=== PATIENT | male | born 1965 | race African-American/Black ===

== ENCOUNTER 2017-12-11 20:42 | Emergency (ER) | payer SELFPAY ==
--- NOTE | 2017-12-11 21:29 | ER ---
Nurse's Notes [facility] Name: Nadir Johns Age: 52 yrs Sex: Male : 1965 Arrival Date: 12/11/2017 Time: 20:43 Bed 23 Private MD: Diagnosis: Tinea pedis Presentation: 12/11 20:48 Presenting complaint: Patient states: Wound to inner left 5 th digit for 1 yr, recently aj became more painful. Transition of care: patient was not received from another setting of care. Onset of symptoms was 2016. Risk Assessment: Do you want to hurt yourself or someone else? Patient reports no desire to harm self or others. Initial Sepsis Screen: Does the patient meet any 2 criteria? No. Patient's initial sepsis screen is negative. Does the patient have a suspected source of infection? No. Patient's initial sepsis screen is negative. Care prior to arrival: None. 20:48 Method Of Arrival: Ambulatory aj 20:48 Acuity: JARON 3 aj Triage Assessment: 20:50 General: Appears in no apparent distress. comfortable, Behavior is calm, cooperative, aj appropriate for age. Pain: Complains of pain in plantar aspect of left fourth toe and plantar aspect of left fifth toe. Neuro: Level of Consciousness is awake, alert, obeys commands, Oriented to person, place, time, situation, Appropriate for age. Respiratory: Airway is patent Respiratory effort is even, unlabored, Respiratory pattern is regular, symmetrical. Derm: Skin is intact, is healthy with good turgor, Skin is pink, warm \T\ dry. normal, Wound noted plantar aspect of left fourth toe and plantar aspect of left fifth toe Wound is white leathery appearance in between left 4 th and 5 th toes. Historical: - Allergies: 20:50 No Known Allergies; aj - PMHx: 20:50 sciatica; Hypertension; aj - PSHx: 20:50 Hernia repair; aj - Immunization history:: Last tetanus immunization: Last tetanus immunization: unknown. - Social history:: Social history: Smoking status: Patient uses tobacco products, smokes one-half pack cigarettes per day. - Ebola Screening: : Patient negative for fever greater than or equal to 101.5 degrees Fahrenheit, and additional compatible Ebola Virus Disease symptoms Patient denies exposure to infectious person Patient denies travel to an Ebola-affected area in the 21 days before illness onset No symptoms or risks identified at this time. Screenin:03 Abuse screen: Denies threats or abuse. Denies injuries from another. Nutritional rv screening: No deficits noted. Tuberculosis screening: No symptoms or risk factors identified. Fall Risk None identified. Assessment: 21:02 General: Appears in no apparent distress. uncomfortable, Behavior is calm, cooperative. rv Pain: Complains of pain in plantar aspect of left fifth toe. Neuro: Level of Consciousness is awake, alert, obeys commands, Oriented to person, place, time, situation. Cardiovascular: Capillary refill < 3 seconds. Respiratory: Airway is patent. GI: No signs and/or symptoms were reported involving the gastrointestinal system. : No signs and/or symptoms were reported regarding the genitourinary system. EENT: No signs and/or symptoms were reported regarding the EENT system. Derm: Skin is intact. Vital Signs: 20:50 BP 171 / 87; Pulse 103; Resp 19; Temp 97.8; Pulse Ox 97% on R/A; Weight 97.52 kg; aj Height 5 ft. 10 in. (177.80 cm); 20:50 Body Mass Index 30.85 (97.52 kg, 177.80 cm) aj ED Course: 20:43 Patient arrived in ED. ds1 20:49 Triage completed. aj 20:50 Arm band placed on left wrist. Patient placed in an exam room. aj 21:03 Patient has correct armband on for positive identification. Placed in gown. Bed in low rv position. Call light in reach. Side rails up X 1. Pulse ox on. NIBP on. 21:10 Al[facility] Hilliard [facility]C [facility]. snw 21:10 Dragan Zheng MD is Attending Physician. snw 21:38 No provider procedures requiring assistance completed. Patient did not have IV access rv during this emergency room visit. Administered Medications: 21:38 Drug: DiFLUcan 150 mg Route: PO; rv 21:38 Follow up: Response: No adverse reaction rv 21:38 Drug: Tylenol #3 (300 mg-30 mg) 1 tablet Route: PO; rv 21:38 Follow up: Response: No adverse reaction rv Outcome: 21:28 Discharge ordered by . snw 21:38 Discharged to home ambulatory. rv 21:38 Condition: good 21:38 Discharge instructions given to patient, Instructed on discharge instructions, follow up and referral plans. medication usage, Demonstrated understanding of instructions, follow-up care, medications, Prescriptions given X 1. 21:39 Patient left the ED. rv Signatures: Wilma eTlles, RN RN Alix Coronado, SPOUTER-C SPOUTER-Csnw Tata Fine ds1 Jose Soriano RN RN rv
--- NOTE | 2017-12-11 21:29 | EDPHYS ---
Physician Documentation [facility] Name: Nadir Johns Age: 52 yrs Sex: Male : 1965 Arrival Date: 12/11/2017 Time: 20:43 Bed 23 Private MD: ED Physician Dragan Zheng HPI: 12/11 21:53 This 52 yrs old Black Male presents to ER via Ambulatory with complaints of Toe Pain. snw 21:53 Onset: The symptoms/episode began/occurred gradually, 1 year(s) ago, and became worse 3 snw day(s) ago. Associated signs and symptoms: The patient has no apparent associated signs or symptoms. Modifying factors: The patient symptoms are alleviated by nothing. It is unknown whether or not the patient has had similar symptoms in the past. It is unknown whether or not the patient has recently seen a physician. Historical: - Allergies: 20:50 No Known Allergies; aj - PMHx: 20:50 sciatica; Hypertension; aj - PSHx: 20:50 Hernia repair; aj - Immunization history:: Last tetanus immunization: Last tetanus immunization: unknown. - Social history:: Social history: Smoking status: Patient uses tobacco products, smokes one-half pack cigarettes per day. - Ebola Screening: : Patient negative for fever greater than or equal to 101.5 degrees Fahrenheit, and additional compatible Ebola Virus Disease symptoms Patient denies exposure to infectious person Patient denies travel to an Ebola-affected area in the 21 days before illness onset No symptoms or risks identified at this time. ROS: 21:52 Constitutional: Negative for fever, chills, and weight loss, Eyes: Negative for injury, snw pain, redness, and discharge, ENT: Negative for injury, pain, and discharge, Neck: Negative for injury, pain, and swelling, Cardiovascular: Negative for chest pain, palpitations, and edema, Respiratory: Negative for shortness of breath, cough, wheezing, and pleuritic chest pain, Abdomen/GI: Negative for abdominal pain, nausea, vomiting, diarrhea, and constipation, Back: Negative for injury and pain, : Negative for injury, bleeding, discharge, and swelling, Skin: Negative for injury, rash, and discoloration, Neuro: Negative for headache, weakness, numbness, tingling, and seizure. 21:52 MS/extremity: Positive for pain, swelling, of the left fifth toe. Exam: 21:50 Constitutional: This is a well developed, well nourished patient who is awake, alert, snw and in no acute distress. Head/Face: Normocephalic, atraumatic. Eyes: Pupils equal round and reactive to light, extra-ocular motions intact. Lids and lashes normal. Conjunctiva and sclera are non-icteric and not injected. Cornea within normal limits. Periorbital areas with no swelling, redness, or edema. ENT: Nares patent. No nasal discharge, no septal abnormalities noted. Tympanic membranes are normal and external auditory canals are clear. Oropharynx with no redness, swelling, or masses, exudates, or evidence of obstruction, uvula midline. Mucous membranes moist. Neck: Trachea midline, no thyromegaly or masses palpated, and no cervical lymphadenopathy. Supple, full range of motion without nuchal rigidity, or vertebral point tenderness. No Meningismus. Chest/axilla: Normal chest wall appearance and motion. Nontender with no deformity. No lesions are appreciated. Cardiovascular: Regular rate and rhythm with a normal S1 and S2. No gallops, murmurs, or rubs. Normal PMI, no JVD. No pulse deficits. Respiratory: Lungs have equal breath sounds bilaterally, clear to auscultation and percussion. No rales, rhonchi or wheezes noted. No increased work of breathing, no retractions or nasal flaring. Abdomen/GI: Soft, non-tender, with normal bowel sounds. No distension or tympany. No guarding or rebound. No evidence of tenderness throughout. Back: No spinal tenderness. No costovertebral tenderness. Full range of motion. MS/ Extremity: Pulses equal, no cyanosis. Neurovascular intact. Full, normal range of motion. Neuro: Awake and alert, GCS 15, oriented to person, place, time, and situation. Cranial nerves II-XII grossly intact. Motor strength 5/5 in all extremities. Sensory grossly intact. Cerebellar exam normal. Normal gait. Psych: Awake, alert, with orientation to person, place and time. Behavior, mood, and affect are within normal limits. 21:50 Skin: Appearance: normal except for affected area, left 4th-5th intertriginous area with separation of long duration with white thick scaly skin. Vital Signs: 20:50 BP 171 / 87; Pulse 103; Resp 19; Temp 97.8; Pulse Ox 97% on R/A; Weight 97.52 kg; aj Height 5 ft. 10 in. (177.80 cm); 20:50 Body Mass Index 30.85 (97.52 kg, 177.80 cm) aj MDM: 21:28 Patient medically screened. snw 21:52 Data reviewed: vital signs, nurses notes. Data interpreted: Pulse oximetry: on room air snw is 97 %. Interpretation: normal. Counseling: I had a detailed discussion with the patient and/or guardian regarding: the historical points, exam findings, and any diagnostic results supporting the discharge/admit diagnosis, the need for outpatient follow up, to return to the emergency department if symptoms worsen or persist or if there are any questions or concerns that arise at home. Special discussion: Based on the history and exam findings, there is no indication for further emergent testing or inpatient evaluation. I discussed with the patient/guardian the need to see the plant electrician for further evaluation of the symptoms. I discussed with the patient/guardian the need to see the infectious disease specialist for further evaluation of the symptoms. I discussed with the patient/guardian the need to see the primary care provider for further evaluation of the symptoms. (HIV +). Administered Medications: 21:38 Drug: DiFLUcan 150 mg Route: PO; rv 21:38 Follow up: Response: No adverse reaction rv 21:38 Drug: Tylenol #3 (300 mg-30 mg) 1 tablet Route: PO; rv 21:38 Follow up: Response: No adverse reaction rv Disposition: 12/12 03:13 Co-signature as Attending Physician, Dragan Zheng MD available for consultation at ps1 all times. . Disposition: 12/11/17 21:28 Discharged to Home. Impression: Tinea pedis. - Condition is Stable. - Discharge Instructions: Athlete's Foot. - Prescriptions for Fluconazole 150 mg Oral Tablet - take 1 tablet by ORAL route once daily Take in one week (12/18/17); 30 tablet. - Medication Reconciliation Form, Thank You Letter, Antibiotic Education, Prescription Opioid Use form. - Follow up: Private Physician; When: 2 - 3 days; Reason: Recheck today's complaints, Continuance of care, Re-evaluation by your physician. Follow up: Emergency Department; When: As needed; Reason: Worsening of condition. Signatures: Wilma Telles, RN RN Alix Coronado, STEWARD/STEWARDESS BATH-C STEWARD/STEWARDESS BATH-Csnw Dragan Zheng MD MD ps1 Jose Soriano, RN RN rv Corrections: (The following items were deleted from the chart) 12/11 21:39 21:28 12/11/2017 21:28 Discharged to Home. Impression: Tinea pedis. Condition is rv Stable. Forms are Medication Reconciliation Form, Thank You Letter, Antibiotic Education, Prescription Opioid Use. Follow up: Private Physician; When: 2 - 3 days; Reason: Recheck today's complaints, Continuance of care, Re-evaluation by your physician. Follow up: Emergency Department; When: As needed; Reason: Worsening of condition. [facility] 21:39 21:39 12/11/2017 21:28 Discharged to Home. Impression: Tinea pedis. Condition is rv Stable. Discharge Instructions: Athlete's Foot. Prescriptions for Fluconazole 150 mg Oral Tablet - take 1 tablet by ORAL route once daily Take in one week (12/18/17); 30 tablet. and Forms are Medication Reconciliation Form, Thank You Letter, Antibiotic Education, Prescription Opioid Use. Follow up: Private Physician; When: 2 - 3 days; Reason: Recheck today's complaints, Continuance of care, Re-evaluation by your physician. Follow up: Emergency Department; When: As needed; Reason: Worsening of condition. rv
[2017-12-11] MEDS ORDERED: CODEINE 30MG/APAP 300MG TAB ONE (21:43)
[2017-12-11] MEDS ORDERED: FLUCONAZOLE 100 MG TAB ONE (21:43)
== END 2017-12-11 21:39 | disposition home or self-care (01) ==
LOC: ER 20:42
DX: B35.3 Tinea pedis (principal); I10 Essential (primary) hypertension; Z72.0 Tobacco use
CPT/HCPCS: 99283

== ENCOUNTER 2019-09-05 05:49 | Emergency (ER) | payer SELFPAY ==
--- OUTSIDE RECORDS SUMMARY | 2019-09-05 05:51 | XMS REPORT | Continuity of Care Document ---
:1965 Author Organization [facility] t Address [address] [place] [address] Care Team Providers Name Role Phone Shad BEARD Attending Clinician Andrew RN, L Attending Clinician Unavailable Colt HERNANDEZ L Attending Clinician Unavailable Amisha SHIPMAN, L Attending Clinician Unavailable Ady RN, M Attending Clinician Unavailable Problems This patient has no known problems. Allergies, Adverse Reactions, Alerts This patient has no known allergies or adverse reactions. Medications This patient has no known medications. Procedures This patient has no known procedures. Encounters Start End Encounter Admission Attending Care Care Encounter Source Date/Time Date/Time Type Type Clinicians Facility Department ID 2019-08-17 2019-08-[address]2.840.114 [id number] 07:23:13 07:53:13 ne Visit [facility] [id number] [facility] [id number] 2019-08-17 2019-08-[address]840.114 [id number] 00:00:00 00:00:00 [facility] [id number] [facility] [id number] [id number] 2019-08-17 2019-08-[address]840.114 [id number] 00:00:00 00:00:00 [facility] [id number] [facility] [id number] [id number] 2019-08-16 2019-08-16 BRITTANI Elizalde [id number] 00:00:00 00:00:00 [facility] [id number] [facility] [id number] [id number] 2019-08-16 2019-08-16 Marco Antonio Gregory [facility] [id number] 00:00:00 00:00:00 [facility] [id number] [facility] [id number] [id number] 2019-08-16 2019-08-16 Marco Antonio Gregory [facility] [id number] 00:00:00 00:00:00 Management [facility] [id number] [facility] [id number] [id number] 2019-08-13 2019-08-13 BRITTANI Elizalde [id number] 00:00:00 00:00:00 Management [facility] [id number] [facility] [id number] [id number] 2019-08-12 2019-08-12 BRITTANI Elizalde [id number] 00:00:00 00:00:00 Management [facility] [id number] [facility] 4.2.7.2.686 [id number] 2019-08-04 2019-08-04 BRITTANI Elizalde [id number] 00:00:00 00:00:00 Management [facility] [id number] [facility] 4.2.7.2.686 [id number] 082019-07-27 2019-07-27 BRITTANI Elizalde [id number] 00:00:00 00:00:00 Management [facility] [id number] [facility] 4.2.7.2.686 [id number] 082019-07-26 2019-07-26 BRITTANI Elizalde [id number] 00:00:00 00:00:00 Management Nano Blakely [facility] [id number] [facility] 4.2.7.2.686 [id number] 2019-03-18 2019-03-[address].840.114 [id number] 00:00:00 00:00:00 Oral L [facility] [id number] [facility] 4.2.7.2.686 [id number] 2019-03-15 2019-03-15 Marco Antonio [address].840.114 [id number] 00:00:00 00:00:00 Management Zahira Lepe [facility] [id number] [facility] [id number] [id number] 2018-10-22 2018-10-22 [address].840.114 [id number] 00:00:00 00:00:00 [facility] [id number] [facility] [id number] [id number] 2018-10-13 2018-10-[address]114 [id number] 00:00:00 00:00:00 [facility] [id number] [facility] 4.2.7.2.686 [id number] Results This patient has no known results.
--- OUTSIDE RECORDS SUMMARY | 2019-09-05 05:52 | XMS REPORT | Summary of Care ---
:1965 Author Organization [address] [address] Care Team Providers Name Role Phone Unit, 2 Primary Care Provider Reason for Visit Reason Comments Case Management attempted to contact for re-enrollment; unable to reach Encounter Details Date Type Department Care Team Description 07/27/2019 Case Management [facility] Nano Gregory MA Case Management [address] (attempted to Diseases- [facility] contact for RW [facility] [place] [address] re-enrollment; [address] unable to re ach) [address] [place] [address] Allergies No Known Allergiesdocumented as of this encounter (statuses as of 07/28/2019) Medications Medication Sig Dispensed Refills Start Date End Date Status hydroCHLOROthiazide 25 mg Take 1 tablet 30 tablet 11 10/15/2017 Active tablet by mouth daily. sulfamethoxazole-trimetho Take 1 tablet 100 tablet 1 8 Active prim (BACTRIM DS) 800-160 by mouth mg per tablet daily. sofosbuvir-velpatasvir Take 1 tablet 28 tablet 2 10/15/2017 Active (EPCLUSA) 400-100 mg by mouth daily. ([place] ADAP approval pending) SULFAMETHOXAZOLE-TRIMETHO TAKE 1 TABLET 30 tablet 5 04/24/2018 Active PRIM 800-160 mg per BY MOUTH tablet DAILY. AMLODIPINE 10 mg tablet TAKE ONE 30 tablet 0 09/14/2018 Active TABLET BY MOUTH DAILY. dolutegravir 50 mg tablet Take 1 tablet 30 tablet 3 12/24/2018 Active by mouth daily. emtricitabine-tenofovir Take 1 tablet 30 tablet 3 12/24/2018 Active alafen tablet by mouth daily. documented as of this encounter (statuses as of 07/28/2019) Active Problems Problem Noted Date AIDS 01/20/2017 HTN (hypertension) 01/20/2017 documented as of this encounter (statuses as of 07/28/2019) Immunizations Name Administration Dates Next Due Influenza Virus Vaccine Quad IM 3+ YRS 01/20/2017 Pneumococcal 13 Conjugate, PCV13 (Prevnar 13) 06/20/2017 Pneumococcal Polysaccharide, PPSV23 (PNEUMOVAX) 01/19/2018 TDAP (ADACEL) VACCINE 06/20/2017 documented as of this encounter Social History Tobacco Use Types Packs/Day Years Used Date Current Every Day Smoker Cigarettes 0.2 5 Basim t: 06/12/2009 Smokeless Tobacco: Never Used Comments: 1 pack per week Alcohol Use Drinks/Week oz/Week Comments Yes Occasionally, on ce a month Sex Assigned at Date Recorded Not on file Job Start Date Occupation Industry Not on file Not on file Not on file Travel History Travel Start Travel End No recent travel history available. documented as of this encounter Last Filed Vital Signs Not on filedocumented in this encounter Progress Notes Nano Gregory MA - 07/27/2019 11:59 PM CDTPatient called returned my call to complete re-enrollment in the [employer] program, however he called my clinic office, instead of my cell number as I had requested yesterday. Called patient again and left a detailed message explaining that I will not be in my clinic office until . Once again asked patient to call my cell number to complete re-enrollment in program. A total of 15 minutes was taken to complete this encounter for a non-[employer] program patient. documented in this encounter Plan of Treatment Health Maintenance Due Date Last Done Comments COLONOSCOPY 2013 Zoster Recombinant Vaccine (SHINGRIX) (1 2013 of 2) LUNG CANCER SCREEN: Recommended for age 1202/05/2018 55-80 with 30 + pack year history Depression Screening 10/06/2019 10/05/2018 INFLUENZA VACCINE (Season Ended) 2019 01/20/2017 PNEUMOCOCCAL 0-64 YEARS COMBINED SERIES (3 01/19/202301/19, 06/20/2017 of 3 - PPSV23) DTaP,Tdap,and Td Vaccines (2 - Td) 06/21/2027 06/20/2017 HEPATITIS C (HCV) SCREEN Completed 06/20/2017 documented as of this encounter Results Not on filedocumented in this encounter Insurance Payer Benefit Plan / Subscriber ID Effective Dates Phone Addre ss Type Group [facility] Effective for all [place] dates documented as of this encounter
--- OUTSIDE RECORDS SUMMARY | 2019-09-05 05:52 | XMS REPORT | Summary of Care ---
:1965 Author Organization [address] [address] Care Team Providers Name Role Phone Unit, 2 Primary Care Provider Reason for Visit Reason Comments Case Management Completed re-enrollment in R [facility]erson program & med adherence Encounter Details Date Type Department Care Team Description 08/13/2019 Case Management [facility] Nano Gregory MA Case Management [address] (Completed Diseases- [facility] [place] [address] [facility] program & [address], [address] [place] [phone] Allergies No Known Allergiesdocumented as of this encounter (statuses as of 08/16/2019) Medications Medication Sig Dispensed Refills Start Date End Date Status hydroCHLOROthiazide 25 mg Take 1 tablet 30 tablet 11 10/15/2017 Active tablet by mouth daily. sulfamethoxazole-trimetho Take 1 tablet 100 tablet 1 8 Active prim (BACTRIM DS) 800-160 by mouth mg per tablet daily. sofosbuvir-velpatasvir Take 1 tablet 28 tablet 2 10/15/2017 Active (EPCLUSA) 400-100 mg by mouth daily. ([place] ADAP approval pending) SULFAMETHOXAZOLE-TRIMETHO TAKE 1 TABLET [...] as of this encounter (statuses as of 08/16/2019) Active Problems Problem Noted Date AIDS 01/20/2017 HTN (hypertension) 01/20/2017 documented as of this encounter (statuses as of 08/16/2019) Immunizations Name Administration Dates Next Due Influenza [...] encounter Progress Notes Nano Gregory MA - 08/13/2019 11:59 PM CDTReturned client's call to complete re-enrollment in the Ruben White program. Most recent message client left on my office phone contained a call back number that was different than the one shown in [employer]. Client finally answered, verified that this is now his correct phone number. Changed primary contact number in PowerDMS to [phone]. Discussed supporting documentation needed to complete standard re-enrollment in the Ruben White program, and the fact that program staff are working offsite due to the current national health crisis. Client has no way to provide documents remotely, offered emergency re-enrollment as an alternative, no documentation required. Client provided updated demographic & income information, as well as marital status & household size. Discussed information contained in Ruben White program consents &acknowledgement forms, client is aware that his signature may be required once [id number] clinic visits resume. Completed emergency enrollment form based on information provided by phone. Client hasno medical case management needs at this time, updated acuity = 9, primarily due to falling out of care frequently & taking extended drug holidays. Client has been non-compliant with case management attempts previously, only needs occasional assistance with transportation and other community resources. Client will be re-enrolled as "open" case management status. Reminded client that he will need to complete annual re-enrollment in the Ruben White program in January 2020, he will received a reminder call, as well as a letter at least 30 day prior to the due date. Discussed medication adherence, client states he has been off medication for several months due to not completing required THMP/ADAP updates. He is now ready to begin treatment again. Advised that I would contact his clinic provider to verify medication regimen, then new THMP/ADAP application will besubmitted. Client is aware of THMP's current 3 week processing time, discussed temporary assistancethrough pharmaceutical manufacturers, or ACCT for immediate access to medication. Client's preferred pharmacy is [facility]. Also advised client that he missed his previously scheduled clinic appointment, a follow-up will be requested, although it is undetermined if this will be a telemedicine visit or [id number]. Informedclient I would contact him when further information is obtained from clinic provider. A total of 75minutes was taken to complete this encounter. documented in this encounter Plan of Treatment Health Maintenance Due Date Last Done Comments COLONOSCOPY 2013 Zoster Recombinant Vaccine (SHINGRIX) (1 2013 of 2) LUNG CANCER SCREEN: Recommended for age 1202/05/2018 55-80 with 30 + pack year history Depression Screening 10/06/2019 10/05/2018 INFLUENZA VACCINE (#1) 2019 01/20/2017 PNEUMOCOCCAL 0-64 YEARS COMBINED SERIES (3 01/19/202301/19, 06/20/2017 of 3 - PPSV23) DTaP,Tdap,and Td Vaccines (2 - Td) 06/21/2027 06/20/2017 HEPATITIS C (HCV) SCREEN Completed 06/20/2017 documented as of this encounter Results Not on filedocumented in this encounter Insurance Payer Benefit Plan / Subscriber ID Effective Dates Phone Addre ss Type Group [facility] PA[place]OR [facility] Effective for all [place], [place] dates documented as of this encounter
--- OUTSIDE RECORDS SUMMARY | 2019-09-05 05:52 | XMS REPORT | Summary of Care ---
:1965 Author Organization [facility] - [address] [address] Care Team Providers Name Role Phone Unit, 2 Primary Care Provider Reason for Visit Reason Comments Case Management attempted to return client's call; unable to reach Encounter Details Date Type Department Care Team Description 08/12/2019 Case Management [facility] Nano Gregory MA Case Management [address] (attempted to return [facility] [address] client's call; [place] [address] unable to reach) [address] [facility], 6th [place] [phone] Allergies No Known Allergiesdocumented as of this encounter (statuses as of 08/13/2019) Medications Medication Sig Dispensed Refills Start Date End Date Status hydroCHLOROthiazide 25 mg Take 1 tablet 30 tablet 11 10/15/2017 Active tablet by mouth daily. sulfamethoxazole-trimetho Take 1 tablet 100 tablet 1 8 Active prim (BACTRIM DS) 800-160 by mouth mg per tablet daily. sofosbuvir-velpatasvir Take 1 tablet 28 tablet 2 10/15/2017 Active (EPCLUSA) 400-100 mg by mouth daily. ([place] ADAP approval pending) SULFAMETHOXAZOLE-TRIMETHO TAKE 1 TABLET [...] as of this encounter (statuses as of 08/13/2019) Active Problems Problem Noted Date AIDS 01/20/2017 HTN (hypertension) 01/20/2017 documented as of this encounter (statuses as of 08/13/2019) Immunizations Name Administration Dates Next Due Influenza [...] encounter Progress Notes Nano Gregory MA - 08/12/2019 11:59 PM CDTClient has left multiple voice messages on my office phone the past 2 days, however he does not leave a good call-back number for me to return his call. Attempted to call the number in [facility], this number now belongs to someone else. Reviewed [facility] for possible alternate phone numbers on eligibility documents, however these all show the same phone number as the one in [facility]. Sent message to other Ruben White program staff to please obtain a good phone number for this client if he happens to contact anyto them. Client is now out of compliance with requirements of the Ruben White program since 02/10/2019 due to not completing annual re-certification by the 02/10/2020 deadline. A total of 15 minutes was taken to complete this encounter. documented [...] Effective Dates Phone Addre ss Type Group [facility] PA[facility]OR [facility] PLAN Effective for all [place], [place] dates documented as of this encounter
--- OUTSIDE RECORDS SUMMARY | 2019-09-05 05:52 | XMS REPORT | Summary of Care ---
:1965 Author Organization [address] [address] Care Team Providers Name Role Phone Unit, 2 Primary Care Provider Reason for Visit Reason Comments Case Management attempted to contact for re-enrollment; unable to reach Encounter Details Date Type Department Care Team Description 08/04/2019 Case Management [facility] Nano Gregory MA Case Management [address] (attempted to Diseases- [facility] contact for [facility] [place] [address] re-enrollment; [address] unable to re ach) [address], [address]th [place] [address] Allergies No Known Allergiesdocumented as of this encounter (statuses as of 08/04/2019) Medications Medication Sig Dispensed Refills Start Date End Date Status hydroCHLOROthiazide 25 mg Take 1 tablet 30 tablet 11 10/15/2017 Active tablet by mouth daily. sulfamethoxazole-trimetho Take 1 tablet 100 tablet 1 8 Active prim (BACTRIM DS) 800-160 by mouth mg per tablet daily. sofosbuvir-velpatasvir Take 1 tablet 28 tablet 2 10/15/2017 Active (EPCLUSA) 400-100 mg by mouth daily. ([place] ADAP approval pending) SULFAMETHOXAZOLE-TRIMETHO TAKE 1 TABLET [...] as of this encounter (statuses as of 08/04/2019) Active Problems Problem Noted Date AIDS 01/20/2017 HTN (hypertension) 01/20/2017 documented as of this encounter (statuses as of 08/04/2019) Immunizations Name Administration Dates Next Due Influenza [...] encounter Progress Notes Nano Gregory MA - 08/04/2019 1:05 PM CDTAttempted to contact client for re- enrollment in the Ruben White program. Called the number on file,a child answered & told me that this is a wrong number. No additional numbers on file, final attempt to contact patient. A total of 15 minutes was taken [...] Effective Dates Phone Addre ss Type Group [facility] PAYOR [facility] PLAN Effective for all [place], [place] dates documented as of this encounter
--- OUTSIDE RECORDS SUMMARY | 2019-09-05 05:52 | XMS REPORT | Summary of Care ---
:1965 Author Organization [address] [address] Care Team Providers Name Role Phone Unit, 2 Primary Care Provider Reason for Visit Reason Comments Case Management attempted to return patient' s phone call; unable to reach Encounter Details Date Type Department Care Team Description 07/26/2019 Case Management [facility] Nano Gregory MA Case Management [address] (attempted to return [facility] [place] [address] call; unable to [address], [address] [place] [address] Allergies No Known Allergiesdocumented as of this encounter (statuses as of 07/26/2019) Medications Medication Sig Dispensed Refills Start Date End Date Status hydroCHLOROthiazide 25 mg Take 1 tablet 30 tablet 11 10/15/2017 Active tablet by mouth daily. sulfamethoxazole-trimetho Take 1 tablet 100 tablet 1 8 Active prim (BACTRIM DS) 800-160 by mouth mg per tablet daily. sofosbuvir-velpatasvir Take 1 tablet 28 tablet 2 10/15/2017 Active (EPCLUSA) 400-100 mg by mouth daily. ([place] ADAP approval pending) SULFAMETHOXAZOLE-TRIMETHO TAKE 1 TABLET [...] as of this encounter (statuses as of 07/26/2019) Active Problems Problem Noted Date AIDS 01/20/2017 HTN (hypertension) 01/20/2017 documented as of this encounter (statuses as of 07/26/2019) Immunizations Name Administration Dates Next Due Influenza [...] filedocumented in this encounter Progress Notes Nano rGegory MA - 07/26/2019 3:49 PM CDTPatient left a message on my office phone that he is out of medicine and would like to re-enroll in the Ruben White program. He has been out of compliance with requirements of the program since 02/10/2019, due to not completing annual re-enrollment by 02/09/2019. His Ruben White program case file was referred to machinist supervisor for account closure after he missed a clinic appointment in March 2019. Patient will now require complete re-enrollment in Ruben White program if he needs funding for clinic healthcare services. Called the phone number that patient provided in his message, no answer, left message with my contact information for a return call. A total of 15 minutes was taken [...] Effective Dates Phone Addre ss Type Group [facility] [place] [facility] [place] Effective for all [place], [place] dates documented as of this encounter
--- OUTSIDE RECORDS SUMMARY | 2019-09-05 05:53 | XMS REPORT | Summary of Care ---
:1965 Author Organization [address] [address] Care Team Providers Name Role Phone Unit, 2 Primary Care Provider Reason for Visit Reason Comments Rx Concern/Question New THMP/ADAP application up loaded into [employer] for processing Encounter Details Date Type Department Care Team Description 08/16/2019 Case Management [facility] Nano Gregory MA Rx Concern/Question Infectious [address] [place] [address] (New THMP/ADA P Diseases- [address] [place] [address] into Specpage for [address]) [address], [address] [place] [address] Allergies No Known Allergiesdocumented as [...] Active (EPCLUSA) 400-100 mg by mouth daily. ([place] ADAP approval pending) SULFAMETHOXAZOLE-TRIMETHO TAKE 1 TABLET [...] encounter Progress Notes Nano Gregory MA - 08/16/2019 11:47 AM CDTSpoke with clinic provider regarding medication regimen upon client's return to care. Provider advised that regimen will continue as Tiivicay & Descovy at this time. Prepared, scanned & uploaded THMP/ADAP emergency application into [employer] for processing. Updated spreadsheet & notified [facility] of upload. A copy of the upload notice has been filed in client's [facility]na case management chart. A total of 60 minutes was taken to complete this encounter. [...] Effective Dates Phone Addre ss Type Group [facility] PAYOR [facility] PLAN Effective for all [place], [place] dates documented as of this encounter
--- OUTSIDE RECORDS SUMMARY | 2019-09-05 05:53 | XMS REPORT | Summary of Care ---
:1965 Author Organization [facility] Address [address] [place] [address] Care Team Providers Name Role Phone Unit, 2 Primary Care Provider Reason for Visit Reason Comments Case Management requested clinic appointment Encounter Details Date Type Department Care Team Description 08/16/2019 Case Management [facility] Nano Gregory MA Case Management [address] (requested cl inic Diseases- [facility] appointment) [place] [address] [place] [address], 6th [place] [phone] Allergies No Known Allergiesdocumented as of this [...] Active (EPCLUSA) 400-100 mg by mouth daily. ([place] ADAP approval pending) SULFAMETHOXAZOLE-TRIMETHO TAKE 1 TABLET [...] Progress Notes Nano Gregory MA - 08/16/2019 3:27 PM CDTSpoke with clinic provider regarding client's return to care & asked if client needs to be seen f renay-to-face. Provider informed me that client is appropriate for telemedicine visit at this time, future labs may be ordered. Sent request to infectious disease scheduling department for next available telemedicine visit. Called client and advised that he may receive a call from the scheduling department as well to make arrangements for his visit. Provided my contact information should he need further assistance. A total of 30 minutes was taken to complete this encounter. [...] Effective Dates Phone Addre ss Type Group [facility] PA[place]OR [facility] [place] [place] Effective for all [place], [place] dates documented as of this encounter
--- OUTSIDE RECORDS SUMMARY | 2019-09-05 05:53 | XMS REPORT | Summary of Care ---
:1965 Author Organization [address] [address] Care Team Providers Name Role Phone Unit, 2 Primary Care Provider Reason for Visit Reason Comments Rx Concern/Question Obtained temporary [place] [employer] assistance for Descovy & Tivicay Encounter Details Date Type Department Care Team Description 08/16/2019 Case Management [facility] Nano Gregory MA Rx Concern/Question Infectious [address] [place] [address] (Obtained tem porary DiseasesFormerly [facility] [place] [address] assistance for [address], [address] [place] [address] Allergies No Known Allergiesdocumented as [...] Active (EPCLUSA) 400-100 mg by mouth daily. ([place] ADAP approval pending) SULFAMETHOXAZOLE-TRIMETHO TAKE 1 TABLET [...] filedocumented in this encounter Progress Notes Nano Gregory, DAVID - 08/16/2019 3:10 PM CDTSpoke with client regarding emergency temporary funding for Descovy & Tivicay. New THMP/ADAP application is in process, however client has been without medication for several months. Advised that I would attempt to obtain immediate for a 30-day supply of each medication through [place] (Descovy) and [employer] (Tivicay) patient assistance programs. Called [facility], spoke with Hailey, provided current demographic & income information, as well asprovider information. Patient was approved for immediate access to a 30-day supply of Descovy from 08/16/2019 through 09/15/2019. Should patient need assistance beyond 30 days, he will need to submit a complete application, along with all supporting documentation. Hailey provided the following billing information for emergency patient assistance: ID#[id number], BIN#[id number], PCN#[id number], GRP#[id number]. Called [employer], spoke with Chioma, provided current demographic & income information, as well as provider information. Patient was approved for immediate access to a 30-day supply of Tivicay from 08/16/2019 through 09/15/2019. Should patient need assistance beyond 30 days, he will need to submit a complete application, along with all supporting documentation. Chioma provided the following billing information for emergency patient assistance: ID#[id number], BIN#[id number],PCN#[id number], GRP#[id number]. Called [facility], spoke with Riddhi, verified that pharmacy has current refills of Descovy & Tivicay on file. Provided all pertinent billing information for both [place] & [employer] patient assistance programs. Riddhi processed both refills while I was on the phone and confirmedthat client may receive both medications at no cost. Riddhi will contact the client to arrange for delivery. Called client, advised of approvals for temporary medication assistance, provided contact information for both the pharmacy, and myself, should he need further assistance. A total of 120 minutes was taken to complete this encounter. [...] Effective Dates Phone Addre ss Type Group [facility] PAYOR [facility] PLAN Effective for all [place], [place] dates documented as of this encounter
--- OUTSIDE RECORDS SUMMARY | 2019-09-05 05:54 | XMS REPORT | Summary of Care ---
:1965 Author Organization [facility] Address [address] [place] [address] Care Team Providers Name Role Phone Unit, 2 Primary Care Provider Reason for Visit Reason Comments REFERRAL Encounter Details Date Type Department Care Team Description 08/17/2019 Telephone [facility] Infectious Rosa Morales RN REFERRAL Diseases- [address], [address] Floor [place] [phone] Allergies No Known Allergiesdocumented as of this encounter (statuses as of 08/18/2019) Medications Medication Sig Dispensed Refills Start Date End Date Status emtricitabine-tenofovir Take 1 tablet 30 tablet 5 08/17/2019 Active alafen tabletIndications: by mouth Symptomatic HIV infection daily. dolutegravir 50 mg Take 1 tablet 30 tablet 5 08/17/2019 Active tabletIndications: by mouth Symptomatic HIV infection daily. hydroCHLOROthiazide 25 mg Take 1 tablet 30 tablet 11 08/17/2019 Active tabletIndications: by mouth Essential hypertension daily. amLODIPine 10 mg Take 1 tablet 30 tablet 11 08/17/2019 Active tabletIndications: by mouth Essential hypertension daily. documented as of this encounter (statuses as of 08/18/2019) Active Problems Problem Noted Date AIDS 01/20/2017 HTN (hypertension) 01/20/2017 documented as of this encounter (statuses as of 08/18/2019) Immunizations Name Administration Dates Next Due Influenza [...] Signs Not on filedocumented in this encounter Plan of Treatment Date Type Specialty Care Team Description 09/29/2019 Office Visit [facility] [address] [place], [place] [address] Health Maintenance Due Date Last Done Comments [...] Effective Dates Phone Addre ss Type Group [facility] [place] [place] PLAN Effective for all [place], [place] dates documented as of this encounter
--- OUTSIDE RECORDS SUMMARY | 2019-09-05 05:54 | XMS REPORT | Summary of Care ---
:1965 Author Organization [facility] - [facility] Address [address] [place] [id number] Care Team Providers Name Role Phone Unit, 2 Primary Care Provider Reason for Visit Reason Comments HIV Encounter Details Date Type Department Care Team Description 08/17/2019 Telemedicine Visit [facility], Ruben Osborn Infectious Diseases- [place] hypertension (Primary [address] Dx) [facility]UST [id number] [address] [place] [address], [address] [address] [place], [place] [phone] Allergies No Known Allergiesdocumented as of this encounter (statuses as of 08/17/2019) Medications Medication Sig Dispensed Refills Start End Status Date Date hydroCHLOROthiazide 25 Take 1 30 tablet Active mg tabletIndications: tablet by 0 Essential hypertension mouth daily. amLODIPine 10 mg Take 1 30 tablet 11 Act janice tabletIndications: tablet by 0 Essential hypertension mouth daily. hydroCHLOROthiazide 25 Take 1 30 tablet 11 Discontinued mg tablet tablet by 8 020 (Reorder) mouth daily. sulfamethoxazole-trimet Take 1 100 tablet 1 08/16 Discontinued hoprim (BACTRIM DS) tablet by 8 020 800-160 mg per tablet mouth daily. sofosbuvir-velpatasvir Take 1 28 tablet 2 Discontinued (EPCLUSA) 400-100 mg tablet by 8 020 mouth daily. ([place] ADAP approval pending) SULFAMETHOXAZOLE-TRIMET TAKE 1 30 tablet 5 Discontinued HOPRIM 800-160 mg per TABLET BY 9 020 tablet MOUTH DAILY. AMLODIPINE 10 mg tablet TAKE ONE 30 tablet 0 Discontinued TABLET BY 9 020 (Reorder) MOUTH DAILY. documented as of this encounter (statuses as of 08/17/2019) Active Problems Problem Noted Date AIDS 01/20/2017 HTN (hypertension) 01/20/2017 documented as of this encounter (statuses as of 08/17/2019) Immunizations Name Administration Dates Next Due Influenza [...] on filedocumented in this encounter Progress Notes Anurag Kulkarni PA - 08/17/2019 10:00 AM CDT TELEHEALTH NOTE Verbal consent obtained from Patient: Nadir Johns due to the COVID-19 pandemic for telehealthservices provided below. Communication with patient was conducted via Telephone due to patient unable to obtain video call option. Location of Patient: Home Location of Provider: Office Date of Service: 08/17/2019 Chief Complaint: HIV scheduled visit HPI: Nadir Johns is a 54 year old AAM who presents to clinic today for a HIV telehealth visit. .TDC is listed his coverage section in EPIC but the patient states has not been reincarcerated since his last visit in 09/28. He is still on the RW program Overall, he states that he feels well although is his sure is BP is high because he has had a left intermittent frontal ESCALANTE. Ran out of meds over 2 weeks ago. Denies having dizziness, vision changes, CP, edema, excessive fatigue. He has not been hospitalized or had to go to a local ER since he was last seen He went to a local clinic for COVID-19 testing (they did no oral pharyngeal swab) - waiting for the results. He and his family members went to get tested. No suspicious sx currently He ran out of ART 2 weeks ago. He reports that he has been taking them regularly until. Nano Gregory, library services coordinator, go rapid approval for his meds recently and I e-scribed them in yesterday He was approved for HCV tx but it was never delivered to him per patient He denies drinking ETOH, rarely smoked marijuana, no other recreational drugs, Still smoking cigarettes and is interested in quitting His official address is in [place] but he is living in [facility] because his parents are cancer survivors and does not want put them risk for COVID-19 Past Medical History: Diagnosis Date AIDS HIV dxd 2013. Took descovy + tivicay x 1 m in 2016. No other ARVs. No OIs. Chronic hepatitis C Hypertension Dxd in 2009. No end organ complications Microcytosis without anemia MEDICATIONS: Off ALL meds x 2 weeks ROS Denies having fevers, chills, NS, weight loss, + ESCALANTE, without cough, + SILVA, without CP, PND, orthopnea, dysphagia, oral lesions, abd pain, N/V/D No longer has nocturia, denies having urinary frequency or hesitancy Denies having rash, paresthesias, weakness, or sig joint pain TELEHEALTH EXAM Gen: very pleasant, alert, nl speech Laboratory 10/05/18 HIV-1 RT PCR = not detected CD4 = 323 (19%) Ref. Range 10/05/2018 15:45 WBC x10^3 Latest Ref Range: 4.20 - 10.70 10*3/L 7.51 RBC x10^6 Latest Ref Range: 4.26 - 5.52 10*6/L 5.92 (H) HGB Latest Ref Range: 12.2 - 16.4 g/dL 12.9 HCT Latest Ref Range: 38.4 - 49.3 % 37.6 (L) MCV Latest Ref Range: 81.7 - 95.6 fL 63.5 (L) MCH Latest Ref Range: 26.1 - 32.7 pg 21.8 (L) MCHC Latest Ref Range: 31.2 - 35.0 g/dL 34.3 RDW-SD Latest Ref Range: 38.5 - 51.6 fL 37.5 (L) RDW-CV Latest Ref Range: 12.1 - 15.4 % 18.2 (H) PLT x10^3 Latest Ref Range: 150 - 328 10*3/L 266 Ref. Range 10/05/2018 15:45 HGB A Latest Ref Range: 95.0 - 97.9 % 22.8 (L) HGB A2 Latest Ref Range: 2.0 - 3.5 % 6.0 (H) HGB F Latest Ref Range: 0.0 - 2.1 % 5.2 (H) HGB C Latest Ref Range: 0.0 % >43.0 HGB OTHER Latest Units: % 0.5 HGB EVAL HPLC Unknown Y Hgb interpretation -Hemoglobinopathy evaluation by Capillary Electrophoresis and High Performance Liquid Chromatography shows Hg A (22%), increased Hg A26%, increased Hg F 5.2% and a variant hemoglobin> 43%%. The variant hemoglobin has a migration pattern and retention consistent with Hg C.Bloodsmear show microcytosis, erythrocytosis and target cells. 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 Ref. Range 10/15/2017 11:54 10/05/2018 15:45 PSA Latest Ref Range: <=4.00 ng/mL 6.91 (H) 7.32 (H) Ref. Range 10/05/2018 15:45 NA Latest Ref Range: 135 - 145 mmol/L 139 K Latest Ref Range: 3.5 - 5.0 mmol/L 4.1 CL Latest Ref Range: 98 - 108 mmol/L 101 CO2 TOTAL Latest Ref Range: 23 - 31 mmol/L 30 AGAP Latest Ref Range: 2 - 16 8 BUN Latest Ref Range: 7 - 23 mg/dL 16 GLUCOSE Latest Ref Range: 70 - 110 mg/dL 87 CREATININE Latest Ref Range: 0.60 - 1.25 mg/dL 1.09 eGFR CALCULATION (non ) Latest Units: mL/min/1.73m2 70.2 eGFR CALCULATION () Latest Units: mL/min/1.73m2 85.1 TOTAL BILI Latest Ref Range: 0.1 - 1.1 mg/dL 0.8 BILI UNCON Latest Ref Range: 0.1 - 1.1 mg/dL 0.4 BILI CONJ Latest Ref Range: 0.0 - 0.3 mg/dL 0.0 CHOL Latest Ref Range: 120 - 200 mg/dL 155 TRIG Latest Ref Range: 30 - 170 mg/dL 101 HDL CHOL Latest Ref Range: >40 mg/dL 74 HDLC RATIO Latest Ref Range: <=5.0 2.1 LDL CHOL Latest Ref Range: <=160 mg/dL 61 VLDL Latest Ref Range: 5 - 60 mg/dL 20 CALCIUM Latest Ref Range: 8.6 - 10.6 mg/dL 9.9 T PROTEIN Latest Ref Range: 6.3 - 8.2 g/dL 7.8 ALBUMIN Latest Ref Range: 3.5 - 5.0 g/dL 4.7 ALK PHOS Latest Ref Range: 34 - 122 U/L 72 ALT(SGPT) Latest Ref Range: 9 - 51 U/L 53 (H) AST(SGOT) Latest Ref Range: 13 - 40 U/L 38 ASSESSMENT/ PLAN Nadir Johns is a 54 year old male with PMH as above presenting with: 1. HIV+/ AIDS - previously well controlled with a CD4 > 200 x 2 with an undetectable - off ART x 2 weeks unfortunately - restart Descovy + Tivicay - no need to restart Bactrim for PJP prophylaxis at this time 2. Hypertension - off tx, he has not checked BP at home but has been having HAs - restart amlodipine and HCTZ 3. Chronic hepatitis C - GT1A with a low HCV PCR of 280K IU/m and mild liver enzyme increase. No evidence of cirrhosis - platelet count, bili and albumin are nl - will address again on RTC 4. Elevated PSA - 7.32 (09/28) and 6.91 (10/28) - asymptomatic - his father has a h/o prostate cancer - he has not seen a Urologist due to being uninsured - in lives in [facility] and hopefully is eligible for their indigent program that has a contract with [facility]. RW behavioral health case manager to reach out to the patient RTC 6-8 weeks Weds AM A total of 20 minutes was spent on the Telephone due to patient unable to obtain video call option. Anurag Kulkarni PA-C documented in this encounter Plan of Treatment [...] Results Not on filedocumented in this encounter Visit Diagnoses Diagnosis Essential hypertension - Primary Unspecified essential hypertension documented in this encounter
--- OUTSIDE RECORDS SUMMARY | 2019-09-05 05:54 | XMS REPORT | Summary of Care ---
:1965 Author Organization [facility] - [place] Address [address] [place] [id number] Care Team Providers Name Role Phone Unit, 2 Primary Care Provider Reason for Visit Reason Comments Refill Request Encounter Details Date Type Department Care Team Description 08/17/2019 Telephone [facility], [place] Pedraza Refill Request Diseases- [id number] [place] [address] [place], [place] [id number] [place] [address] Allergies No Known Allergiesdocumented as of this encounter (statuses as of 08/17/2019) Medications Medication Sig Dispensed Refills Start End Status Date Date hydroCHLOROthiazide 25 Take 1 30 tablet 11 Active mg tablet tablet by 8 mouth daily. sulfamethoxazole-trimet Take 1 100 tablet 1 Active hoprim (BACTRIM DS) tablet by 8 800-160 mg per tablet mouth daily. sofosbuvir-velpatasvir Take 1 28 tablet 2 Active (EPCLUSA) 400-100 mg tablet by 8 mouth daily. ([place] ADAP approval pending) SULFAMETHOXAZOLE-TRIMET TAKE 1 30 tablet 5 Active HOPRIM 800-160 mg per TABLET BY 9 tablet MOUTH DAILY. AMLODIPINE 10 mg tablet TAKE ONE 30 tablet 0 Active TABLET BY 9 MOUTH DAILY. emtricitabine-tenofovir Take 1 30 tablet 5 Active alafen tablet by 0 tabletIndications: mouth daily. Symptomatic HIV infection dolutegravir 50 mg Take 1 30 tablet 5 A ctive tabletIndications: tablet by 0 Symptomatic HIV mouth daily. infection dolutegravir 50 mg Take 1 30 tablet 3 D iscontinued tablet tablet by 9 020 (Reorder) mouth daily. emtricitabine-tenofovir Take 1 30 tablet 3 Discontinued alafen tablet tablet by 9 020 (Reord er) mouth daily. documented as of this encounter [...] Treatment Date Type Specialty Care Team Description 08/17/2019 Telemedicine Visit [facility], [place] Pulido Arrived [address] [place] [id number] Health Maintenance Due Date Last Done [...] filedocumented in this encounter Visit Diagnoses Diagnosis Symptomatic HIV infection - Primary Human immunodeficiency virus [HIV] disea se documented in this encounter Insurance Payer Benefit Plan / Subscriber ID Effective Dates Phone Addre ss Type Group [facility] PAYOR [facility] PLAN Effective for all [place] dates documented as of this encounter
--- NOTE | 2019-09-05 06:47 | EDPHYS ---
Physician Documentation [facility] Name: Nadir Johns Age: 54 yrs Sex: Male : 1965 Arrival Date: 09/05/2019 Time: 05:51 Bed 5 Private MD: ED Physician Francisco Javier Martinez HPI: 09/04 06:42 This 54 yrs old Black Male presents to ER via Ambulatory with complaints of Foot Pain. pm1 06:42 The patient presents with pain. The complaints affect the between 4th and 5th left pm1 toes. Context: resulted from an unknown cause, the patient can fully bear weight, the patient is able to ambulate, Problem is a result from a previous injury: No. Onset: The symptoms/episode began/occurred on and off for 1 year. Burning sensation. Usually goes away by itself but did not this time for the past few days. Modifying factors: The symptoms are alleviated by nothing. Associated signs and symptoms: Pertinent negatives calf tenderness, fever, numbness, swelling, tingling, redness. Treatment prior to arrival includes: no previous treatment. The patient has not recently seen a physician. Historical: - Allergies: 06:07 No Known Allergies; lp1 - Home Meds: 06:07 HIV med [Active]; lp1 - PMHx: 06:07 Hypertension; sciatica; HIV; lp1 - PSHx: 06:07 None; lp1 - Immunization history:: Adult Immunizations up to date. - Social history:: Smoking status: Patient reports the use of cigarette tobacco products, smokes one-half pack cigarettes per day. ROS: 06:42 Constitutional: Negative for fever, chills, and weight loss, Cardiovascular: Negative pm1 for chest pain, palpitations, and edema, Respiratory: Negative for shortness of breath, cough, wheezing, and pleuritic chest pain, Abdomen/GI: Negative for abdominal pain, nausea, vomiting, diarrhea, and constipation. 06:42 Neuro: Negative for headache, weakness, numbness, tingling, and seizure. 06:42 MS/extremity: Positive for pain, of the left foot. 06:42 Skin: Positive for rash, of the left foot between 4th and 5th toes. Exam: 06:42 Constitutional: This is a well developed, well nourished patient who is awake, alert, pm1 and in no acute distress. Head/Face: Normocephalic, atraumatic. 06:42 Cardiovascular: Exam negative for acute changes, Rate: normal, Rhythm: regular, Pulses: no pulse deficits are appreciated. 06:42 Respiratory: Exam negative for acute changes, respiratory distress, shortness of breath. 06:42 Skin: Appearance: normal except for affected area, abscess, not appreciated, cellulitis, is not appreciated, consistent with tinea pedis, on the between left 4th and 5th toes. 06:42 Neuro: Exam negative for acute changes, Orientation: is normal, Mentation: is normal, Motor: is normal, Gait: is steady, at a normal pace, without difficulty. Vital Signs: 06:05 BP 156 / 100; Pulse 79; Resp 18; Temp 97.4(TE); Pulse Ox 98% on R/A; Weight 98.88 kg lp1 (R); Height 5 ft. 10 in. (177.80 cm); Pain 10/10; 06:05 Body Mass Index 31.28 (98.88 kg, 177.80 cm) lp1 MDM: 06:39 Patient medically screened. pm1 06:42 Data reviewed: vital signs. Data interpreted: Pulse oximetry: on room air is 98 %. pm1 Interpretation: normal. Counseling: I had a detailed discussion with the patient and/or guardian regarding: the historical points, exam findings, and any diagnostic results supporting the discharge/admit diagnosis, the need for outpatient follow up, to return to the emergency department if symptoms worsen or persist or if there are any questions or concerns that arise at home. 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 pm1 Administered Medications: No medications were administered Disposition: 09/05 06:05 Co-signature as Attending Physician, Francisco Javier Martinez MD I agree with the assessment and tw4 plan of care. Disposition: 09/05/19 06:46 Discharged to Home. Impression: Tinea pedis. - Condition is Stable. - Discharge Instructions: Athlete's Foot. - Prescriptions for Clotrimazole 1 % Topical Cream - Apply to affected area 1 application by TOPICAL route every 12 hours; 15 gram. Diclofenac Sodium 75 mg Oral Tablet, Delayed Release (E.C.) - take 1 tablet by ORAL route 2 times per day As needed; 30 tablet. - Medication Reconciliation Form, Thank You Letter, Antibiotic Education, Prescription Opioid Use form. - Follow up: Emergency Department; When: As needed; Reason: Worsening of condition. Follow up: Private Physician; When: 2 - 3 days; Reason: Recheck today's complaints, Continuance of care, Re-evaluation by your physician. - Problem is new. - Symptoms have improved. Signatures: Joanna Villalta RN RN lp1 Ruben Fregoso, TOPOLOGY PROFESSOR TOPOLOGY PROFESSOR pm1 Christina Reeves RN RN Francisco Javier Norton MD MD tw4 Corrections: (The following items were deleted from the chart) 09/04 06:50 06:46 09/05/2019 06:46 Discharged to Home. Impression: Tinea pedis. Condition is ea Stable. Forms are Medication Reconciliation Form, Thank You Letter, Antibiotic Education, Prescription Opioid Use. Follow up: Emergency Department; When: As needed; Reason: Worsening of condition. Follow up: Private Physician; When: 2 - 3 days; Reason: Recheck today's complaints, Continuance of care, Re-evaluation by your physician. Problem is new. Symptoms have improved. pm1 06:56 06:50 09/05/2019 06:46 Discharged to Home. Impression: Tinea pedis. Condition is ea Stable. Discharge Instructions: Athlete's Foot. Prescriptions for Clotrimazole 1 % Topical Cream - Apply to affected area 1 application by TOPICAL route every 12 hours; 15 gram. and Forms are Medication Reconciliation Form, Thank You Letter, Antibiotic Education, Prescription Opioid Use. Follow up: Emergency Department; When: As needed; Reason: Worsening of condition. Follow up: Private Physician; When: 2 - 3 days; Reason: Recheck today's complaints, Continuance of care, Re-evaluation by your physician. Problem is new. Symptoms have improved. ea
--- NOTE | 2019-09-05 06:47 | ER ---
Nurse's Notes [facility] Name: Nadir Johns Age: 54 yrs Sex: Male : 1965 Arrival Date: 09/05/2019 Time: 05:51 Bed 5 Private MD: Diagnosis: Tinea pedis Presentation: 09/04 06:05 Chief complaint: Patient states: Wound between 4th and 5th toes on left foot that has lp1 been ongoing for the past year, states pain worsened yesterday. Coronavirus screen: Proceed with normal triage. Ebola Screen: No symptoms or risks identified at this time. Initial Sepsis Screen: Does the patient meet any 2 criteria? No. Patient's initial sepsis screen is negative. Does the patient have a suspected source of infection? No. Patient's initial sepsis screen is negative. Risk Assessment: Do you want to hurt yourself or someone else? Patient reports no desire to harm self or others. Onset of symptoms was September 05, 2019. 06:05 Method Of Arrival: Ambulatory lp1 06:05 Acuity: JARON 4 lp1 Historical: - Allergies: 06:07 No Known Allergies; lp1 - Home Meds: 06:07 HIV med [Active]; lp1 - PMHx: 06:07 Hypertension; sciatica; HIV; lp1 - PSHx: 06:07 None; lp1 - Immunization history:: Adult Immunizations up to date. - Social history:: Smoking status: Patient reports the use of cigarette tobacco products, smokes one-half pack cigarettes per day. Screenin:07 Abuse screen: Denies threats or abuse. Denies injuries from another. Nutritional lp1 screening: No deficits noted. Tuberculosis screening: No symptoms or risk factors identified. Fall Risk None identified. Assessment: 06:11 General: Appears in no apparent distress. comfortable, Behavior is calm, cooperative. mg2 Pain: Complains of pain in left foot. Neuro: Level of Consciousness is awake, alert, obeys commands, Oriented to person, place, time, situation. Cardiovascular: Capillary refill < 3 seconds Patient's skin is warm and dry. Respiratory: Airway is patent Respiratory effort is even, unlabored, Respiratory pattern is regular, symmetrical. GI: No signs and/or symptoms were reported involving the gastrointestinal system. : No signs and/or symptoms were reported regarding the genitourinary system. EENT: No signs and/or symptoms were reported regarding the EENT system. Derm: Wound noted in between left fourth and fifth toe. Musculoskeletal: Circulation, motion, and sensation intact. Capillary refill < 3 seconds. 06:47 Reassessment: Patient and/or family updated on plan of care and expected duration. Pain ea level reassessed. Patient is alert, oriented x 3, equal unlabored respirations, skin warm/dry/pink. Discharge instruction given to patient, verbalized the understanding of instruction. Vital Signs: 06:05 BP 156 / 100; Pulse 79; Resp 18; Temp 97.4(TE); Pulse Ox 98% on R/A; Weight 98.88 kg lp1 (R); Height 5 ft. 10 in. (177.80 cm); Pain 10/10; 06:05 Body Mass Index 31.28 (98.88 kg, 177.80 cm) lp1 ED Course: 05:51 Patient arrived in ED. ds1 06:03 Ruben Fregoso NP is PHCP. pm1 06:03 Francisco Javier Martinez MD is Attending Physician. pm1 06:06 Triage completed. lp1 06:06 Arm band placed on. lp1 06:07 Patient has correct armband on for positive identification. lp1 06:10 Keanu Mendiola, RAMONITA is Primary Nurse. mg2 06:12 No provider procedures requiring assistance completed. Patient did not have IV access mg2 during this emergency room visit. 06:51 Primary Nurse role handed off by Keanu Mendiola RN mg2 Administered Medications: No medications were administered Outcome: 06:46 Discharge ordered by MD. pm1 06:48 Discharged to home ambulatory. ea 06:48 Condition: stable 06:48 Discharge instructions given to patient, Instructed on discharge instructions, follow up and referral plans. medication usage, Demonstrated understanding of instructions, follow-up care, medications. 06:50 Patient left the ED. ea 06:56 Patient left the ED. ea Signatures: Tata Fine ds1 Joanna Villalta RN RN lp1 Ruben Fregoso NP PYTHON CONSULTANT pm1 Christina Reeves RN RN ea Keanu Mendiola RN RN mg2
[2019-09-05 06:56] VITALS: BP 156/100; TEMP 97.4; O2SAT 98
== END 2019-09-05 06:56 | disposition home or self-care (01) ==
LOC: ER 05:49
DX: B35.3 Tinea pedis (principal); I10 Essential (primary) hypertension; F17.210 Nicotine dependence, cigarettes, uncomplicated; Z21 Asymptomatic human immunodeficiency virus [HIV] infection status
CPT/HCPCS: 99281

== ENCOUNTER 2020-09-24 16:04 | Emergency (ER) | payer SELFPAY ==
--- OUTSIDE RECORDS SUMMARY | 2020-09-24 16:07 | XMS REPORT | Continuity of Care Document ---
:1965 Author Organization [facility] t Address [address] [place] [address] Care Team Providers Name Role Phone Shad BEARD Attending Clinician Colt HERNANDEZ, L Attending Clinician Unavailable Andrew SHIPMAN, L Attending Clinician Unavailable Wallace Fine RN, R Attending Clinician Unavailable Geovanny HERNANDEZ Attending Clinician Unavailable Ady SHIPMAN, M Attending Clinician Unavailable Amisha SHIPMAN, L Attending Clinician Unavailable Ann RANDOLPH, L Attending Clinician Unavailable Problems This patient has no known problems. Allergies, Adverse Reactions, Alerts This patient has no known allergies or adverse reactions. Medications This patient has no known medications. Procedures This patient has no known procedures. Encounters Start End Encounter Admission Attending Care Care Encounter Source Date/Time Date/Time Type Type Clinicians Facility Department ID 2020-09-05 2020-09-05 Deepak Kulkarni [place] [id number] 00:00:00 00:00:[address] [facility] [address] [facility] 4.2.7.2.686 [id number] 2020-09-05 2020-09-05 Telephone REVA Gregory 2.840.114 [id number] 00:00:00 00:00:00 [facility] [address] [facility] 4.2.7.2.686 [id number] 2020-03-15 2020-03-15 Letter REVA Morales 2.840.114 [id number] 00:00:00 00:00:00 (Out) [facility].10 [facility] 4.2.7.2.686 [id number] 2020-03-06 2020-03-06 Telephone Wallace [facility] 1.2.840.114 [id number] 00:00:00 00:00:00 [facility] 350.1.13.10 [facility] 4.2.7.2.686 [id number] 2020-03-01 2020-03-01 Case Rigobertoluis fernandosri, [facility] 1.2.840.114 [id number] 00:00:00 00:00:00 Management [facility] 350.1.13.10 [facility] 4.2.7.2.686 [id number] 2020-02-29 2020-02-29 [facility]phone [facility] 12.840.114 [id number] 00:00:00 00:00:00 [facility] 350.1.13.10 [facility] 4.2.7.2.686 [id number] 2020-02-25 2020-02-25 Telephone [facility] 1.2.840.114 [id number] 00:00:00 00:00:00 [facility] 350.1.13.10 [facility] 4.2.7.2.686 [id number] 2020-02-22 2020-02-22 Case Colt, [facility] [id number] 00:00:00 00:00:00 Management Nano L [facility] 350.1.13.10 [facility] 4.2.7.2.686 [id number] 2020-02-22 2020-02-22 Case Ad[facility], [facility] 1.2.840.114 [id number] 00:00:00 00:00:00 Management Zahira M [facility] 350.1.13.10 [facility] 4.2.7.2.686 [id number] 082020-02-07 2020-02-07 Case Wallace [facility], [facility] 1.2.840.114 [id number] 00:00:00 00:00:00 Management [facility] 350.1.13.10 [facility] 4.2.7.2.686 [id number] 2020-02-07 2020-02-07 Case Colt, [facility] [id number] 00:00:00 00:00:00 Management Nano L [facility] 350.1.13.10 [facility] 4.2.7.2.686 [id number] 082020-01-31 2020-01-[address]840.114 [id number] 00:00:00 00:00:00 [place]le [facility] 350.1.13.10 [facility] 4.2.7.2.686 [id number] 082020-01-28 2020-01-28 [place] [address]2.840.114 [id number] 00:00:00 00:00:00 [place] 350.1.13.10 [facility] 4.2.7.2.686 [id number] 082020-01-12 2020-01-12 [facility] 12.840.114 [id number] 00:00:00 00:00:00 Management [facility] 350.1.13.10 [facility] 4.2.7.2.686 [id number] 2019-12-31 2019-12-31 [place] [facility] 12.840.114 [id number] 00:00:00 00:00:00 Oral L [facility] 350.1.13.10 [facility] 4.2.7.2.686 [id number] 082019-12-28 2019-12-28 [facility] Andrew[address].840.114 [id number] 00:00:00 00:00:00 Management [facility] 350.1.13.10 [facility] 4.2.7.2.686 [id number] 2019-12-14 2019-12-14 [place] Andrew[address].840.114 [id number] 00:00:00 00:00:00 [facility] 350.1.13.10 [facility] 4.2.7.2.686 [id number] 2019-12-08 2019-12-08 [facility] Andrew[address].840.114 [id number] 00:00:00 00:00:00 Management [facility] 350.1.13.10 [facility] 4.2.7.2.686 [id number] 2019-11-23 2019-11-[address]840.114 [id number] 00:00:00 00:00:00 [facility] 350.1.13.10 [facility] 4.2.7.2.686 [id number] 2019-11-15 2019-11-15 [facility] Wallace FineMICHA[facility] 12.840.114 [id number] 00:00:00 00:00:00 Management [facility] 350.1.13.10 [facility] 4.2.7.2.686 [id number] 2019-11-04 2019-11-04 Case [facility] 12.317.606 [id number] 00:00:00 00:00:00 Management Nano L [facility] 350.1.13.10 [facility] 4.2.7.2.686 [id number] 2019-11-02 2019-11-02 Case [facility] 1.2.728.002 [id number] 00:00:00 00:00:00 Management Nano L [facility] 350.1.13.10 [facility] 4.2.7.2.686 [id number] 2019-10-07 2019-10-07 Case Colt, [facility] 12.626.036 [id number] 00:00:00 00:00:00 Management Nano L [facility] 350.1.13.10 [facility] 4.2.7.2.686 [id number] 2019-10-04 2019-10-[address]114 [id number] 00:00:00 00:00:00 [facility] 350.1.13.10 [facility] 4.2.7.2.686 [id number] 2019-09-28 2019-09-28 Telephone [facility] 1.2.840.114 [id number] 00:00:00 00:00:00 Cesia L [facility] 350.1.13.10 [facility] 4.2.7.2.686 [id number] 2019-08-17 2019-08-17 Telemedici [facility] 12.840.114 [id number] 07:23:13 07:53:13 ne Visit Anurag [facility] 350.1.13.10 [facility]INICS 4.2.7.2.686 [id number] 082019-08-17 2019-08-17 Telephone [facility] 12.840.114 [id number] 00:00:00 00:00:00 Anurag [facility] 350.1.13.10 [facility] 4.2.7.2.686 [id number] 082019-08-17 2019-08-17 [facility] 1.2.840.114 [id number] 00:00:00 00:00:00 [facility] 350.1.13.10 [facility] 4.2.7.2.686 [id number] 2019-08-16 2019-08-16 Case [facility] 12.136.714 [id number] 00:00:00 00:00:00 Management Nano L [facility] 350.1.13.10 [facility] 4.2.7.2.686 [id number] 082019-08-16 2019-08-16 Case [facility] 12.762.988 [id number] 00:00:00 00:00:00 Management Nano L [facility] 350.1.13.10 [facility] 4.2.7.2.686 [id number] 082019-08-16 2019-08-16 Case Colt, [facility] 12.965.602 [id number] 00:00:00 00:00:00 Management Nano L [facility] 350.1.13.10 [facility] 4.2.7.2.686 [id number] 2019-08-13 2019-08-13 Marco Antonio Gregory, [facility] 1.2.403.876 [id number] 00:00:00 00:00:00 Management Nano L [facility] 350.1.13.10 [facility] 4.2.7.2.686 [id number] 2019-08-12 2019-08-12 Marco Antonio Gregory, [facility] 1.2.697.164 [id number] 00:00:00 00:00:00 Management Nano L [facility] 350.1.13.10 [facility] 4.2.7.2.686 [id number] 2019-08-04 2019-08-04 Marco Antonio Gregory, [facility] 1.2.303.343 [id number] 00:00:00 00:00:00 Management Nano L [facility] 350.1.13.10 [facility] 4.2.7.2.686 [id number] 2019-07-27 2019-07-27 Marco Antonio Gregory, [facility] 1.2.994.370 [id number] 00:00:00 00:00:00 Management Nano L [facility] 350.1.13.10 [facility] 4.2.7.2.686 [id number] 2019-07-26 2019-07-26 BRITTANI ElizaldeIT 1.2.588.840 [id number] 00:00:00 00:00:00 Management Nano L [facility] 350.1.13.10 [facility] 4.2.7.2.686 [id number] 2019-03-18 2019-03-18 Telephone BRITTANI LionIT 1.2.840.114 [id number] 00:00:00 00:00:00 Oral L [facility] 350.1.13.10 [facility] 4.2.7.2.686 [id number] 2019-03-15 2019-03-15 Marco Antonio Garsia [facility] 1.2.840.114 [id number] 00:00:00 00:00:00 Management Zahira M [facility] 350.1.13.10 [facility]ICS 4.2.7.2.686 [id number] 2018-10-22 2018-10-22 Telephone Amisha [facility] 1.2.840.114 [id number] 00:00:00 00:00:00 [facility] 350.1.[address].10 [facility] 4.2.7.2.686 [id number] 2018-10-13 2018-10-13 [place] Amisha [place] [id number] [id number] 00:00:00 00:00:00 [facility] 350.1.[address]10 [facility] 4.2.7.2.686 [id number] 089 Results This patient has no known results.
[2020-09-24] MEDS ORDERED: HYDROCODONE/APAP 7.5/325 MG TAB ONE (18:43)
[2020-09-24] MEDS ORDERED: TOBRAMYCIN SULF 0.3% OPTH OINT ONE (18:53)
--- NOTE | 2020-09-24 18:56 | ER ---
Nurse's Notes [facility] Name: Nadir Johns Age: 55 yrs Sex: Male : 1965 Arrival Date: 09/24/2020 Time: 16:07 Bed 27 Private MD: Diagnosis: Chalazion right upper eyelid;Mass of Right Buttock;Skin Lesion of Right Buttock;Hypertensive heart disease without heart failure Presentation: 09/24 16:33 Chief complaint: Patient states: abscess right above buttocks that began 1 week ago. ss Coronavirus screen: Client denies travel out of the [place] in the last 14 days. Ebola Screen: Patient denies exposure to infectious person. Patient denies travel to an Ebola-affected area in the 21 days before illness onset. Initial Sepsis Screen: Does the patient meet any 2 criteria? No. Patient's initial sepsis screen is negative. Does the patient have a suspected source of infection? No. Patient's initial sepsis screen is negative. Risk Assessment: Do you want to hurt yourself or someone else? Patient reports no desire to harm self or others. Onset of symptoms was September 16, 2020. 16:33 Method Of Arrival: Ambulatory ss 16:33 Acuity: JARON 4 ss Historical: - Allergies: 16:34 No Known Allergies; ss - PMHx: 16:34 HIV; Hypertension; sciatica; ss - Immunization history:: Client reports receiving the 1st dose of the Covid vaccine. - Social history:: Smoking status: Patient reports the use of cigarette tobacco products, smokes one-half pack cigarettes per day. Screenin:31 Abuse screen: Denies threats or abuse. Denies injuries from another. Nutritional zb screening: No deficits noted. Tuberculosis screening: No symptoms or risk factors identified. Fall Risk None identified. Assessment: 18:30 General: Appears in no apparent distress. uncomfortable, Behavior is calm, cooperative. zb Pain: Complains of pain in right eye and buttocks Pain currently is 9 out of 10 on a pain scale. Neuro: No deficits noted. Cardiovascular: No deficits noted. Respiratory: No deficits noted. GI: No deficits noted. EENT: Lid(s) w/ stye noted right upper eyelid. Derm: Skin is intact, is healthy with good turgor, Skin is normal. Musculoskeletal: Range of motion: intact in all extremities. 19:10 Reassessment: Patient appears in no apparent distress at this time. Patient and/or zb family updated on plan of care and expected duration. Pain level reassessed. Patient is alert, oriented x 3, equal unlabored respirations, skin warm/dry/pink. Patient denies pain at this time. Patient states feeling better. Patient states symptoms have improved. Vital Signs: 16:34 Pulse 87; Resp 17; Temp 97.7(TE); Pulse Ox 98% on R/A; Weight 97.52 kg; Height 5 ft. 10 ss in. (177.80 cm); Pain 10/10; 16:42 BP 192 / 104; ss 18:30 BP 176 / 102; Pulse 73; Resp 16; Pulse Ox 100% on R/A; zb 16:34 Body Mass Index 30.85 (97.52 kg, 177.80 cm) ED Course: 16:07 Patient arrived in ED. mr 16:34 Triage completed. ss 16:34 Arm band placed on right wrist. ss 18:04 Gal العراقي PA is PHCP. cp 18:04 Francisco Javier Martinez MD is Attending Physician. cp 18:17 Eden Feliciano RN is Primary Nurse. zb 18:31 Patient has correct armband on for positive identification. Pulse ox on. NIBP on. Door zb closed. Noise minimized. 18:50 Dg Ramirez MD is Referral Physician. cp 19:10 No provider procedures requiring assistance completed. Patient did not have IV access zb during this emergency room visit. Administered Medications: 18:21 CANCELLED (Physician Discretion): ERYTHromycin Ointment 1 application Ophthalmic once; cp apply as directed to right lower eyelid 18:24 Drug: Hydrocodone-Acetaminophen (7.5 mg-325 mg) 1 tabs {Note: RASS +1.} Route: PO; zb 19:09 Follow up: Response: No adverse reaction; Pain is decreased; RASS: Alert and Calm (0) zb 18:32 Not Given (Physician Discretion): Gentamicin Ointment 0.3 % 0.5 inches Ophthalmic once; zb Right Eye 18:32 Drug: Tobrex (tobramycin) Ointment 0.3 % 1 application Route: Ophthalmic; Site: right zb eye; 19:10 Follow up: Response: No adverse reaction; Pain is decreased zb Outcome: 18:56 Discharge ordered by . oscar 19:10 Discharged to home ambulatory. zb 19:10 Condition: stable 19:10 Discharge instructions given to patient, Instructed on discharge instructions, follow up and referral plans. medication usage, Demonstrated understanding of instructions, follow-up care, medications, Prescriptions given X 1. 19:10 Patient left the ED. zb Signatures: Wes Maribell mr Jossy Pack RN RN Gal Skaggs PA PA cp Brown, Zipporah, RN RN zb Corrections: (The following items were deleted from the chart) 18:34 18:30 Pain: Complains of pain in right eye and buttocks Pain zb zb
--- NOTE | 2020-09-24 18:56 | EDPHYS ---
Physician Documentation [facility] Name: Nadir Johns Age: 55 yrs Sex: Male : 1965 Arrival Date: 09/24/2020 Time: 16:07 Bed 27 Private MD: ED Physician Francisco Javier Martinez HPI: 09/24 18:14 This 55 yrs old Black Male presents to ER via Ambulatory with complaints of Abscess, cp Eye Problem. 18:15 Patient c/o swelling, tenderness to right upper eye lid for past several days. Denies cp change in vision, drainage from eye. Patient also c/o tender, mass to buttock area that has become painful over past 1 week. Historical: - Allergies: 16:34 No Known Allergies; ss - PMHx: 16:34 HIV; Hypertension; sciatica; ss - Immunization history:: Client reports receiving the 1st dose of the Covid vaccine. - Social history:: Smoking status: Patient reports the use of cigarette tobacco products, smokes one-half pack cigarettes per day. ROS: 18:20 Constitutional: Negative for body aches, chills, fever, poor PO intake. cp 18:20 Eyes: Negative for injury, pain, redness, and discharge. cp 18:20 ENT: Negative for drainage from ear(s), ear pain, sore throat, difficulty swallowing, difficulty handling secretions. 18:20 Respiratory: Negative for cough, shortness of breath, wheezing. 18:20 Skin: Positive for of the right buttock, large skin lesion. 18:20 Neuro: Negative for altered mental status, headache, weakness. cp 18:20 All other systems are negative. Exam: 18:25 Constitutional: The patient appears in no acute distress, alert, awake, cp non-diaphoretic, non-toxic, well developed, well nourished. 18:25 Head/Face: Normocephalic, atraumatic. cp 18:25 Eyes: Periorbital structures: appear normal, Pupils: equal, round, and reactive to cp light and accomodation, Extraocular movements: intact throughout, Conjunctiva: normal, no exudate, no injection, Sclera: no appreciated abnormality, Lids and lashes: drainage, is not appreciated, chalazion noted to right upper lid with mild swelling noted. 18:25 ENT: External ear(s): are unremarkable, Nose: is normal, Mouth: is normal, Posterior pharynx: is normal, no erythema, no exudate. 18:25 Chest/axilla: Inspection: normal. cp 18:25 Cardiovascular: Rate: normal. 18:25 Respiratory: the patient does not display signs of respiratory distress, Respirations: normal, no use of accessory muscles. 18:25 Skin: large, round, flesh colored, rough textured skin lesion noted extending from right buttock approximate size of silver dollar. Vital Signs: 16:34 Pulse 87; Resp 17; Temp 97.7(TE); Pulse Ox 98% on R/A; Weight 97.52 kg; Height 5 ft. 10 ss in. (177.80 cm); Pain 10/10; 16:42 BP 192 / 104; ss 18:30 BP 176 / 102; Pulse 73; Resp 16; Pulse Ox 100% on R/A; zb 16:34 Body Mass Index 30.85 (97.52 kg, 177.80 cm) ss MDM: 18:05 Patient medically screened. cp 18:15 Differential diagnosis: abscess, cellulitis, stye, chalazion, conjunctivitis, skin cp cancer, skin wart. 18:49 Data reviewed: vital signs, nurses notes, and as a result, I will discharge patient. cp Counseling: I had a detailed discussion with the patient and/or guardian regarding: the historical points, exam findings, and any diagnostic results supporting the discharge/admit diagnosis, the need for outpatient follow up, for definitive care, a general surgeon. 09/24 18:14 Order name: Blood Pressure Recheck; Complete Time: 18:34 cp Administered Medications: 18:21 CANCELLED (Physician Discretion): ERYTHromycin Ointment 1 application Ophthalmic once; cp apply as directed to right lower eyelid 18:24 Drug: Hydrocodone-Acetaminophen (7.5 mg-325 mg) 1 tabs {Note: RASS +1.} Route: PO; zb 19:09 Follow up: Response: No adverse reaction; Pain is decreased; RASS: Alert and Calm (0) zb 18:32 Not Given (Physician Discretion): Gentamicin Ointment 0.3 % 0.5 inches Ophthalmic once; zb Right Eye 18:32 Drug: Tobrex (tobramycin) Ointment 0.3 % 1 application Route: Ophthalmic; Site: right zb eye; 19:10 Follow up: Response: No adverse reaction; Pain is decreased zb Disposition Summary: 09/24/20 18:56 Discharge Ordered Location: Home cp Problem: an ongoing problem cp Symptoms: have improved cp Condition: Stable cp Diagnosis - Chalazion right upper eyelid cp - Mass of Right Buttock cp - Skin Lesion of Right Buttock cp - Hypertensive heart disease without heart failure cp Followup: cp - With: Dg Ramirez MD - When: 2 - 3 days - Reason: buttock mass Discharge Instructions: - Discharge Summary Sheet cp - Chalazion cp - Skin Biopsy cp - Hypertension, Adult cp Forms: - Medication Reconciliation Form cp - Thank You Letter cp - Antibiotic Education cp - Prescription Opioid Use cp Prescriptions: - Tobrex 0.3 % Ophthalmic ointment - apply 1 inch ribbon by OPHTHALMIC route 3 times per day for 5 days; 1 tube; cp Refills: 0, Product Selection Permitted Signatures: Jossy Pack RN RN ss Gal العراقي PA PA Eden Caruso RN RN zb Corrections: (The following items were deleted from the chart) 18:21 18:14 ERYTHromycin Ointment 1 application Ophthalmic once; apply as directed to right cp lower eyelid ordered. cp 09/25 04:26 09/24 18:50 Constitutional: Negative for body aches, chills, fever, poor PO intake, cp cp
[2020-09-24 19:29] VITALS: TEMP 97.7
[2020-09-24 19:31] VITALS: BP 176/102; O2SAT 100
== END 2020-09-24 19:10 | disposition home or self-care (01) ==
LOC: ER 16:04
DX: H00.11 Chalazion right upper eyelid (principal); L98.411 Non-pressure chronic ulcer of buttock limited to breakdown of skin; I11.9 Hypertensive heart disease without heart failure; I10 Essential (primary) hypertension; F17.210 Nicotine dependence, cigarettes, uncomplicated; Z21 Asymptomatic human immunodeficiency virus [HIV] infection status
CPT/HCPCS: 99283

== ENCOUNTER 2020-12-23 23:24 | Emergency (ER) | payer SELFPAY ==
[2020-12-24 00:33] LABS: Absolute Lymphocytes (CBC) 2.7 K/uL (0.7-4.9); Basophils % 0.7 % (0-1.3); Hematocrit 34.7 % (39.6-49.0); Lymphocytes % 34.9 % (15.3-44.8); MPV 8.4 fL (7.6-11.3); RBC Red Blood Cell Count 5.68 M/uL (4.33-5.43)
[2020-12-24 00:39] LABS: BUN Blood Urea Nitrogen 13 mg/dL (7-18); Bicarbonate 28 mmol/L (21-32); Glucose Level 98 mg/dL (74-106); Potassium 3.7 mmol/L (3.5-5.1); Sodium Level 140 mmol/L (136-145); Uric Acid 5.6 mg/dL (3.5-7.2)
[2020-12-24 00:40] LABS: C-Reactive Protein < 2.90 mg/L (<3.00)
[2020-12-24] MEDS ORDERED: FENTANYL CITR 100 MCG/2 ML ONE (00:50)
[2020-12-24] MEDS ORDERED: dexAMETHasone 10 MG/ML VIAL ONE (00:50)
[2020-12-24] MEDS ORDERED: LIDOCAINE 1% MPF 30 ML VIAL ONE (00:51)
[2020-12-24] MEDS ORDERED: ONDANSETRON 4 MG/2 ML VIAL ONE (00:51)
[2020-12-24 01:02] LABS: Anisocytosis 1+; Blood Morphology Comment NOTED (NOT SEEN); Elliptocytes 1+; Hypochromasia 1+; Platelet Estimate ADEQ; Target Cells 2+; White Blood Cell Scan OK (OK)
--- OUTSIDE RECORDS SUMMARY | 2020-12-24 01:02 | XMS REPORT | Continuity of Care Document ---
:1965 Author Organization [facility] t Address [facility] [place] [address] Care Team Providers Name Role Phone EAST Attending Clinician Unavailable Shad BEARD Attending Clinician Colt HERNANDEZ, L Attending Clinician Unavailable Andrew SHIPMAN, L Attending Clinician Unavailable Wallace Fine RN, R Attending Clinician Unavailable Geovanny HERNANDEZ Attending Clinician Unavailable Ady RN, M Attending Clinician Unavailable Amisha SHIPMAN, L Attending Clinician Unavailable Ann RANDOLPH, L Attending Clinician Unavailable [facility] Attending Clinician Unavailable Doctor Unassigned, Name Attending Clinician Unavailable Payers Payer Name Policy Type Policy Number Effective Date Expiration Date S ource Problems Condition Condition Condition Status Onset Resolution Last Treating Co mments Source Name Details Category Date Date Treatment Clinician Date AIDS AIDS Disease Active 2016-02 [facility] 2-11 ity of 00:00: [address] HTN HTN Disease Active 2016-02 Univers (hypertens (hypertens 2-11 it y of ion) ion) 00:00: [address] Allergies, Adverse Reactions, Alerts Allergy Allergy Status Severity Reaction(s) Onset Inactive Treating Comm ents Source Name Type Date Date Clinician NO KNOWN Drug Active Univers ALLERGIE Class ity of [facility] Social History Social Habit Start Date Stop Date Quantity Comments Source Tobacco use and 2019-08-17 2019-08-17 Never used Universit y of exposure 00:00:00 00:00:00 [facility] Cigarettes smoked 2019-08-17 2019-08-17 Univers ity of current (pack per 00:00:00 00:00:00 ) - Reported Branch Cigarette 2019-08-17 2019-08-17 University of pack-years 00:00:00 00:00:00 [facility] Alcohol intake 2019-08-17 2019-08-17 Current drinker Unive rsity of 00:00:00 00:00:00 of alcohol [facility] Alcohol Comment 2011-06-13 2011-06-13 Occasionally, Univer sity of 00:00:00 00:00:00 once a month [facility] Tobacco Comment 2011-06-13 2011-06-13 1 pack per week Univ ersity of 00:00:00 00:00:00 [facility] History of tobacco 2009-06-12 Cigarette Smoker University of use 00:00:00 [facility] Sex [birth year] At [birth year] Universit y of 00:00:00 00:00:00 [facility] Smoking Status Start Date Stop Date Source Current every day smoker 2019-08-17 00:00:00 Uni versity of [facility] Medications Ordered Filled Start Stop Current Ordering Indication Dosage Frequency Signature Comments Components Source Medication Medication Date Date Medication? Clinician (SIG) Name Name hydroCHLORO Yes [id number] 25mg Take 1 Univers thiazide 25 7-29 tablet by ity of mg tablet 00:00: mouth [place] 00 daily. Medical Branch emtricitabi Yes [id number] 1{tbl} Take 1 Univers ne-tenofovi 7-29 tablet by ity of r alafen 00:00: mouth [place] tablet 00 daily. Medical Branch dolutegravi Yes [id number] 50mg Take 1 Univers r 50 mg 7-29 tablet by ity of tablet 00:00: mouth [place] 00 daily. Medical Branch amLODIPine Yes [id number] 10mg Take 1 U nivers 10 mg 7-29 tablet by ity of tablet 00:00: mouth [place] 00 daily. Medical Branch emtricitabi Yes [id number] 1{tbl} Take 1 Univers ne-tenofovi 7-07 tablet by ity of r alafen 00:00: mouth [place] tablet 00 daily. Medical [facility] dolutegravi Yes [id number] 50mg Take 1 Univers r 50 mg 7-07 tablet by ity of tablet 00:00: mouth [place] 00 daily. Medical Branch hydroCHLORO 2020-0 Yes [id number] 25mg Take 1 Univers thiazide 25 7-07 tablet by ity of mg tablet 00:00: mouth [place] 00 daily. Medical [facility] amLODIPine 2020-0 Yes [id number] 10mg Take 1 U nivers 10 mg 7-07 tablet by ity of tablet 00:00: mouth [place] 00 daily. Medical [facility] emtricitabi 2020-0 Yes [id number] 1{tbl} Take 1 Univers ne-tenofovi 7-07 tablet by ity of r alafen 00:00: mouth [place] tablet 00 daily. Medical Branch dolutegravi 2020-0 Yes [id number] 50mg Take 1 Univers r 50 mg 7-07 tablet by ity of tablet 00:00: mouth [place] 00 daily. Medical Branch hydroCHLORO 2020-0 Yes [id number] 25mg Take 1 Univers thiazide 25 7-07 tablet by ity of mg tablet 00:00: mouth [place] 00 daily. Medical Branch amLODIPine 2020-0 Yes [id number] 10mg Take 1 U nivers 10 mg 7-07 tablet by ity of tablet 00:00: mouth [place] 00 daily. Medical Branch emtricitabi 2020-0 Yes [id number] 1{tbl} Take 1 Univers ne-tenofovi 7-07 tablet by ity of r alafen 00:00: mouth [place] tablet 00 daily. Medical Branch dolutegravi 2020-0 Yes [id number] 50mg Take 1 Univers r 50 mg 7-07 tablet by ity of tablet 00:00: mouth [place] 00 daily. Medical Branch hydroCHLORO 2020-0 Yes [id number] 25mg Take 1 Univers thiazide 25 7-07 tablet by ity of mg tablet 00:00: mouth [place] 00 daily. Medical Branch amLODIPine 2020-0 Yes [id number] 10mg Take 1 U nivers 10 mg 7-07 tablet by ity of tablet 00:00: mouth [place] 00 daily. Medical Branch emtricitabi 2020-0 Yes [id number] 1{tbl} Take 1 Univers ne-tenofovi 7-07 tablet by ity of r alafen 00:00: mouth [place] tablet 00 daily. Medical Branch dolutegravi 2020-0 Yes [id number] 50mg Take 1 Univers r 50 mg 7-07 tablet by ity of tablet 00:00: mouth [place] 00 daily. Medical Branch hydroCHLORO 2020-0 Yes [id number] 25mg Take 1 Univers thiazide 25 7-07 tablet by ity of mg tablet 00:00: mouth [place] 00 daily. Medical Branch amLODIPine 2020-0 Yes [id number] 10mg Take 1 U nivers 10 mg 7-07 tablet by ity of tablet 00:00: mouth [place] 00 daily. Medical Branch emtricitabi 2020-0 Yes [id number] 1{tbl} Take 1 Univers ne-tenofovi 7-07 tablet by ity of r alafen 00:00: mouth [place] tablet 00 daily. Medical Branch dolutegravi 2020-0 Yes [id number] 50mg Take 1 Univers r 50 mg 7-07 tablet by ity of tablet 00:00: mouth [place] 00 daily. Medical Branch hydroCHLORO 2020-0 Yes [id number] 25mg Take 1 Univers thiazide 25 7-07 tablet by ity of mg tablet 00:00: mouth [place] 00 daily. Medical Branch amLODIPine 2020-0 Yes [id number] 10mg Take 1 U nivers 10 mg 7-07 tablet by ity of tablet 00:00: mouth [place] 00 daily. Medical Branch emtricitabi 2020-0 Yes [id number] 1{tbl} Take 1 Univers ne-tenofovi 7-07 tablet by ity of r alafen 00:00: mouth [place] tablet 00 daily. Medical Branch dolutegravi 2020-0 Yes [id number] 50mg Take 1 Univers r 50 mg 7-07 tablet by ity of tablet 00:00: mouth [place] 00 daily. Medical Branch hydroCHLORO 2020-0 Yes [id number] 25mg Take 1 Univers thiazide 25 7-07 tablet by ity of mg tablet 00:00: mouth [place] 00 daily. Medical Branch amLODIPine 2020-0 Yes [id number] 10mg Take 1 U nivers 10 mg 7-07 tablet by ity of tablet 00:00: mouth [place] 00 daily. Medical Branch emtricitabi 2020-0 Yes [id number] 1{tbl} Take 1 Univers ne-tenofovi 7-07 tablet by ity of r alafen 00:00: mouth [place] tablet 00 daily. Medical Branch dolutegravi 2020-0 Yes [id number] 50mg Take 1 Univers r 50 mg 7-07 tablet by ity of tablet 00:00: mouth [place] 00 daily. Medical Branch hydroCHLORO 2020-0 Yes [id number] 25mg Take 1 Univers thiazide 25 7-07 tablet by ity of mg tablet 00:00: mouth [place] 00 daily. Medical Branch amLODIPine 2020-0 Yes [id number] 10mg Take 1 U nivers 10 mg 7-07 tablet by ity of tablet 00:00: mouth [place] 00 daily. Medical Branch emtricitabi 2020-0 Yes [id number] 1{tbl} Take 1 Univers ne-tenofovi 7-07 tablet by ity of r alafen 00:00: mouth [place] tablet 00 daily. Medical Branch dolutegravi 2020-0 Yes [id number] 50mg Take 1 Univers r 50 mg 7-07 tablet by ity of tablet 00:00: mouth [place] 00 daily. Medical Branch hydroCHLORO 2020-0 Yes [id number] 25mg Take 1 Univers thiazide 25 7-07 tablet by ity of mg tablet 00:00: mouth [place] 00 daily. Medical Branch amLODIPine 2020-0 Yes [id number] 10mg Take 1 U nivers 10 mg 7-07 tablet by ity of tablet 00:00: mouth [place] 00 daily. Medical Branch emtricitabi 2020-0 Yes [id number] 1{tbl} Take 1 Univers ne-tenofovi 7-07 tablet by ity of r alafen 00:00: mouth [place] tablet 00 daily. Medical Branch dolutegravi 2020-0 Yes [id number] 50mg Take 1 Univers r 50 mg 7-07 tablet by ity of tablet 00:00: mouth [place] 00 daily. Medical Branch hydroCHLORO 2020-0 Yes [id number] 25mg Take 1 Univers thiazide 25 7-07 tablet by ity of mg tablet 00:00: mouth [place] 00 daily. [facility] Branch amLODIPine 2020-0 Yes [id number] 10mg Take 1 U nivers 10 mg 7-07 tablet by ity of tablet 00:00: mouth [place] 00 daily. [facility] Branch emtricitabi 2020-0 Yes [id number] 1{tbl} Take 1 Univers ne-tenofovi 7-07 tablet by ity of r alafen 00:00: mouth [place] tablet 00 daily. Medical Branch dolutegravi 2020-0 Yes [id number] 50mg Take 1 Univers r 50 mg 7-07 tablet by ity of tablet 00:00: mouth [place] 00 daily. Medical Branch hydroCHLORO 2020-0 Yes [id number] 25mg Take 1 Univers thiazide 25 7-07 tablet by ity of mg tablet 00:00: mouth [place] 00 daily. Medical Branch amLODIPine 2020-0 Yes [id number] 10mg Take 1 U nivers 10 mg 7-07 tablet by ity of tablet 00:00: mouth [place] 00 daily. Medical Branch emtricitabi 2020-0 Yes [id number] 1{tbl} Take 1 Univers ne-tenofovi 7-07 tablet by ity of r alafen 00:00: mouth [place] tablet 00 daily. Medical Branch dolutegravi 2020-0 Yes [id number] 50mg Take 1 Univers r 50 mg 7-07 tablet by ity of tablet 00:00: mouth [place] 00 daily. Medical Branch hydroCHLORO 2020-0 Yes [id number] 25mg Take 1 Univers thiazide 25 7-07 tablet by ity of mg tablet 00:00: mouth [place] 00 daily. Medical Branch amLODIPine 2020-0 Yes [id number] 10mg Take 1 U nivers 10 mg 7-07 tablet by ity of tablet 00:00: mouth [place] 00 daily. Medical Branch emtricitabi 2020-0 Yes [id number] 1{tbl} Take 1 Univers ne-tenofovi 7-07 tablet by ity of r alafen 00:00: mouth [place] tablet 00 daily. Medical Branch dolutegravi 2020-0 Yes [id number] 50mg Take 1 Univers r 50 mg 7-07 tablet by ity of tablet 00:00: mouth [place] 00 daily. Medical Branch hydroCHLORO 2020-0 Yes [id number] 25mg Take 1 Univers thiazide 25 7-07 tablet by ity of mg tablet 00:00: mouth [place] 00 daily. Medical Branch amLODIPine 2020-0 Yes [id number] 10mg Take 1 U nivers 10 mg 7-07 tablet by ity of tablet 00:00: mouth [place] 00 daily. Medical Branch emtricitabi 2020-0 Yes [id number] 1{tbl} Take 1 Univers ne-tenofovi 7-07 tablet by ity of r alafen 00:00: mouth [place] tablet 00 daily. Medical Branch dolutegravi 2020-0 Yes [id number] 50mg Take 1 Univers r 50 mg 7-07 tablet by ity of tablet 00:00: mouth [place] 00 daily. Medical Branch hydroCHLORO 2020-0 Yes [id number] 25mg Take 1 Univers thiazide 25 7-07 tablet by ity of mg tablet 00:00: mouth [place] 00 daily. Medical Branch amLODIPine 2020-0 Yes [id number] 10mg Take 1 U nivers 10 mg 7-07 tablet by ity of tablet 00:00: mouth [place] 00 daily. Medical Branch emtricitabi 2020-0 Yes [id number] 1{tbl} Take 1 Univers ne-tenofovi 7-07 tablet by ity of r alafen 00:00: mouth [place] tablet 00 daily. Medical Branch dolutegravi 2020-0 Yes [id number] 50mg Take 1 Univers r 50 mg 7-07 tablet by ity of tablet 00:00: mouth [place] 00 daily. Medical Branch hydroCHLORO 2020-0 Yes [id number] 25mg Take 1 Univers thiazide 25 7-07 tablet by ity of mg tablet 00:00: mouth [place] 00 daily. [facility] Branch amLODIPine 2020-0 Yes [id number] 10mg Take 1 U nivers 10 mg 7-07 tablet by ity of tablet 00:00: mouth [place] 00 daily. Medical Branch emtricitabi 2020-0 Yes [id number] 1{tbl} Take 1 Univers ne-tenofovi 7-07 tablet by ity of r alafen 00:00: mouth [place] tablet 00 daily. Medical Branch dolutegravi 2020-0 Yes [id number] 50mg Take 1 Univers r 50 mg 7-07 tablet by ity of tablet 00:00: mouth [place] 00 daily. Medical Branch hydroCHLORO 2020-0 Yes [id number] 25mg Take 1 Univers thiazide 25 7-07 tablet by ity of mg tablet 00:00: mouth [place] 00 daily. Medical Branch amLODIPine 2020-0 Yes [id number] 10mg Take 1 U nivers 10 mg 7-07 tablet by ity of tablet 00:00: mouth [place] 00 daily. Medical Branch emtricitabi 2020-0 Yes [id number] 1{tbl} Take 1 Univers ne-tenofovi 7-07 tablet by ity of r alafen 00:00: mouth [place] tablet 00 daily. Medical Branch dolutegravi 2020-0 Yes [id number] 50mg Take 1 Univers r 50 mg 7-07 tablet by ity of tablet 00:00: mouth [place] 00 daily. Medical Branch hydroCHLORO 2020-0 Yes [id number] 25mg Take 1 Univers thiazide 25 7-07 tablet by ity of mg tablet 00:00: mouth [place] 00 daily. Medical Branch amLODIPine 2020-0 Yes [id number] 10mg Take 1 U nivers 10 mg 7-07 tablet by ity of tablet 00:00: mouth [place] 00 daily. Medical Branch emtricitabi 2020-0 Yes [id number] 1{tbl} Take 1 Univers ne-tenofovi 7-07 tablet by ity of r alafen 00:00: mouth [place] tablet 00 daily. Medical Branch dolutegravi 2020-0 Yes [id number] 50mg Take 1 Univers r 50 mg 7-07 tablet by ity of tablet 00:00: mouth [place] 00 daily. Medical Branch hydroCHLORO 2020-0 Yes [id number] 25mg Take 1 Univers thiazide 25 7-07 tablet by ity of mg tablet 00:00: mouth [place] 00 daily. [facility] Branch amLODIPine 2020-0 Yes [id number] 10mg Take 1 U nivers 10 mg 7-07 tablet by ity of tablet 00:00: mouth [place] 00 daily. Medical Branch emtricitabi 2020-0 Yes [id number] 1{tbl} Take 1 Univers ne-tenofovi 7-07 tablet by ity of r alafen 00:00: mouth [place] tablet 00 daily. Medical Branch dolutegravi 2020-0 Yes [id number] 50mg Take 1 Univers r 50 mg 7-07 tablet by ity of tablet 00:00: mouth [place] 00 daily. Medical Branch hydroCHLORO 2020-0 Yes [id number] 25mg Take 1 Univers thiazide 25 7-07 tablet by ity of mg tablet 00:00: mouth [place] 00 daily. Medical Branch amLODIPine 2020-0 Yes [id number] 10mg Take 1 U nivers 10 mg 7-07 tablet by ity of tablet 00:00: mouth [place] 00 daily. Medical Branch emtricitabi 2020-0 Yes [id number] 1{tbl} Take 1 Univers ne-tenofovi 7-07 tablet by ity of r alafen 00:00: mouth [place] tablet 00 daily. Medical Branch dolutegravi 2020-0 Yes [id number] 50mg Take 1 Univers r 50 mg 7-07 tablet by ity of tablet 00:00: mouth [place] 00 daily. Medical Branch hydroCHLORO 2020-0 Yes [id number] 25mg Take 1 Univers thiazide 25 7-07 tablet by ity of mg tablet 00:00: mouth [place] 00 daily. Medical Branch amLODIPine 2020-0 Yes [id number] 10mg Take 1 U nivers 10 mg 7-07 tablet by ity of tablet 00:00: mouth [place] 00 daily. Medical Branch emtricitabi 2020-0 Yes [id number] 1{tbl} Take 1 Univers ne-tenofovi 7-07 tablet by ity of r alafen 00:00: mouth [place] tablet 00 daily. Medical Branch dolutegravi 2020-0 Yes [id number] 50mg Take 1 Univers r 50 mg 7-07 tablet by ity of tablet 00:00: mouth [place] 00 daily. Medical Branch hydroCHLORO 2020-0 Yes [id number] 25mg Take 1 Univers thiazide 25 7-07 tablet by ity of mg tablet 00:00: mouth [place] 00 daily. [facility] Branch amLODIPine 2020-0 Yes [id number] 10mg Take 1 U nivers 10 mg 7-07 tablet by ity of tablet 00:00: mouth [place] 00 daily. [facility] Branch emtricitabi 2020-0 Yes [id number] 1{tbl} Take 1 Univers ne-tenofovi 7-07 tablet by ity of r alafen 00:00: mouth [place] tablet 00 daily. [facility] Branch dolutegravi 2020-0 Yes [id number] 50mg Take 1 Univers r 50 mg 7-07 tablet by ity of tablet 00:00: mouth [place] 00 daily. [facility] Branch hydroCHLORO 2020-0 Yes [id number] 25mg Take 1 Univers thiazide 25 7-07 tablet by ity of mg tablet 00:00: mouth [place] 00 daily. [facility] Branch amLODIPine 2020-0 Yes [id number] 10mg Take 1 U nivers 10 mg 7-07 tablet by ity of tablet 00:00: mouth [place] 00 daily. [facility] Branch emtricitabi 2020-0 Yes [id number] 1{tbl} Take 1 Univers ne-tenofovi 7-07 tablet by ity of r alafen 00:00: mouth [place] tablet 00 daily. [facility] dolutegravi 2020-0 Yes [id number] 50mg Take 1 Univers r 50 mg 7-07 tablet by ity of tablet 00:00: mouth [place] 00 daily. [facility] Branch hydroCHLORO 2020-0 Yes [id number] 25mg Take 1 Univers thiazide 25 7-07 tablet by ity of mg tablet 00:00: mouth [place] 00 daily. [facility] amLODIPine 2020-0 Yes [id number] 10mg Take 1 U nivers 10 mg 7-07 tablet by ity of tablet 00:00: mouth [place] 00 daily. [facility] Branch emtricitabi 2020-0 Yes [id number] 1{tbl} Take 1 Univers ne-tenofovi 7-07 tablet by ity of r alafen 00:00: mouth [place] tablet 00 daily. [facility] dolutegravi 2020-0 Yes [id number] 50mg Take 1 Univers r 50 mg 7-07 tablet by ity of tablet 00:00: mouth [place] 00 daily. [facility] Branch hydroCHLORO 2020-0 Yes [id number] 25mg Take 1 Univers thiazide 25 7-07 tablet by ity of mg tablet 00:00: mouth [place] 00 daily. [facility] amLODIPine 2020-0 Yes [id number] 10mg Take 1 U nivers 10 mg 7-07 tablet by ity of tablet 00:00: mouth [place] 00 daily. [facility] emtricitabi 2020-0 Yes [id number] 1{tbl} Take 1 Univers ne-tenofovi 7-07 tablet by ity of r alafen 00:00: mouth [place] tablet 00 daily. [facility] dolutegravi 2020-0 Yes [id number] 50mg Take 1 Univers r 50 mg 7-07 tablet by ity of tablet 00:00: mouth [place] 00 daily. [facility] Branch hydroCHLORO 2020-0 Yes [id number] 25mg Take 1 Univers thiazide 25 7-07 tablet by ity of mg tablet 00:00: mouth [place] 00 daily. [facility] amLODIPine 2020-0 Yes [id number] 10mg Take 1 U nivers 10 mg 7-07 tablet by ity of tablet 00:00: mouth [place] 00 daily. [facility] emtricitabi 2020-0 Yes [id number] 1{tbl} Take 1 Univers ne-tenofovi 7-07 tablet by ity of r alafen 00:00: mouth [place] tablet 00 daily. [facility] dolutegravi 2020-0 Yes [id number] 50mg Take 1 Univers r 50 mg 7-07 tablet by ity of tablet 00:00: mouth [place] 00 daily. [facility] hydroCHLORO 2020-0 Yes [id number] 25mg Take 1 Univers thiazide 25 7-07 tablet by ity of mg tablet 00:00: mouth [place] 00 daily. [facility] amLODIPine 2020-0 Yes [id number] 10mg Take 1 U nivers 10 mg 7-07 tablet by ity of tablet 00:00: mouth [place] 00 daily. [facility] Branch emtricitabi 0 2020- No [id number] 1{tbl} Take 1 Univers ne-tenofovi 08-16 tablet by it y of r alafen 00:00: 00:00 mouth [place] tablet 00 :00 daily. [facility] Branch dolutegravi 0 2020- No [id number] 50mg Take 1 Univers r 50 mg 08-16 tablet by ity of tablet 00:00: 00:00 mouth [place] 00 :00 daily. [facility] hydroCHLORO 2019-0 2020- No [id number] 25mg Take 1 Univers thiazide 25 08-16 tablet by it y of mg tablet 00:00: 00:00 mouth [place] 00 :00 daily. [facility] amLODIPine 2020- No [id number] 10mg Take 1 Univers 10 mg 08-16 tablet by ity of tablet 00:00: 00:00 mouth [place] 00 :00 daily. [facility] dolutegravi 2019- Yes 50mg Take 1 Univ ers r 50 mg 1-14 tablet by ity of tablet 00:00: mouth [place] 00 daily. [facility] emtricitabi 2019- Yes 1{tbl} Take 1 Un deena ne-tenofovi 1-14 tablet by ity of r alafen 00:00: mouth [place] tablet 00 daily. [facility] dolutegravi 2018- Yes 50mg Take 1 Univ ers r 50 mg 1-14 tablet by ity of tablet 00:00: mouth [place] 00 daily. [facility] emtricitabi 2019- Yes 1{tbl} Take 1 Un deena ne-tenofovi 1-14 tablet by ity of r alafen 00:00: mouth [place] tablet 00 daily. [facility] dolutegravi 2019-1 Yes 50mg Take 1 Univ ers r 50 mg 1-14 tablet by ity of tablet 00:00: mouth [place] 00 daily. [facility] emtricitabi 2019- Yes 1{tbl} Take 1 Un deena ne-tenofovi 1-14 tablet by ity of r alafen 00:00: mouth [place] tablet 00 daily. [facility] dolutegravi 2019- Yes 50mg Take 1 Univ ers r 50 mg 1-14 tablet by ity of tablet 00:00: mouth [place] 00 daily. [facility] Yes 1{tbl} Take 1 Un deena ne-tenofovi 1-14 tablet by ity of r alafen 00:00: mouth [place] tablet 00 daily. [facility] Branch dolglencoegravi 2018- Yes 50mg Take 1 Univ ers r 50 mg 1-14 tablet by ity of tablet 00:00: mouth [place] 00 daily. [facility]-02 Yes 1{tbl} Take 1 Un deena ne-tenofovi 1-14 tablet by ity of r alafen 00:00: mouth [place] tablet 00 daily. [facility] dolutegravi 2018-02 Yes 50mg Take 1 Univ ers r 50 mg 1-14 tablet by ity of tablet 00:00: mouth [place] 00 daily. [facility] 2018-02 Yes 1{tbl} Take 1 Un deena ne-tenofovi 1-14 tablet by ity of r alafen 00:00: mouth [place] tablet 00 daily. [facility]- Yes 50mg Take 1 Univ ers r 50 mg 1-14 tablet by ity of tablet 00:00: mouth [place] 00 daily. [facility] 2018-02 Yes 1{tbl} Take 1 Un deena ne-tenofovi 1-14 tablet by ity of r alafen 00:00: mouth [place] tablet 00 daily. [facility] Yes 50mg Take 1 Univ ers r 50 mg 1-14 tablet by ity of tablet 00:00: mouth [place] 00 daily. [facility]- Yes 1{tbl} Take 1 Un deena ne-tenofovi 1-14 tablet by ity of r alafen 00:00: mouth [place] tablet 00 daily. [facility] dolutegravi 2018- Yes 50mg Take 1 Univ ers r 50 mg 1-14 tablet by ity of tablet 00:00: mouth [place] 00 daily. [facility] emtricitabi 2018- Yes 1{tbl} Take 1 Un deena ne-tenofovi 1-14 tablet by ity of r alafen 00:00: mouth [place] tablet 00 daily. [facility] 2018- Yes 50mg Take 1 Univ ers r 50 mg 1-14 tablet by ity of tablet 00:00: mouth [place] 00 daily. [facility] emtricitabi 2018- Yes 1{tbl} Take 1 Un deena ne-tenofovi 1-14 tablet by ity of r alafen 00:00: mouth [place] tablet 00 daily. [facility] dolutegravi 2018- 2020- No 50mg Take 1 Uni vers r 50 mg 1-14 -07 tablet by ity of tablet 00:00: 00:00 mouth [place] 00 :00 daily. [facility] emtricitabi 2018- 2020- No 1{tbl} Take 1 U nivers ne-tenofovi 1-14 -07 tablet by it y of r alafen 00:00: 00:00 mouth [place] tablet 00 :00 daily. [facility] AMLODIPINE Yes TAKE ONE Uni vers 10 mg 8-05 TABLET BY ity of tablet 00:00: MOUTH [place] 00 DAILY. [facility] AMLODIPINE Yes TAKE ONE Uni vers 10 mg 8-05 TABLET BY ity of tablet 00:00: MOUTH [place] 00 DAILY. [facility] AMLODIPINE Yes TAKE ONE Uni vers 10 mg 8-05 TABLET BY ity of tablet 00:00: MOUTH [place] 00 DAILY. [facility] AMLODIPINE Yes TAKE ONE Uni vers 10 mg 8-05 TABLET BY ity of tablet 00:00: MOUTH [place] 00 DAILY. [facility] AMLODIPINE Yes TAKE ONE Uni vers 10 mg 8-05 TABLET BY ity of tablet 00:00: MOUTH [place] 00 DAILY. [facility] AMLODIPINE Yes TAKE ONE Uni vers 10 mg 8-05 TABLET BY ity of tablet 00:00: MOUTH [place] 00 DAILY. [facility] AMLODIPINE Yes TAKE ONE Uni vers 10 mg 8-05 TABLET BY ity of tablet 00:00: MOUTH [place] 00 DAILY. [facility] AMLODIPINE Yes TAKE ONE Uni vers 10 mg 8-05 TABLET BY ity of tablet 00:00: MOUTH [place] 00 DAILY. [facility] AMLODIPINE Yes TAKE ONE Uni vers 10 mg 8-05 TABLET BY ity of tablet 00:00: MOUTH [place] 00 DAILY. [facility] AMLODIPINE Yes TAKE ONE Uni vers 10 mg 8-05 TABLET BY ity of tablet 00:00: MOUTH [place] 00 DAILY. [facility] AMLODIPINE Yes TAKE ONE Uni vers 10 mg 8-05 TABLET BY ity of tablet 00:00: MOUTH [place] 00 DAILY. [facility] AMLODIPINE Yes TAKE ONE Uni vers 10 mg 8-05 TABLET BY ity of tablet 00:00: MOUTH [place] 00 DAILY. [facility] AMLODIPINE Yes TAKE ONE Uni vers 10 mg 8-05 TABLET BY ity of tablet 00:00: MOUTH [place] 00 DAILY. [facility] AMLODIPINE Yes TAKE ONE Uni vers 10 mg 8-05 TABLET BY ity of tablet 00:00: MOUTH [place] 00 DAILY. [facility] AMLODIPINE Yes TAKE ONE Uni vers 10 mg 8-05 TABLET BY ity of tablet 00:00: MOUTH [place] 00 DAILY. [facility] AMLODIPINE Yes TAKE ONE Uni vers 10 mg 8-05 TABLET BY ity of tablet 00:00: MOUTH [place] 00 DAILY. [facility] AMLODIPINE Yes TAKE ONE Uni vers 10 mg 8-05 TABLET BY ity of tablet 00:00: MOUTH [place] 00 DAILY. [facility] AMLODIPINE Yes TAKE ONE Uni vers 10 mg 8-05 TABLET BY ity of tablet 00:00: MOUTH [place] 00 DAILY. [facility] AMLODIPINE Yes TAKE ONE Uni vers 10 mg 8-05 TABLET BY ity of tablet 00:00: MOUTH [place] 00 DAILY. [facility] AMLODIPINE Yes TAKE ONE Uni vers 10 mg 8-05 TABLET BY ity of tablet 00:00: MOUTH [place] 00 DAILY. [facility] AMLODIPINE Yes TAKE ONE Uni vers 10 mg 8-05 TABLET BY ity of tablet 00:00: MOUTH [place] 00 DAILY. [facility] AMLODIPINE Yes TAKE ONE Uni vers 10 mg 8-05 TABLET BY ity of tablet 00:00: MOUTH [place] 00 DAILY. [facility] AMLODIPINE Yes TAKE ONE Uni vers 10 mg 8-05 TABLET BY ity of tablet 00:00: MOUTH [place] 00 DAILY. [facility] AMLODIPINE Yes TAKE ONE Uni vers 10 mg 8-05 TABLET BY ity of tablet 00:00: MOUTH [place] 00 DAILY. [facility] AMLODIPINE 2020- No TAKE ONE Un deena 10 mg 8-05 07-07 TABLET BY ity of tablet 00:00: 00:00 MOUTH [place] 00 :00 DAILY. [facility] emtricitabi Yes 1{tbl} Take 1 Un deena ne-tenofovi 6-20 tablet by ity of r alafen 00:00: mouth [place] tablet 00 daily. [facility] dolutegravi 2019-0 Yes 50mg Take 1 [facility] 50 mg 6-20 tablet by ity of tablet 00:00: mouth [place] 00 daily. [facility] emtricitabi 2019-0 Yes 1{tbl} Take 1 [facility] ne-tenofovi 6-20 tablet by ity of r alafen 00:00: mouth [place] tablet 00 daily. [facility] dolutegravi 2019-0 Yes 50mg Take 1 [facility] 50 mg 6-20 tablet by ity of tablet 00:00: mouth [place] 00 daily. [facility] emtricitabi 2019-0 Yes 1{tbl} Take 1 [facility] ne-tenofovi 6-20 tablet by ity of r alafen 00:00: mouth [place] tablet 00 daily. [facility] dolutegravi 2019-0 Yes 50mg Take 1 [facility] 50 mg 6-20 tablet by ity of tablet 00:00: mouth [place] 00 daily. [facility] emtricitabi 2019-0 Yes 1{tbl} Take 1 [facility] ne-tenofovi 6-20 tablet by ity of r alafen 00:00: mouth [place] tablet 00 daily. [facility] dolutegravi 2019-0 Yes 50mg Take 1 [facility] 50 mg 6-20 tablet by ity of tablet 00:00: mouth [place] 00 daily. [facility] emtricitabi 2019-0 Yes 1{tbl} Take 1 [facility] ne-tenofovi 6-20 tablet by ity of r alafen 00:00: mouth [place] tablet 00 daily. [facility] dolutegravi 2019-0 Yes 50mg Take 1 [facility] 50 mg 6-20 tablet by ity of tablet 00:00: mouth [place] 00 daily. [facility] emtricitabi 2019-0 Yes 1{tbl} Take 1 [facility] ne-tenofovi 6-20 tablet by ity of r alafen 00:00: mouth [place] tablet 00 daily. [facility] dolutegravi 2019-0 Yes 50mg Take 1 [facility] 50 mg 6-20 tablet by ity of tablet 00:00: mouth [place] 00 daily. [facility] emtricitabi 2019-0 Yes 1{tbl} Take 1 [facility] ne-tenofovi 6-20 tablet by ity of r alafen 00:00: mouth [place] tablet 00 daily. [facility] dolutegravi 2019-0 Yes 50mg Take 1 [facility] 50 mg 6-20 tablet by ity of tablet 00:00: mouth [place] 00 daily. [facility] emtricitabi 2019-0 Yes 1{tbl} Take 1 [facility] ne-tenofovi 6-20 tablet by ity of r alafen 00:00: mouth [place] tablet 00 daily. [facility] dolutegravi 2019-0 Yes 50mg Take 1 [facility] 50 mg 6-20 tablet by ity of tablet 00:00: mouth [place] 00 daily. [facility] emtricitabi 2019-0 Yes 1{tbl} Take 1 [facility] ne-tenofovi 6-20 tablet by ity of r alafen 00:00: mouth [place] tablet 00 daily. [facility] dolutegravi 2019-0 Yes 50mg Take 1 [facility] 50 mg 6-20 tablet by ity of tablet 00:00: mouth [place] 00 daily. [facility] emtricitabi 2019-0 Yes 1{tbl} Take 1 [facility] ne-tenofovi 6-20 tablet by ity of r alafen 00:00: mouth [place] tablet 00 daily. [facility] dolutegravi 2019-0 Yes 50mg Take 1 [facility] 50 mg 6-20 tablet by it[facility] of tablet 00:00: mouth [place] 00 daily. [facility] emtricitabi 2019-0 Yes 1{tbl} Take 1 [facility] ne-tenofovi 6-20 tablet by ity of r alafen 00:00: mouth [place] tablet 00 daily. [facility] dolutegravi 2019-0 Yes 50mg Take 1 [facility] 50 mg 6-20 tablet by ity of tablet 00:00: mouth [place] 00 daily. [facility] emtricitabi 2019-0 Yes 1{tbl} Take 1 [facility] ne-tenofovi 6-20 tablet by ity of r alafen 00:00: mouth [place] tablet 00 daily. [facility] dolutegravi 2019-0 Yes 50mg Take 1 [facility] 50 mg 6-20 tablet by ity of tablet 00:00: mouth [place] 00 daily. [facility] emtricitabi 2019-0 Yes 1{tbl} Take 1 [facility] ne-tenofovi 6-20 tablet by ity of r alafen 00:00: mouth [place] tablet 00 daily. [facility] dolutegravi 2019-0 Yes 50mg Take 1 [facility] 50 mg 6-20 tablet by [facility] of tablet 00:00: mouth [place] 00 daily. [facility] AMLODIPINE 2018-0 2019- No TAKE ONE [facility] 10 mg 6-04 07-22 TABLET BY ity of tablet 00:00: 00:00 MOUTH [place] 00 :00 DAILY. [facility] SULFAMETHOX Yes 1{tbl} TAKE 1 [facility] AZOLE-TRIME 3-15 TABLET BY ity of THOPRIM 00:00: MOUTH [place] 800-160 mg 00 DAILY. Medical per tablet Branch SULFAMETHOX Yes 1{tbl} TAKE 1 [facility] AZOLE-TRIME 3-15 TABLET BY ity of THOPRIM 00:00: MOUTH [place] 800-160 mg 00 DAILY. Medical per tablet Branch SULFAMETHOX Yes 1{tbl} TAKE 1 [facility] AZOLE-TRIME 3-15 TABLET BY ity of THOPRIM 00:00: MOUTH [place] 800-160 mg 00 DAILY. Medical per tablet Branch SULFAMETHOX Yes 1{tbl} TAKE 1 [facility] AZOLE-TRIME 3-15 TABLET BY ity of THOPRIM 00:00: MOUTH [place] 800-160 mg 00 DAILY. Medical per tablet Branch SULFAMETHOX 0 Yes 1{tbl} TAKE 1 [facility] AZOLE-TRIME 3-15 TABLET BY ity of THOPRIM 00:00: MOUTH [place] 800-160 mg 00 DAILY. Medical per tablet Branch SULFAMETHOX 0 Yes 1{tbl} TAKE 1 [facility] AZOLE-TRIME 3-15 TABLET BY ity of THOPRIM 00:00: MOUTH [place] 800-160 mg 00 DAILY. Medical per tablet Branch SULFAMETHOX 0 Yes 1{tbl} TAKE 1 [facility] AZOLE-TRIME 3-15 TABLET BY ity of THOPRIM 00:00: MOUTH [place] 800-160 mg 00 DAILY. Medical per tablet Branch SULFAMETHOX 0 Yes 1{tbl} TAKE 1 [facility] AZOLE-TRIME 3-15 TABLET BY ity of THOPRIM 00:00: MOUTH [place] 800-160 mg 00 DAILY. Medical per tablet Branch SULFAMETHOX 0 Yes 1{tbl} TAKE 1 [facility] AZOLE-TRIME 3-15 TABLET BY ity of THOPRIM 00:00: MOUTH [place] 800-160 mg 00 DAILY. Medical per tablet Branch SULFAMETHOX 0 Yes 1{tbl} TAKE 1 [facility] AZOLE-TRIME 3-15 TABLET BY ity of THOPRIM 00:00: MOUTH [place] 800-160 mg 00 DAILY. Medical per tablet Branch SULFAMETHOX 0 Yes 1{tbl} TAKE 1 [facility] AZOLE-TRIME 3-15 TABLET BY ity of THOPRIM 00:00: MOUTH [place] 800-160 mg 00 DAILY. Medical per tablet Branch SULFAMETHOX Yes 1{tbl} TAKE 1 [facility] AZOLE-TRIME 3-15 TABLET BY ity of THOPRIM 00:00: MOUTH [place] 800-160 mg 00 DAILY. Medical per tablet Branch SULFAMETHOX Yes 1{tbl} TAKE 1 [facility] AZOLE-TRIME 3-15 TABLET BY ity of THOPRIM 00:00: MOUTH [place] 800-160 mg 00 DAILY. Medical per tablet Branch SULFAMETHOX 0 Yes 1{tbl} TAKE 1 [facility] AZOLE-TRIME 3-15 TABLET BY ity of THOPRIM 00:00: MOUTH [place] 800-160 mg 00 DAILY. Medical per tablet Branch SULFAMETHOX Yes 1{tbl} TAKE 1 [facility] AZOLE-TRIME 3-15 TABLET BY ity of THOPRIM 00:00: MOUTH [place] 800-160 mg 00 DAILY. Medical per tablet Branch SULFAMETHOX Yes 1{tbl} TAKE 1 [facility] AZOLE-TRIME 3-15 TABLET BY ity of THOPRIM 00:00: MOUTH [place] 800-160 mg 00 DAILY. Medical per tablet Branch SULFAMETHOX Yes 1{tbl} TAKE 1 [facility] AZOLE-TRIME 3-15 TABLET BY ity of THOPRIM 00:00: MOUTH [place] 800-160 mg 00 DAILY. Medical per tablet Branch SULFAMETHOX 0 Yes 1{tbl} TAKE 1 [facility] AZOLE-TRIME 3-15 TABLET BY ity of THOPRIM 00:00: MOUTH [place] 800-160 mg 00 DAILY. Medical per tablet Branch SULFAMETHOX 0 Yes 1{tbl} TAKE 1 [facility] AZOLE-TRIME 3-15 TABLET BY ity of THOPRIM 00:00: MOUTH [place] 800-160 mg 00 DAILY. Medical per tablet Branch SULFAMETHOX Yes 1{tbl} TAKE 1 [facility] AZOLE-TRIME 3-15 TABLET BY ity of THOPRIM 00:00: MOUTH [place] 800-160 mg 00 DAILY. Medical per tablet Branch SULFAMETHOX Yes 1{tbl} TAKE 1 [facility] AZOLE-TRIME 3-15 TABLET BY ity of THOPRIM 00:00: MOUTH [place] 800-160 mg 00 DAILY. Medical per tablet Branch SULFAMETHOX Yes 1{tbl} TAKE 1 [facility] AZOLE-TRIME 3-15 TABLET BY ity of THOPRIM 00:00: MOUTH [place] 800-160 mg 00 DAILY. Medical per tablet Branch SULFAMETHOX Yes 1{tbl} TAKE 1 [facility] AZOLE-TRIME 3-15 TABLET BY ity of THOPRIM 00:00: MOUTH [place] 800-160 mg 00 DAILY. Medical per tablet Branch SULFAMETHOX Yes 1{tbl} TAKE 1 [facility] AZOLE-TRIME 3-15 TABLET BY ity of THOPRIM 00:00: MOUTH [place] 800-160 mg 00 DAILY. Medical per tablet Branch SULFAMETHOX 2020- No 1{tbl} TAKE 1 [facility] nivers AZOLE-TRIME 3-15 07-07 TABLET BY it y of THOPRIM 00:00: 00:00 MOUTH [place] 800-160 mg 00 :00 DAILY. Medical per tablet Branch hydroCHLORO 2018- Yes 25mg Take 1 [facility] thiazide 25 9-05 tablet by ity of mg tablet 00:00: mouth [place] 00 daily. [facility] Branch sulfamethox Yes 1{tbl} Take 1 [facility] azole-trime 9-05 tablet by ity of thoprim 00:00: mouth [place] (BACTRIM 00 daily. Medical DS) 800-160 Branch mg per tablet sofosbuvir- Yes 1{tbl} Take 1 [facility] velpatasvir 9-05 tablet by ity of (EPCLUSA) 00:00: mouth [place] 400-100 mg 00 daily. ([place] [facility] ADAP [facility] approval pending) hydroCHLORO Yes 25mg Take 1 [facility] thiazide 25 9-05 tablet by ity of mg tablet 00:00: mouth [place] 00 daily. [facility] Branch sulfamethox 2018-0 Yes 1{tbl} Take 1 [facility] azole-trime 9-05 tablet by ity of thoprim 00:00: mouth [place] (BACTRIM 00 daily. Medical DS) 800-160 Branch mg per tablet sofosbuvir- 2018-0 Yes 1{tbl} Take 1 [facility] velpatasvir 9-05 tablet by ity of (EPCLUSA) 00:00: mouth [place] 400-100 mg 00 daily. ([place] [facility] approval pending) hydroCHLORO 2018-0 Yes 25mg Take 1 [facility] thiazide 25 9-05 tablet by ity of mg tablet 00:00: mouth [place] 00 daily. [facility] Branch sulfamethox 2018-0 Yes 1{tbl} Take 1 [facility] azole-trime 9-05 tablet by ity of thoprim 00:00: mouth [place] (BACTRIM 00 daily. Medical DS) 800-160 Branch mg per tablet hydroCHLORO 2018-0 Yes 25mg Take 1 [facility] thiazide 25 9-05 tablet by ity of mg tablet 00:00: mouth [place] 00 daily. Medical [facility] sofosbuvir- 2018-0 Yes 1{tbl} Take 1 [facility] velpatasvir 9-05 tablet by ity of (EPCLUSA) 00:00: mouth [place] 400-100 mg 00 daily. ([place] [facility] approval pending) sulfamethox 2018-0 Yes 1{tbl} Take 1 [facility] azole-trime 9-05 tablet by ity of thoprim 00:00: mouth [place] (BACTRIM 00 daily. Medical DS) 800-160 Branch mg per tablet sofosbuvir- 2018-0 Yes 1{tbl} Take 1 [facility] velpatasvir 9-05 tablet by ity of (EPCLUSA) 00:00: mouth [place] 400-100 mg 00 daily. ([place] [facility] approval pending) hydroCHLORO 2018-0 Yes 25mg Take 1 [facility] thiazide 25 9-05 tablet by ity of mg tablet 00:00: mouth [place] 00 daily. Medical Branch sulfamethox 2018-0 Yes 1{tbl} Take 1 [facility] azole-trime 9-05 tablet by ity of thoprim 00:00: mouth [place] (BACTRIM 00 daily. Medical DS) 800-160 Branch mg per tablet sofosbuvir- 2018-0 Yes 1{tbl} Take 1 [facility] velpatasvir 9-05 tablet by ity of (EPCLUSA) 00:00: mouth [place] 400-100 mg 00 daily. ([place] [facility] approval pending) hydroCHLORO 2018-0 Yes 25mg Take 1 [facility] thiazide 25 9-05 tablet by ity of mg tablet 00:00: mouth [place] 00 daily. [facility] Branch sulfamethox 2018-0 Yes 1{tbl} Take 1 [facility] azole-trime 9-05 tablet by ity of thoprim 00:00: mouth [place] (BACTRIM 00 daily. Medical DS) 800-160 Branch mg per tablet sofosbuvir- 2018-0 Yes 1{tbl} Take 1 [facility] velpatasvir 9-05 tablet by ity of (EPCLUSA) 00:00: mouth [place] 400-100 mg 00 daily. ([place] [facility] approval pending) hydroCHLORO 2018-0 Yes 25mg Take 1 [facility] thiazide 25 9-05 tablet by ity of mg tablet 00:00: mouth [place] 00 daily. Medical Branch sulfamethox 2018-0 Yes 1{tbl} Take 1 [facility] azole-trime 9-05 tablet by ity of thoprim 00:00: mouth [place] (BACTRIM 00 daily. Medical DS) 800-160 Branch mg per tablet sofosbuvir- 2018-0 Yes 1{tbl} Take 1 [facility] velpatasvir 9-05 tablet by ity of (EPCLUSA) 00:00: mouth [place] 400-100 mg 00 daily. ([place] [facility] approval pending) hydroCHLORO 2018-0 Yes 25mg Take 1 [facility] thiazide 25 9-05 tablet by ity of mg tablet 00:00: mouth [place] 00 daily. Medical Branch sulfamethox 2018-0 Yes 1{tbl} Take 1 [facility] azole-trime 9-05 tablet by ity of thoprim 00:00: mouth [place] (BACTRIM 00 daily. Medical DS) 800-160 Branch mg per tablet sofosbuvir- 2018-0 Yes 1{tbl} Take 1 [facility] velpatasvir 9-05 tablet by ity of (EPCLUSA) 00:00: mouth [place] 400-100 mg 00 daily. ([place] [facility] approval pending) hydroCHLORO 2018-0 Yes 25mg Take 1 [facility] thiazide 25 9-05 tablet by ity of mg tablet 00:00: mouth [place] 00 daily. Medical Branch sulfamethox 2018-0 Yes 1{tbl} Take 1 [facility] azole-trime 9-05 tablet by ity of thoprim 00:00: mouth [place] (BACTRIM 00 daily. Medical DS) 800-160 Branch mg per tablet sofosbuvir- 2018-0 Yes 1{tbl} Take 1 [facility] velpatasvir 9-05 tablet by ity of (EPCLUSA) 00:00: mouth [place] 400-100 mg 00 daily. ([facility] ADAP Branch approval pending) hydroCHLORO 2018-0 Yes 25mg Take 1 [facility] thiazide 25 9-05 tablet by ity of mg tablet 00:00: mouth [place] 00 daily. Medical Branch sulfamethox 2018-0 Yes 1{tbl} Take 1 [facility] azole-trime 9-05 tablet by ity of thoprim 00:00: mouth [place] (BACTRIM 00 daily. Medical DS) 800-160 Branch mg per tablet sofosbuvir- 2018-0 Yes 1{tbl} Take 1 [facility] velpatasvir 9-05 tablet by ity of (EPCLUSA) 00:00: mouth [place] 400-100 mg 00 daily. ([facility] ADAP Branch approval pending) hydroCHLORO 2018-0 Yes 25mg Take 1 [facility] thiazide 25 9-05 tablet by ity of mg tablet 00:00: mouth [place] 00 daily. Medical Branch sulfamethox 2018-0 Yes 1{tbl} Take 1 [facility] azole-trime 9-05 tablet by ity of thoprim 00:00: mouth [place] (BACTRIM 00 daily. Medical DS) 800-160 Branch mg per tablet sofosbuvir- 2018-0 Yes 1{tbl} Take 1 [facility] velpatasvir 9-05 tablet by ity of (EPCLUSA) 00:00: mouth [place] 400-100 mg 00 daily. ([facility] ADAP Branch approval pending) hydroCHLORO 2018-0 Yes 25mg Take 1 [facility] ers thiazide 25 9-05 tablet by ity of mg tablet 00:00: mouth [place] 00 daily. Medical Branch sulfamethox 2018-0 Yes 1{tbl} Take 1 [facility] azole-trime 9-05 tablet by ity of thoprim 00:00: mouth [place] (BACTRIM 00 daily. Medical DS) 800-160 Branch mg per tablet sofosbuvir- 2018-0 Yes 1{tbl} Take 1 [facility] velpatasvir 9-05 tablet by ity of (EPCLUSA) 00:00: mouth [place] 400-100 mg 00 daily. ([place] [facility] approval pending) hydroCHLORO 2018-0 Yes 25mg Take 1 [facility] ers thiazide 25 9-05 tablet by ity of mg tablet 00:00: mouth [place] 00 daily. Medical Branch hydroCHLORO 2018-0 Yes 25mg Take 1 [facility] ers thiazide 25 9-05 tablet by ity of mg tablet 00:00: mouth [place] 00 daily. Medical Branch sulfamethox 2018-0 Yes 1{tbl} Take 1 [facility] azole-trime 9-05 tablet by ity of thoprim 00:00: mouth [place] (BACTRIM 00 daily. Medical DS) 800-160 Branch mg per tablet sulfamethox 2018-0 Yes 1{tbl} Take 1 [facility] azole-trime 9-05 tablet by ity of thoprim 00:00: mouth [place] (BACTRIM 00 daily. Medical DS) 800-160 Branch mg per tablet sofosbuvir- 2018-0 Yes 1{tbl} Take 1 [facility] velpatasvir 9-05 tablet by ity of (EPCLUSA) 00:00: mouth [place] 400-100 mg 00 daily. ([place] [facility] approval pending) sofosbuvir- 2018-0 Yes 1{tbl} Take 1 [facility] velpatasvir 9-05 tablet by ity of (EPCLUSA) 00:00: mouth [place] 400-100 mg 00 daily. ([place] [facility]AP [facility] approval pending) hydroCHLORO 2018-0 Yes 25mg Take 1 [facility] ers thiazide 25 9-05 tablet by ity of mg tablet 00:00: mouth [place] 00 daily. Medical Branch sulfamethox 2018-0 Yes 1{tbl} Take 1 [facility] azole-trime 9-05 tablet by ity of thoprim 00:00: mouth [place] (BACTRIM 00 daily. Medical DS) 800-160 Branch mg per tablet sofosbuvir- 2018-0 Yes 1{tbl} Take 1 [facility] velpatasvir 9-05 tablet by ity of (EPCLUSA) 00:00: mouth [place] 400-100 mg 00 daily. ([place] [facility] approval pending) hydroCHLORO 2018-0 Yes 25mg Take 1 [facility] ers thiazide 25 9-05 tablet by ity of mg tablet 00:00: mouth [place] 00 daily. Medical Branch sulfamethox 2018-0 Yes 1{tbl} Take 1 [facility] azole-trime 9-05 tablet by ity of thoprim 00:00: mouth [place] (BACTRIM 00 daily. Medical DS) 800-160 Branch mg per tablet sofosbuvir- 2018-0 Yes 1{tbl} Take 1 [facility] velpatasvir 9-05 tablet by ity of (EPCLUSA) 00:00: mouth [place] 400-100 mg 00 daily. ([place] [facility] approval pending) hydroCHLORO 2018-0 Yes 25mg Take 1 [facility] ers thiazide 25 9-05 tablet by ity of mg tablet 00:00: mouth [place] 00 daily. Medical Branch sulfamethox 2018-0 Yes 1{tbl} Take 1 [facility] azole-trime 9-05 tablet by ity of thoprim 00:00: mouth [place] (BACTRIM 00 daily. Medical DS) 800-160 Branch mg per tablet sofosbuvir- 2018-0 Yes 1{tbl} Take 1 [facility] velpatasvir 9-05 tablet by ity of (EPCLUSA) 00:00: mouth [place] 400-100 mg 00 daily. ([place] [facility] approval pending) hydroCHLORO 2018-0 Yes 25mg Take 1 Univ ers thiazide 25 9-05 tablet by ity of mg tablet 00:00: mouth [place] 00 daily. Medical Branch sulfamethox 2018-0 Yes 1{tbl} Take 1 [facility] azole-trime 9-05 tablet by ity of thoprim 00:00: mouth [place] (BACTRIM 00 daily. Medical DS) 800-160 Branch mg per tablet sofosbuvir- 2018-0 Yes 1{tbl} Take 1 [facility] velpatasvir 9-05 tablet by ity of (EPCLUSA) 00:00: mouth [place] 400-100 mg 00 daily. ([place] [facility] approval pending) hydroCHLORO 2018-0 Yes 25mg Take 1 Univ ers thiazide 25 9-05 tablet by ity of mg tablet 00:00: mouth [place] 00 daily. Medical Branch sulfamethox 2018-0 Yes 1{tbl} Take 1 [facility] azole-trime 9-05 tablet by ity of thoprim 00:00: mouth [place] (BACTRIM 00 daily. Medical DS) 800-160 Branch mg per tablet sofosbuvir- 2018-0 Yes 1{tbl} Take 1 [facility] velpatasvir 9-05 tablet by ity of (EPCLUSA) 00:00: mouth [place] 400-100 mg 00 daily. ([place] [facility] approval [place]) hydroCHLORO 2018-0 Yes 25mg Take 1 Univ ers thiazide 25 9-05 tablet by ity of mg tablet 00:00: mouth [place] 00 daily. Medical Branch sulfamethox 2018-0 Yes 1{tbl} Take 1 [facility] azole-trime 9-05 tablet by ity of thoprim 00:00: mouth [place] (BACTRIM 00 daily. Medical DS) 800-160 Branch mg per tablet sofosbuvir- 2018-0 Yes 1{tbl} Take 1 [facility] velpatasvir 9-05 tablet by ity of (EPCLUSA) 00:00: mouth [place] 400-100 mg 00 daily. ([place] [facility]AP [facility] approval pending) hydroCHLORO 2018-0 Yes 25mg Take 1 Univ ers thiazide 25 9-05 tablet by ity of mg tablet 00:00: mouth [place] 00 daily. Medical Branch sulfamethox 2018-0 Yes 1{tbl} Take 1 [facility] azole-trime 9-05 tablet by ity of thoprim 00:00: mouth [place] (BACTRIM 00 daily. Medical DS) 800-160 Branch mg per tablet sofosbuvir- 2018-0 Yes 1{tbl} Take 1 [facility] velpatasvir 9-05 tablet by ity of (EPCLUSA) 00:00: mouth [place] 400-100 mg 00 daily. ([place] [facility] ADAP Branch approval pending) hydroCHLORO 2018-0 Yes 25mg Take 1 Univ ers thiazide 25 9-05 tablet by ity of mg tablet 00:00: mouth [place] 00 daily. Medical Branch sulfamethox 2018-0 Yes 1{tbl} Take 1 [facility] azole-trime 9-05 tablet by ity of thoprim 00:00: mouth [place] (BACTRIM 00 daily. Medical DS) 800-160 Branch mg per tablet sofosbuvir- 2018-0 Yes 1{tbl} Take 1 [facility] velpatasvir 9-05 tablet by ity of (EPCLUSA) 00:00: mouth [place] 400-100 mg 00 daily. ([facility] ADAP Branch approval pending) hydroCHLORO 2018-0 Yes 25mg Take 1 Univ ers thiazide 25 9-05 tablet by ity of mg tablet 00:00: mouth [place] 00 daily. Medical Branch sulfamethox 2018-0 Yes 1{tbl} Take 1 [facility] azole-trime 9-05 tablet by ity of thoprim 00:00: mouth [place] (BACTRIM 00 daily. Medical DS) 800-160 Branch mg per tablet sofosbuvir- 2018-0 Yes 1{tbl} Take 1 [facility] velpatasvir 9-05 tablet by ity of (EPCLUSA) 00:00: mouth [place] 400-100 mg 00 daily. ([facility] ADAP Branch approval pending) hydroCHLORO 2018-0 Yes 25mg Take 1 Univ ers thiazide 25 9-05 tablet by ity of mg tablet 00:00: mouth [place] 00 daily. Medical Branch sulfamethox 2018-0 Yes 1{tbl} Take 1 [facility] azole-trime 9-05 tablet by ity of thoprim 00:00: mouth [place] (BACTRIM 00 daily. Medical DS) 800-160 Branch mg per tablet sofosbuvir- 2018-0 Yes 1{tbl} Take 1 [facility] velpatasvir 9-05 tablet by ity of (EPCLUSA) 00:00: mouth [place] 400-100 mg 00 daily. ([facility] ADAP Branch approval pending) hydroCHLORO 2018-0 2020- No 25mg Take 1 Uni vers thiazide 25 9-05 07-07 tablet by it y of mg tablet 00:00: 00:00 mouth [place] 00 :00 daily. Medical Branch sulfamethox 2020- No 1{tbl} Take 1 U nivers azole-trime 10-15 tablet by it y of thoprim 00:00: 00:00 mouth [place] (BACTRIM 00 :00 daily. Medical DS) 800-160 Branch mg per tablet sofosbuvir- 2020- No 1{tbl} Take 1 U nivers velpatasvir 10-15 tablet by it y of (EPCLUSA) 00:00: 00:00 mouth [place] 400-100 mg 00 :00 daily. ([place] [facility] ADAP [facility] approval pending) No known No [facility] medications [facility]y of [place] [facility] Immunizations Ordered Filled Immunization Date Status Comments [facility] Immunization Name Name Pneumococcal 2018-01-19 Completed University o f Polysaccharide, 00:00:00 [place] Med ical PPSV23 (PNEUMOVAX) Branch Pneumococcal 2018-01-19 Completed University o f Polysaccharide, 00:00:00 [place] Med ical PPSV23 (PNEUMOVAX) Branch Pneumococcal 2018-01-19 Completed University o f Polysaccharide, 00:00:00 [place] Med ical PPSV23 (PNEUMOVAX) Branch Pneumococcal 2018-01-19 Completed University o f Polysaccharide, 00:00:00 [place] Med ical PPSV23 (PNEUMOVAX) Branch Pneumococcal 2018-01-19 Completed University o f Polysaccharide, 00:00:00 [place] Med ical PPSV23 (PNEUMOVAX) Branch Pneumococcal 2018-01-19 Completed University o f Polysaccharide, 00:00:00 [place] Med ical PPSV23 (PNEUMOVAX) Branch Pneumococcal 2018-01-19 Completed University o f Polysaccharide, 00:00:00 [place] Med ical PPSV23 (PNEUMOVAX) Branch Pneumococcal 2018-01-19 Completed University o f Polysaccharide, 00:00:00 [place] Med ical PPSV23 (PNEUMOVAX) Branch Pneumococcal 2018-01-19 Completed University o f Polysaccharide, 00:00:00 [place] Med ical PPSV23 (PNEUMOVAX) Branch Pneumococcal 2018-01-19 Completed University o f Polysaccharide, 00:00:00 [place] Med ical PPSV23 (PNEUMOVAX) Branch Pneumococcal 2018-01-19 Completed University o f Polysaccharide, 00:00:00 [place] Med ical PPSV23 (PNEUMOVAX) Branch Pneumococcal 2018-01-19 Completed University o f Polysaccharide, 00:00:00 [place] Med ical PPSV23 (PNEUMOVAX) Branch Pneumococcal 2018-01-19 Completed University o f Polysaccharide, 00:00:00 [place] Med ical PPSV23 (PNEUMOVAX) Branch Pneumococcal 2018-01-19 Completed University o f Polysaccharide, 00:00:00 [place] Med ical PPSV23 (PNEUMOVAX) Branch Pneumococcal 2018-01-19 Completed University o f Polysaccharide, 00:00:00 [place] Med ical PPSV23 (PNEUMOVAX) Branch Pneumococcal 2018-01-19 Completed University o f Polysaccharide, 00:00:00 [place] Med ical PPSV23 (PNEUMOVAX) Branch Pneumococcal 2018-01-19 Completed University o f Polysaccharide, 00:00:00 [place] Med ical PPSV23 (PNEUMOVAX) Branch Pneumococcal 2018-01-19 Completed University o f Polysaccharide, 00:00:00 [place] Med ical PPSV23 (PNEUMOVAX) Branch Pneumococcal 2018-01-19 Completed University o f Polysaccharide, 00:00:00 [place] Med ical PPSV23 (PNEUMOVAX) Branch Pneumococcal 2018-01-19 Completed University o f Polysaccharide, 00:00:00 [place] Med ical PPSV23 (PNEUMOVAX) Branch Pneumococcal 2018-01-19 Completed University o f Polysaccharide, 00:00:00 [place] Med ical PPSV23 (PNEUMOVAX) Branch Pneumococcal 2018-01-19 Completed University o f Polysaccharide, 00:00:00 [place] Med ical PPSV23 (PNEUMOVAX) Branch Pneumococcal 2018-01-19 Completed University o f Polysaccharide, 00:00:00 [place] Med ical PPSV23 (PNEUMOVAX) Branch Pneumococcal 2018-01-19 Completed University o f Polysaccharide, 00:00:00 [place] Med ical PPSV23 (PNEUMOVAX) Branch Pneumococcal 2018-01-19 Completed University o f Polysaccharide, 00:00:00 [place] Med ical PPSV23 (PNEUMOVAX) Branch Pneumococcal 2018-01-19 Completed University o f Polysaccharide, 00:00:00 [place] Med ical PPSV23 (PNEUMOVAX) Branch Pneumococcal 2018-01-19 Completed University o f Polysaccharide, 00:00:00 [place] Med ical PPSV23 (PNEUMOVAX) Branch Pneumococcal 2018-01-19 Completed University o f Polysaccharide, 00:00:00 [place] Med ical PPSV23 (PNEUMOVAX) Branch Pneumococcal 2018-01-19 Completed University o f Polysaccharide, 00:00:00 [place] Med ical PPSV23 (PNEUMOVAX) Branch Pneumococcal 2018-01-19 Completed University o f Polysaccharide, 00:00:00 [place] Med ical PPSV23 (PNEUMOVAX) Branch Pneumococcal 2018-01-19 Completed University o f Polysaccharide, 00:00:00 [place] Med ical PPSV23 (PNEUMOVAX) Branch Pneumococcal 2018-01-19 Completed University o f Polysaccharide, 00:00:00 [place] Med ical PPSV23 (PNEUMOVAX) Branch Pneumococcal 2018-01-19 Completed University o f Polysaccharide, 00:00:00 [place] Med ical PPSV23 (PNEUMOVAX) Branch Pneumococcal 2018-01-19 Completed University o f Polysaccharide, 00:00:00 [place] Med ical PPSV23 (PNEUMOVAX) Branch Pneumococcal 2018-01-19 Completed University o f Polysaccharide, 00:00:00 [place] [facility] ical PPSV23 (PNEUMOVAX) Branch Pneumococcal 2018-01-19 Completed University o f Polysaccharide, 00:00:00 [place] [facility] ical PPSV23 (PNEUMOVAX) Branch Pneumococcal 2018-01-19 Completed University o f Polysaccharide, 00:00:00 [place] [facility] ical PPSV23 (PNEUMOVAX) Branch Pneumococcal 2018-01-19 Completed University o f Polysaccharide, 00:00:00 [place] Med ical PPSV23 (PNEUMOVAX) Branch Pneumococcal 2018-01-19 Completed University o f Polysaccharide, 00:00:00 [place] [facility] ical PPSV23 (PNEUMOVAX) Branch Pneumococcal 2018-01-19 Completed University o f Polysaccharide, 00:00:00 [place] [facility] ical PPSV23 (PNEUMOVAX) Branch Pneumococcal 2018-01-19 Completed University o f Polysaccharide, 00:00:00 [place] [facility] ical PPSV23 (PNEUMOVAX) Branch Pneumococcal 2018-01-19 Completed [facility] Polysaccharide, 00:00:00 [place] [facility] PPSV23 (PNEUMOVAX) Branch Pneumococcal 2018-01-19 Completed [facility] o f Polysaccharide, 00:00:00 [place] [facility] PPSV23 (PNEUMOVAX) Branch Pneumococcal 2018-01-19 Completed [facility] o f Polysaccharide, 00:00:00 [place] [facility] PPSV23 (PNEUMOVAX) Branch Pneumococcal 2018-01-19 Completed University o f Polysaccharide, 00:00:00 [place] [facility] PPSV23 (PNEUMOVAX) Branch Pneumococcal 2018-01-19 Completed [facility] o f Polysaccharide, 00:00:00 [place] [facility] PPSV23 (PNEUMOVAX) Branch Pneumococcal 2018-01-19 Completed [facility] o f Polysaccharide, 00:00:00 [place] [facility] PPSV23 (PNEUMOVAX) Branch Pneumococcal 2018-01-19 Completed [facility] o f Polysaccharide, 00:00:00 [place] [facility] PPSV23 (PNEUMOVAX) Branch Pneumococcal 2018-01-19 Completed [facility] o f Polysaccharide, 00:00:00 [place] [facility] PPSV23 (PNEUMOVAX) Branch Pneumococcal 2018-01-19 Completed University o f Polysaccharide, 00:00:00 [place] [facility] PPSV23 (PNEUMOVAX) Branch Pneumococcal 2018-01-19 Completed University o f Polysaccharide, 00:00:00 [place] [facility] PPSV23 (PNEUMOVAX) Branch Pneumococcal 13 2017-06-20 Completed Universit y of Conjugate, PCV13 00:00:00 [facility] dical (Prevnar 13) Branch TDAP (ADACEL) 2017-06-20 Completed University of VACCINE 00:00:00 [facility] Pneumococcal 13 2017-06-20 Completed Universit y of Conjugate, PCV13 00:00:00 [facility] dical (Prevnar 13) Branch TDAP (ADACEL) 2017-06-20 Completed University of VACCINE 00:00:00 [facility] Pneumococcal 13 2017-06-20 Completed Universit y of Conjugate, PCV13 00:00:00 [facility] dical (Prevnar 13) Branch TDAP (ADACEL) 2017-06-20 Completed University of VACCINE 00:00:00 [facility] Pneumococcal 13 2017-06-20 Completed Universit y of Conjugate, PCV13 00:00:00 [facility] dical (Prevnar 13) Branch TDAP (ADACEL) 2017-06-20 Completed University of VACCINE 00:00:00 [facility] Pneumococcal 13 2017-06-20 Completed Universit y of Conjugate, PCV13 00:00:00 [facility] dical (Prevnar 13) Branch TDAP (ADACEL) 2017-06-20 Completed University of VACCINE 00:00:00 [facility] Pneumococcal 13 2017-06-20 Completed Universit y of Conjugate, PCV13 00:00:00 [facility] dical (Prevnar 13) Branch TDAP (ADACEL) 2017-06-20 Completed University of VACCINE 00:00:00 [facility] Pneumococcal 13 2017-06-20 Completed Universit y of Conjugate, PCV13 00:00:00 [facility] dical (Prevnar 13) Branch TDAP (ADACEL) 2017-06-20 Completed University of VACCINE 00:00:00 [facility] Pneumococcal 13 2017-06-20 Completed Universit y of Conjugate, PCV13 00:00:00 [facility] dical (Prevnar 13) Branch Pneumococcal 13 2017-06-20 Completed Universit y of Conjugate, PCV13 00:00:00 [facility] dical (Prevnar 13) Branch TDAP (ADACEL) 2017-06-20 Completed University of VACCINE 00:00:00 [facility] TDAP (ADACEL) 2017-06-20 Completed University of VACCINE 00:00:00 [facility] Pneumococcal 13 2017-06-20 Completed Universit y of Conjugate, PCV13 00:00:00 [facility] dical (Prevnar 13) Branch TDAP (ADACEL) 2017-06-20 Completed University of VACCINE 00:00:00 [facility] Pneumococcal 13 2017-06-20 Completed Universit y of Conjugate, PCV13 00:00:00 [facility] dical (Prevnar 13) Branch TDAP (ADACEL) 2017-06-20 Completed University of VACCINE 00:00:00 [facility] Pneumococcal 13 2017-06-20 Completed Universit y of Conjugate, PCV13 00:00:00 [facility] dical (Prevnar 13) Branch TDAP (ADACEL) 2017-06-20 Completed University of VACCINE 00:00:00 [facility] Pneumococcal 13 2017-06-20 Completed Universit y of Conjugate, PCV13 00:00:00 [facility] dical (Prevnar 13) Branch TDAP (ADACEL) 2017-06-20 Completed University of VACCINE 00:00:00 [facility] Pneumococcal 13 2017-06-20 Completed Universit y of Conjugate, PCV13 00:00:00 [facility] dical (Prevnar 13) Branch TDAP (ADACEL) 2017-06-20 Completed University of VACCINE 00:00:00 [facility] Pneumococcal 13 2017-06-20 Completed Universit y of Conjugate, PCV13 00:00:00 [facility] dical (Prevnar 13) Branch TDAP (ADACEL) 2017-06-20 Completed University of VACCINE 00:00:00 [facility] Pneumococcal 13 2017-06-20 Completed Universit y of Conjugate, PCV13 00:00:00 [facility] dical (Prevnar 13) Branch TDAP (ADACEL) 2017-06-20 Completed University of VACCINE 00:00:00 [facility] Pneumococcal 13 2017-06-20 Completed Universit y of Conjugate, PCV13 00:00:00 [facility] dical (Prevnar 13) Branch TDAP (ADACEL) 2017-06-20 Completed University of VACCINE 00:00:00 [facility] Pneumococcal 13 2017-06-20 Completed Universit y of Conjugate, PCV13 00:00:00 [facility] dical (Prevnar 13) Branch TDAP (ADACEL) 2017-06-20 Completed University of VACCINE 00:00:00 [facility] Pneumococcal 13 2017-06-20 Completed Universit y of Conjugate, PCV13 00:00:00 [facility] dical (Prevnar 13) Branch Pneumococcal 13 2017-06-20 Completed Universit y of Conjugate, PCV13 00:00:00 [facility] dical (Prevnar 13) Branch TDAP (ADACEL) 2017-06-20 Completed University of VACCINE 00:00:00 [facility] TDAP (ADACEL) 2017-06-20 Completed University of VACCINE 00:00:00 [facility] Pneumococcal 13 2017-06-20 Completed Universit y of Conjugate, PCV13 00:00:00 [facility] dical (Prevnar 13) Branch TDAP (ADACEL) 2017-06-20 Completed University of VACCINE 00:00:00 [facility] Pneumococcal 13 2017-06-20 Completed Universit y of Conjugate, PCV13 00:00:00 [facility] dical (Prevnar 13) Branch TDAP (ADACEL) 2017-06-20 Completed University of VACCINE 00:00:00 [facility] Pneumococcal 13 2017-06-20 Completed Universit y of Conjugate, PCV13 00:00:00 [facility] dical (Prevnar 13) Branch TDAP (ADACEL) 2017-06-20 Completed University of VACCINE 00:00:00 [facility] Pneumococcal 13 2017-06-20 Completed Universit y of Conjugate, PCV13 00:00:00 [facility] dical (Prevnar 13) Branch TDAP (ADACEL) 2017-06-20 Completed University of VACCINE 00:00:00 [facility] Pneumococcal 13 2017-06-20 Completed Universit y of Conjugate, PCV13 00:00:00 [facility] dical (Prevnar 13) Branch TDAP (ADACEL) 2017-06-20 Completed University of VACCINE 00:00:00 [facility] Pneumococcal 13 2017-06-20 Completed Universit y of Conjugate, PCV13 00:00:00 [facility] dical (Prevnar 13) Branch TDAP (ADACEL) 2017-06-20 Completed University of VACCINE 00:00:00 [facility] Pneumococcal 13 2017-06-20 Completed Universit y of Conjugate, PCV13 00:00:00 [facility] dical (Prevnar 13) Branch TDAP (ADACEL) 2017-06-20 Completed University of VACCINE 00:00:00 [facility] Pneumococcal 13 2017-06-20 Completed Universit y of Conjugate, PCV13 00:00:00 [facility] dical (Prevnar 13) Branch TDAP (ADACEL) 2017-06-20 Completed University of VACCINE 00:00:00 [facility] Pneumococcal 13 2017-06-20 Completed Universit y of Conjugate, PCV13 00:00:00 [facility] dical (Prevnar 13) Branch TDAP (ADACEL) 2017-06-20 Completed University of VACCINE 00:00:00 [facility] Pneumococcal 13 2017-06-20 Completed Universit y of Conjugate, PCV13 00:00:00 [facility] dical (Prevnar 13) Branch TDAP (ADACEL) 2017-06-20 Completed University of VACCINE 00:00:00 [facility] Pneumococcal 13 2017-06-20 Completed Universit y of Conjugate, PCV13 00:00:00 [facility] dical (Prevnar 13) Branch TDAP (ADACEL) 2017-06-20 Completed University of VACCINE 00:00:00 [facility] Pneumococcal 13 2017-06-20 Completed Universit y of Conjugate, PCV13 00:00:00 [facility] dical (Prevnar 13) Branch Pneumococcal 13 2017-06-20 Completed Universit y of Conjugate, PCV13 00:00:00 [facility] dical (Prevnar 13) Branch TDAP (ADACEL) 2017-06-20 Completed University of VACCINE 00:00:00 [facility] Pneumococcal 13 2017-06-20 Completed Universit y of Conjugate, PCV13 00:00:00 [facility] dical (Prevnar 13) Branch TDAP (ADACEL) 2017-06-20 Completed University of VACCINE 00:00:00 [facility] TDAP (ADACEL) 2017-06-20 Completed University of VACCINE 00:00:00 [facility] Pneumococcal 13 2017-06-20 Completed Universit y of Conjugate, PCV13 00:00:00 [facility] dical (Prevnar 13) Branch TDAP (ADACEL) 2017-06-20 Completed University of VACCINE 00:00:00 [facility] Pneumococcal 13 2017-06-20 Completed Universit y of Conjugate, PCV13 00:00:00 [facility] dical (Prevnar 13) Branch TDAP (ADACEL) 2017-06-20 Completed University of VACCINE 00:00:00 [facility] Pneumococcal 13 2017-06-20 Completed Universit y of Conjugate, PCV13 00:00:00 [facility] dical (Prevnar 13) Branch TDAP (ADACEL) 2017-06-20 Completed University of VACCINE 00:00:00 [facility] Pneumococcal 13 2017-06-20 Completed Universit y of Conjugate, PCV13 00:00:00 [facility] dical (Prevnar 13) Branch TDAP (ADACEL) 2017-06-20 Completed University of VACCINE 00:00:00 [facility] Pneumococcal 13 2017-06-20 Completed Universit y of Conjugate, PCV13 00:00:00 [facility] dical (Prevnar 13) Branch TDAP (ADACEL) 2017-06-20 Completed University of VACCINE 00:00:00 [facility] Pneumococcal 13 2017-06-20 Completed Universit y of Conjugate, PCV13 00:00:00 [facility] dical (Prevnar 13) Branch TDAP (ADACEL) 2017-06-20 Completed University of VACCINE 00:00:00 [facility] Pneumococcal 13 2017-06-20 Completed Universit y of Conjugate, PCV13 00:00:00 [facility] dical (Prevnar 13) Branch TDAP (ADACEL) 2017-06-20 Completed University of VACCINE 00:00:00 [facility] Pneumococcal 13 2017-06-20 Completed Universit y of Conjugate, PCV13 00:00:00 [facility] dical (Prevnar 13) Branch TDAP (ADACEL) 2017-06-20 Completed University of VACCINE 00:00:00 [facility] Pneumococcal 13 2017-06-20 Completed Universit y of Conjugate, PCV13 00:00:00 [facility] dical (Prevnar 13) Branch TDAP (ADACEL) 2017-06-20 Completed University of VACCINE 00:00:00 [facility] Pneumococcal 13 2017-06-20 Completed Universit y of Conjugate, PCV13 00:00:00 [facility] dical (Prevnar 13) Branch TDAP (ADACEL) 2017-06-20 Completed University of VACCINE 00:00:00 [facility] Pneumococcal 13 2017-06-20 Completed Universit y of Conjugate, PCV13 00:00:00 [facility] dical (Prevnar 13) Branch TDAP (ADACEL) 2017-06-20 Completed University of VACCINE 00:00:00 [facility] Pneumococcal 13 2017-06-20 Completed Universit y of Conjugate, PCV13 00:00:00 [facility] dical (Prevnar 13) Branch Pneumococcal 13 2017-06-20 Completed Universit y of Conjugate, PCV13 00:00:00 [facility] dical (Prevnar 13) Branch TDAP (ADACEL) 2017-06-20 Completed University of VACCINE 00:00:00 [facility] TDAP (ADACEL) 2017-06-20 Completed University of VACCINE 00:00:00 [facility] Pneumococcal 13 2017-06-20 Completed Universit y of Conjugate, PCV13 00:00:00 [facility] dical (Prevnar 13) Branch TDAP (ADACEL) 2017-06-20 Completed University of VACCINE 00:00:00 [facility] Pneumococcal 13 2017-06-20 Completed Universit y of Conjugate, PCV13 00:00:00 [facility] dical (Prevnar 13) Branch TDAP (ADACEL) 2017-06-20 Completed University of VACCINE 00:00:00 [facility] Pneumococcal 13 2017-06-20 Completed Universit y of Conjugate, PCV13 00:00:00 [facility] dical (Prevnar 13) Branch TDAP (ADACEL) 2017-06-20 Completed University of VACCINE 00:00:00 [facility] Pneumococcal 13 2017-06-20 Completed Universit y of Conjugate, PCV13 00:00:00 [facility] dical (Prevnar 13) Branch TDAP (ADACEL) 2017-06-20 Completed University of VACCINE 00:00:00 [facility] Influenza Virus 2017-01-20 Completed Universit y of Vaccine Quad IM 3+ 00:00:00 [facility] Influenza Virus 2017-01-20 Completed Universit y of Vaccine Quad IM 3+ 00:00:00 [facility] Influenza Virus 2017-01-20 Completed Universit y of Vaccine Quad IM 3+ 00:00:00 [facility] Influenza Virus 2017-01-20 Completed Universit y of Vaccine Quad IM 3+ 00:00:00 [facility] Influenza Virus 2017-01-20 Completed Universit y of Vaccine Quad IM 3+ 00:00:00 [facility] Influenza Virus 2017-01-20 Completed Universit y of Vaccine Quad IM 3+ 00:00:00 [facility] Influenza Virus 2017-01-20 Completed Universit y of Vaccine Quad IM 3+ 00:00:00 [facility] Influenza Virus 2017-01-20 Completed Universit y of Vaccine Quad IM 3+ 00:00:00 [facility] Influenza Virus 2017-01-20 Completed Universit y of Vaccine Quad IM 3+ 00:00:00 [facility] Influenza Virus 2017-01-20 Completed Universit y of Vaccine Quad IM 3+ 00:00:00 [facility] Influenza Virus 2017-01-20 Completed Universit y of Vaccine Quad IM 3+ 00:00:00 [facility] Influenza Virus 2017-01-20 Completed Universit y of Vaccine Quad IM 3+ 00:00:00 [facility] Influenza Virus 2017-01-20 Completed Universit y of Vaccine Quad IM 3+ 00:00:00 [facility] Influenza Virus 2017-01-20 Completed Universit y of Vaccine Quad IM 3+ 00:00:00 [facility] Influenza Virus 2017-01-20 Completed Universit y of Vaccine Quad IM 3+ 00:00:00 [facility] Influenza Virus 2017-01-20 Completed Universit y of Vaccine Quad IM 3+ 00:00:00 [facility] Influenza Virus 2017-01-20 Completed Universit y of Vaccine Quad IM 3+ 00:00:00 [facility] Influenza Virus 2017-01-20 Completed Universit y of Vaccine Quad IM 3+ 00:00:00 [facility] Influenza Virus 2017-01-20 Completed Universit y of Vaccine Quad IM 3+ 00:00:00 [facility] Influenza Virus 2017-01-20 Completed Universit y of Vaccine Quad IM 3+ 00:00:00 [facility] Influenza Virus 2017-01-20 Completed Universit y of Vaccine Quad IM 3+ 00:00:00 [facility] Influenza Virus 2017-01-20 Completed Universit y of Vaccine Quad IM 3+ 00:00:00 [facility] Influenza Virus 2017-01-20 Completed Universit y of Vaccine Quad IM 3+ 00:00:00 [facility] Influenza Virus 2017-01-20 Completed Universit y of Vaccine Quad IM 3+ 00:00:00 [facility] Influenza Virus 2017-01-20 Completed Universit y of Vaccine Quad IM 3+ 00:00:00 [facility] Influenza Virus 2017-01-20 Completed Universit y of Vaccine Quad IM 3+ 00:00:00 [facility] Influenza Virus 2017-01-20 Completed Universit y of Vaccine Quad IM 3+ 00:00:00 [facility] Influenza Virus 2017-01-20 Completed Universit y of Vaccine Quad IM 3+ 00:00:00 [facility] Influenza Virus 2017-01-20 Completed Universit y of Vaccine Quad IM 3+ 00:00:00 [facility] Influenza Virus 2017-01-20 Completed Universit y of Vaccine Quad IM 3+ 00:00:00 [facility] Influenza Virus 2017-01-20 Completed Universit y of Vaccine Quad IM 3+ 00:00:00 [facility] Influenza Virus 2017-01-20 Completed Universit y of Vaccine Quad IM 3+ 00:00:00 [facility] Influenza Virus 2017-01-20 Completed Universit y of Vaccine Quad IM 3+ 00:00:00 [facility] Influenza Virus 2017-01-20 Completed Universit y of Vaccine Quad IM 3+ 00:00:00 [facility] Influenza Virus 2017-01-20 Completed Universit y of Vaccine Quad IM 3+ 00:00:00 [facility] Influenza Virus 2017-01-20 Completed Universit y of Vaccine Quad IM 3+ 00:00:00 [facility] Influenza Virus 2017-01-20 Completed Universit y of Vaccine Quad IM 3+ 00:00:00 [facility] Influenza Virus 2017-01-20 Completed Universit y of Vaccine Quad IM 3+ 00:00:00 [facility] Influenza Virus 2017-01-20 Completed Universit y of Vaccine Quad IM 3+ 00:00:00 [facility] Influenza Virus 2017-01-20 Completed Universit y of Vaccine Quad IM 3+ 00:00:00 [facility] Influenza Virus 2017-01-20 Completed Universit y of Vaccine Quad IM 3+ 00:00:00 [facility] Influenza Virus 2017-01-20 Completed Universit y of Vaccine Quad IM 3+ 00:00:00 [facility] Influenza Virus 2017-01-20 Completed Universit y of Vaccine Quad IM 3+ 00:00:00 [facility] Influenza Virus 2017-01-20 Completed Universit y of Vaccine Quad IM 3+ 00:00:00 [facility] Influenza Virus 2017-01-20 Completed Universit y of Vaccine Quad IM 3+ 00:00:00 [facility] Influenza Virus 2017-01-20 Completed Universit y of Vaccine Quad IM 3+ 00:00:00 [facility] Influenza Virus 2017-01-20 Completed Universit y of Vaccine Quad IM 3+ 00:00:00 [facility] Influenza Virus 2017-01-20 Completed Universit y of Vaccine Quad IM 3+ 00:00:00 [facility] Influenza Virus 2017-01-20 Completed Universit y of Vaccine Quad IM 3+ 00:00:00 [facility] Influenza Virus 2017-01-20 Completed Universit y of Vaccine Quad IM 3+ 00:00:00 [facility] Influenza Virus 2017-01-20 Completed Universit y of Vaccine Quad IM 3+ 00:00:00 [facility] Vital Signs Vital Name Observation Time Observation Value Comments Source Systolic blood 2018-10-05 18:47:00 152 mm[Hg] Univer sity of pressure [facility] Diastolic blood 2018-10-05 18:47:00 82 mm[Hg] Unive rsity of pressure [facility] Heart rate 2018-10-05 18:47:00 78 /min [facility] Body temperature 2018-10-05 18:47:00 36.28 Nellie [facility] Respiratory rate 2018-10-05 18:47:00 18 /min [facility] Body height 2018-10-05 18:47:00 177.8 cm [facility] Body weight 2018-10-05 18:47:00 94.756 kg [facility] BMI 2018-10-05 18:47:00 29.97 kg/m2 [facility] Procedures Procedure Date / Time Performing Clinician Source Performed PROSTATIC SPECIFIC ANTIGEN 2018-10-05 20:45:00 Carola Kulkarni [facility] BILI UNCONJUGATED/BILI 2018-10-05 20:45:[address] [facility] COMP. METABOLIC PANEL 2018-10-05 20:45:00 Shad [facility] ([id number]) [facility] LIPID PANEL (37922)(TOTAL 2018-10-05 20:45:00 Carola Kulkarni [facility] CHOLESTEROL, [facility] TRIGLYCERIDES, HDL) CBC WITH DIFFERENTIAL 2018-10-05 20:45:00 Shad [facility] CD4 SUBSET ASSAY 2018-10-05 20:45:00 Shad [facility] HIV1 BY REAL-TIME PCR 2018-10-05 20:45:00 Carola Kulkarni [facility] HEMOGLOBINOPATHY 2018-10-05 20:45:00 Shad [facility] EVALUATION [facility] GALV ONLY - SYPHILIS 2018-10-05 20:45:00 Carola Kulkarni [facility] IGG/IGM [facility] ASSIGNMENT OF BENEFITS 2018-10-05 18:21:48 Doctor Unassigned, [facility] Ramona [facility] Encounters Start End Encounter Admission Attending Care Care Encounter Source Date/Time Date/Time Type Type Clinicians Facility Department ID 2020-09-06 2020-09-06 Outpatient R [facility] [id number] Univers 09:30:00 09:30:00 CAROLA [id number] [facility] 2020-09-06 2020-09-06 Outpatient R [facility] [id number] Univers 09:30:00 09:30:00 CAROLA [facility] 2020-09-05 2020-09-05 Refill Shad [facility] [id number] Univers 00:00:00 00:00:00 Carola [facility] [id number] i [place] [id number] [facility] 089 Branch 2020-09-05 2020-09-05 Telephone REVA Gregory [id number] Univers 00:00:00 00:00:00 Nano L Y HEALTH [id number] i [id number] [address] 2020-09-05 2020-09-05 [facility] [id number] 00:00:00 00:00:00 Carola [facility] HE[facility] [id number] CLINICS 4.2.7.2.686 [id number] [facility] 2020-09-05 2020-09-05 [id number] 00:00:00 00:00:00 Nano L Y HEALTH [id number] CLINICS 4.2.7.2.686 [id number] [facility] 2020-03-15 2020-03-15 [facility] [id number] Univers 00:00:00 00:00:00 (Out) Rosa L Y HEALTH [id number] [id number] [address] 2020-03-15 2020-03-15 Letter [facility] [id number] 00:00:00 00:00:00 (Out) Rosa L Y HEALTH [id number] CLINICS 4.2.7.2.686 [id number] [facility] 2020-03-07 2020-03-07 Outpatient [facility] [id number] Univers 14:30:00 14:30:00 CAROLA [id number] [facility] 2020-03-07 2020-03-07 Outpatient [facility] [id number] Univers 14:30:00 14:30:00 CAROLA [facility] 2020-03-06 2020-03-06 [facility] [id number] Univers 00:00:00 00:00:00 Rosa R Y HEALTH 350.1.13.10 [id number] [address] 2020-03-06 2020-03-06 Telephone Wallace Fine, [facility] [id number] 00:00:00 00:00:00 Rosa R Y HEALTH 350.1.13.10 CLINICS 4.2.7.2.686 [id number] [facility] 2020-03-01 2020-03-01 Case Andrew, [facility] [id number] [facility] 00:00:00 00:00:00 Management Rosa L [facility] HEALTH 350.1.13.10 [id number] [address] 2020-03-01 2020-03-01 Case Andrew, [facility] [id number] 00:00:00 00:00:00 Management Rosa L [facility] HEALTH 350.1.13.10 CLINICS 4.2.7.2.686 [id number] [facility] 2020-02-29 2020-02-29 Outpatient R [facility] [id number] Univers 10:30:00 10:30:00 [place] [id number] [facility] 2020-02-29 2020-02-29 Outpatient [facility] [id number] Univers 10:30:00 10:30:00 [facility] 2020-02-29 2020-02-29 Telephone Geovanny [facility] [id number] [facility] 00:00:00 00:00:00 Nechelle Y HEALTH 350.1.13.10 [place]y [id number] [address] 2020-02-29 2020-02-29 Telephone Geovanny [facility] [id number] 00:00:00 00:00:00 Nechelle Y HEALTH 350.1.13.10 CLINICS 4.2.7.2.686 [id number] [facility] 2020-02-25 2020-02-25 Telephone Wallace Fine, [facility] [id number] Univers 00:00:00 00:00:00 Rosa R Y HEALTH 350.1.13.10 [place] [id number] [address] 2020-02-25 2020-02-25 Telephone Wallace Fine, [facility] 1.2.840.114 [id number] 00:00:00 00:00:00 Rosa R Y HEALTH 350.1.13.10 CLINICS 4.2.7.2.686 [id number] [facility] 2020-02-22 2020-02-22 Marco Antonio Garsia, [facility] 1.2.840.114 [id number] 00:00:00 00:00:00 Management Zahira M Y HEALTH 350.1.13.10 CLINICS 4.2.7.2.686 [id number] [facility] 2020-02-22 2020-02-22 Marco [facility] 1.2.085.614 [id number] Univers 00:00:00 00:00:00 Management Nano L Y HEALTH 350.1.13.10 [place] [id number] [address] 2020-02-22 2020-02-22 Marco Antonio Garsia, [facility] 1.2.840.114 [id number] Univers 00:00:00 00:00:00 Management Zahira M Y HEALTH 350.1.13.10 ity [place] [id number] [address] 2020-02-22 2020-02-22 Marco Antonio Colt, [facility] 1.2.765.992 [id number] 00:00:00 00:00:00 Management Nano L Y HEALTH 350.1.13.10 CLINICS 4.2.7.2.686 [id number] [facility] 2020-02-09 2020-02-09 Outpatient [facility] [id number] -[id number] Univers 10:30:00 10:30:00 CAROLA [id number] ity of [facility] 2020-02-09 2020-02-09 Outpatient [facility] [id number] Univers 10:30:00 10:30:00 CAROLA ity of [facility] 2020-02-07 2020-02-07 Case Wallace Fine, [facility] 1.2.840.114 [id number] 00:00:00 00:00:00 Management Rosa R Y HEALTH 350.1.13.10 CLINICS 4.2.7.2.686 [id number] 2020-02-07 2020-02-07 Case Colt, [facility] 1.2.901.064 [id number] 00:00:00 00:00:00 Management Nano L Y HEALTH 350.1.13.10 CLINICS 4.2.7.2.686 [id number] [facility] 2020-02-07 2020-02-07 Case Wallace Fine, [facility] 1.2.840.114 [id number] Univers 00:00:00 00:00:00 Management Rosa R Y HEALTH 350.1.13.10 [place] [id number] [address] 2020-02-07 2020-02-07 Case Colt, [facility] 1.2.052.504 [id number] Univers 00:00:00 00:00:00 Management Nano L Y HEALTH 350.1.13.10 [place] [id number] [address] 2020-01-31 2020-01-31 Telephone REVA Small 1.2.840.114 [id number] 00:00:00 00:00:00 Nechelle Y HEALTH 350.1.13.10 CLINICS 4.2.7.2.686 [id number] [facility] 2020-01-31 2020-01-31 Telephone REVA Small 1.2.840.114 [id number] Univers 00:00:00 00:00:00 Nechelle Y HEALTH 350.1.13.10 it[place] [id number] [address] 2020-01-28 2020-01-28 Telephone REVA Small 1.2.840.114 [id number] 00:00:00 00:00:00 Nechelle Y HEALTH 350.1.13.10 CLINICS 4.2.7.2.686 [id number] [facility] 2020-01-28 2020-01-28 [facility] 1.2.840.114 [id number] [facility] 00:00:00 00:00:00 Nechelle Y HEALTH 350.1.13.10 ity [place] [id number] [address] 2020-01-12 2020-01-12 [facility] 1.2.840.114 [id number] 00:00:00 00:00:00 Management Rosa L Y HEALTH 350.1.13.10 CLINICS 4.2.7.2.686 [id number] [facility] 2020-01-12 2020-01-12 [facility] 1.2.840.114 [id number] Univers 00:00:00 00:00:00 Management Rosa L Y HEALTH 350.1.13.10 ity [place] [id number] [address] 2020-01-03 2020-01-03 Outpatient [facility] [id number] -[id number] Univers 10:00:00 10:00:00 CAROLA [id number] [facility] 2020-01-03 2020-01-03 Outpatient [facility] [id number] Univers 10:00:00 10:00:00 CAROLA [facility] 2019-12-31 2019-12-31 Telephone [facility] 1.2.840.114 [id number] 00:00:00 00:00:00 Oral L Y HEALTH 350.1.13.10 CLINICS 4.2.7.2.686 [id number] [facility] 2019-12-31 2019-12-31 Telephone [facility] 1.2.840.114 [id number] Univers 00:00:00 00:00:00 Oral L Y HEALTH 350.1.13.10 ity [place] [id number] [address] 2019-12-28 2019-12-28 [facility] 1.2.840.114 [id number] Univers 00:00:00 00:00:00 Management Rosa L Y HEALTH 350.1.13.10 ity [place] [id number] [address] 2019-12-28 2019-12-28 [facility] 1.2.840.114 [id number] 00:00:00 00:00:00 Management Rosa L Y HEALTH 350.1.13.10 CLINICS 4.2.7.2.686 [id number] [facility] 2019-12-14 2019-12-14 [facility] 1.2.840.114 [id number] Univers 00:00:00 00:00:00 Rosa L Y HEALTH 350.1.13.10 ity [place] [id number] [address] 2019-12-14 2019-12-14 [facility] 1.2.840.114 [id number] 00:00:00 00:00:00 Rosa L Y HEALTH 350.1.13.10 CLINICS 4.2.7.2.686 [id number] [facility] 2019-12-08 2019-12-08 [facility] 1.2.840.114 [id number] Univers 00:00:00 00:00:00 Management Rosa L Y HEALTH 350.1.13.10 ity [place] [id number] [address] 2019-12-08 2019-12-08 [facility] 1.2.840.114 [id number] 00:00:00 00:00:00 Management Rosa L Y HEALTH 350.1.13.10 CLINICS 4.2.7.2.686 [id number] [facility] 2019-11-23 2019-11-23 [facility] 1.2.840.114 [id number] Univers 00:00:00 00:00:00 Rosa L Y HEALTH 350.1.13.10 ity [place] [id number] [address] 2019-11-23 2019-11-23 [place] Andrew [facility] 1.2.840.114 [id number] 00:00:00 00:00:00 Rosa L Y HEALTH 350.1.13.10 CLINICS 4.2.7.2.686 [id number] [facility] 2019-11-16 2019-11-16 Outpatient R [facility] [id number] -[id number] Univers 08:30:00 08:30:00 CAROLA ity [facility] 2019-11-16 2019-11-16 Outpatient R [facility] [id number] Univers 08:30:00 08:30:00 [facility] 2019-11-15 2019-11-15 Case Wallace Fine, [facility] 1.2.840.114 [id number] Univers 00:00:00 00:00:00 Management Rosa R Y HEALTH 350.1.13.10 ity [place] [id number] [address] 2019-11-15 2019-11-15 Case Wallace Fine, [facility] 1.2.840.114 [id number] 00:00:00 00:00:00 Management Rosa R Y HEALTH 350.1.13.10 CLINICS 4.2.7.2.686 [id number] [facility] 2019-11-12 2019-11-12 Outpatient R [facility] [id number] -[id number] Univers 16:00:00 16:00:00 CAROLA ity [facility] 2019-11-04 2019-11-04 Case Colt, [facility] 1.2.181.362 [id number] Univers 00:00:00 00:00:00 Management Nano L Y HEALTH 350.1.13.10 ity [place] [id number] [address] 2019-11-04 2019-11-04 Case Colt [facility] 1.2.894.852 [id number] 00:00:00 00:00:00 Management Nano L Y HEALTH 350.1.13.10 CLINICS 4.2.7.2.686 [id number] [facility] 2019-11-02 2019-11-02 Outpatient R [facility] [id number] -20 Univers 15:30:00 15:30:00 CAROLA [id number] ity [facility] 2019-11-02 2019-11-02 Outpatient R [facility] [id number] Univers 15:30:00 15:30:00 [facility] 2019-11-02 2019-11-02 Case Colt, [facility] 1.2.201.359 [id number] Univers 00:00:00 00:00:00 Management Nano L Y HEALTH 350.1.13.10 ity [place] [id number] [address] 2019-11-02 2019-11-02 Marco Antonio Gregory [facility] 1.2.979.671 [id number] 00:00:00 00:00:00 Management Nano L Y HEALTH 350.1.13.10 CLINICS 4.2.7.2.686 [id number] [facility] 2019-10-07 2019-10-07 Marco Antonio Gregory [facility] 1.2.256.467 [id number] Univers 00:00:00 00:00:00 Management Nano L Y HEALTH 350.1.13.10 ity of [place] [id number] [address] 2019-10-07 2019-10-07 Case Colt, [facility] 1.2.647.130 [id number] 00:00:00 00:00:00 Management Nano L Y HEALTH 350.1.13.10 CLINICS 4.2.7.2.686 [id number] [facility] 2019-10-04 2019-10-04 Tony Morales [facility] 1.2.840.114 [id number] [facility] 00:00:00 00:00:00 Rosa L Y HEALTH 350.1.13.10 ity of [place] [id number] [address] 2019-10-04 2019-10-04 Telephone BRITTANI MoralesIT 1.2.840.114 [id number] 00:00:00 00:00:00 Rosa L Y HEALTH 350.1.13.10 CLINICS 4.2.7.2.686 [id number] [facility] 2019-09-29 2019-09-29 Outpatient R [facility] [id number] -[id number] Univers 10:30:00 10:30:00 CAROLA [id number] ity [facility] 2019-09-29 2019-09-29 Outpatient R [facility] [id number] Univers 10:30:00 10:30:00 CAR[place] ity [facility] 2019-09-28 2019-09-28 [facility] 1.2.840.114 [id number] Univers 00:00:00 00:00:00 Cesia L Y HEALTH 350.1.13.10 ity [place] [id number] [address] 2019-09-28 2019-09-28 [facility] 1.2.840.114 [id number] 00:00:00 00:00:00 Cesia L Y HEALTH 350.1.13.10 CLINICS 4.2.7.2.686 [id number] [facility] 2019-08-17 2019-08-17 Outpatient R [facility] [id number] -[id number] Univers 10:00:00 10:00:00 CAROLA [id number] ity [facility] 2019-08-17 2019-08-17 Outpatient R [facility] [id number] Univers 10:00:00 10:00:00 CAROLA ity [facility] 2019-08-17 2019-08-17 [facility].840.114 [id number] Univers 07:23:13 07:53:13 ne Visit Carola Y HEALTH 350.1.13.10 ity of [place] [id number] [address] 2019-08-17 2019-08-17 [facility] 1[facility]2.840.114 [id number] 07:23:13 07:53:13 ne Visit Carola Y HEALTH 350.1.13.10 CLINICS 4.2.7.2.686 [id number] [facility] 2019-08-17 2019-08-17 [facility] 1.2.840.114 [id number] Univers 00:00:00 00:00:00 Carola Y HEALTH 350.1.13.10 i ty of [place] [id number] [address] 2019-08-17 2019-08-17 Telephone [facility] 1.2.840.114 [id number] Univers 00:00:00 00:00:00 Rosa L Y HEALTH 350.1.13.10 ity of [place] [id number] [address] 2019-08-17 2019-08-17 Telephone [facility] 1.2.840.114 [id number] 00:00:00 00:00:00 Carola Y HEALTH 350.1.13.10 CLINICS 4.2.7.2.686 [id number] [facility] 2019-08-17 2019-08-17 [facility] 1.2.840.114 [id number] 00:00:00 00:00:00 Rosa L Y HEALTH 350.1.13.10 CLINICS 4.2.7.2.686 [id number] [facility] 2019-08-16 2019-08-16 Marco [facility] 1.2.491.063 [id number] Univers 00:00:00 00:00:00 Management Nano L Y HEALTH 350.1.13.10 ity of [place] [id number] [address] 2019-08-16 2019-08-16 Marco Antonio Gregory [facility] 1.2.981.144 [id number] Univers 00:00:00 00:00:00 Management Nano L Y HEALTH 350.1.13.10 ity of [place] [id number] [address] 2019-08-16 2019-08-16 BRITTANI Elizalde 1.2.061.894 [id number] Univers 00:00:00 00:00:00 Management Nano L Y HEALTH 350.1.13.10 ity of [place] [id number] [address] 2019-08-16 2019-08-16 BRITTANI Elizalde 1.2.653.095 [id number] 00:00:00 00:00:00 Management Nano L Y HEALTH 350.1.13.10 CLINICS 4.2.7.2.686 [id number] [facility] 2019-08-16 2019-08-16 BRITTANI ElizaldeIT 1.2.483.681 [id number] 00:00:00 00:00:00 Management Nano L Y HEALTH 350.1.13.10 CLINICS 4.2.7.2.686 [id number] [facility] 2019-08-16 2019-08-16 BRITTANI Elizalde 1.2.798.258 [id number] 00:00:00 00:00:00 Management Nano L Y HEALTH 350.1.13.10 CLINICS 4.2.7.2.686 [id number] [facility] 2019-08-13 2019-08-13 BRITTANI Elizalde 1.2.885.603 [id number] Univers 00:00:00 00:00:00 Management Nano L Y HEALTH 350.1.13.10 ity of [place] [id number] [address] 2019-08-13 2019-08-13 BRITTANI Elizalde 1.2.852.268 [id number] 00:00:00 00:00:00 Management Nano L Y HEALTH 350.1.13.10 CLINICS 4.2.7.2.686 [id number] [facility] 2019-08-12 2019-08-12 BRITTANI Elizalde 1.2.253.566 [id number] Univers 00:00:00 00:00:00 Management Nano L Y HEALTH 350.1.13.10 ity of [place] [id number] [address] 2019-08-12 2019-08-12 BRITTANI ElizaldeIT 1.2.286.727 [id number] 00:00:00 00:00:00 Management Nano L Y HEALTH 350.1.13.10 CLINICS 4.2.7.2.686 [id number] [facility] 2019-08-04 2019-08-04 Marco Antonio Gregory [facility] 1.2.651.688 [id number] Univers 00:00:00 00:00:00 Management Nano L Y HEALTH 350.1.13.10 ity of [place] [id number] [address] 2019-08-04 2019-08-04 BRITTANI ElizaldeIT 1.2.354.107 [id number] 00:00:00 00:00:00 Management Nano L Y HEALTH 350.1.13.10 CLINICS 4.2.7.2.686 [id number] [facility] 2019-07-27 2019-07-27 BRITTANI ElizaldeIT 1.2.448.042 [id number] Univers 00:00:00 00:00:00 Management Nano L Y HEALTH 350.1.13.10 ity of CL[place] [id number] [address] 2019-07-27 2019-07-27 BRITTANI ElizaldeIT 1.2.957.817 [id number] 00:00:00 00:00:00 Management Nano L Y HEALTH 350.1.13.10 CLINICS 4.2.7.2.686 [id number] [facility] 2019-07-26 2019-07-26 BRITTANI ElizaldeIT 1.2.882.698 [id number] Univers 00:00:00 00:00:00 Management Nano L Y HEALTH 350.1.13.10 ity of [place] [id number] [address] 2019-07-26 2019-07-26 BRITTANI ElizaldeIT 1.2.745.758 [id number] 00:00:00 00:00:00 Management Nano L Y HEALTH 350.1.13.10 CLINICS 4.2.7.2.686 [id number] [facility] 2019-04-07 2019-04-07 Outpatient R SHAD, [facility] [id number] Univers 08:30:00 08:30:00 [place]A esquivel [facility] 2019-03-18 2019-03-18 Telephone Amisha, [facility] 1.2.840.114 [id number] Univers 00:00:00 00:00:00 Oral L Y HEALTH 350.1.13.10 ity of [place] [id number] [address] 2019-03-18 2019-03-18 Telephone Amisha, [facility] 1.2.840.114 [id number] 00:00:00 00:00:00 Oral L Y HEALTH 350.1.13.10 CLINICS 4.2.7.2.686 [id number] [facility] 2019-03-15 2019-03-15 Marco Antonio Garsia [facility] 1.2.840.114 [id number] Univers 00:00:00 00:00:00 Management Zahira M Y HEALTH 350.1.13.10 ity of [place] [id number] [address] 2019-03-15 2019-03-15 Marco Antonio Garsia [facility] 1.2.840.114 [id number] 00:00:00 00:00:00 Management Zahira M Y HEALTH 350.1.13.10 CLINICS 4.2.7.2.686 [id number] [facility] 2018-10-22 2018-10-22 Telephone Amisha, [facility] 1.2.840.114 [id number] Univers 00:00:00 00:00:00 Oral L Y HEALTH 350.1.13.10 ity of [place] [id number] [address] 2018-10-22 2018-10-22 Telephone [facility], [facility] 1.2.840.114 [id number] 00:00:00 00:00:00 Oral L Y HEALTH 350.1.13.10 CLINICS 4.2.7.2.686 [id number] [facility] 2018-10-13 2018-10-13 Telephone BRITTANI LionIT 1.2.840.114 [id number] Univers 00:00:00 00:00:00 Oral Otto HEALTH 350.1.13.10 ity of CL[place] [id number] [place] [address] [facility] 2018-10-13 2018-10-13 Telephone BRITTANI LionIT 1.2.840.114 [id number] 00:00:00 00:00:00 Oral Otto HEALTH 350.1.13.10 CLINICS 4.2.7.2.686 [id number] [facility] 2018-10-09 2018-10-09 BRITTANI Elizalde 1.2.286.925 [id number] Univers 00:00:00 00:00:00 Management Nano Otto HEALTH 350.1.13.10 ity of [place] [id number] [address] 2018-10-07 2018-10-07 BRITTANI Elizalde 1.2.679.864 [id number] Univers 00:00:00 00:00:00 Management Nano Otto HEALTH 350.1.13.10 ity of CL[place] [id number] [address] 2018-10-05 2018-10-05 Supervisor Plastic Sheets [facility] 1.2.840.114 [id number] [facility] 15:10:16 15:47:51 [facility] 350.1.13.10 ity of CL[place]2.[place] [id number] [address] 2018-10-05 2018-10-05 Office [facility] 1.2.005.636 [id number] [facility] 13:23:30 15:08:46 Visit Carola [facility] 350.1.13.10 i ty of CLINICS [place]2.[place] [id number] [address] 2018-10-05 2018-10-05 BRITTANI Elizalde 1.2.668.860 [id number] Univers 00:00:00 00:00:00 Management Nano L Y HEALTH 350.1.13.10 ity of CL[place].2.[place] [id number] [place] [address] [facility] 2018-10-05 2018-10-05 Orders Doctor MARLA 1.2.840.114 [id number] Univers 00:00:00 00:00:00 Only Unassigned, BREANNA 350.1.13.10 ity of [facility] 4.2.7.2.686 Ishan as [id number] [facility] [address] 2018-10-05 2018-10-05 Case Amisha, [facility] 1.2.508.244 [id number] Univers 00:00:00 00:00:00 Management Oral L Y HEALTH 350.1.13.10 ity of [place] [id number] [address] 2018-09-29 2018-09-29 Case Ann, [facility] 1.2.840.114 [id number] Univers 00:00:00 00:00:00 Management Cesia L Y HEALTH 350.1.13.10 ity of [place]2.[place] [id number] [address] 2018-08-31 2018-08-31 Deepak [facility], [facility] 1.2.060.574 [id number] Univers 00:00:00 00:00:00 [facility] 350.1.13.10 i ty of CLINICS [place]2.[place] [id number] [address] Results Test Description Test Time Test Comments Results Result Comments Source HIV1 BY REAL-TIME PCR QUANT 2018-10-08 17:18:00 Test Item Value Reference Range Interpretation Comme nts HIV 1 by Real-Time PCR (test Not Detected Not Detected code = 7400056041) CINDI (test code = CINDI) HIV-1 Real-Time PCRInterpretative data:Afraxis000 Real Time HIV-1 reverse crap shooter-polymerase chain reaction (RT-PCR) assay is used. It is FDA approved for plasma samples to measure HIV-1 RNA for use as an aid in the management of HIV-1 infected individuals. The FDA approved dynamic range of this test is 40 to 10,000,000 copies/mL (1.60-7.00 Log copies/mL). Assay results are reported in copies/mL; 1 copy = 1.74 IU (International Units). Sample input volume is 0.6 mL.Result Interpretation:Not Detected: Target not detected (not the same as negative);<40 copies/mL: Detected (but not quantifiable);40-10,000,000 copies/mL>10,000,000 copies/mL; > upper limit of quantification. [facility] PCR [id number] 17:18:00 Test Item Value Reference Range Interpretation Comments HIV 1 by Not Detected Not Detected Real-Time PCR (test code = 0048714235) CINDI (test code = HIV-1 Real-Time CINDI) PCRInterpretative data:Afraxis000 Real Time HIV-1 reverse crap shooter-polymerase chain reaction (RT-PCR) assay is used. It is FDA approved for plasma samples to measure HIV-1 RNA for use as an aid in the management of HIV-1 infected individuals. The FDA approved dynamic range of this test is 40 to 10,000,000 copies/mL (1.60-7.00 Log copies/mL). Assay results are reported in copies/mL; 1 copy = 1.74 IU (International Units). Sample input volume is 0.6 mL.Result Interpretation:Not Detected: Target not detected (not the same as negative);<40 copies/mL: Detected (but not quantifiable);40-10,000,000 copies/mL>10,000,000 copies/mL; > upper limit of quantification. [facility] CenterHEMOGLOBINOPATHY [id number] 18:50:00 Test Item Value Reference Interpretation Comments Range HEMOGLOBIN EVAL A 22.8 % 95-97.9 L (BEAKER) (test code = 78022-2) HEMOGLOBIN EVAL A2 6.0 % 2-3.5 H (BEAKER) (test code = 4552-6) HEMOGLOBIN EVAL F 5.2 % 0-2.1 H (BEAKER) (test code = 31556-8) HEMOGLOBIN EVAL C >43.0 See_Comment [Automate d (BEAKER) (test code message] The = 21951-8) system which generated this result transmitted reference range : 0.0 %. The reference range was not used to interpret this result as normal/abnormal . HGB OTHER % (test 0.5 % HGB OTHER% = 0.5 code = 42419-3) HGB E HGB EVAL HPLC (test Y code = 86289-0) HGB EVAL INTERP Hemoglobinopathy (test code = [place] 0[address]-4) Capillary Electrophoresis and High Performance Liquid Chromatography shows Hg A (22%), increased Hg A26%, increased Hg F 5.2% and a variant hemoglobin > 43%%. The variant hemoglobin has a migration pattern and retention consistent with Hg C.?Blood smear show microcytosis, erythrocytosis and target cells. 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 Lab Interpretation Abnormal (test code = 13215-1) [facility] CenterHEMOGLOBINOPATHY [id number] 18:50:00 Test Item Value Reference Interpretation Comments Range HEMOGLOBIN EVAL A 22.8 % 95-97.9 L ([place]) (test code = 35813-2) HEMOGLOBIN EVAL A2 6.0 % 2-3.5 H ([place]) (test code = 4552-6) HEMOGLOBIN EVAL F 5.2 % 0-2.1 H ([place]) (test code = 39603-5) HEMOGLOBIN EVAL C >43.0 See_Comment [Automate d ([place]) (test code message] The = 35400-0) system which generated this result transmitted reference range : 0.0 %. The reference range was not used to interpret this result as normal/abnormal . HGB OTHER % (test 0.5 % HGB OTHER% = 0.5 code = 58696-0) HGB E HGB EVAL HPLC (test Y code = 27020-1) HGB EVAL INTERP Hemoglobinopathy (test code = [place] 297[address]-6) Capillary Electrophoresis and High Performance Liquid Chromatography shows Hg A (22%), increased Hg A26%, increased Hg F 5.2% and a variant hemoglobin > 43%%. The variant hemoglobin has a migration pattern and retention consistent with Hg C.?Blood smear show microcytosis, erythrocytosis and target cells. 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 Lab Interpretation Abnormal (test code = 33280-0) [id number] 17:49:00 Test Item Value Reference Range Interpretation Comments Syphilis IgG/IgM (test Non-reactive Non-reactive code = 79519-5) CINDI (test code = CINDI) Non-reactive - No serologic evidence of T. pallidum infection. Cannot exclude incubating or early syphilis. Submit a second specimen in 2-4 weeks if syphilis is clinically suspected.Equivocal - Further testing to follow.Reactive - Further testing to follow. Lab Interpretation (test Normal code = 97823-1) [facility] ONLY - SYPHILIS [id number] 17:49:00 Test Item Value Reference Range Interpretation Comments Syphilis IgG/IgM (test Non-reactive Non-reactive code = 68484-7) CINDI (test code = CINDI) Non-reactive - No serologic evidence of T. pallidum infection. Cannot exclude incubating or early syphilis. Submit a second specimen in 2-4 weeks if syphilis is clinically suspected.Equivocal - Further testing to follow.Reactive - Further testing to follow. Lab Interpretation (test Normal code = 92508-1) [facility] [id number] 17:18:00 Test Item Value Reference Range Interpretation Comments CD4 % (test code = 19 % 31-60 L 8123-2) CD4 Absolute (test code See_Comment L [Au tomated message] = 54280-4) The system [employer] generated this result transmitted ref erence range: 410-1,59 0 Cells/?L. The reference range was not used to int erpret this result as normal/abnormal . Lab Interpretation (test Abnormal code = 95096-5) [facility] [id number] 17:18:00 Test Item Value Reference Range Interpretation Comments CD4 % (test code = 19 % 31-60 L 8123-2) CD4 Absolute (test code See_Comment L [Au tomated message] = 80537-2) The system [employer] generated this result transmitted ref erence range: 410-1,59 0 Cells/?L. The reference range was not used to int erpret this result as normal/abnormal . Lab Interpretation (test Abnormal code = 63216-9) [facility] CenterPROSTATIC SPECIFIC [id number] 23:53:00 Test Item Value Reference Range Interpretation Comments PSA (test code = 7.32 ng/mL See_Comment H [Automated [id number]) message] The system which generated this result transmitted reference range : <=4.00. The reference range was not used to interpret this result as normal/abnormal . CINDI (test code = CINDI) Biotin has been reported to cause a negative bias, interpret results relative to patient's use of biotin. Lab Interpretation Abnormal (test code = 46568-8) [facility]IFIC [id number] 23:53:00 Test Item Value Reference Range Interpretation Comments PSA (test code = 7.32 ng/mL See_Comment H [Automated [id number]) message] The system which generated this result transmitted reference range : <=4.00. The reference range was not used to interpret this result as normal/abnormal . CINDI (test code = CINDI) Biotin has been reported to cause a negative bias, interpret results relative to patient's use of biotin. Lab Interpretation Abnormal (test code = 08388-9) [facility] CenterB[facility] UNCONJUGATED/BILI [id number] 23:21:00 Test Item Value Reference Range Interpretation Comments BILI CONJ (test code = 5634920538) 0.0 mg/dL 0-0.3 BILI UNCON (test code = 4954453758) 0.4 mg/dL 0.1-1.1 Lab Interpretation (test code = Normal 06208-2) [facility] CenterLIPID PANEL ([id number])(TOTAL CHOLESTEROL, TRIGLYCERIDES, HDL)2018-10-05 23:21:00 Test Item Value Reference Range Interpretation Comments CHOL (test code = 155 mg/dL 120-200 8773210378) HDL (test code = 74 mg/dL >40 8676987651) HDLC RATIO (test code = See_Comment [Au tomated message] 1586890067) The system [employer] generated this result transmit lu reference range : <=5.0. The refe rence range was not u sed to interpret th is result as normal/abnormal . TRIG (test code = 101 mg/dL 30-170 0483335818) LDL CHOL (test code = 61 mg/dL See_Comment [Auto mated message] 90698-7) The system [employer] generated this result transmit lu reference range : <=160. The refe rence range was not u sed to interpret th is result as normal/abnormal . VLDL (test code = 20 mg/dL 5-60 9553153795) Lab Interpretation (test Normal code = 98266-8) [facility]. METABOLIC PANEL ([id number])2018-10-05 23:21:00 Test Item Value Reference Range Interpretation Comments NA (test code = 139 mmol/L 135-145 2186699179) K (test code = 4.1 mmol/L 3.5-5 4796711144) CL (test code = 101 mmol/L 98-108 1945616684) CO2 TOTAL (test code = 30 mmol/L 23-31 2710854955) AGAP (test code = 2-16 7670886338) BUN (test code = 16 mg/dL 7-23 4639411267) GLUCOSE (test code = 87 mg/dL 70-110 1214157006) CREATININE (test code = 1.09 mg/dL 0.6-1.25 2644547774) TOTAL BILI (test code = 0.8 mg/dL 0.1-1.1 0145363862) CALCIUM (test code = 9.9 mg/dL 8.6-10.6 9770940202) T PROTEIN (test code = 7.8 g/dL 6.3-8.2 1615391369) ALBUMIN (test code = 4.7 g/dL 3.5-5 5068854738) ALK PHOS (test code = 72 U/L 34-122 5088294633) ALT(SGPT) (test code = 53 U/L 9-51 H 6799250327) AST(SGOT) (test code = 38 U/L 13-40 2273909093) eGFR Calculation mL/min/1.73m2 (Non-) (test code = 2194051192) eGFR Calculation mL/min/1.73m2 () (test code = 7752039468) CINDI (test code = CINDI) Association of Glomerular Filtration Rate (GFR) and Staging of Kidney Disease*+ + + +| GFR (mL/min/1.73 m2)?| With Kidney Damage?|?Without Kidney Damage+ --------+ --------+ +|?>90?|?S tage one?|? Normal?+ ---------+ ---------+ +|?60-89? |?Stage two?|? Decreased GFR? + --+ --+ ------+|?30-59?|?Stage three?|? Stage three? + --+ --+ ------+|?15-29?|?Stage four? |? Stage four?+ -------+ -------+ +|?<15 (or dialysis)?|?Stage five? |? Stage five?+ -------+ -------+ +*Each stage assumes the associated GFR level has been in effect for at least three months.?Stages 1 to 5, with or without kidney disease, indicate chronic kidney disease.Notes: Determination of stages one and two (with eGFR >59mL/min/1.73 m2) requires estimation of kidney damage for at least three months as defined by structural or functional abnormalities of the kidney, manifested by either:Pathological abnormalities or Markers of kidney damage (including abnormalities in the composition of the blood or urine or abnormalities in imaging tests). Lab Interpretation Abnormal (test code = 69748-6) [facility] Center[facility] UN[facility]UGATED/BILI [id number] 23:21:00 Test Item Value Reference Range Interpretation Comments BILI CONJ (test code = 8197796508) 0.0 mg/dL 0-0.3 BILI UNCON (test code = 6511020408) 0.4 mg/dL 0.1-1.1 Lab Interpretation (test code = Normal 20108-1) [facility] CenterLIPID PANEL (17280)(TOTAL CHOLESTEROL, TRIGLYCERIDES, HDL)2018-10-05 23:21:00 Test Item Value Reference Range Interpretation Comments CHOL (test code = 155 mg/dL 120-200 5626781059) HDL (test code = 74 mg/dL >40 7482277343) HDLC RATIO (test code = See_Comment [Au tomated message] 1450251547) The system [employer] generated this result transmit lu reference range : <=5.0. The refe rence range was not u sed to interpret th is result as normal/abnormal . TRIG (test code = 101 mg/dL 30-170 5507428982) LDL CHOL (test code = 61 mg/dL See_Comment [Auto mated message] 61460-5) The system [employer] generated this result transmit lu reference range : <=160. The refe rence range was not u sed to interpret th is result as normal/abnormal . VLDL (test code = 20 mg/dL 5-60 0815053124) Lab Interpretation (test Normal code = 60463-8) [facility]. METABOLIC PANEL (95268)2018-10-05 23:21:00 Test Item Value Reference Range Interpretation Comments NA (test code = 139 mmol/L 135-145 9007282974) K (test code = 4.1 mmol/L 3.5-5 7402509077) CL (test code = 101 mmol/L 98-108 3712543555) CO2 TOTAL (test code = 30 mmol/L 23-31 7998420436) AGAP (test code = 2-16 4336123161) BUN (test code = 16 mg/dL 7-23 0961654968) GLUCOSE (test code = 87 mg/dL 70-110 6627996247) CREATININE (test code = 1.09 mg/dL 0.6-1.25 7649010700) TOTAL BILI (test code = 0.8 mg/dL 0.1-1.8 0943619456) CALCIUM (test code = 9.9 mg/dL 8.6-10.6 8819739953) T PROTEIN (test code = 7.8 g/dL 6.3-8.2 5985792200) ALBUMIN (test code = 4.7 g/dL 3.5-5 1273944643) ALK PHOS (test code = 72 U/L 34-122 9015883356) ALT(SGPT) (test code = 53 U/L 9-51 H 5442515094) AST(SGOT) (test code = 38 U/L 13-40 2232188019) eGFR Calculation mL/min/1.73m2 (Non-) (test code = 9951182183) eGFR Calculation mL/min/1.73m2 () (test code = 9880830658) CINDI (test code = CINDI) Association of Glomerular Filtration Rate (GFR) and Staging of Kidney Disease*+ + + +| GFR (mL/min/1.73 m2)?| With Kidney Damage?|?Without Kidney Damage+ --------+ --------+ +|?>90?|?S claytone one?|? Normal?+ ---------+ ---------+ +|?60-89? |?Stage two?|? Decreased GFR? + --+ --+ ------+|?30-59?|?Stage three?|? Stage three? + --+ --+ ------+|?15-29?|?Stage four? |? Stage four?+ -------+ -------+ +|?<15 (or dialysis)?|?Stage five? |? Stage five?+ -------+ -------+ +*Each stage assumes the associated GFR level has been in effect for at least three months.?Stages 1 to 5, with or without kidney disease, indicate chronic kidney disease.Notes: Determination of stages one and two (with eGFR >59mL/min/1.73 m2) requires estimation of kidney damage for at least three months as defined by structural or functional abnormalities of the kidney, manifested by either:Pathological abnormalities or Markers of kidney damage (including abnormalities in the composition of the blood or urine or abnormalities in imaging tests). Lab Interpretation Abnormal (test code = 65952-6) [facility] WITH [id number] 21:44:00 Test Item Value Reference Range Interpretation Comments WBC (test code = See_Comment [Automated 2590-2) message] The sy stem which generated this result transmitted reference range : 4.20 - 10.70 10*3/?L. The reference range was not used to interpret this result as normal/abnormal . RBC (test code = See_Comment H [Automated 499-8) message] The sy stem which generated this result transmitted reference range : 4.26 - 5.52 10*6/?L. The reference range was not used to interpret this result as normal/abnormal . HGB (test code = 12.9 g/dL 12.2-16.4 718-7) HCT (test code = 37.6 % 38.4-49.3 L 4544-3) MCV (test code = 63.5 fL 81.7-95.6 L 787-2) MCH (test code = 21.8 pg 26.1-32.7 L 785-6) MCHC (test code = 34.3 g/dL 31.2-35 786-4) RDW-SD (test code = 37.5 fL 38.5-51.6 L 55229-0) RDW-CV (test code = 18.2 % 12.1-15.4 H 788-0) PLT (test code = See_Comment [Automated 777-3) message] The sy stem which generated this result transmitted reference range : 150 - 328 10*3/ ?L. The reference r all was not used to interpret this result as normal/abnormal . MPV (test code = 9.9 fL 9.8-13 95867-2) NRBC/100 WBC (test See_Comment [Automat ed code = 0778460659) message] The system which generated this result transmitted reference range : 0.0 - 10.0 /100 WBCs. The refer ence range was not u sed to interpret th is result as normal/abnormal . NRBC x10^3 (test code See_Comment [Auto mated = 9033964225) message] The s ystem which generated this result transmitted reference range : 10*3/?L. The reference range was not used to interpret this result as normal/abnormal . GRAN MAT (NEUT) % 67.8 % (test code = 770-8) IMM GRAN % (test code 0.30 % = 5722531117) LYMPH % (test code = 21.8 % 736-9) MONO % (test code = 8.1 % 5905-5) EOS % (test code = 1.2 % 713-8) BASO % (test code = 0.8 % 706-2) GRAN MAT x10^3(ANC) 5.09 10*3/uL 1.99-6.95 (test code = 5533068090) IMM GRAN x10^3 (test <0.03 0-0.06 code = 5917953888) LYMPH x10^3 (test code 1.64 10*3/uL 1.09-3.23 = 731-0) MONO x10^3 (test code 0.61 10*3/uL 0.36-1.02 = 742-7) EOS x10^3 (test code = 0.09 10*3/uL 0.06-0.53 711-2) BASO x10^3 (test code 0.06 10*3/uL 0.01-0.09 = 704-7) Lab Interpretation Abnormal (test code = 66658-7) [facility] WITH [id number] 21:44:00 Test Item Value Reference Range Interpretation Comments WBC (test code = See_Comment [Automated 6690-2) message] The sy stem which generated this result transmitted reference range : 4.20 - 10.70 10*3/?L. The reference range was not used to interpret this result as normal/abnormal . RBC (test code = See_Comment H [Automated 789-8) message] The sy stem which generated this result transmitted reference range : 4.26 - 5.52 10*6/?L. The reference range was not used to interpret this result as normal/abnormal . HGB (test code = 12.9 g/dL 12.2-16.4 718-7) HCT (test code = 37.6 % 38.4-49.3 L 4544-3) MCV (test code = 63.5 fL 81.7-95.6 L 787-2) MCH (test code = 21.8 pg 26.1-32.7 L 785-6) MCHC (test code = 34.3 g/dL 31.2-35 786-4) RDW-SD (test code = 37.5 fL 38.5-51.6 L 67300-1) RDW-CV (test code = 18.2 % 12.1-15.4 H 788-0) PLT (test code = See_Comment [Automated 777-3) message] The sy stem which generated this result transmitted reference range : 150 - 328 10*3/ ?L. The reference r all was not used to interpret this result as normal/abnormal . MPV (test code = 9.9 fL 9.8-13 83063-1) NRBC/100 WBC (test See_Comment [Automat ed code = 4090216024) message] The system which generated this result transmitted reference range : 0.0 - 10.0 /100 WBCs. The refer ence range was not u sed to interpret th is result as normal/abnormal . NRBC x10^3 (test code See_Comment [Auto mated = 7115997165) message] The s ystem which generated this result transmitted reference range : 10*3/?L. The reference range was not used to interpret this result as normal/abnormal . GRAN MAT (NEUT) % 67.8 % (test code = 770-8) IMM GRAN % (test code 0.30 % = 6455914021) LYMPH % (test code = 21.8 % 736-9) MONO % (test code = 8.1 % 5905-5) EOS % (test code = 1.2 % 713-8) BASO % (test code = 0.8 % 706-2) GRAN MAT x10^3(ANC) 5.09 10*3/uL 1.99-6.95 (test code = 3225290500) IMM GRAN x10^3 (test <0.03 0-0.06 code = 4128266591) LYMPH x10^3 (test code 1.64 10*3/uL 1.09-3.23 = 731-0) MONO x10^3 (test code 0.61 10*3/uL 0.36-1.02 = 742-7) EOS x10^3 (test code = 0.09 10*3/uL 0.06-0.53 711-2) BASO x10^3 (test code 0.06 10*3/uL 0.01-0.09 = 704-7) Lab Interpretation Abnormal (test code = 56539-0) [facility]"
--- NOTE | 2020-12-24 01:22 | ER ---
Nurse's Notes [facility] Name: Nadir Johns Age: 55 yrs Sex: Male : 1965 Arrival Date: 12/23/2020 Time: 23:28 Bed 6 Private MD: Diagnosis: Right knee pain. Right knee effusion. Presentation: 12/23 23:38 Chief complaint: Patient states: his right knee has been painful and swollen x 2 days bb can't put any pressure on it thinks it may be gout. Coronavirus screen: At this time, the client does not indicate any symptoms associated with coronavirus-19. Ebola Screen: No symptoms or risks identified at this time. Initial Sepsis Screen: Does the patient meet any 2 criteria? No. Patient's initial sepsis screen is negative. Does the patient have a suspected source of infection? No. Patient's initial sepsis screen is negative. Risk Assessment: Do you want to hurt yourself or someone else? Patient reports no desire to harm self or others. Onset of symptoms was December 21, 2020. 23:38 Method Of Arrival: Ambulatory bb 23:38 Acuity: JARON 3 bb Triage Assessment: 12/24 00:00 General: Appears in no apparent distress. obese, Behavior is calm, cooperative. bs2 Historical: - Allergies: 12/23 23:41 No Known Allergies; bb - Home Meds: 23:41 HIV med [Active]; bb - PMHx: 23:41 HIV; Hypertension; sciatica; bb - PSHx: 23:41 hernia; bb - Immunization history:: Adult Immunizations up to date, Client reports receiving the 2nd dose of the Covid vaccine. - Social history:: Smoking status: Patient reports the use of cigarette tobacco products, smokes one-half pack cigarettes per day, Patient uses alcohol, occasionally. Patient/guardian denies using street drugs. Screenin/14 00:00 Abuse screen: Denies threats or abuse. Denies injuries from another. Nutritional bs2 screening: No deficits noted. Tuberculosis screening: No symptoms or risk factors identified. Fall Risk None identified. Assessment: 00:00 General: Appears in no apparent distress. obese, well groomed, well developed, well bs2 nourished, Behavior is calm, cooperative. Pain: Complains of pain in right knee Pain currently is 7 out of 10 on a pain scale. Neuro: No deficits noted. Cardiovascular: No deficits noted. Respiratory: No deficits noted. GI: No deficits noted. : No deficits noted. EENT: No deficits noted. Derm: No deficits noted. Musculoskeletal: Reports pain in right knee. Vital Signs: 12/23 23:38 BP 166 / 91; Pulse 85; Resp 18 S; Temp 98.3(O); Pulse Ox 96% on R/A; Weight 95.25 kg bb (R); Height 5 ft. 10 in. (177.80 cm) (R); Pain 10; 23:38 Body Mass Index 30.13 (95.25 kg, 177.80 cm) bb ED Course: 23:28 Patient arrived in ED. ja2 23:37 Hamzah Spears MD is Attending Physician. pkl 23:41 Triage completed. bb 23:41 Arm band placed on Patient placed in an exam room, on a stretcher, on pulse oximetry. bb 12/24 00:00 Patient has correct armband on for positive identification. Placed in gown. Bed in low bs2 position. Call light in reach. Side rails up X 1. Pulse ox on. NIBP on. Door closed. Noise minimized. Lights dimmed. Warm blanket given. 00:22 Inserted saline lock: 20 gauge in right antecubital area, using aseptic technique. ds4 Blood collected. 00:47 Knee Right 3 View XRAY In Process Unspecified. EDMS 01:19 Yusef Garcia MD is Referral Physician. pkl 01:26 Cesia Keys, RAMONITA is Primary Nurse. bs2 01:28 CBC with Diff Sent. bs2 01:28 Chem 7 Sent. bs2 01:28 Sed Rate Sent. bs2 01:28 CRP Sent. bs2 01:29 Uric Acid Sent. bs2 01:30 No provider procedures requiring assistance completed. IV discontinued, intact, bs2 bleeding controlled, No redness/swelling at site. Administered Medications: 01:15 Drug: fentaNYL (PF) 25 mcg Route: IVP; Site: right antecubital; bs2 01:28 Follow up: Response: No adverse reaction bs2 01:15 Drug: Zofran (Ondansetron) 4 mg Route: IVP; Site: right antecubital; bs2 01:28 Follow up: Response: No adverse reaction bs2 01:20 Drug: Decadron - Dexamethasone 10 mg {Note: injected into RT knee joint by Dr Spears.} bs2 Route: IVP; Site: Other; 01:28 Follow up: Response: No adverse reaction bs2 Outcome: 00:00 Discharged to home ambulatory, with family. bs2 00:00 Condition: improved 01:20 Discharge ordered by . axel 01:29 Patient left the ED. bs2 01:30 Discharge instructions given to patient, Instructed on discharge instructions, follow bs2 up and referral plans. medication usage, Demonstrated understanding of instructions, follow-up care, medications, Prescriptions given X 2. Signatures: Dispatcher [employer] EDHamzah Lopez MD MD pkl Ballard, Brenda RN RN Antonio Samuel ds4 Cesia Keys RN RN bs2 Celeste Cardona
--- NOTE | 2020-12-24 01:22 | EDPHYS ---
Physician Documentation [facility] Name: Nadir Johns Age: 55 yrs Sex: Male : 1965 Arrival Date: 12/23/2020 Time: 23:28 Bed 6 Private MD: ED Physician Hamzah Spears HPI: 12/24 00:06 This 55 yrs old Black Male presents to ER via Ambulatory with complaints of Knee Pain, pkl KNEE SWOLLEN. 00:06 The patient presents with pain, that is acute, swelling. The complaints affect the pkl right knee. Context: Denies any injury. Onset: The symptoms/episode began/occurred 2 day(s) ago. Historical: - Allergies: 12/23 23:41 No Known Allergies; bb - Home Meds: 23:41 HIV med [Active]; bb - PMHx: 23:41 HIV; Hypertension; sciatica; bb - PSHx: 23:41 hernia; bb - Immunization history:: Adult Immunizations up to date, Client reports receiving the 2nd dose of the Covid vaccine. - Social history:: Smoking status: Patient reports the use of cigarette tobacco products, smokes one-half pack cigarettes per day, Patient uses alcohol, occasionally. Patient/guardian denies using street drugs. ROS: 12/24 00:06 Eyes: Negative for injury, pain, redness, and discharge, ENT: Negative for injury, pkl pain, and discharge, Neck: Negative for injury, pain, and swelling, Cardiovascular: Negative for chest pain, palpitations, and edema, Respiratory: Negative for shortness of breath, cough, wheezing, and pleuritic chest pain, Abdomen/GI: Negative for abdominal pain, nausea, vomiting, diarrhea, and constipation, Back: Negative for injury and pain, : Negative for injury, bleeding, discharge, and swelling, Skin: Negative for injury, rash, and discoloration, Neuro: Negative for headache, weakness, numbness, tingling, and seizure. MS/extremity: Positive for pain, swelling, of the right knee. Exam: 00:06 Head/Face: Normocephalic, atraumatic. Eyes: Pupils equal round and reactive to light, pkl extra-ocular motions intact. Lids and lashes normal. Conjunctiva and sclera are non-icteric and not injected. Cornea within normal limits. Periorbital areas with no swelling, redness, or edema. ENT: Nares patent. No nasal discharge, no septal abnormalities noted. Tympanic membranes are normal and external auditory canals are clear. Oropharynx with no redness, swelling, or masses, exudates, or evidence of obstruction, uvula midline. Mucous membranes moist. Neck: Trachea midline, no thyromegaly or masses palpated, and no cervical lymphadenopathy. Supple, full range of motion without nuchal rigidity, or vertebral point tenderness. No Meningismus. Chest/axilla: Normal chest wall appearance and motion. Nontender with no deformity. No lesions are appreciated. Cardiovascular: Regular rate and rhythm with a normal S1 and S2. No gallops, murmurs, or rubs. Normal PMI, no JVD. No pulse deficits. Respiratory: Lungs have equal breath sounds bilaterally, clear to auscultation and percussion. No rales, rhonchi or wheezes noted. No increased work of breathing, no retractions or nasal flaring. Abdomen/GI: Soft, non-tender, with normal bowel sounds. No distension or tympany. No guarding or rebound. No evidence of tenderness throughout. Back: No spinal tenderness. No costovertebral tenderness. Full range of motion. Skin: Warm, dry with normal turgor. Normal color with no rashes, no lesions, and no evidence of cellulitis. Neuro: Awake and alert, GCS 15, oriented to person, place, time, and situation. Cranial nerves II-XII grossly intact. Motor strength 5/5 in all extremities. Sensory grossly intact. Cerebellar exam normal. Normal gait. 00:06 Musculoskeletal/extremity: Extremities: grossly normal except: noted in the right knee: pain, swelling. Vital Signs: 12/23 23:38 BP 166 / 91; Pulse 85; Resp 18 S; Temp 98.3(O); Pulse Ox 96% on R/A; Weight 95.25 kg bb (R); Height 5 ft. 10 in. (177.80 cm) (R); Pain 10; 23:38 Body Mass Index 30.13 (95.25 kg, 177.80 cm) bb Procedures: 12/24 01:14 Injection 10 mg Decadron into right joint under sterile condition. pkl MDM: 12/23 23:37 Patient medically screened. pkl 12/24 01:14 Data reviewed: vital signs, nurses notes, radiologic studies, plain films. ED course: pkl Discussed lab and imaging studies with patient. Advised to follow up with Dr. Garcia ( Orthopedist ) in 2 to 3 days. To return if necessary. Patient understood instructions. 12/23 23:55 Order name: CBC with Diff pkl 12/23 23:55 Order name: Chem 7 pkl 12/23 23:55 Order name: Sed Rate pkl 12/23 23:55 Order name: CRP pkl 12/23 23:55 Order name: Uric Acid pkl 12/23 23:55 Order name: CBC with Automated Diff; Complete Time: 01:22 EDMS 12/23 23:55 Order name: Basic Metabolic Panel; Complete Time: 00:45 EDMS 12/23 23:56 Order name: Sedimentation Rate, Westergren; Complete Time: 01:22 EDMS 12/23 23:56 Order name: C-Reactive Protein; Complete Time: 00:45 EDMS 12/23 23:56 Order name: Uric Acid; Complete Time: 00:45 EDMS 12/23 23:56 Order name: Knee Right 3 View XRAY pkl 12/24 00:37 Order name: CBC Smear Scan; Complete Time: 01:22 EDMS 12/23 23:56 Order name: Saline Lock; Complete Time: 00:22 pkl 12/24 01:23 Order name: Jack Wrap; Complete Time: 01:28 pkl Administered Medications: 01:15 Drug: fentaNYL (PF) 25 mcg Route: IVP; Site: right antecubital; bs2 01:28 Follow up: Response: No adverse reaction bs2 01:15 Drug: Zofran (Ondansetron) 4 mg Route: IVP; Site: right antecubital; bs2 01:28 Follow up: Response: No adverse reaction bs2 01:20 Drug: Decadron - Dexamethasone 10 mg {Note: injected into RT knee joint by Dr Spears.} bs2 Route: IVP; Site: Other; 01:28 Follow up: Response: No adverse reaction bs2 Disposition Summary: 12/24/20 01:20 Discharge Ordered Location: Home pkl Condition: Stable pkl Diagnosis - Right knee pain. Right knee effusion. pkl Followup: pkl - With: Yusef Garcia MD - When: 2 - 3 days - Reason: Re-evaluation by your physician Discharge Instructions: - Discharge Summary Sheet pkl Forms: - Medication Reconciliation Form pkl - Thank You Letter pkl - Antibiotic Education pkl - Prescription Opioid Use pkl Prescriptions: - Diclofenac Sodium 75 mg Oral tablet,delayed release (DR/EC) - take 1 tablet by ORAL route 2 times per day; 20 tablet; Refills: 0, Product pkl Selection Permitted Signatures: Dispatcher [employer] EDHamzah Lopez MD MD pkl Esther Adorno, RN RN Cesia Caballero RN RN bs2
[2020-12-24 01:35] VITALS: BP 166/91; TEMP 98.3; O2SAT 96
--- NOTE | 2020-12-24 08:34 | RAD REPORT ---
EXAM DESCRIPTION: RAD - Knee Right 3 View - 12/24/2020 12:47 am CLINICAL HISTORY: Pain;Swelling COMPARISON: No comparisons FINDINGS: No acute fracture. No malalignment. Lateral compartment spurring. Moderate patellofemoral compartment spurring. IMPRESSION: No acute osseous abnormality involving the right knee.
== END 2020-12-24 01:29 | disposition home or self-care (01) ==
LOC: ER 23:24
DX: M25.461 Effusion, right knee (principal); I10 Essential (primary) hypertension; F17.210 Nicotine dependence, cigarettes, uncomplicated; Z21 Asymptomatic human immunodeficiency virus [HIV] infection status
CPT/HCPCS: 36415; 80048; 84550; 85025; 85652; 86140; 99284; J1100; J2405; J3010

== ENCOUNTER 2021-04-19 15:54 | Emergency (ER) | payer OTHER ==
--- OUTSIDE RECORDS SUMMARY | 2021-04-19 16:00 | XMS REPORT | Continuity of Care Document ---
:1965 Author Organization [facility] t Address [address] [place] [address] Care Team Providers Name Role Phone EAST Attending Clinician Unavailable Shad BEARD Attending Clinician Colt HERNANDEZ, L Attending Clinician Unavailable Andrew SHIPMAN, L Attending Clinician Unavailable Wallace Fine RN, R Attending Clinician Unavailable Geovanny HERNANDEZ Attending Clinician Unavailable Ady RN, M Attending Clinician Unavailable Amisha SHIPMAN, L Attending Clinician Unavailable Ann RANDOLPH, L Attending Clinician Unavailable [facility] Attending Clinician Unavailable Doctor Unassigned, Name Attending Clinician Unavailable Payers Payer Name Policy Type Policy Number Effective Date Expiration Date S ource Problems Condition Condition Condition Status Onset Resolution Last Treating Co mments Source Name Details Category Date Date Treatment Clinician Date AIDS AIDS Disease Active 2016-02 Univers 2-11 ity of 00:00: [address] HTN HTN Disease Active 2016-02 Univers (hypertens (hypertens 2-11 it y of ion) ion) 00:00: [address] Allergies, Adverse Reactions, Alerts Allergy Allergy Status Severity Reaction(s) Onset Inactive Treating Comm ents Source Name Type Date Date Clinician NO KNOWN Drug Active Univers ALLERGIE Class ity of S [facility] Social History Social Habit Start Date Stop Date Quantity Comments Source Tobacco use and 2019-08-17 2019-08-17 Never used Universit y of exposure 00:00:00 00:00:00 [facility] Cigarettes smoked 2019-08-17 2019-08-17 Univers ity of current (pack per 00:00:00 00:00:00 M ) - Reported Branch Cigarette 2019-08-17 2019-08-17 University of pack-years 00:00:00 00:00:00 [facility] Alcohol intake 2019-08-17 2019-08-17 Current drinker Unive rsity of 00:00:00 00:00:00 of alcohol [place] [facility]finding[facility] Alcohol Comment 2011-06-13 2011-06-13 Occasionally, Univer sity of 00:00:00 00:00:00 once a month [facility] [place] [facility] Tobacco Comment 2011-06-13 2011-06-13 1 pack per week Univ ersity of 00:00:00 00:00:00 [facility] History of tobacco 2009-06-12 Cigarette Smoker University of use 00:00:00 [facility] Sex [birth year] At [birth year] Universit y of 00:00:00 00:00:00 [facility] Smoking Status Start Date Stop Date Source Current every day smoker 2019-08-17 00:00:00 Uni versity of [facility] Medications Ordered Filled Start Stop Current Ordering Indication Dosage Frequency Signature Comments Components Source Medication Medication Date Date Medication? Clinician (SIG) Name Name hydroCHLORO Yes [id number] 25mg Take 1 Univers thiazide 25 7-29 tablet by ity of mg tablet 00:00: mouth [place] 00 daily. Medical Branch emtricitabi Yes [id number] 1{tbl} Take 1 Univers ne-tenofovi 7-29 tablet by ity of r alafen 00:00: mouth [place] tablet 00 daily. Medical Branch dolutegravi Yes [id number] 50mg Take 1 Univers r 50 mg 7-29 tablet by ity of tablet 00:00: mouth [place] 00 daily. Medical Branch amLODIPine Yes [id number] 10mg Take 1 U nivers 10 mg 7-29 tablet by ity of tablet 00:00: mouth [place] 00 daily. Medical Branch emtricitabi Yes [id number] 1{tbl} Take 1 Univers ne-tenofovi 7-07 tablet by ity of r alafen 00:00: mouth [place] tablet 00 daily. Medical Branch dolutegravi Yes [id number] 50mg Take 1 Univers r 50 mg 7-07 tablet by ity of tablet 00:00: mouth [place] 00 daily. Medical Branch hydroCHLORO 2019-0 Yes [id number] 25mg Take 1 Univers thiazide 25 7-07 tablet by ity of mg tablet 00:00: mouth [place] 00 daily. Medical Branch amLODIPine 2020-0 Yes [id number] 10mg Take 1 U nivers 10 mg 7-07 tablet by ity of tablet 00:00: mouth [place] 00 daily. Medical Branch emtricitabi 2020-0 Yes [id number] 1{tbl} Take 1 Univers ne-tenofovi 7-07 tablet by ity of r alafen 00:00: mouth [place] tablet 00 daily. Medical Branch dolutegravi 2020-0 Yes [id number] 50mg Take 1 Univers r 50 mg 7-07 tablet by ity of tablet 00:00: mouth [place] 00 daily. Medical Branch hydroCHLORO 2020-0 Yes [id number] 25mg Take 1 Univers thiazide 25 7-07 tablet by ity of mg tablet 00:00: mouth [place] 00 daily. Medical Branch amLODIPine 2020-0 Yes [id number] 10mg Take 1 U nivers 10 mg 7-07 tablet by ity of tablet 00:00: mouth [place] 00 daily. Medical Branch emtricitabi 2020-0 Yes [id number] 1{tbl} Take 1 Univers ne-tenofovi 7-07 tablet by ity of r alafen 00:00: mouth [place] tablet 00 daily. Medical Branch dolutegravi 2020-0 Yes [id number] 50mg Take 1 Univers r 50 mg 7-07 tablet by ity of tablet 00:00: mouth [place] 00 daily. Medical Branch hydroCHLORO 2020-0 Yes [id number] 25mg Take 1 Univers thiazide 25 7-07 tablet by ity of mg tablet 00:00: mouth [place] 00 daily. Medical Branch amLODIPine 2020-0 Yes [id number] 10mg Take 1 U nivers 10 mg 7-07 tablet by ity of tablet 00:00: mouth [place] 00 daily. Medical Branch emtricitabi 2020-0 Yes [id number] 1{tbl} Take 1 Univers ne-tenofovi 7-07 tablet by ity of r alafen 00:00: mouth [place] tablet 00 daily. Medical Branch dolutegravi 2020-0 Yes [id number] 50mg Take 1 Univers r 50 mg 7-07 tablet by ity of tablet 00:00: mouth [place] 00 daily. Medical Branch hydroCHLORO 2020-0 Yes [id number] 25mg Take 1 Univers thiazide 25 7-07 tablet by ity of mg tablet 00:00: mouth [place] 00 daily. Medical Branch amLODIPine 2020-0 Yes [id number] 10mg Take 1 U nivers 10 mg 7-07 tablet by ity of tablet 00:00: mouth [place] 00 daily. Medical Branch emtricitabi 2020-0 Yes [id number] 1{tbl} Take 1 Univers ne-tenofovi 7-07 tablet by ity of r alafen 00:00: mouth [place] tablet 00 daily. Medical Branch dolutegravi 2020-0 Yes [id number] 50mg Take 1 Univers r 50 mg 7-07 tablet by ity of tablet 00:00: mouth [place] 00 daily. Medical Branch hydroCHLORO 2020-0 Yes [id number] 25mg Take 1 Univers thiazide 25 7-07 tablet by ity of mg tablet 00:00: mouth [place] 00 daily. Medical Branch amLODIPine 2020-0 Yes [id number] 10mg Take 1 U nivers 10 mg 7-07 tablet by ity of tablet 00:00: mouth [place] 00 daily. Medical Branch emtricitabi 2020-0 Yes [id number] 1{tbl} Take 1 Univers ne-tenofovi 7-07 tablet by ity of r alafen 00:00: mouth [place] tablet 00 daily. Medical Branch dolutegravi 2020-0 Yes [id number] 50mg Take 1 Univers r 50 mg 7-07 tablet by ity of tablet 00:00: mouth [place] 00 daily. Medical Branch hydroCHLORO 2020-0 Yes [id number] 25mg Take 1 Univers thiazide 25 7-07 tablet by ity of mg tablet 00:00: mouth [place] 00 daily. Medical Branch amLODIPine 2020-0 Yes [id number] 10mg Take 1 U nivers 10 mg 7-07 tablet by ity of tablet 00:00: mouth [place] 00 daily. Medical Branch emtricitabi 2020-0 Yes [id number] 1{tbl} Take 1 Univers ne-tenofovi 7-07 tablet by ity of r alafen 00:00: mouth [place] tablet 00 daily. Medical Branch dolutegravi 2020-0 Yes [id number] 50mg Take 1 Univers r 50 mg 7-07 tablet by ity of tablet 00:00: mouth [place] 00 daily. Medical Branch hydroCHLORO 2020-0 Yes [id number] 25mg Take 1 Univers thiazide 25 7-07 tablet by ity of mg tablet 00:00: mouth [place] 00 daily. Medical Branch amLODIPine 2020-0 Yes [id number] 10mg Take 1 U nivers 10 mg 7-07 tablet by ity of tablet 00:00: mouth [place] 00 daily. Medical Branch emtricitabi 2020-0 Yes [id number] 1{tbl} Take 1 Univers ne-tenofovi 7-07 tablet by ity of r alafen 00:00: mouth [place] tablet 00 daily. Medical Branch dolutegravi 2020-0 Yes [id number] 50mg Take 1 Univers r 50 mg 7-07 tablet by ity of tablet 00:00: mouth [place] 00 daily. Medical Branch hydroCHLORO 2020-0 Yes [id number] 25mg Take 1 Univers thiazide 25 7-07 tablet by ity of mg tablet 00:00: mouth [place] 00 daily. Medical Branch amLODIPine 2020-0 Yes [id number] 10mg Take 1 U nivers 10 mg 7-07 tablet by ity of tablet 00:00: mouth [place] 00 daily. Medical Branch emtricitabi 2020-0 Yes [id number] 1{tbl} Take 1 Univers ne-tenofovi 7-07 tablet by ity of r alafen 00:00: mouth [place] tablet 00 daily. Medical Branch dolutegravi 2020-0 Yes [id number] 50mg Take 1 Univers r 50 mg 7-07 tablet by ity of tablet 00:00: mouth [place] 00 daily. Medical Branch hydroCHLORO 2020-0 Yes [id number] 25mg Take 1 Univers thiazide 25 7-07 tablet by ity of mg tablet 00:00: mouth [place] 00 daily. Medical Branch amLODIPine 2020-0 Yes [id number] 10mg Take 1 U nivers 10 mg 7-07 tablet by ity of tablet 00:00: mouth [place] 00 daily. Medical Branch emtricitabi 2020-0 Yes [id number] 1{tbl} Take 1 Univers ne-tenofovi 7-07 tablet by ity of r alafen 00:00: mouth [place] tablet 00 daily. Medical Branch dolutegravi 2020-0 Yes [id number] 50mg Take 1 Univers r 50 mg 7-07 tablet by ity of tablet 00:00: mouth [place] 00 daily. Medical Branch hydroCHLORO 2020-0 Yes [id number] 25mg Take 1 Univers thiazide 25 7-07 tablet by ity of mg tablet 00:00: mouth [place] 00 daily. Medical Branch amLODIPine 2020-0 Yes [id number] 10mg Take 1 U nivers 10 mg 7-07 tablet by ity of tablet 00:00: mouth [place] 00 daily. Medical Branch emtricitabi 2020-0 Yes [id number] 1{tbl} Take 1 Univers ne-tenofovi 7-07 tablet by ity of r alafen 00:00: mouth [place] tablet 00 daily. Medical Branch dolutegravi 2020-0 Yes [id number] 50mg Take 1 Univers r 50 mg 7-07 tablet by ity of tablet 00:00: mouth [place] 00 daily. Medical Branch hydroCHLORO 2020-0 Yes [id number] 25mg Take 1 Univers thiazide 25 7-07 tablet by ity of mg tablet 00:00: mouth [place] 00 daily. Medical Branch amLODIPine 2020-0 Yes [id number] 10mg Take 1 U nivers 10 mg 7-07 tablet by ity of tablet 00:00: mouth [place] 00 daily. Medical Branch emtricitabi 2020-0 Yes [id number] 1{tbl} Take 1 Univers ne-tenofovi 7-07 tablet by ity of r alafen 00:00: mouth [place] tablet 00 daily. Medical Branch dolutegravi 2020-0 Yes [id number] 50mg Take 1 Univers r 50 mg 7-07 tablet by ity of tablet 00:00: mouth [place] 00 daily. Medical Branch hydroCHLORO 2020-0 Yes [id number] 25mg Take 1 Univers thiazide 25 7-07 tablet by ity of mg tablet 00:00: mouth [place] 00 daily. Medical Branch amLODIPine 2020-0 Yes [id number] 10mg Take 1 U nivers 10 mg 7-07 tablet by ity of tablet 00:00: mouth [place] 00 daily. Medical Branch emtricitabi 2020-0 Yes [id number] 1{tbl} Take 1 Univers ne-tenofovi 7-07 tablet by ity of r alafen 00:00: mouth [place] tablet 00 daily. Medical Branch dolutegravi 2020-0 Yes [id number] 50mg Take 1 Univers r 50 mg 7-07 tablet by ity of tablet 00:00: mouth [place] 00 daily. Medical Branch hydroCHLORO 2020-0 Yes [id number] 25mg Take 1 Univers thiazide 25 7-07 tablet by ity of mg tablet 00:00: mouth [place] 00 daily. Medical Branch amLODIPine 2020-0 Yes [id number] 10mg Take 1 U nivers 10 mg 7-07 tablet by ity of tablet 00:00: mouth [place] 00 daily. Medical Branch emtricitabi 2020-0 Yes [id number] 1{tbl} Take 1 Univers ne-tenofovi 7-07 tablet by ity of r alafen 00:00: mouth [place] tablet 00 daily. Medical Branch dolutegravi 2020-0 Yes [id number] 50mg Take 1 Univers r 50 mg 7-07 tablet by ity of tablet 00:00: mouth [place] 00 daily. Medical Branch hydroCHLORO 2020-0 Yes [id number] 25mg Take 1 Univers thiazide 25 7-07 tablet by ity of mg tablet 00:00: mouth [place] 00 daily. Medical Branch amLODIPine 2020-0 Yes [id number] 10mg Take 1 U nivers 10 mg 7-07 tablet by ity of tablet 00:00: mouth [place] 00 daily. Medical Branch emtricitabi 2020-0 Yes [id number] 1{tbl} Take 1 Univers ne-tenofovi 7-07 tablet by ity of r alafen 00:00: mouth [place] tablet 00 daily. Medical Branch dolutegravi 2020-0 Yes [id number] 50mg Take 1 Univers r 50 mg 7-07 tablet by ity of tablet 00:00: mouth [place] 00 daily. Medical Branch hydroCHLORO 2020-0 Yes [id number] 25mg Take 1 Univers thiazide 25 7-07 tablet by ity of mg tablet 00:00: mouth [place] 00 daily. Medical Branch amLODIPine 2020-0 Yes [id number] 10mg Take 1 U nivers 10 mg 7-07 tablet by ity of tablet 00:00: mouth [place] 00 daily. Medical Branch emtricitabi 2020-0 Yes [id number] 1{tbl} Take 1 Univers ne-tenofovi 7-07 tablet by ity of r alafen 00:00: mouth [place] tablet 00 daily. Medical Branch dolutegravi 2020-0 Yes [id number] 50mg Take 1 Univers r 50 mg 7-07 tablet by ity of tablet 00:00: mouth [place] 00 daily. Medical Branch hydroCHLORO 2020-0 Yes [id number] 25mg Take 1 Univers thiazide 25 7-07 tablet by ity of mg tablet 00:00: mouth [place] 00 daily. Medical Branch amLODIPine 2020-0 Yes [id number] 10mg Take 1 U nivers 10 mg 7-07 tablet by ity of tablet 00:00: mouth [place] 00 daily. Medical Branch emtricitabi 2020-0 Yes [id number] 1{tbl} Take 1 Univers ne-tenofovi 7-07 tablet by ity of r alafen 00:00: mouth [place] tablet 00 daily. Medical Branch dolutegravi 2020-0 Yes [id number] 50mg Take 1 Univers r 50 mg 7-07 tablet by ity of tablet 00:00: mouth [place] 00 daily. Medical Branch hydroCHLORO 2020-0 Yes [id number] 25mg Take 1 Univers thiazide 25 7-07 tablet by ity of mg tablet 00:00: mouth [place] 00 daily. Medical Branch amLODIPine 2020-0 Yes [id number] 10mg Take 1 U nivers 10 mg 7-07 tablet by ity of tablet 00:00: mouth [place] 00 daily. Medical Branch emtricitabi 2020-0 Yes [id number] 1{tbl} Take 1 Univers ne-tenofovi 7-07 tablet by ity of r alafen 00:00: mouth [place] tablet 00 daily. Medical Branch dolutegravi 2020-0 Yes [id number] 50mg Take 1 Univers r 50 mg 7-07 tablet by ity of tablet 00:00: mouth [place] 00 daily. Medical Branch hydroCHLORO 2020-0 Yes [id number] 25mg Take 1 Univers thiazide 25 7-07 tablet by ity of mg tablet 00:00: mouth [place] 00 daily. Medical Branch amLODIPine 2020-0 Yes [id number] 10mg Take 1 U nivers 10 mg 7-07 tablet by ity of tablet 00:00: mouth [place] 00 daily. Medical Branch emtricitabi 2020-0 Yes [id number] 1{tbl} Take 1 Univers ne-tenofovi 7-07 tablet by ity of r alafen 00:00: mouth [place] tablet 00 daily. Medical Branch dolutegravi 2020-0 Yes [id number] 50mg Take 1 Univers r 50 mg 7-07 tablet by ity of tablet 00:00: mouth [place] 00 daily. Medical Branch hydroCHLORO 2020-0 Yes [id number] 25mg Take 1 Univers thiazide 25 7-07 tablet by ity of mg tablet 00:00: mouth [place] 00 daily. Medical Branch amLODIPine 2020-0 Yes [id number] 10mg Take 1 U nivers 10 mg 7-07 tablet by ity of tablet 00:00: mouth [place] 00 daily. Medical Branch emtricitabi 2020-0 Yes [id number] 1{tbl} Take 1 Univers ne-tenofovi 7-07 tablet by ity of r alafen 00:00: mouth [place] tablet 00 daily. Medical Branch dolutegravi 2020-0 Yes [id number] 50mg Take 1 Univers r 50 mg 7-07 tablet by ity of tablet 00:00: mouth [place] 00 daily. Medical Branch hydroCHLORO 2020-0 Yes [id number] 25mg Take 1 Univers thiazide 25 7-07 tablet by ity of mg tablet 00:00: mouth [place] 00 daily. Medical Branch amLODIPine 2020-0 Yes [id number] 10mg Take 1 U nivers 10 mg 7-07 tablet by ity of tablet 00:00: mouth [place] 00 daily. Medical Branch emtricitabi 2020-0 Yes [id number] 1{tbl} Take 1 Univers ne-tenofovi 7-07 tablet by ity of r alafen 00:00: mouth [place] tablet 00 daily. Medical Branch dolutegravi 2020-0 Yes [id number] 50mg Take 1 Univers r 50 mg 7-07 tablet by ity of tablet 00:00: mouth [place] 00 daily. Medical Branch hydroCHLORO 2020-0 Yes [id number] 25mg Take 1 Univers thiazide 25 7-07 tablet by ity of mg tablet 00:00: mouth [place] 00 daily. Medical Branch amLODIPine 2020-0 Yes [id number] 10mg Take 1 U nivers 10 mg 7-07 tablet by ity of tablet 00:00: mouth [place] 00 daily. Medical Branch emtricitabi 2020-0 Yes [id number] 1{tbl} Take 1 Univers ne-tenofovi 7-07 tablet by ity of r alafen 00:00: mouth [place] tablet 00 daily. Medical Branch dolutegravi 2020-0 Yes [id number] 50mg Take 1 Univers r 50 mg 7-07 tablet by ity of tablet 00:00: mouth [place] 00 daily. Medical Branch hydroCHLORO 2020-0 Yes [id number] 25mg Take 1 Univers thiazide 25 7-07 tablet by ity of mg tablet 00:00: mouth [place] 00 daily. Medical Branch amLODIPine 2020-0 Yes [id number] 10mg Take 1 U nivers 10 mg 7-07 tablet by ity of tablet 00:00: mouth [place] 00 daily. Medical Branch emtricitabi 2020-0 Yes [id number] 1{tbl} Take 1 Univers ne-tenofovi 7-07 tablet by ity of r alafen 00:00: mouth [place] tablet 00 daily. Medical Branch dolutegravi 2020-0 Yes [id number] 50mg Take 1 Univers r 50 mg 7-07 tablet by ity of tablet 00:00: mouth [place] 00 daily. Medical Branch hydroCHLORO 2020-0 Yes [id number] 25mg Take 1 Univers thiazide 25 7-07 tablet by ity of mg tablet 00:00: mouth [place] 00 daily. Medical Branch amLODIPine 2020-0 Yes [id number] 10mg Take 1 U nivers 10 mg 7-07 tablet by ity of tablet 00:00: mouth [place] 00 daily. Medical Branch emtricitabi 2020-0 Yes [id number] 1{tbl} Take 1 Univers ne-tenofovi 7-07 tablet by ity of r alafen 00:00: mouth [place] tablet 00 daily. Medical Branch dolutegravi 2020-0 Yes [id number] 50mg Take 1 Univers r 50 mg 7-07 tablet by ity of tablet 00:00: mouth [place] 00 daily. Medical Branch hydroCHLORO 2020-0 Yes [id number] 25mg Take 1 Univers thiazide 25 7-07 tablet by ity of mg tablet 00:00: mouth [place] 00 daily. Medical Branch amLODIPine 2020-0 Yes [id number] 10mg Take 1 U nivers 10 mg 7-07 tablet by ity of tablet 00:00: mouth [place] 00 daily. Medical Branch emtricitabi 2020-0 Yes [id number] 1{tbl} Take 1 Univers ne-tenofovi 7-07 tablet by ity of r alafen 00:00: mouth [place] tablet 00 daily. Medical Branch dolutegravi 2020-0 Yes [id number] 50mg Take 1 Univers r 50 mg 7-07 tablet by ity of tablet 00:00: mouth [place] 00 daily. Medical Branch hydroCHLORO 2020-0 Yes [id number] 25mg Take 1 Univers thiazide 25 7-07 tablet by ity of mg tablet 00:00: mouth [place] 00 daily. Medical Branch amLODIPine 2020-0 Yes [id number] 10mg Take 1 U nivers 10 mg 7-07 tablet by ity of tablet 00:00: mouth [place] 00 daily. Medical Branch emtricitabi 0 2020- No [id number] 1{tbl} Take 1 Univers ne-tenofovi 08-16 tablet by it y of r alafen 00:00: 00:00 mouth [place] tablet 00 :00 daily. Medical Branch dolutegravi 2020- No [id number] 50mg Take 1 Univers r 50 mg 08-16 tablet by ity of tablet 00:00: 00:00 mouth [place] 00 :00 daily. Medical Branch hydroCHLORO 2019-2020- No [id number] 25mg Take 1 Univers thiazide 25 08-16 tablet by it y of mg tablet 00:00: 00:00 mouth [place] 00 :00 daily. Medical Branch amLODIPine 2020- No [id number] 10mg Take 1 Univers 10 mg 08-16 [...] mouth [place] 00 daily. Medical Branch emtricitabi 2018-02 Yes 1{tbl} Take 1 Un deena ne-tenofovi 1-14 tablet by ity of r alafen 00:00: mouth [place] tablet 00 daily. Medical Branch dolutegravi 2018-02 Yes 50mg Take 1 Univ ers r 50 mg 1-14 tablet by ity of tablet 00:00: mouth [place] 00 daily. Medical Branch emtricitabi 2018-02 Yes 1{tbl} Take 1 Un deena ne-tenofovi 1-14 tablet by ity of r alafen 00:00: mouth [place] tablet 00 daily. Medical Branch dolutegravi 2018- Yes 50mg Take 1 Univ ers r 50 mg 1-14 tablet by ity of tablet 00:00: mouth [place] 00 daily. Medical Branch emtricitabi 2018-02 Yes 1{tbl} Take 1 Un deena [...] mouth [place] 00 daily. Medical Branch emtricitabi 2018-02 Yes 1{tbl} Take 1 Un deena ne-tenofovi 1-14 tablet by ity of r alafen 00:00: mouth [place] tablet 00 daily. Medical Branch dolutegravi 2018- 2020- No 50mg Take 1 Uni vers r 50 mg -14 -07 tablet by ity of tablet 00:00: [...] mouth [place] 00 daily. Medical Branch AMLODIPINE 2019- No TAKE ONE Un deena 10 mg 6-04 07-22 TABLET BY ity of tablet 00:00: 00:00 MOUTH [place] 00 :00 DAILY. Medical Branch SULFAMETHOX 0 Yes 1{tbl} TAKE 1 [...] 00 DAILY. Medical per tablet Branch SULFAMETHOX 2018-0 Yes 1{tbl} TAKE 1 Un deena AZOLE-TRIME [...] :00 DAILY. Medical per tablet Branch hydroCHLORO Yes 25mg Take 1 Univ ers [...] [place] 400-100 mg 00 daily. ([place] [facility] ADAP Branch approval pending) hydroCHLORO 2018-0 Yes [...] 00:00: mouth [place] 400-100 mg 00 daily. ([facility] ADAP Branch approval pending) hydroCHLORO 2018-0 Yes [...] 00:00: mouth [place] 400-100 mg 00 daily. ([facility] ADAP Branch approval pending) hydroCHLORO 2018-0 Yes [...] 00:00: mouth [place] 400-100 mg 00 daily. ([facility] ADAP Branch approval pending) hydroCHLORO 2018-0 Yes [...] [place] 400-100 mg 00 daily. ([place] [facility] ADAP Branch approval pending) hydroCHLORO 2018-0 Yes [...] 00:00: mouth [place] 400-100 mg 00 daily. ([facility] ADAP Branch approval pending) hydroCHLORO 2018-0 Yes [...] 00:00: mouth [place] 400-100 mg 00 daily. ([facility] ADAP Branch approval pending) hydroCHLORO 2018-0 Yes [...] 00:00: mouth [place] 400-100 mg 00 daily. ([facility] ADAP Branch approval pending) hydroCHLORO 2018-0 2020- [...] No known No Univers medications ity of [facility] Immunizations Ordered Filled Immunization Date Status Comments [facility] e Immunization Name Name Pneumococcal 2018-01-19 Completed [...] Completed Universit y of Conjugate, PCV13 00:00:[address] [facility] [place] dical (Prevnar 13) Branch TDAP (ADACEL) 2017-06-20 Completed University of VACCINE 00:00:00 [facility] Pneumococcal 13 2017-06-20 Completed Universit y of Conjugate, PCV13 00:00:[address] [facility] [place] (Prevnar 13) Branch TDAP (ADACEL) 2017-06-20 Completed University of VACCINE 00:00:00 [facility] Pneumococcal 13 2017-06-20 Completed Universit y of Conjugate, PCV13 00:00:[address] [facility] [place] (Prevnar 13) Branch TDAP (ADACEL) 2017-06-20 Completed University of VACCINE 00:00:00 [facility] Pneumococcal 13 2017-06-20 Completed Universit y of Conjugate, PCV13 00:00:[address] [facility] [place] (Prevnar 13) Branch TDAP (ADACEL) 2017-06-20 Completed University of VACCINE 00:00:00 [facility] Pneumococcal 13 2017-06-20 Completed Universit y of Conjugate, PCV13 00:00:[address] [facility] [place] (Prevnar 13) Branch TDAP (ADACEL) 2017-06-20 Completed University of VACCINE 00:00:00 [facility] Pneumococcal 13 2017-06-20 Completed Universit y of Conjugate, PCV13 00:00:[address] [facility] [place] (Prevnar 13) Branch TDAP (ADACEL) 2017-06-20 Completed University of VACCINE 00:00:00 [facility] Pneumococcal 13 2017-06-20 Completed Universit y of Conjugate, PCV13 00:00:[address] [facility] [place] (Prevnar 13) Branch TDAP (ADACEL) 2017-06-20 Completed University of VACCINE 00:00:00 [facility] Pneumococcal 13 2017-06-20 Completed Universit y of Conjugate, PCV13 00:00:[address] [facility] [place] (Prevnar 13) Branch Pneumococcal 13 2017-06-20 Completed Universit y of Conjugate, PCV13 00:00:[address] [facility] [place] (Prevnar 13) Branch TDAP (ADACEL) 2017-06-20 Completed University of VACCINE 00:00:00 [facility] TDAP (ADACEL) 2017-06-20 Completed University of VACCINE 00:00:00 [facility] Pneumococcal 13 2017-06-20 Completed Universit y of Conjugate, PCV13 00:00:[address] [facility] [place] (Prevnar 13) Branch TDAP (ADACEL) 2017-06-20 Completed University of VACCINE 00:00:00 [facility] Pneumococcal 13 2017-06-20 Completed Universit y of Conjugate, PCV13 00:00:[address] [facility] [place] (Prevnar 13) Branch TDAP (ADACEL) 2017-06-20 Completed University of VACCINE 00:00:00 [facility] Pneumococcal 13 2017-06-20 Completed Universit y of Conjugate, PCV13 00:00:[address] [facility] [place] (Prevnar 13) Branch TDAP (ADACEL) 2017-06-20 Completed University of VACCINE 00:00:00 [facility] Pneumococcal 13 2017-06-20 Completed Universit y of Conjugate, PCV13 00:00:[address] [facility] [place] (Prevnar 13) Branch TDAP (ADACEL) 2017-06-20 Completed University of VACCINE 00:00:00 [facility] Pneumococcal 13 2017-06-20 Completed Universit y of Conjugate, PCV13 00:00:[address] [facility] [place] (Prevnar 13) Branch TDAP (ADACEL) 2017-06-20 Completed University of VACCINE 00:00:00 [facility] Pneumococcal 13 2017-06-20 Completed Universit y of Conjugate, PCV13 00:00:[address] [facility] [place] (Prevnar 13) Branch TDAP (ADACEL) 2017-06-20 Completed University of VACCINE 00:00:00 [facility] Pneumococcal 13 2017-06-20 Completed Universit y of Conjugate, PCV13 00:00:[address] [facility] [place] dical (Prevnar 13) Branch TDAP (ADACEL) 2017-06-20 Completed University of VACCINE 00:00:00 [facility] Pneumococcal 13 2017-06-20 Completed Universit y of Conjugate, PCV13 00:00:[address] [facility], [place] dical (Prevnar 13) Branch TDAP (ADACEL) 2017-06-20 Completed University of VACCINE 00:00:00 [facility] Pneumococcal 13 2017-06-20 Completed Universit y of Conjugate, PCV13 00:00:[address] [facility], [place] dical (Prevnar 13) Branch TDAP (ADACEL) 2017-06-20 Completed University of VACCINE 00:00:00 [facility] Pneumococcal 13 2017-06-20 Completed Universit y of Conjugate, PCV13 00:00:[address] [facility], T[place] dical (Prevnar 13) Branch Pneumococcal 13 2017-06-20 Completed Universit y of Conjugate, PCV13 00:00:[address] [facility], Tx dical (Prevnar 13) Branch TDAP (ADACEL) 2017-06-20 Completed University of VACCINE 00:00:00 [facility] TDAP (ADACEL) 2017-06-20 Completed University of VACCINE 00:00:00 [facility] Pneumococcal 13 2017-06-20 Completed Universit y of Conjugate, PCV13 00:00:[address] [facility], [place] dical (Prevnar 13) Branch TDAP (ADACEL) 2017-06-20 Completed University of VACCINE 00:00:00 [facility] Pneumococcal 13 2017-06-20 Completed Universit y of Conjugate, PCV13 00:00:[address] [facility], [place] dical (Prevnar 13) Branch TDAP (ADACEL) 2017-06-20 Completed University of VACCINE 00:00:00 [facility] Pneumococcal 13 2017-06-20 Completed Universit y of Conjugate, PCV13 00:00:[address] [facility], [place] dical (Prevnar 13) Branch TDAP (ADACEL) 2017-06-20 Completed University of VACCINE 00:00:00 [facility] Pneumococcal 13 2017-06-20 Completed Universit y of Conjugate, PCV13 00:00:[address] [facility], [place] dical (Prevnar 13) Branch TDAP (ADACEL) 2017-06-20 Completed University of VACCINE 00:00:00 [facility] Pneumococcal 13 2017-06-20 Completed Universit y of Conjugate, PCV13 00:00:[address] [facility], [place] dical (Prevnar 13) Branch TDAP (ADACEL) 2017-06-20 Completed University of VACCINE 00:00:00 [facility] Pneumococcal 13 2017-06-20 Completed Universit y of Conjugate, PCV13 00:00:[address] [facility], T[place] dical (Prevnar 13) Branch TDAP (ADACEL) 2017-06-20 Completed University of VACCINE 00:00:00 [facility] Pneumococcal 13 2017-06-20 Completed Universit y of Conjugate, PCV13 00:00:[address] [facility], T[place] dical (Prevnar 13) Branch TDAP (ADACEL) 2017-06-20 Completed University of VACCINE 00:00:00 [facility] Pneumococcal 13 2017-06-20 Completed Universit y of Conjugate, PCV13 00:00:[address] [facility], T[place] dical (Prevnar 13) Branch TDAP (ADACEL) 2017-06-20 Completed University of VACCINE 00:00:00 [facility] Pneumococcal 13 2017-06-20 Completed Universit y of Conjugate, PCV13 00:00:[address] [facility], T[place] dical (Prevnar 13) Branch TDAP (ADACEL) 2017-06-20 Completed University of VACCINE 00:00:00 [facility] Pneumococcal 13 2017-06-20 Completed Universit y of Conjugate, PCV13 00:00:[address] [facility], T[place] dical (Prevnar 13) Branch TDAP (ADACEL) 2017-06-20 Completed University of VACCINE 00:00:00 [facility] Pneumococcal 13 2017-06-20 Completed Universit y of Conjugate, PCV13 00:00:[address] [facility], [place] dical (Prevnar 13) Branch TDAP (ADACEL) 2017-06-20 Completed University of VACCINE 00:00:00 [facility] Pneumococcal 13 2017-06-20 Completed Universit y of Conjugate, PCV13 00:00:[address] [facility], [place] dical (Prevnar 13) Branch Pneumococcal 13 2017-06-20 Completed Universit y of Conjugate, PCV13 00:00:[address] [facility], T[place] dical (Prevnar 13) Branch TDAP (ADACEL) 2017-06-20 Completed University of VACCINE 00:00:00 [facility] Pneumococcal 13 2017-06-20 Completed Universit y of Conjugate, PCV13 00:00:[address] [facility], [place] dical (Prevnar 13) Branch TDAP (ADACEL) 2017-06-20 Completed University of VACCINE 00:00:00 [facility] TDAP (ADACEL) 2017-06-20 Completed University of VACCINE 00:00:00 [facility] Pneumococcal 13 2017-06-20 Completed Universit y of Conjugate, PCV13 00:00:[address] [facility], [place] dical (Prevnar 13) Branch TDAP (ADACEL) 2017-06-20 Completed University of VACCINE 00:00:00 [facility] Pneumococcal 13 2017-06-20 Completed Universit y of Conjugate, PCV13 00:00:[address] [facility], [place] dical (Prevnar 13) Branch TDAP (ADACEL) 2017-06-20 Completed University of VACCINE 00:00:00 [facility] Pneumococcal 13 2017-06-20 Completed Universit y of Conjugate, PCV13 00:00:[address] [facility], [place] dical (Prevnar 13) Branch TDAP (ADACEL) 2017-06-20 Completed University of VACCINE 00:00:00 [facility] Pneumococcal 13 2017-06-20 Completed Universit y of Conjugate, PCV13 00:00:[address] [facility], [place] dical (Prevnar 13) Branch TDAP (ADACEL) 2017-06-20 Completed University of VACCINE 00:00:00 [facility] Pneumococcal 13 2017-06-20 Completed Universit y of Conjugate, PCV13 00:00:[address] [facility], [place] dical (Prevnar 13) Branch TDAP (ADACEL) 2017-06-20 Completed University of VACCINE 00:00:00 [facility] Pneumococcal 13 2017-06-20 Completed Universit y of Conjugate, PCV13 00:00:[address] [facility], [place] dical (Prevnar 13) Branch TDAP (ADACEL) 2017-06-20 Completed University of VACCINE 00:00:00 [facility] Pneumococcal 13 2017-06-20 Completed Universit y of Conjugate, PCV13 00:00:[address] [facility], [place] dical (Prevnar 13) Branch TDAP (ADACEL) 2017-06-20 Completed University of VACCINE 00:00:00 [facility] Pneumococcal 13 2017-06-20 Completed Universit y of Conjugate, PCV13 00:00:[address] [facility], [place] dical (Prevnar 13) Branch TDAP (ADACEL) 2017-06-20 Completed University of VACCINE 00:00:00 [facility] Pneumococcal 13 2017-06-20 Completed Universit y of Conjugate, PCV13 00:00:[address] [facility], [place] dical (Prevnar 13) Branch TDAP (ADACEL) 2017-06-20 Completed University of VACCINE 00:00:00 [facility] Pneumococcal 13 2017-06-20 Completed Universit y of Conjugate, PCV13 00:00:[address] [facility], [place] dical (Prevnar 13) Branch TDAP (ADACEL) 2017-06-20 Completed University of VACCINE 00:00:00 [facility] Pneumococcal 13 2017-06-20 Completed Universit y of Conjugate, PCV13 00:00:[address] [facility], [place] dical (Prevnar 13) Branch TDAP (ADACEL) 2017-06-20 Completed University of VACCINE 00:00:00 [facility] Pneumococcal 13 2017-06-20 Completed Universit y of Conjugate, PCV13 00:00:[address] [facility] [place] dical (Prevnar 13) Branch Pneumococcal 13 2017-06-20 Completed Universit y of Conjugate, PCV13 00:00:[address] [facility], [place] dical (Prevnar 13) Branch TDAP (ADACEL) 2017-06-20 Completed University of VACCINE 00:00:00 [facility] TDAP (ADACEL) 2017-06-20 Completed University of VACCINE 00:00:00 [facility] Pneumococcal 13 2017-06-20 Completed Universit y of Conjugate, PCV13 00:00:[address] [facility], T[place] dical (Prevnar 13) Branch TDAP (ADACEL) 2017-06-20 Completed University of VACCINE 00:00:00 [facility] Pneumococcal 13 2017-06-20 Completed Universit y of Conjugate, PCV13 00:00:[address] [facility], [place] dical (Prevnar 13) Branch TDAP (ADACEL) 2017-06-20 Completed University of VACCINE 00:00:00 [facility] Pneumococcal 13 2017-06-20 Completed Universit y of Conjugate, PCV13 00:00:[address] [facility], [place] dical (Prevnar 13) Branch TDAP (ADACEL) 2017-06-20 Completed University of VACCINE 00:00:00 [facility] Pneumococcal 13 2017-06-20 Completed Universit y of Conjugate, PCV13 00:00:[address] [facility], T[place] dical (Prevnar 13) Branch TDAP (ADACEL) 2017-06-20 Completed University of VACCINE 00:00:00 [facility] Influenza Virus 2017-01-20 Completed Universit y of Vaccine Quad IM 3+ 00:00:00 [facility] Influenza Virus 2017-01-20 Completed Universit y of Vaccine Quad IM 3+ 00:00:00 [facility] Influenza Virus 2017-01-20 Completed Universit y of Vaccine Quad IM 3+ 00:00:00 [facility] Influenza Virus 2017-01-20 Completed Universit y of Vaccine Quad IM 3+ 00:00:00 [facility] Influenza Virus 2017-01-20 Completed Universit y of Vaccine Quad IM 3+ 00:00:00 [facility] Influenza Virus 2017-01-20 Completed Universit y of Vaccine Quad IM 3+ 00:00:00 [facility] Influenza Virus 2017-01-20 Completed Universit y of Vaccine Quad IM 3+ 00:00:00 [facility] Influenza Virus 2017-01-20 Completed Universit y of Vaccine Quad IM 3+ 00:00:00 [facility] Influenza Virus 2017-01-20 Completed Universit y of Vaccine Quad IM 3+ 00:00:00 [facility] Influenza Virus 2017-01-20 Completed Universit y of Vaccine Quad IM 3+ 00:00:00 [facility] Influenza Virus 2017-01-20 Completed Universit y of Vaccine Quad IM 3+ 00:00:00 [facility] Influenza Virus 2017-01-20 Completed Universit y of Vaccine Quad IM 3+ 00:00:00 [facility] Influenza Virus 2017-01-20 Completed Universit y of Vaccine Quad IM 3+ 00:00:00 [facility] Influenza Virus 2017-01-20 Completed Universit y of Vaccine Quad IM 3+ 00:00:00 [facility] Influenza Virus 2017-01-20 Completed Universit y of Vaccine Quad IM 3+ 00:00:00 [facility] Influenza Virus 2017-01-20 Completed Universit y of Vaccine Quad IM 3+ 00:00:00 [facility] Influenza Virus 2017-01-20 Completed Universit y of Vaccine Quad IM 3+ 00:00:00 [facility] Influenza Virus 2017-01-20 Completed Universit y of Vaccine Quad IM 3+ 00:00:00 [facility] Influenza Virus 2017-01-20 Completed Universit y of Vaccine Quad IM 3+ 00:00:00 [facility] Influenza Virus 2017-01-20 Completed Universit y of Vaccine Quad IM 3+ 00:00:00 [facility] Influenza Virus 2017-01-20 Completed Universit y of Vaccine Quad IM 3+ 00:00:00 [facility] Influenza Virus 2017-01-20 Completed Universit y of Vaccine Quad IM 3+ 00:00:00 [facility] Influenza Virus 2017-01-20 Completed Universit y of Vaccine Quad IM 3+ 00:00:00 [facility] Influenza Virus 2017-01-20 Completed Universit y of Vaccine Quad IM 3+ 00:00:00 [facility] Influenza Virus 2017-01-20 Completed Universit y of Vaccine Quad IM 3+ 00:00:00 [facility] Influenza Virus 2017-01-20 Completed Universit y of Vaccine Quad IM 3+ 00:00:00 [facility] Influenza Virus 2017-01-20 Completed Universit y of Vaccine Quad IM 3+ 00:00:00 [facility] Influenza Virus 2017-01-20 Completed Universit y of Vaccine Quad IM 3+ 00:00:00 [facility] Influenza Virus 2017-01-20 Completed Universit y of Vaccine Quad IM 3+ 00:00:00 [facility] Influenza Virus 2017-01-20 Completed Universit y of Vaccine Quad IM 3+ 00:00:00 [facility] Influenza Virus 2017-01-20 Completed Universit y of Vaccine Quad IM 3+ 00:00:00 [facility] Influenza Virus 2017-01-20 Completed Universit y of Vaccine Quad IM 3+ 00:00:00 [facility] Influenza Virus 2017-01-20 Completed Universit y of Vaccine Quad IM 3+ 00:00:00 [facility] Influenza Virus 2017-01-20 Completed Universit y of Vaccine Quad IM 3+ 00:00:00 [facility] Influenza Virus 2017-01-20 Completed Universit y of Vaccine Quad IM 3+ 00:00:00 [facility] Influenza Virus 2017-01-20 Completed Universit y of Vaccine Quad IM 3+ 00:00:00 [facility] Influenza Virus 2017-01-20 Completed Universit y of Vaccine Quad IM 3+ 00:00:00 [facility] Influenza Virus 2017-01-20 Completed Universit y of Vaccine Quad IM 3+ 00:00:00 [facility] Influenza Virus 2017-01-20 Completed Universit y of Vaccine Quad IM 3+ 00:00:00 [facility] Influenza Virus 2017-01-20 Completed Universit y of Vaccine Quad IM 3+ 00:00:00 [facility] Influenza Virus 2017-01-20 Completed Universit y of Vaccine Quad IM 3+ 00:00:00 [facility] Influenza Virus 2017-01-20 Completed Universit y of Vaccine Quad IM 3+ 00:00:00 [facility] Influenza Virus 2017-01-20 Completed Universit y of Vaccine Quad IM 3+ 00:00:00 [facility] Influenza Virus 2017-01-20 Completed Universit y of Vaccine Quad IM 3+ 00:00:00 [facility] Influenza Virus 2017-01-20 Completed Universit y of Vaccine Quad IM 3+ 00:00:00 [facility] Influenza Virus 2017-01-20 Completed Universit y of Vaccine Quad IM 3+ 00:00:00 [facility] Influenza Virus 2017-01-20 Completed Universit y of Vaccine Quad IM 3+ 00:00:00 [facility] Influenza Virus 2017-01-20 Completed Universit y of Vaccine Quad IM 3+ 00:00:00 [facility] Influenza Virus 2017-01-20 Completed Universit y of Vaccine Quad IM 3+ 00:00:00 [facility] Influenza Virus 2017-01-20 Completed Universit y of Vaccine Quad IM 3+ 00:00:00 [facility] Influenza Virus 2017-01-20 Completed Universit y of Vaccine Quad IM 3+ 00:00:00 [facility] Vital Signs Vital Name Observation Time Observation Value Comments Source Systolic blood 2018-10-05 18:47:00 152 mm[Hg] Univer sity of pressure [facility] Diastolic blood 2018-10-05 18:47:00 82 mm[Hg] Unive rsity of pressure [facility] Heart rate 2018-10-05 18:47:00 78 /min [facility] Body temperature 2018-10-05 18:47:00 36.28 Nellie [facility] Respiratory rate 2018-10-05 18:47:00 18 /min [facility] Body height 2018-10-05 18:47:00 177.8 cm [facility] Body weight 2018-10-05 18:47:00 94.756 kg [facility] BMI 2018-10-05 18:47:00 29.97 kg/m2 [facility] Procedures Procedure Date / Time Performing Clinician Source Performed PROSTATIC SPECIFIC ANTIGEN 2018-10-05 20:45:00 Carola Kulkarni [facility] BILI UNCONJUGATED/BILI 2018-10-05 20:45:00 Carola Kulkarni [facility] COMP. METABOLIC PANEL 2018-10-05 20:45:00 [id number] LIPID PANEL ([id number])(TOTAL 2018-10-05 20:45:00 Carola Kulkarni [facility] CHOLESTEROL, [facility] TRIGLYCERIDES, HDL) CBC WITH DIFFERENTIAL 2018-10-05 20:45:00 Shad [facility] CD4 SUBSET ASSAY 2018-10-05 20:45:00 Shad [facility] HIV1 BY REAL-TIME PCR 2018-10-05 20:45:00 Carola Kulkarni [facility] HEMOGLOBINOPATHY 2018-10-05 20:45:00 Shad [facility] EVALUATION [facility] GALV ONLY - SYPHILIS 2018-10-05 20:45:00 Carola Kulkarni [facility] IGG/IGM [facility] ASSIGNMENT OF BENEFITS 2018-10-05 18:21:48 Doctor Unassigned, [facility] Branch Encounters Start End Encounter Admission Attending Care Care Encounter Source Date/Time Date/Time Type Type Clinicians Facility Department ID 2020-09-06 2020-09-06 Outpatient R [facility] [id number] Univers 09:30:00 09:30:00 CAROLA [id number] [facility] 2020-09-06 2020-09-06 Outpatient R [facility] [id number] Univers 09:30:00 09:30:00 CAROLA [facility] 2020-09-05 2020-09-05 Refill Shad [facility] [id number] Univers 00:00:00 00:00:[address] [facility] 350.1.13.10 i ty of CL[place] 4[place].2.[place] [id number] [facility] 08 Branch 2020-09-05 2020-09-05 Telephone REVA Gregory 1.2.840.114 [id number] Univers 00:00:00 00:00:00 Nano L Y HEALTH 350.1.13.10 i [place] [id number] [address] 2020-09-05 2020[id number] 00:00:00 00:00:00 Carola Y HEALTH 350.1.13.10 CLINICS 4.2.7.2.686 [id number] [facility] 2020-09-05 2020-09-05 [facility] 1.2.840.114 [id number] 00:00:00 00:00:00 Nano L Y HEALTH 350.1.13.10 CLINICS 4.2.7.2.686 [id number] [facility] 2020-03-15 2020-03-15 [facility] 1.2.840.114 [id number] Univers 00:00:00 00:00:00 (Out) Rosa L Y HEALTH 350.1.13.10 [id number] [address] 2020-03-15 2020-03-15 [facility] 1.2.840.114 [id number] 00:00:00 00:00:00 (Out) Rosa L Y HEALTH 350.1.13.10 CLINICS 4.2.7.2.686 [id number] [facility] 2020-03-07 2020-03-07 Outpatient [facility] [id number] Univers 14:30:00 14:30:00 CAROLA [id number] [facility] 2020-03-07 2020-03-07 Outpatient [facility] [id number] Univers 14:30:00 14:30:00 CAROLA [facility] 2020-03-06 2020-03-06 Telephone [facility] 1.2.840.114 [id number] Univers 00:00:00 00:00:00 Rosa R Y HEALTH 350.1.13.10 ity [place] [id number] [address] 2020-03-06 2020-03-06 Telephone Wallace [facility] 1.2.840.114 [id number] 00:00:00 00:00:00 Rosa R Y HEALTH 350.1.13.10 CLINICS 4.2.7.2.686 [id number] [facility] 2020-03-01 2020-03-01 Case Andrew, [facility] 1.2.840.114 [id number] [facility] 00:00:00 00:00:00 Management Rosa L Y HEALTH 350.1.13.10 ity [place] [id number] [address] 2020-03-01 2020-03-01 Case Andrew, [facility] 1.2.840.114 [id number] 00:00:00 00:00:00 Management Rosa L Y HEALTH 350.1.13.10 CLINICS 4.2.7.2.686 [id number] [facility] 2020-02-29 2020-02-29 Outpatient R [facility] [id number] Univers 10:30:00 10:30:00 [place] [id number] [facility] 2020-02-29 2020-02-29 Outpatient [facility] [id number] Univers 10:30:00 10:30:00 [facility] 2020-02-29 2020-02-29 Telephone Geovanny [facility] 1.2.840.114 [id number] [facility] 00:00:00 00:00:00 Nechelle Y HEALTH 350.1.13.10 ity [place] [id number] [address] 2020-02-29 2020-02-29 Telephone Geovanny [facility] 1.2.840.114 [id number] 00:00:00 00:00:00 Nechelle Y HEALTH 350.1.13.10 CLINICS 4.2.7.2.686 [id number] [facility] 2020-02-25 2020-02-25 Telephone Wallace Fine, [facility] 1.2.840.114 [id number] Univers 00:00:00 00:00:00 Rosa R Y HEALTH 350.1.13.10 ity [place] [id number] [address] 2020-02-25 2020-02-25 Telephone Wallace Fine [facility] 1.2.840.114 [id number] 00:00:00 00:00:00 Rosa R Y HEALTH 350.1.13.10 CLINICS 4.2.7.2.686 [id number] [facility] 2020-02-22 2020-02-22 Case Garsia, [facility] 1.2.840.114 [id number] 00:00:00 00:00:00 Management Zahira M Y HEALTH 350.1.13.10 CLINICS 4.2.7.2.686 [id number] [facility] 2020-02-22 2020-02-22 [facility] [id number] Univers 00:00:00 00:00:00 Management Nano L Y HEALTH 350.1.13.10 ity [place] [id number] [address] 2020-02-22 2020-02-22 Marco Antonio [facility]arsia, [facility] 1.2.840.114 [id number] Univers 00:00:00 00:00:00 Management Zahira M Y HEALTH 350.1.13.10 ity [place] [id number] [address] 2020-02-22 2020-02-22 Case Gregory, [facility] [id number] 00:00:00 00:00:00 Management Nano L Y HEALTH 350.1.13.10 CLINICS 4.2.7.2.686 [id number] [facility] 2020-02-09 2020-02-09 Outpatient [facility] [id number] Univers 10:30:00 10:30:00 CAROLA [id number] ity of [facility] 2020-02-09 2020-02-09 Outpatient [facility] [id number] Univers 10:30:00 10:30:00 CAROLA ity of [facility] 2020-02-07 2020-02-07 Case Wallace Fine, [facility] 1.2.840.114 [id number] 00:00:00 00:00:00 Management Rosa R Y HEALTH 350.1.13.10 CLINICS 4.2.7.2.686 [id number] 2020-02-07 2020-02-07 Case Colt, [facility] [id number] 00:00:00 00:00:00 Management Nano L Y HEALTH 350.1.13.10 CLINICS 4.2.7.2.686 [id number] [facility] 2020-02-07 2020-02-07 Case Wallace Fine, [facility] 1.2.840.114 [id number] Univers 00:00:00 00:00:00 Management Rosa R Y HEALTH 350.1.13.10 ity [place] [id number] [address] 2020-02-07 2020-02-07 Case Colt, [facility] [id number] Univers 00:00:00 00:00:00 Management Nano L Y HEALTH 350.1.13.10 [place]y [place] [id number] [address] 2020-01-31 2020-01-31 Telephone REVA Small 1.2.840.114 [id number] 00:00:00 00:00:00 Nechelle Y HEALTH 350.1.13.10 CLINICS 4.2.7.2.686 [id number] [facility] 2020-01-31 2020-01-31 Telephone REVA Small 1.2.840.114 [id number] Univers 00:00:00 00:00:00 Nechelle Y HEALTH 350.1.13.10 ity [place] [id number] [address] 2020-01-28 2020-01-28 Telephone REVA Small 1.2.840.114 [id number] 00:00:00 00:00:00 Nechelle Y HEALTH 350.1.13.10 CLINICS 4.2.7.2.686 [id number] [facility] 2020-01-28 2020-01-28 [facility] 1.2.840.114 [id number] [facility] 00:00:00 00:00:00 Nechelle Y HEALTH 350.1.13.10 [place]y [place] [id number] [address] 2020-01-12 2020-01-12 [facility] 1.2.840.114 [id number] 00:00:00 00:00:00 Management Rosa L Y HEALTH 350.1.13.10 CLINICS 4.2.7.2.686 [id number] [facility] 2020-01-12 2020-01-12 [facility] 1.2.840.114 [id number] Univers 00:00:00 00:00:00 Management Rosa L Y HEALTH 350.1.13.10 [place] [id number] [address] 2020-01-03 2020-01-03 Outpatient [facility] [id number] Univers 10:00:00 10:00:00 CAROLA [id number] [facility] 2020-01-03 2020-01-03 Outpatient [facility] [id number] Univers 10:00:00 10:00:00 CAROLA [facility] 2019-12-31 2019-12-31 [facility] 12.840.114 [id number] 00:00:00 00:00:00 Oral L Y HEALTH 350.1.13.10 CLINICS 4.2.7.2.686 [id number] [facility] 2019-12-31 2019-12-31 [address] [facility] 12.840.114 [id number] Univers 00:00:00 00:00:00 Oral L Y HEALTH 350.1.13.10 it[place] [id number] [address] 2019-12-28 2019-12-28 [facility] 1.2.840.114 [id number] Univers 00:00:00 00:00:00 Management Rosa L Y HEALTH 350.1.13.10 [place] [id number] [address] 2019-12-28 2019-12-28 [facility] 1.2.840.114 [id number] 00:00:00 00:00:00 Management Rosa L Y HEALTH 350.1.13.10 CLINICS 4.2.7.2.686 [id number] [facility] 2019-12-14 2019-12-14 [facility] 1.2.840.114 [id number] Univers 00:00:00 00:00:00 Rosa L Y HEALTH 350.1.13.10 [place] [id number] [address] 2019-12-14 2019-12-14 [facility] 1.2.840.114 [id number] 00:00:00 00:00:00 Rosa L Y HEALTH 350.1.13.10 CLINICS 4.2.7.2.686 [id number] [facility] 2019-12-08 2019-12-08 [facility] 1.2.840.114 [id number] Univers 00:00:00 00:00:00 Management Rosa L Y HEALTH 350.1.13.10 [place] [id number] [address] 2019-12-08 2019-12-08 [facility] 1.2.840.114 [id number] 00:00:00 00:00:00 Management Rosa L Y HEALTH 350.1.13.10 CLINICS 4.2.7.2.686 [id number] [facility] 2019-11-23 2019-11-23 [place] 1.2.840.114 [id number] Univers 00:00:00 00:00:00 Roas L Y HEALTH 350.1.13.10 [place] [id number] [address] 2019-11-23 2019-11-23 Telephone [facility] 1.2.840.114 [id number] 00:00:00 00:00:00 Rosa L Y HEALTH 350.1.13.10 CLINICS 4.2.7.2.686 [id number] [facility] 2019-11-16 2019-11-16 Outpatient R [facility] [id number] -[id number] Univers 08:30:00 08:30:00 [facility] 2019-11-16 Outpatient R [facility] [id number] Univers 08:30:00 08:30:00 [facility] [place] [facility] 2019-11-15 Case Wallace Fine, [facility] 1.2.840.114 [id number] Univers 00:00:00 00:00:00 Management Rosa R Y HEALTH 350.1.13.10 [place] [id number] [address] 2019-11-15 2019-11-15 Case Wallace Fine [facility] 1.2.840.114 [id number] 00:00:00 00:00:00 Management Rosa R Y HEALTH 350.1.13.10 CLINICS 4.2.7.2.686 [id number] [facility] 2019-11-12 2019-11-12 Outpatient R [facility] [id number] -[id number] Univers 16:00:00 16:00:[address] [facility] 2019-11-04 2019-11-04 Case Gregory, [facility] 1.2.034.279 [id number] Univers 00:00:00 00:00:00 Management Nano L Y HEALTH 350.1.13.10 [place] [id number] [address] 2019-11-04 2019-11-04 Case Colt, [facility] 1.2.817.899 [id number] 00:00:00 00:00:00 Management Nano L Y HEALTH 350.1.13.10 CLINICS 4.2.7.2.686 [id number] [facility] 2019-11-02 2019-11-02 Outpatient R [facility] [id number] -[id number] Univers 15:30:00 15:30:[address] [place] [id number] ity [facility] 2019-11-02 2019-11-02 Outpatient R [facility] [id number] Univers 15:30:00 15:30:00 [facility] 2019-11-02 2019-11-02 Case Colt, [facility] 1.2.521.140 [id number] Univers 00:00:00 00:00:00 Management Nano L Y HEALTH 350.1.13.10 [place] [id number] [address] 2019-11-02 2019-11-02 Case Colt [facility] 1.2.564.472 [id number] 00:00:00 00:00:00 Management Nano L Y HEALTH 350.1.13.10 CLINICS 4.2.7.2.686 [id number] [facility] 2019-10-07 2019-10-07 Marco Antonio Gregory [facility] 1.2.458.067 [id number] Univers 00:00:00 00:00:00 Management Nano L Y HEALTH 350.1.13.10 [place] [id number] [address] 2019-10-07 2019-10-07 Case Colt, [facility] 1.2.521.330 [id number] 00:00:00 00:00:00 Management Nano L Y HEALTH 350.1.13.10 CLINICS 4.2.7.2.686 [id number] [facility] 2019-10-04 2019-10-04 Tony Morales [facility] 1.2.840.114 [id number] [facility] 00:00:00 00:00:00 Rosa L Y HEALTH 350.1.13.10 [place]y [place] [id number] [address] 2019-10-04 2019-10-04 Telephone BRITTANI Morales 1.2.840.114 [id number] 00:00:00 00:00:00 Rosa L Y HEALTH 350.1.13.10 CLINICS 4.2.7.2.686 [id number] [facility] 2019-09-29 2019-09-29 Outpatient R [facility] [id number] -[id number] Univers 10:30:00 10:30:[address] [place] [id number] ity [facility] 2019-09-29 2019-09-29 Outpatient R [facility] [id number] Univers 10:30:00 10:30:[address] [facility] 2019-09-28 2019-09-28 Telephone Ann [facility] 1.2.840.114 [id number] Univers 00:00:00 00:00:00 Cesia L Y HEALTH 350.1.13.10 ity [place] [id number] [address] 2019-09-28 2019-09-28 Telephone Ann [facility] 1.2.840.114 [id number] 00:00:00 00:00:00 Cesia L Y HEALTH 350.1.13.10 CLINICS 4.2.7.2.686 [id number] [facility] 2019-08-17 2019-08-17 Outpatient R [facility] [id number] -[id number] Univers 10:00:00 10:00:[address] [place] [id number]y [facility] 2019-08-17 2019-08-17 Outpatient R [facility] [id number] Univers 10:00:00 10:00:[address] [facility] 2019-08-17 2019-08-17 [facility] 1.2.840.114 [id number] Univers 07:23:13 07:53:13 ne Visit Carola Y HEALTH 350.1.13.10 ity [place] [id number] [address] 2019-08-17 2019-08-17 Telemedici [facility] 1.2.840.114 [id number] 07:23:13 07:53:13 ne Visit Carola Y HEALTH 350.1.13.10 CLINICS 4.2.7.2.686 [id number] [facility] 2019-08-17 2019-08-17 Telephone [facility] 1.2.840.114 [id number] Univers 00:00:00 00:00:00 Carola Y HEALTH 350.1.13.10 i ty [place] [id number] [address] 2019-08-17 2019-08-17 Telephone [facility] 1.2.840.114 [id number] Univers 00:00:00 00:00:00 Rosa L Y HEALTH 350.1.13.10 [place]y [place] [id number] [address] 2019-08-17 2019-08-17 Telephone [facility] 1.2.840.114 [id number] 00:00:00 00:00:00 Carola Y HEALTH 350.1.13.10 CLINICS 4.2.7.2.686 [id number] [facility] 2019-08-17 2019-08-17 Telephone [facility] 1.2.840.114 [id number] 00:00:00 00:00:00 Rosa L Y HEALTH 350.1.13.10 CLINICS 4.2.7.2.686 [id number] [facility] 2019-08-16 2019-08-16 [facility] 1.2.924.585 [id number] Univers 00:00:00 00:00:00 Management Nano L Y HEALTH 350.1.13.10 ity [place] [id number] [address] 2019-08-16 2019-08-16 Marco Antonio Gregory [facility] 1.2.946.073 [id number] Univers 00:00:00 00:00:00 Management Nano L Y HEALTH 350.1.13.10 ity [place] [id number] [address] 2019-08-16 2019-08-16 Case BRITTANI Gregory 1.2.420.803 [id number] Univers 00:00:00 00:00:00 Management Nano L Y HEALTH 350.1.13.10 ity [place] [id number] [address] 2019-08-16 2019-08-16 BRITTANI Elizalde 1.2.957.502 [id number] 00:00:00 00:00:00 Management Nano L Y HEALTH 350.1.13.10 CLINICS 4.2.7.2.686 [id number] [facility] 2019-08-16 2019-08-16 BRITTANI Elizalde 1.2.209.247 [id number] 00:00:00 00:00:00 Management Nano L Y HEALTH 350.1.13.10 CLINICS 4.2.7.2.686 [id number] [facility] 2019-08-16 2019-08-16 BRITTANI Elizalde 1.2.398.335 [id number] 00:00:00 00:00:00 Management Nano L Y HEALTH 350.1.13.10 CLINICS 4.2.7.2.686 [id number] [facility] 2019-08-13 2019-08-13 BRITTANI Elizalde 1.2.973.535 [id number] Univers 00:00:00 00:00:00 Management Nano L Y HEALTH 350.1.13.10 [place] [id number] [address] 2019-08-13 2019-08-13 BRITTANI Elizalde 1.2.187.904 [id number] 00:00:00 00:00:00 Management Nano L Y HEALTH 350.1.13.10 CLINICS 4.2.7.2.686 [id number] [facility] 2019-08-12 2019-08-12 BRITTANI Elizalde 1.2.717.008 [id number] Univers 00:00:00 00:00:00 Management Nano L Y HEALTH 350.1.13.10 [place] [id number] [address] 2019-08-12 2019-08-12 BRITTANI El[facility]aldeIT 1.2.595.675 [id number] 00:00:00 00:00:00 Management Nano L Y HEALTH 350.1.13.10 CLINICS 4.2.7.2.686 [id number] [facility] 2019-08-04 2019-08-04 BRITTANI ElizaldeIT 1.2.382.004 [id number] Univers 00:00:00 00:00:00 Management Nano L Y HEALTH 350.1.13.10 [place] [id number] [address] 2019-08-04 2019-08-04 BRITTANI El[facility]aldeIT 1.2.746.939 [id number] 00:00:00 00:00:00 Management Nano L Y HEALTH 350.1.13.10 CLINICS 4.2.7.2.686 [id number] [facility] 2019-07-27 2019-07-27 BRITTANI ElizaldeIT 1.2.244.625 [id number] Univers 00:00:00 00:00:00 Management Nano L Y HEALTH 350.1.13.10 [place]y [place] [id number] [address] 2019-07-27 2019-07-27 BRITTANI ElizaldeIT 1.2.623.853 [id number] 00:00:00 00:00:00 Management Nano L Y HEALTH 350.1.13.10 CLINICS 4.2.7.2.686 [id number] [facility] 2019-07-26 2019-07-26 BRITTANI ElizaldeIT 1.2.112.530 [id number] Univers 00:00:00 00:00:00 Management Nano L Y HEALTH 350.1.13.10 [place]y [place] [id number] [address] 2019-07-26 2019-07-26 BRITTANI ElizaldeIT 1.2.712.275 [id number] 00:00:00 00:00:00 Management Nano L Y HEALTH 350.1.13.10 CLINICS 4.2.7.2.686 [id number] [facility] 2019-04-07 2019-04-07 Outpatient [facility] [id number] Univers 08:30:00 08:30:[address] [facility] 2019-03-18 2019-03-18 Telephone Amisha, [facility] 1.2.840.114 [id number] Univers 00:00:00 00:00:00 Oral L Y HEALTH 350.1.13.10 ity [place] [id number] [address] 2019-03-18 2019-03-18 Telephone Amisha, [facility] 1.2.840.114 [id number] 00:00:00 00:00:00 Oral L Y HEALTH 350.1.13.10 CLINICS 4.2.7.2.686 [id number] [facility] 2019-03-15 2019-03-15 Marco Antonio Garsia [facility] 1.2.840.114 [id number] Univers 00:00:00 00:00:00 Management Zahira M Y HEALTH 350.1.13.10 ity [place] [id number] [address] 2019-03-15 2019-03-15 Marco Antonio Garsia [facility] 1.2.840.114 [id number] 00:00:00 00:00:00 Management Zahira M Y HEALTH 350.1.13.10 CLINICS 4.2.7.2.686 [id number] [facility] 2018-10-22 2018-10-22 Telephone Amisha, [facility] 1.2.840.114 [id number] Univers 00:00:00 00:00:00 Oral L Y HEALTH 350.1.13.10 ity [place] [id number] [address] 2018-10-22 2018-10-22 Telephone Amisha, [facility] 1.2.840.114 [id number] 00:00:00 00:00:00 Oral L Y HEALTH 350.1.13.10 CLINICS 4.2.7.2.686 [id number] [facility] 2018-10-13 2018-10-13 Telephone BRITTANI LionIT 1.2.840.114 [id number] Univers 00:00:00 00:00:00 Oral Otto HEALTH 350.1.13.10 ity of [id number] [place] 2539[address] [place] 2018-10-13 2018-10-13 Telephone BRITTANI LionIT 1.2.840.114 [id number] 00:00:00 00:00:00 Oral Otto HEALTH 350.1.13.10 CLINICS 4.2.7.2.686 [id number] [facility] 2018-10-09 2018-10-09 BRITTANI Elizalde 1.2.356.783 [id number] Univers 00:00:00 00:00:00 Management Nano Blakely Y HEALTH 350.1.13.10 ity of [place] [id number] [address] 2018-10-07 2018-10-07 BRITTANI Elizalde 1.2.316.551 [id number] Univers 00:00:00 00:00:00 Management Nano Otto HEALTH 350.1.13.10 ity [place] [id number] [address] 2018-10-05 2018-10-05 Supervisor Garage [facility] 1.2.840.114 [id number] [facility] 15:10:16 15:47:51 [facility] 350.1.13.10 ity of [place] [id number] [address] 2018-10-05 2018-10-05 Office [facility] 1.2.072.685 [id number] Univers 13:23:30 15:08:46 Visit Carola [facility] 350.1.13.10 i ty of CL[place] [id number] [address] 2018-10-05 2018-10-05 BRITTANI Elizalde 1.2.373.515 [id number] Univers 00:00:00 00:00:00 Management Nano L Y HEALTH 350.1.13.10 ity of [place] [id number] [place] 253989 [place] 2018-10-05 2018-10-05 Orders Doctor MARLA 1.2.840.114 [id number] Univers 00:00:00 00:00:00 Only Unassigned, BREANNA 350.1.13.10 ity of [facility] 4.2.7.2.686 Ishan as [id number] [facility] [address] 2018-10-05 2018-10-05 Case Amisha, [facility] 1.2.365.833 [id number] Univers 00:00:00 00:00:00 Management Oral L Y HEALTH 350.1.13.10 ity [place] [id number] [address] 2018-09-29 2018-09-29 Case [facility], [facility] 1.2.840.114 [id number] Univers 00:00:00 00:00:00 Management Cesia L Y HEALTH 350.1.13.10 ity of [place] [id number] [address] 2018-08-31 2018-08-31 Refholly [facility], [facility] 1.2.291.044 [id number] Univers 00:00:00 00:00:00 [facility] 350.1.13.10 i ty of [place] [id number] [address] Results Test Description Test Time Test Comments Results Result Comments Source HIV1 BY REAL-TIME PCR QUANT 2018-10-08 17:18:00 Test Item Value Reference Range Interpretation Comme nts HIV 1 by Real-Time PCR (test Not Detected Not Detected code = 3560148456) CINDI (test code = CINDI) HIV-1 Real-Time PCRInterpretative data:Attune RTD000 Real Time HIV-1 reverse director of [employer]-polymerase chain reaction (RT-PCR) assay is used. It [...] copies/mL>10,000,000 copies/mL; > upper limit of quantification. [facility] [id number] 17:18:00 Test Item Value Reference Range Interpretation Comments HIV 1 by Not Detected Not Detected Real-Time PCR (test code = 1346887834) CINDI (test code = HIV-1 Real-Time CINDI) PCRInterpretative data:Attune RTD000 Real Time HIV-1 reverse director of intercolleg[employer]-polymerase chain reaction (RT-PCR) assay is used. It [...] copies/mL>10,000,000 copies/mL; > upper limit of quantification. [facility]MOGLOBINOPATH[facility] [id number] 18:50:00 Test Item Value Reference Interpretation Comments Range HEMOGLOBIN EVAL A 22.8 % 95-97.9 L (BEAKER) (test code = 52986-8) HEMOGLOBIN EVAL A2 6.0 % 2-3.5 H (BEAKER) (test code = 4552-6) HEMOGLOBIN EVAL F 5.2 % 0-2.1 H (BEAKER) (test code = 09075-2) HEMOGLOBIN EVAL C >43.0 See_Comment [Automate d (BEAKER) (test code message] The = 26501-5) system which generated this result transmitted reference range : 0.0 %. The reference range was not used to interpret this result as normal/abnormal . HGB OTHER % (test 0.5 % HGB OTHER% = 0.5 code = 68239-6) HGB E HGB EVAL HPLC (test Y code = 15342-3) HGB EVAL INTERP Hemoglobinopathy (test code = [place] 12514-8) Capillary Electrophoresis and High Performance Liquid Chromatography shows Hg A (22%), increased Hg A26%, increased Hg F 5.2% and a variant hemoglobin > 43%%. The variant hemoglobin has a migration pattern and retention consistent with Hg C.?Blood smear show microcytosis, erythrocytosis and target cells. 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 Lab Interpretation Abnormal (test code = 72299-7) [facility] WorthHEMOGLOBINOPATHY [id number] 18:50:00 Test Item Value Reference Interpretation Comments Range HEMOGLOBIN EVAL A 22.8 % 95-97.9 L (BERenovation Authorities of [place]) (test code = 02886-2) HEMOGLOBIN EVAL A2 6.0 % 2-3.5 H (Personera) (test code = 4552-6) HEMOGLOBIN EVAL F 5.2 % 0-2.1 H (Buyers EdgeAKER) (test code = 64135-4) HEMOGLOBIN EVAL C >43.0 See_Comment [Automate d (Personera) (test code message] The = 49116-2) system which generated this result transmitted reference range : 0.0 %. The reference range was not used to interpret this result as normal/abnormal . HGB OTHER % (test 0.5 % HGB OTHER% = 0.5 code = 29925-5) HGB E HGB EVAL HPLC (test Y code = 79827-4) HGB EVAL INTERP Hemoglobinopathy (test code = [place] 16938-4) Capillary Electrophoresis and High Performance Liquid Chromatography shows Hg A (22%), increased Hg A26%, increased Hg F 5.2% and a variant hemoglobin > 43%%. The variant hemoglobin has a migration pattern and retention consistent with Hg C.?Blood smear show microcytosis, erythrocytosis and target cells. 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 Lab Interpretation Abnormal (test code = 54209-2) [facility] ONLY - SYPHIL[place] [id number] 17:49:00 Test Item Value Reference Range Interpretation Comments Syphilis IgG/IgM (test Non-reactive Non-reactive code = 93992-1) CINDI (test code = CINDI) Non-reactive - No serologic evidence of T. pallidum infection. Cannot exclude incubating or early syphilis. Submit a second specimen in 2-4 weeks if syphilis is clinically suspected.Equivocal - Further testing to follow.Reactive - Further testing to follow. Lab Interpretation (test Normal code = 09596-7) [facility] ONLY - SYPHILIS [id number] 17:49:00 Test Item Value Reference Range Interpretation Comments Syphilis IgG/IgM (test Non-reactive Non-reactive code = 94923-8) CINDI (test code = CINDI) Non-reactive - No serologic evidence of T. pallidum infection. Cannot exclude incubating or early syphilis. Submit a second specimen in 2-4 weeks if syphilis is clinically suspected.Equivocal - Further testing to follow.Reactive - Further testing to follow. Lab Interpretation (test Normal code = 74520-4) [facility] WorthCD4 SUBSET [id number] 17:18:00 Test Item Value Reference Range Interpretation Comments CD4 % (test code = 19 % 31-60 L 8123-2) CD4 Absolute (test code See_Comment L [Au tomated message] = 92114-8) The system Plasmon generated this result transmitted ref erence range: 410-1,59 0 Cells/?L. The reference range was not used to int erpret this result as normal/abnormal . Lab Interpretation (test Abnormal code = 77936-9) [facility] WorthCD[facility] SUBSET [id number] 17:18:00 Test Item Value Reference Range Interpretation Comments CD4 % (test code = 19 % 31-60 L 8123-2) CD4 Absolute (test code See_Comment L [Au tomated message] = 39092-1) The system Plasmon generated this result transmitted ref erence range: 410-1,59 0 Cells/?L. The reference range was not used to int erpret this result as normal/abnormal . Lab Interpretation (test Abnormal code = 63268-8) [facility] WorthPROSTATIC SPECIFIC [id number] 23:53:00 Test Item Value Reference Range Interpretation Comments PSA (test code = 7.32 ng/mL See_Comment H [Automated 7799330505) message] The system which generated this result transmitted reference range : <=4.00. The reference range was not used to interpret this result as normal/abnormal . CINDI (test code = CINDI) Biotin has been reported to cause a negative bias, interpret results relative to patient's use of biotin. Lab Interpretation Abnormal (test code = 09952-7) [facility] WorthPROSTATIC SPECIFIC [id number] 23:53:00 Test Item Value Reference Range Interpretation Comments PSA (test code = 7.32 ng/mL See_Comment H [Automated 8252957868) message] The system which generated this result transmitted reference range : <=4.00. The reference range was not used to interpret this result as normal/abnormal . CINDI (test code = CINDI) Biotin has been reported to cause a negative bias, interpret results relative to patient's use of biotin. Lab Interpretation Abnormal (test code = 44907-5) [facility] WorthBILI UNCONJUGATED/BILI [id number] 23:21:00 Test Item Value Reference Range Interpretation Comments BILI CONJ (test code = 0801934239) 0.0 mg/dL 0-0.3 BILI UNCON (test code = 0757863822) 0.4 mg/dL 0.1-1.1 Lab Interpretation (test code = Normal 34259-9) [facility] WorthLIPID PANEL (26385)(TOTAL CHOLESTEROL, TRIGLYCERIDES, HDL)2018-10-05 23:21:00 Test Item Value Reference Range Interpretation Comments CHOL (test code = 155 mg/dL 120-200 7984084017) HDL (test code = 74 mg/dL >40 1673979888) HDLC RATIO (test code = See_Comment [Au tomated message] 7902400297) The system Plasmon generated this result transmit lu reference range : <=5.0. The refe rence range was not u sed to interpret th is result as normal/abnormal . TRIG (test code = 101 mg/dL 30-170 8067661065) LDL CHOL (test code = 61 mg/dL See_Comment [Auto mated message] 46841-0) The system Plasmon generated this result transmit lu reference range : <=160. The refe rence range was not u sed to interpret th is result as normal/abnormal . VLDL (test code = 20 mg/dL 5-60 5118575772) Lab Interpretation (test Normal code = 83537-7) [facility]. METABOLIC PANEL (39161)2018-10-05 23:21:00 Test Item Value Reference Range Interpretation Comments NA (test code = 139 mmol/L 135-145 4030785042) K (test code = 4.1 mmol/L 3.5-5 9730425622) CL (test code = 101 mmol/L 98-108 4929456383) CO2 TOTAL (test code = 30 mmol/L 23-31 3480579790) AGAP (test code = 2-16 4311902309) BUN (test code = 16 mg/dL 7-23 3149881023) GLUCOSE (test code = 87 mg/dL 70-110 1877928962) CREATININE (test code = 1.09 mg/dL 0.6-1.25 2319622547) TOTAL BILI (test code = 0.8 mg/dL 0.1-1.0 5545024118) CALCIUM (test code = 9.9 mg/dL 8.6-10.6 9897660413) T PROTEIN (test code = 7.8 g/dL 6.3-8.2 2494487368) ALBUMIN (test code = 4.7 g/dL 3.5-5 6348131601) ALK PHOS (test code = 72 U/L 34-122 8684641243) ALT(SGPT) (test code = 53 U/L 9-51 H 1362885667) AST(SGOT) (test code = 38 U/L 13-40 6730703152) eGFR Calculation mL/min/1.73m2 (Non-) (test code = 3908107302) eGFR Calculation mL/min/1.73m2 () (test code = 5361105502) CINDI (test code = CINDI) Association of [...] tests). Lab Interpretation Abnormal (test code = 66449-0) [facility] WorthBILI UNCONJUGATED/BILI [id number] 23:21:00 Test Item Value Reference Range Interpretation Comments BILI CONJ (test code = 8775016932) 0.0 mg/dL 0-0.3 BILI UNCON (test code = 6356947882) 0.4 mg/dL 0.1-1.1 Lab Interpretation (test code = Normal 61522-1) [facility] WorthLIPID PANEL (27982)(TOTAL CHOLESTEROL, TRIGLYCERIDES, HDL)2018-10-05 23:21:00 Test Item Value Reference Range Interpretation Comments CHOL (test code = 155 mg/dL 120-200 5433055899) HDL (test code = 74 mg/dL >40 3102685693) HDLC RATIO (test code = See_Comment [Au tomated message] 2749310853) The system Plasmon generated this result transmit lu reference range : <=5.0. The refe rence range was not u sed to interpret th is result as normal/abnormal . TRIG (test code = 101 mg/dL 30-170 6546031920) LDL CHOL (test code = 61 mg/dL See_Comment [Auto mated message] 91166-4) The system Plasmon generated this result transmit lu reference range : <=160. The refe rence range was not u sed to interpret th is result as normal/abnormal . VLDL (test code = 20 mg/dL 5-60 0890506248) Lab Interpretation (test Normal code = 16148-3) [facility]. METABOLIC PANEL (22965)2018-10-05 23:21:00 Test Item Value Reference Range Interpretation Comments NA (test code = 139 mmol/L 135-145 0327177120) K (test code = 4.1 mmol/L 3.5-5 5101214802) CL (test code = 101 mmol/L 98-108 9996702607) CO2 TOTAL (test code = 30 mmol/L 23-31 3554650928) AGAP (test code = 2-16 1795933483) BUN (test code = 16 mg/dL 7-23 6545684778) GLUCOSE (test code = 87 mg/dL 70-110 9347630481) CREATININE (test code = 1.09 mg/dL 0.6-1.25 3655107278) TOTAL BILI (test code = 0.8 mg/dL 0.1-1.8 5735612855) CALCIUM (test code = 9.9 mg/dL 8.6-10.6 7665087510) T PROTEIN (test code = 7.8 g/dL 6.3-8.2 6408366486) ALBUMIN (test code = 4.7 g/dL 3.5-5 6503238553) ALK PHOS (test code = 72 U/L 34-122 1261578675) ALT(SGPT) (test code = 53 U/L 9-51 H 4960126119) AST(SGOT) (test code = 38 U/L 13-40 0501961452) eGFR Calculation mL/min/1.73m2 (Non-) (test code = 0128587576) eGFR Calculation mL/min/1.73m2 () (test code = 9122480357) CINDI (test code = CINDI) Association of [...] tests). Lab Interpretation Abnormal (test code = 28529-8) [facility] WITH [id number] 21:44:00 Test Item Value Reference Range Interpretation Comments WBC (test code = See_Comment [Automated 2190-2) message] The sy stem which generated this result transmitted reference range : 4.20 - 10.70 10*3/?L. The reference range was not used to interpret this result as normal/abnormal . RBC (test code = See_Comment H [Automated 839-8) message] The sy stem which generated this [...] (test code = 37.5 fL 38.5-51.6 L 34649-3) RDW-CV (test code = 18.2 % 12.1-15.4 H 788-0) PLT (test code = See_Comment [Automated 777-3) message] The sy stem which generated this result transmitted reference range : 150 - 328 10*3/ ?L. The reference r all was not used to interpret this result as normal/abnormal . MPV (test code = 9.9 fL 9.8-13 51298-2) NRBC/100 WBC (test See_Comment [Automat ed code = 1022383570) message] The system which generated this result transmitted reference range : 0.0 - 10.0 /100 WBCs. The refer ence range was not u sed to interpret th is result as normal/abnormal . NRBC x10^3 (test code See_Comment [Auto mated = 9222480063) message] The s ystem which generated this result transmitted reference range : 10*3/?L. The reference range was not used to interpret this result as normal/abnormal . GRAN MAT (NEUT) % 67.8 % (test code = 770-8) IMM GRAN % (test code 0.30 % = 2735679696) LYMPH % (test code = 21.8 % 736-9) MONO % (test code = 8.1 % 5905-5) EOS % (test code = 1.2 % 713-8) BASO % (test code = 0.8 % 706-2) GRAN MAT x10^3(ANC) 5.09 10*3/uL 1.99-6.95 (test code = 1527017939) IMM GRAN x10^3 (test <0.03 0-0.06 code = 2854358665) LYMPH x10^3 (test code 1.64 10*3/uL 1.09-3.23 = 731-0) MONO x10^3 (test code 0.61 10*3/uL 0.36-1.02 = 742-7) EOS x10^3 (test code = 0.09 10*3/uL 0.06-0.53 711-2) BASO x10^3 (test code 0.06 10*3/uL 0.01-0.09 = 704-7) Lab Interpretation Abnormal (test code = 48300-9) [facility] WITH [id number] 21:44:00 Test Item Value Reference Range Interpretation [...] (test code = 37.5 fL 38.5-51.6 L 00945-0) RDW-CV (test code = 18.2 % 12.1-15.4 H 788-0) PLT (test code = See_Comment [Automated 777-3) message] The sy stem which generated this result transmitted reference range : 150 - 328 10*3/ ?L. The reference r all was not used to interpret this result as normal/abnormal . MPV (test code = 9.9 fL 9.8-13 78012-2) NRBC/100 WBC (test See_Comment [Automat ed code = 7954863695) message] The system which generated this result transmitted reference range : 0.0 - 10.0 /100 WBCs. The refer ence range was not u sed to interpret th is result as normal/abnormal . NRBC x10^3 (test code See_Comment [Auto mated = 9153615899) message] The s ystem which generated this result transmitted reference range : 10*3/?L. The reference range was not used to interpret this result as normal/abnormal . GRAN MAT (NEUT) % 67.8 % (test code = 770-8) IMM GRAN % (test code 0.30 % = 2224993478) LYMPH % (test code = 21.8 % 736-9) MONO % (test code = 8.1 % 5905-5) EOS % (test code = 1.2 % 713-8) BASO % (test code = 0.8 % 706-2) GRAN MAT x10^3(ANC) 5.09 10*3/uL 1.99-6.95 (test code = 9795310737) IMM GRAN x10^3 (test <0.03 0-0.06 code = 2862733101) LYMPH x10^3 (test code 1.64 10*3/uL 1.09-3.23 = 731-0) MONO x10^3 (test code 0.61 10*3/uL 0.36-1.02 = 742-7) EOS x10^3 (test code = 0.09 10*3/uL 0.06-0.53 711-2) BASO x10^3 (test code 0.06 10*3/uL 0.01-0.09 = 704-7) Lab Interpretation Abnormal (test code = 91849-4) [facility]"
--- NOTE | 2021-04-19 16:35 | EDPHYS ---
Physician Documentation [facility] Name: Nadir Johns Age: 56 yrs Sex: Male : 1965 Arrival Date: 04/19/2021 Time: 15:56 Bed 16 Private MD: ED Physician Tip Baxter HPI: 04/19 16:50 This 56 yrs old Black Male presents to ER via Ambulatory with complaints of Growth kb lower back, bleeding. 16:50 Pt reports growth on buttock that started a year ago and has gotten bigger. Reports kb bleeding at times. Onset: The symptoms/episode began/occurred 1 year(s) ago. Severity of symptoms: At their worst the symptoms were moderate in the emergency department the symptoms are unchanged. The patient has not experienced similar symptoms in the past. The patient has not recently seen a physician. Historical: - Home Meds: 16:18 HIV med [Active]; ld1 - PMHx: 16:18 HIV; Hypertension; sciatica; ld1 - PSHx: 16:18 hernia; ld1 - Immunization history:: Adult Immunizations up to date, Client reports receiving the 2nd dose of the Covid vaccine. - Social history:: Smoking status: Patient denies any tobacco usage or history of. Patient/guardian denies using alcohol. ROS: 16:48 Constitutional: Negative for fever, chills, and weight loss. kb 16:48 Skin: Positive for growth on buttock. 16:48 All other systems are negative. Exam: 16:48 Constitutional: This is a well developed, well nourished patient who is awake, alert, kb and in no acute distress. Head/Face: Normocephalic, atraumatic. ENT: Moist Mucous membranes Respiratory: Respirations even and unlabored. No increased work of breathing. Talking in full sentences MS/ Extremity: Pulses equal, no cyanosis. Neurovascular intact. Full, normal range of motion. Neuro: Awake and alert, GCS 15, oriented to person, place, time, and situation. Moves all extremities. Normal gait. Psych: Awake, alert, with orientation to person, place and time. Behavior, mood, and affect are within normal limits. 16:48 Skin: lesion(s), noted, and can be described as approx 2in tubular growth to gluteal cleft on right buttock. No active bleeding, located on the gluteal cleft. Vital Signs: 16:07 BP 187 / 119; Pulse 79; Resp 18; Temp 98.7(TE); Pulse Ox 98% on R/A; Weight 90.72 kg; ld1 Height 5 ft. 10 in. (177.80 cm); Pain 6/10; 16:07 Body Mass Index 28.70 (90.72 kg, 177.80 cm) ld1 MDM: 16:20 Patient medically screened. kb 16:48 Data reviewed: vital signs, nurses notes. Data interpreted: Pulse oximetry: on room air kb is 98 %. Interpretation: normal. 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 ED course: Pt asymptomatic of BP. Administered Medications: No medications were administered Disposition: 20:29 Co-signature as Attending Physician, Tip Baxter DO I agree with the assessment and ms3 plan of care. Disposition Summary: 04/19/21 16:35 Discharge Ordered Location: Home kb Condition: Stable kb Diagnosis - Localized swelling, mass and lump, unspecified - gluteal cleft/right buttock kb Followup: kb - With: Emergency Department - When: As needed - Reason: Worsening of condition Followup: kb - With: Private Physician - When: 2 - 3 days - Reason: Recheck today's complaints, Continuance of care, Re-evaluation by your physician Discharge Instructions: - Discharge Summary Sheet kb Forms: - Medication Reconciliation Form kb - Thank You Letter kb - Antibiotic Education kb - Prescription Opioid Use kb Signatures: Sury Moses FNP-C TARAH-Tip Smith DO DO ms3 Elisabet Lopes, RN RN ld1 Corrections: (The following items were deleted from the chart) 16:50 16:48 Skin: lesion(s), noted, and can be described as approx 2in tubular growth to kb gluteal cleft on right buttock., located on the gluteal cleft, kb
--- NOTE | 2021-04-19 16:35 | ER ---
Nurse's Notes [facility] Name: Nadir Johns Age: 56 yrs Sex: Male : 1965 Arrival Date: 04/19/2021 Time: 15:56 Bed 16 Private MD: Diagnosis: Localized swelling, mass and lump, unspecified-gluteal cleft/right buttock Presentation: 04/19 16:07 Chief complaint: Patient states: abscess to lower mid back - pt says it won't stop ld1 bleeding. Noticed abscess 1 week ago. Coronavirus screen: At this time, the client does not indicate any symptoms associated with coronavirus-19. Ebola Screen: No symptoms or risks identified at this time. Initial Sepsis Screen: Does the patient meet any 2 criteria? No. Patient's initial sepsis screen is negative. Does the patient have a suspected source of infection? No. Patient's initial sepsis screen is negative. Risk Assessment: Do you want to hurt yourself or someone else? Patient reports no desire to harm self or others. Onset of symptoms was April 19, 2021. 16:07 Method Of Arrival: Ambulatory ld1 16:07 Acuity: JARON 4 ld1 Triage Assessment: 16:18 General: Appears in no apparent distress. comfortable, Behavior is calm, cooperative, ld1 appropriate for age. Pain: Complains of pain in low back area Pain does not radiate. Neuro: Level of Consciousness is awake, alert, obeys commands, Oriented to person, place, time, situation. Respiratory: Airway is patent Respiratory effort is even, unlabored. Derm: Wound noted low back area Abscess located on right low back. Historical: - Home Meds: 16:18 HIV med [Active]; ld1 - PMHx: 16:18 HIV; Hypertension; sciatica; ld1 - PSHx: 16:18 hernia; ld1 - Immunization history:: Adult Immunizations up to date, Client reports receiving the 2nd dose of the Covid vaccine. - Social history:: Smoking status: Patient denies any tobacco usage or history of. Patient/guardian denies using alcohol. Screenin:35 Abuse screen: Denies threats or abuse. Denies injuries from another. Nutritional jg9 screening: No deficits noted. Tuberculosis screening: No symptoms or risk factors identified. Fall Risk None identified. Assessment: 16:32 Reassessment: No changes from previously documented assessment. jg9 Vital Signs: 16:07 BP 187 / 119; Pulse 79; Resp 18; Temp 98.7(TE); Pulse Ox 98% on R/A; Weight 90.72 kg; ld1 Height 5 ft. 10 in. (177.80 cm); Pain 6/10; 16:07 Body Mass Index 28.70 (90.72 kg, 177.80 cm) ld1 ED Course: 15:56 Patient arrived in ED. kz 16:16 Sury Moses FNP-C is [facility]. kb 16:16 Tip Baxter DO is Attending Physician. kb 16:18 Triage completed. ld1 16:18 Arm band placed on left wrist. ld1 16:26 Yocasta Stone, RAMONITA is Primary Nurse. jg9 16:36 Patient has correct armband on for positive identification. Bed in low position. Call jg9 light in reach. 16:36 No provider procedures requiring assistance completed. jg9 16:48 Patient did not have IV access during this emergency room visit. jg9 Administered Medications: No medications were administered Outcome: 16:35 Discharge ordered by MD. kb 16:48 Discharged to home ambulatory. jg9 16:48 Condition: unchanged 16:48 Discharge instructions given to patient, Instructed on discharge instructions, follow up and referral plans. Demonstrated understanding of instructions, follow-up care. 16:48 Patient left the ED. jg9 Signatures: Sury Moses FNP-C FNP-Ckb Dibbern, Lauren, RN RN ld1 Yocasta Stone RN RN jg9 Danika Porter
[2021-04-19 18:30] VITALS: BP 187/119; TEMP 98.7; O2SAT 98
== END 2021-04-19 16:48 | disposition home or self-care (01) ==
LOC: ER 15:54
DX: R22.9 Localized swelling, mass and lump, unspecified (principal); Z21 Asymptomatic human immunodeficiency virus [HIV] infection status; I10 Essential (primary) hypertension
CPT/HCPCS: 99281

== ENCOUNTER → 2023-02-04 | Emergency (ER) | payer OTHER ==
[~2023-02-04] MED LIST: FENTANYL CITR 100 MCG/2 ML ONE; NA CHLORIDE 0.9% 1,000 ML ONE
--- OUTSIDE RECORDS SUMMARY | 2023-02-04 17:59 | XMS REPORT | Continuity of Care Document ---
Author Name Unknown Address [address] [facility] [address] [place] [address] [facility] [address] [facility] [place] [address] Care Team Providers Care Blocker And Polisher Name Role Phone Anurag Valentino Attending Clinician Nano Gregory MA Attending Clinician Krystleab marlee Morales RN, Rosa Blakely Attending Clinician Keon Borrego RN, Rosa Shaver Attending Clinician Unava clive Small MA, Fortunato Attending Clinician Unava clive Garsia RN, Zahira Lepe Attending Clinician Unav ailable Amisha SHIPMAN, Oral Blakely Attending Clinician Loli WOODARDN, Cesia L Attending Clinician Unav ailable Encounters Start Date/Time End Date/Time Encounter Type Admission Type Attending Clinicians Care Facility Care Department Encounter ID Source 2020-09-05 00:00:00 2020-09-05 00:00:00 Anurag Camacho [facility] 1..840.114 350.1.13.10 4.2.7.2.686 [id number] 089 [id number] 2020-09-05 00:00:00 2020-09-05 00:00:00 Telephone Nano Gregory [facility] 1..840.114 350.1.13.10 4.2.7.2.686 [id number] 089 [id number] 2020-03-15 00:00:00 2020-03-15 00:00:00 Letter (Out) Andrew [facility] 1.2.840.114 350.1.13.10 4.2.7.2.686 [id number] 089 [id number] 2020-03-06 00:00:00 2020-03-06 00:00:00 Telephone Wallace Fine Rosa [facility] 1.2.840.114 350.1.13.10 4.2.7.2.686 [id number] 089 [id number] 2020-03-01 00:00:00 2020-03-01 00:00:00 Case Management Andrew Rosa [facility] 1.2.840.114 350.1.13.10 4.2.7.2.686 [id number] 089 [id number] 2020-02-29 00:00:00 2020-02-29 00:00:00 Telephone Fortunato Small [facility] 1.2.840.114 350.1.13.10 4.2.7.2.686 [id number] 089 [id number] 2020-02-25 00:00:00 2020-02-25 00:00:00 Telephone Wallace Fine [facility] 1.2.840.114 350.1.13.10 4.2.7.2.686 [id number] 089 [id number] 2020-02-22 00:00:00 2020-02-22 00:00:00 Case Management Zahira Garsia [facility] 1.2.840.114 350.1.13.10 4.2.7.2.686 [id number] 089 [id number] 2020-02-22 00:00:00 2020-02-22 00:00:00 Case Management Nano Gregory [facility] 1.2.840.114 350.1.13.10 4.2.7.2.686 [id number] 089 [id number] 2020-02-07 00:00:00 2020-02-07 00:00:00 Case Management Wallace Rosa Fine [facility] 1.2.840.114 350.1.13.10 4.2.7.2.686 [id number] 089 [id number] 2020-02-07 00:00:00 2020-02-07 00:00:00 Case Management GregoryNano pack L [facility] 1.2.840.114 350.1.13.10 4.2.7.2.686 [id number] 089 [id number] 2020-01-31 00:00:00 2020-01-31 00:00:00 Telephone Geovanny [facility] 1.2.840.114 350.1.13.10 4.2.7.2.686 [id number] 089 [id number] 2020-01-28 00:00:00 2020-01-28 00:00:00 Telephone Geovanny [facility] 1.2.840.114 350.1.13.10 4.2.7.2.686 [id number] 089 [id number] 2020-01-12 00:00:00 2020-01-12 00:00:00 Case Management Rosa Morales L [facility] 1.2.840.114 350.1.13.10 4.2.7.2.686 [id number] 089 [id number] 2019-12-31 00:00:00 2019-12-31 00:00:00 Telephone Oral Lion L [facility] 1.2.840.114 350.1.13.10 4.2.7.2.686 [id number] 089 [id number] 2019-12-28 00:00:00 2019-12-28 00:00:00 Case Management Rosa Morales L [facility] 1.2.840.114 350.1.13.10 4.2.7.2.686 [id number] 089 [id number] 2019-12-14 00:00:00 2019-12-14 00:00:00 [facility] 1.2.840.114 350.1.13.10 4.2.7.2.686 [id number] 089 [id number] 2019-12-08 00:00:00 2019-12-08 00:00:00 Case Management [facility] 1.2.840.114 350.1.13.10 4.2.7.2.686 [id number] 089 [id number] 2019-11-23 00:00:00 2019-11-23 00:00:00 Telephone [facility] 1.2.840.114 350.1.13.10 4.2.7.2.686 [id number] 089 [id number] 2019-11-15 00:00:00 2019-11-15 00:00:00 Case Management Wallace Carbajalkathryn Rosa [facility] 1.2.840.114 350.1.13.10 4.2.7.2.686 [id number] 089 [id number] 2019-11-04 00:00:00 2019-11-04 00:00:00 Case Management Colt Nano [facility] 1.2.840.114 350.1.13.10 4.2.7.2.686 [id number] 089 [id number] 2019-11-02 00:00:00 2019-11-02 00:00:00 Case Management Gregory, Nano [facility] 1.2.840.114 350.1.13.10 4.2.7.2.686 [id number] 089 [id number] 2019-10-07 00:00:00 2019-10-07 00:00:00 Case Management Gregory, Nano [facility] 1.2.840.114 350.1.13.10 4.2.7.2.686 [id number] 089 [id number] 2019-10-04 00:00:00 2019-10-04 00:00:00 Telephone [facility] 1.2.840.114 350.1.13.10 4.2.7.2.686 [id number] 089 [id number] 2019-09-28 00:00:00 2019-09-28 00:00:00 Telephone Cesia Juarez [facility] 1.2.840.114 350.1.13.10 4.2.7.2.686 [id number] 089 [id number] 2019-08-17 07:23:13 2019-08-17 07:53:13 Telemedici ne Visit [facility] 1.2.840.114 350.1.13.10 4.2.7.2.686 [id number] 089 [id number] 2019-08-17 00:00:00 2019-08-17 00:00:00 Telephone [facility] 1.2.840.114 350.1.13.10 4.2.7.2.686 [id number] 089 [id number] 2019-08-17 00:00:00 2019-08-17 00:00:00 Telephone Rosa Morales [facility] 1.2.840.114 350.1.13.10 4.2.7.2.686 [id number] 089 [id number] 2019-08-16 00:00:00 2019-08-16 00:00:00 Case Management Nano Gregory [facility] 1.2840.114 350.1.13.10 4.2.7.2.686 [id number] 089 [id number] 2019-08-16 00:00:00 2019-08-16 00:00:00 Case Management Nano Gregory [facility] 1.2.840.114 350.1.13.10 4.2.7.2.686 [id number] 089 [id number] 2019-08-16 00:00:00 2019-08-16 00:00:00 Case Management Nano Gregory [facility] 1.2840.114 350.1.13.10 4.2.7.2.686 [id number] 089 [id number] 2019-08-13 00:00:00 2019-08-13 00:00:00 Case Management Colt Nano [facility] 1.2.840.114 350.1.13.10 4.2.7.2.686 [id number] 089 [id number] 2019-08-12 00:00:00 2019-08-12 00:00:00 Case Management Colt Nano [facility] 1.2.840.114 350.1.13.10 4.2.7.2.686 [id number] 089 [id number] 2019-08-04 00:00:00 2019-08-04 00:00:00 Case Management Colt Nano [facility] 1.2.840.114 350.1.13.10 4.2.7.2.686 [id number] 089 [id number] 2019-07-27 00:00:00 2019-07-27 00:00:00 Case Management Colt Nano [facility] 1.2.840.114 350.1.13.10 4.2.7.2.686 [id number] 089 [id number] 2019-07-26 00:00:00 2019-07-26 00:00:00 Case Management Colt Nano [facility] 1.2.840.114 350.1.13.10 4.2.7.2.686 [id number] 089 [id number] 2019-03-18 00:00:00 2019-03-18 00:00:00 Oral Ceron [facility] 1.2.840.114 350.1.13.10 4.2.7.2.686 [id number] 089 [id number] 2019-03-15 00:00:00 2019-03-15 00:00:00 Case Management Zahira Garsia [facility] 1.2.840.114 350.1.13.10 4.2.7.2.686 [id number] 089 [id number] 2018-10-22 00:00:00 2018-10-22 00:00:00 Telephone angel [facility] 1.2.840.114 350.1.13.10 4.2.7.2.686 [id number] 089 [id number] 2018-10-13 00:00:00 2018-10-13 00:00:00 Telephone Amisha [facility] 1.2.840.114 350.1.13.10 4.2.7.2.686 [id number] 089 [id number]
--- NOTE | 2023-02-04 18:30 | RAD REPORT ---
EXAM DESCRIPTION: CTChest Abdomen Pelvis W Cont - 02/04/2023 6:15 pm CLINICAL HISTORY: Pain;Trauma COMPARISON: Stone Protocol dated 05/08/2016 TECHNIQUE: CT of the chest, abdomen, and pelvis was performed with IV contrast. All CT scans are performed using dose optimization technique as appropriate and may include automated exposure control or mA/KV adjustment according to patient size. FINDINGS: Thorax: Chest Wall: Dystrophic calcifications with intermixed fatty attenuation in the left posterior chest w all has a benign appearance. It is likely related to remote trauma. Lungs: No acute abnormality. Mild paraseptal emphysema. Pleura: No effusions or pneumothorax. Anai/Mediastinum: No lymphadenopathy. Aorta/Pulmonary Arteries: Unremarkable Heart: Normal size. Abdomen/Pelvis: Liver: Too small to characterize liver lesions which are likely benign. Biliary: No biliary ductal dilatation. Stomach: No significant focal abnormality. Duodenum: No significant focal abnormality. Pancreas: No significant abnormality. Spleen: No significant abnormality. Adrenal: No suspicious lesions. Kidney/ureter: No hydronephrosis. No renal calculi. Too small to characterize and/or benign appearing renal lesions are noted. Retroperitoneum: No retroperitoneal adenopathy. Vascular: No aneurysm. Bowel: Normal appendix.. Peritoneum: No ascites or free air. Fat containing umbilical hernia. Bladder: Grossly unremarkable. Reproductive: No adnexal masses. Prostatomegaly. Bones: No acute fracture. Remote left-sided rib fractures. Left anterior thigh lipoma. Other: n/a IMPRESSION: No acute findings within the chest, abdomen, or pelvis. No evidence of significant acute trauma.
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
[2023-02-04 23:23] VITALS: TEMP 98.3
[2023-02-04 23:28] VITALS: BP 176/107; O2SAT 98
== END ==
LOC: ER 17:56
DX: S30.1XXA Contusion of abdominal wall, initial encounter (principal); Z21 Asymptomatic human immunodeficiency virus [HIV] infection status; F17.210 Nicotine dependence, cigarettes, uncomplicated
CPT/HCPCS: 96361; 82565; 71260; 74177; 96374; 99285; Q9967; J3010; J7030

== ENCOUNTER → 2023-03-24 | Emergency (ER) | payer OTHER, SELFPAY ==
[~2023-03-24] MED LIST changes: -FENTANYL CITR 100 MCG/2 ML ONE; +KETOROLAC 30 MG/ML INJ ONE; +METHOCARBAMOL 1,000 MG/10 ML VIAL ONE; +NA CHLORIDE 0.9% 100 ML ONE; +dexAMETHasone 10 MG/ML VIAL ONE
--- OUTSIDE RECORDS SUMMARY | 2023-03-24 20:03 | XMS REPORT | Continuity of Care Document ---
Author Name Unknown Address [address] [facility] [address] [place] [address] [facility] thconnect Address [address] [facility] [address] [place] [address] Care Team Providers Care Medical Transcriber Name Role Phone Manda, Plaza Primary Care Physician CAROLA KULKARNI Attending Clinician Unavailable Carola Valentino Attending Clinician [phone] Amisha SHIPMAN, Oral Blakely Attending Clinician Loli Gregory MA, Nano Blakely Attending Clinician Unavailab Ruthie RANDOLPH, Cesia L Attending Clinician Arthur Morales RN, Rosa Blakely Attending Clinician Keon Borrego RN, Rosa Shaver Attending Clinician Fortunato Jack MA Attending Clinician Radu Garsia RN, Zahira Lepe Attending Clinician Unaherber [place] [facility] Attending Clinician Unavailable Doctor Unassigned, [place] Attending Clinician U navailable Payers Payer Name Policy Type Policy Number Effective Date Expirati on Date Source Problems Condition Name Condition Details Condition Category Status Onset Date Resolution Date Last Treatment Date Treating Clinician Comments Source AIDS AIDS Disease Active 2016-02 00:00: 00 [facility] HTN (hypertens ion) HTN (hypertens ion) Disease Active 2016-02 00:00: 00 [facility] Allergies, Adverse Reactions, Alerts Allergy Name Allergy Type Status Severity Reaction(s) Onset Date Inactive Date Treating Clinician Comments Source NO KNOWN ALLERGIE S Drug Class Active [facility] Social History Social Habit Start Date Stop Date Quantity Comments Source Gender [facility] Exposure to SARS-CoV-2 (event) 2022-01-01 00:00:00 2022-01-11 14:12:00 Not sure [facility] Tobacco use and exposure 2022-01-11 00:00:00 2022-01-11 00:00:00 Smokeless tobacco non-user [facility] Cigarettes smoked current (pack per day) - Reported 2022-01-11 00:00:00 2022-01-11 00:00:00 [facility] Cigarette pack-years 2022-01-11 00:00:00 2022-01-11 00:00:00 [facility] Alcohol intake 2022-01-11 00:00:00 2022-01-11 00:00:00 Current drinker of alcohol (finding) [facility] Tobacco Comment 2022-01-11 00:00:00 2022-01-11 00:00:00 1 pack per week [facility] History of Social function 2022-01-11 00:00:00 2022-01-11 00:00:00 [facility] Alcohol Comment 2011-06-13 00:00:00 2011-06-13 00:00:00 Occasionally, once a month [facility] History of tobacco use 2009-06-12 00:00:00 Cigarette Smoker [facility] Sex Ass[birth year] At 1965 00:00:00 1965 00:00:00 [facility] Smoking Status Start Date Stop Date Source Smokes tobacco daily 2022-01-11 00:00:00 [facility] Medications Ordered Medication Name Filled Medication Name Start Date Stop Date Current Medication? Ordering Clinician Indication Dosage Frequency Signature (SIG) Comments Components Source amLODIPine 10 mg tablet 03-21 00:00: 00 Yes [id number] 10mg Take 1 tablet by mouth in the morning. [facility] bictegrav-e mtricit-ten ofov ala (BIKTARVY) 50-200-25 mg tablet 2022-02 00:00: 00 Yes [id number] 1{tbl} Take 1 tablet by mouth in the morning. [facility] BIKTARVY 50-200-25 mg tablet 2022-02 00:00: 00 Yes [id number] 1{tbl} Take 1 tablet by mouth in the morning. [facility] BIKTARVY 50-200-25 mg tablet 2022-02 00:00: 00 Yes [id number] 1{tbl} Take 1 tablet by mouth in the morning. [facility] bictegrav-e mtricit-ten ofov ala (BIKTARVY) 50-200-25 mg tablet 2022-02 00:00: 00 Yes [id number] 1{tbl} Take 1 tablet by mouth in the morning. [facility] bictegrav-e mtricit-ten ofov ala (BIKTARVY) 50-200-25 mg tablet 2022-02 00:00: 00 02-07 00:00 :00 No [id number] 1{tbl} Take 1 tablet by mouth in the morning. [facility] amLODIPine 10 mg tablet 2022-02 00:00: 00 Yes [id number] 10mg Take 1 tablet by mouth in the morning. [facility] amLODIPine 10 mg tablet 2022-02 00:00: 00 Yes [id number] 10mg Take 1 tablet by mouth in the morning. [facility] amLODIPine 10 mg tablet 2022-02 00:00: 00 Yes [id number] 10mg Take 1 tablet by mouth in the morning. [facility] bictegrav-e mtricit-ten ofov ala (BIKTARVY) 50-200-25 mg tablet 2022-02 2 00:00: 00 Yes [id number] 1{tbl} Take 1 tablet by mouth in the morning. [facility] amLODIPine 10 mg tablet 2022-02 2 00:00: 00 Yes [id number] 10mg Take 1 tablet by mouth in the morning. [facility] amLODIPine 10 mg tablet 2022-02 2 00:00: 00 03-21 00:00 :00 No [id number] 10mg Take 1 tablet by mouth in the morning. [facility] bictegrav-e mtricit-ten ofov ala (BIKTARVY) 50-200-25 mg tablet 2022-02 2-04 00:00: 00 02-07 00:00 :00 No [id number] 1{tbl} Take 1 tablet by mouth in the morning. [facility] bictegrav-e mtricit-ten ofov ala (BIKTARVY) 50-200-25 mg tablet 2022-02 2-04 00:00: 00 02-07 00:00 :00 No [id number] 1{tbl} Take 1 tablet by mouth in the morning. [facility] bictegrav-e mtricit-ten ofov ala (BIKTARVY) 50-200-25 mg tablet 2022-02 2-04 00:00: 00 02-07 00:00 :00 No [id number] 1{tbl} Take 1 tablet by mouth in the morning. [facility] bictegrav-e mtricit-ten ofov ala (BIKTARVY) 50-200-25 mg tablet 2022-02 0-10 00:00: 00 11-19 00:00 :00 No [id number] 1 tablet by mouth once daily. PLEASE CALL OUR OFFICE AT [phone] TO SCHEDULE A FOLLOW UP BEFORE NEXT REFILL IS DUE. THANK YOU [facility] bictegrav-e mtricit-ten ofov ala (BIKTARVY) 50-200-25 mg tablet 2022-0 9-08 00:00: 00 Yes [id number] 1 tablet by mouth once daily. PLEASE CALL OUR OFFICE AT TO SCHEDULE A FOLLOW UP BEFORE NEXT REFILL IS DUE. THANK YOU [facility] bictegrav-e mtricit-ten ofov ala (BIKTARVY) 50-200-25 mg tablet 2022-0 9-08 00:00: 00 11-19 00:00 :00 No [id number] 1 tablet by mouth once daily. PLEASE CALL OUR OFFICE AT TO SCHEDULE A FOLLOW UP BEFORE NEXT REFILL IS DUE. THANK YOU [facility] bictegrav-e mtricit-ten ofov ala (BIKTARVY) 50-200-25 mg tablet 2022-0 8-17 00:00: 00 Yes [id number] 1 tablet by mouth once daily. Please call our office at [facility] to schedule your follow up appointmen t. Thank you [facility] bictegrav-e mtricit-ten ofov ala (BIKTARVY) 50-200-25 mg tablet 2022-0 8-17 00:00: 00 10-18 00:00 :00 No [id number] 1 tablet by mouth once daily. Please call our office at [facility] [place] [address] to schedule your follow up appointmen t. Thank you [facility] BIKTARVY 50-200-25 mg tablet 2022-0 5-04 00:00: 00 Yes [id number] [address] [facility] BIKTARVY 50-200-25 mg tablet 2022-0 5-04 00:00: 00 09-26 00:00 :00 No [id number] [address] [facility] bictegrav-e mtricit-ten ofov ala (BIKTARVY) 50-200-25 mg tablet 2022-0 4-04 00:00: 00 Yes [id number] 1{tbl} Take 1 tablet by mouth in the morning. Patient needs to schedule an appointmen t to be seen before the next refill [id number] [facility] bictegrav-e mtricit-ten ofov ala (BIKTARVY) 50-200-25 mg tablet 2022-0 4-04 00:00: 00 202 05-04 00:00 :00 No [id number] 1{tbl} Take 1 tablet by mouth in the morning. Patient needs to schedule an appointmen t to be seen before the next refill [id number] [facility] terazosin 2 mg capsule 2022-0 3-02 00:00: 00 Yes [id number] [address] [facility] terazosin 2 mg capsule 3-0 3-02 00:00: 00 Yes [id number] [address] [facility] terazosin 2 mg capsule 3-0 3-02 00:00: 00 Yes [id number] [address] [facility] bictegrav-e mtricit-ten ofov ala (BIKTARVY) 50-200-25 mg tablet 3-0 3-02 00:00: 00 Yes [id number] 1{tbl} Take 1 tablet by mouth in the morning. [facility] amLODIPine 10 mg tablet 2022-0 3-02 00:00: 00 Yes [id number] 10mg Take 1 tablet by mouth in the morning. [facility] terazosin 2 mg capsule 2022-0 3-02 00:00: 00 Yes [id number] [address] [facility] bictegrav-e mtricit-ten ofov ala (BIKTARVY) 50-200-25 mg tablet 2022-0 3- 00:00: 00 Yes [id number] 1{tbl} Take 1 tablet by mouth in the morning. [facility] amLODIPine 10 mg tablet 2022-0 3-02 00:00: 00 Yes [id number] 10mg Take 1 tablet by mouth in the morning. [facility] terazosin 2 mg capsule 2022-0 3-02 00:00: 00 Yes [id number] [address] [facility] amLODIPine 10 mg tablet 2022-0 3-02 00:00: 00 Yes [id number] 10mg Take 1 tablet by mouth in the morning. [facility] terazosin 2 mg capsule 2022-0 3-02 00:00: 00 Yes [id number] [address] [facility] amLODIPine 10 mg tablet 3-0 3-02 00:00: 00 Yes [id number] 10mg Take 1 tablet by mouth in the morning. [facility] terazosin 2 mg capsule 3-0 3-02 00:00: 00 Yes [id number] [address] [facility] amLODIPine 10 mg tablet 04-11 00:00: 00 Yes [id number] 10mg Take 1 tablet by mouth in the morning. [facility] terazosin 2 mg capsule 04-11 00:00: 00 Yes [id number] [address] [facility] amLODIPine 10 mg tablet 04-11 00:00: 00 Yes [id number] 10mg Take 1 tablet by mouth in the morning. [facility] terazosin 2 mg capsule 04-11 00:00: 00 [id number] [facility]11 00:00: 00 Yes [id number] 10mg Take 1 tablet by mouth in the morning. [facility] terazosin 2 mg capsule 04-11 00:00: 00 Yes [id number] [facility] 04-11 00:00: 00 Yes [id number] 10mg Take 1 tablet by mouth in the morning. [facility] terazosin 2 mg capsule 04-11 00:00: 00 Yes [id number] [facility] 04-11 00:00: 00 Yes [id number] [facility] 04-11 00:00: 00 Yes [id number] [facility] mg tablet 04-11 00:00: 00 01-13 00:00 :00 No [id number] 10mg Take 1 tablet by mouth in the morning. [facility] bictegrav-e mtricit-ten ofov ala (BIKTARVY) 50-200-25 mg tablet 3 00:00: 00 05-14 00:00 :00 No [id number] 1{tbl} Take 1 tablet by mouth in the morning. [facility] fluticasone propionate 50 mcg/actuati on nasal spray 2021-02 00:00: 00 Yes [id number] 1-2 sprays in each nostril BID [facility] fluticasone propionate 50 mcg/actuati on nasal spray 2021-02 00:00: 00 Yes [id number] 1-2 sprays in each nostril BID [facility] fluticasone propionate 50 mcg/actuati on nasal spray 2021-02 00:00: 00 Yes [id number] 1-2 sprays in each nostril BID [facility] BIKTARVY 50-200-25 mg tablet 2021-02 00:00: 00 Yes [id number] 1{tbl} Take 1 tablet by mouth in the morning. [facility] fluticasone propionate 50 mcg/actuati on nasal spray 2021-02 00:00: 00 Yes [id number] 1-2 sprays in each nostril BID [facility] amLODIPine 10 mg tablet 2021-02 00:00: 00 Yes [id number] 10mg Take 1 tablet by mouth in the morning. [facility] terazosin 2 mg capsule 2021-02 00:00: 00 Yes [id number] [address] [facility] BIKTARVY 50-200-25 mg tablet 2021-02 00:00: 00 Yes [id number] 1{tbl} Take 1 tablet by mouth in the morning. [facility] fluticasone propionate 50 mcg/actuati on nasal spray 2021-02 00:00: 00 Yes [id number] 1-2 sprays in each nostril BID [facility] amLODIPine 10 mg tablet 2021-02 00:00: 00 Yes [id number] 10mg Take 1 tablet by mouth in the morning. [facility] terazosin 2 mg capsule 2021-02 00:00: 00 Yes [id number] [address] [facility] BIKTARVY 50-200-25 mg tablet 2021-02 00:00: 00 Yes [id number] 1{tbl} Take 1 tablet by mouth in the morning. [facility] fluticasone propionate 50 mcg/actuati on nasal spray 2021-02 00:00: 00 Yes [id number] 1-2 sprays in each nostril BID [facility] amLODIPine 10 mg tablet 2021-02 00:00: 00 Yes [id number] 10mg Take 1 tablet by mouth in the morning. [facility] terazosin 2 mg capsule 2021-02 00:00: 00 Yes [id number] [address] [facility] fluticasone propionate 50 mcg/actuati on nasal spray 2021-02 00:00: 00 Yes [id number] 1-2 sprays in each nostril BID [facility] fluticasone propionate 50 mcg/actuati on nasal spray 2021-02 00:00: 00 Yes [id number] 1-2 sprays in each nostril BID [facility] fluticasone propionate 50 mcg/actuati on nasal spray 2021-02 00:00: 00 Yes [id number] 1-2 sprays in each nostril BID [facility] fluticasone propionate 50 mcg/actuati on nasal spray 2021-02 00:00: 00 Yes [id number] 1-2 sprays in each nostril BID [facility] fluticasone propionate 50 mcg/actuati on nasal spray 2021-02 00:00: 00 Yes [id number] 1-2 sprays in each nostril BID [facility] fluticasone propionate 50 mcg/actuati on nasal spray 2021-02 00:00: 00 Yes [id number] 1-2 sprays in each nostril BID [facility] fluticasone propionate 50 mcg/actuati on nasal spray 2021-02 00:00: 00 Yes [id number] 1-2 sprays in each nostril BID [facility] fluticasone propionate 50 mcg/actuati on nasal spray 2021-02 00:00: 00 Yes [id number] 1-2 sprays in each nostril BID [facility] fluticasone propionate 50 mcg/actuati on nasal spray 2021-02 00:00: 00 Yes [id number] 1-2 sprays in each nostril BID [facility] fluticasone propionate 50 mcg/actuati on nasal spray 2021-02 00:00: 00 Yes [id number] 1-2 sprays in each nostril BID [facility] fluticasone propionate 50 mcg/actuati on nasal spray 2021-02 00:00: 00 Yes [id number] 1-2 sprays in each nostril BID [facility] fluticasone propionate 50 mcg/actuati on nasal spray 2021-02 00:00: 00 Yes [id number] 1-2 sprays in each nostril BID [facility] BIKTARVY 50-200-25 mg tablet 2021-02 00:00: 00 04-11 00:00 :00 No [id number] 1{tbl} Take 1 tablet by mouth in the morning. [facility] amLODIPine 10 mg tablet 2021-02 00:00: 00 04-11 00:00 :00 No [id number] 10mg Take 1 tablet by mouth in the morning. [facility] terazosin 2 mg capsule 2021-02 00:00: 00 04-11 00:00 :00 No [id number] [facility]-200-25 mg tablet 2021-02 00:00: 00 04-11 00:00 :00 No [id number] 1{tbl} Take 1 tablet by mouth in the morning. [facility] amLODIPine 10 mg tablet 2021-02 00:00: 00 04-11 00:00 :00 No [id number] 10mg Take 1 tablet by mouth in the morning. [facility] terazosin 2 mg capsule 2021-02 00:00: 00 04-11 00:00 :00 No [id number] [address] [facility] BIKTARVY 50-200-25 mg tablet 2021-02 00:00: 00 04-11 00:00 :00 No [id number] 1{tbl} Take 1 tablet by mouth in the morning. [facility] amLODIPine 10 mg tablet 2021-02 00:00: 00 04-11 00:00 :00 No [id number] 10mg Take 1 tablet by mouth in the morning. [facility] terazosin 2 mg capsule 2021-02 00:00: 00 04-11 00:00 :00 No [id number] [address] [facility] hydroCHLORO thiazide 25 mg tablet 09-07 00:00: 00 Yes [id number] 25mg Take 1 tablet by mouth daily. [facility] ne-tenofovi r alafen tablet 09-07 00:00: 00 Yes [id number] 1{tbl} Take 1 tablet by mouth daily. [facility] dolutegravi r 50 mg tablet 09-07 00:00: 00 Yes [id number] 50mg Take 1 tablet by mouth daily. [facility] amLODIPine 10 mg tablet 09-07 00:00: 00 Yes [id number] 10mg Take 1 tablet by mouth daily. [facility] hydroCHLORO thiazide 25 mg tablet 09-07 00:00: 00 Yes [id number] 25mg Take 1 tablet by mouth daily. [facility] ne-tenofovi r alafen tablet 09-07 00:00: 00 Yes [id number] 1{tbl} Take 1 tablet by mouth daily. [facility] dolutegravi r 50 mg tablet 09-07 00:00: 00 Yes [id number] 50mg Take 1 tablet by mouth daily. [facility] amLODIPine 10 mg tablet 09-07 00:00: 00 Yes [id number] 10mg Take 1 tablet by mouth daily. [facility] hydroCHLORO thiazide 25 mg tablet 09-07 00:00: 00 Yes [id number] 25mg Take 1 tablet by mouth daily. [facility] ne-tenofovi r alafen tablet 09-07 00:00: 00 Yes [id number] 1{tbl} Take 1 tablet by mouth daily. [facility] dolutegravi r 50 mg tablet 09-07 00:00: 00 Yes [id number] 50mg Take 1 tablet by mouth daily. [facility] amLODIPine 10 mg tablet 09-07 00:00: 00 Yes [id number] 10mg Take 1 tablet by mouth daily. [facility] hydroCHLORO thiazide 25 mg tablet 09-07 00:00: 00 Yes [id number] 25mg Take 1 tablet by mouth daily. [facility] ne-tenofovi r alafen tablet 09-07 00:00: 00 Yes [id number] 1{tbl} Take 1 tablet by mouth daily. [facility] dolutegravi r 50 mg tablet 09-07 00:00: 00 Yes [id number] 50mg Take 1 tablet by mouth daily. [facility] amLODIPine 10 mg tablet 09-07 00:00: 00 Yes [id number] 10mg Take 1 tablet by mouth daily. [facility] hydroCHLORO thiazide 25 mg tablet 09-07 00:00: 00 Yes [id number] 25mg Take 1 tablet by mouth daily. [facility] ne-tenofovi r alafen tablet 09-07 00:00: 00 Yes [id number] 1{tbl} Take 1 tablet by mouth daily. [facility] dolutegravi r 50 mg tablet 09-07 00:00: 00 Yes [id number] 50mg Take 1 tablet by mouth daily. [facility] amLODIPine 10 mg tablet 09-07 00:00: 00 Yes [id number] 10mg Take 1 tablet by mouth daily. [facility] hydroCHLORO thiazide 25 mg tablet 09-07 00:00: 00 Yes [id number] 25mg Take 1 tablet by mouth daily. [facility] ne-tenofovi r alafen tablet 09-07 00:00: 00 Yes [id number] 1{tbl} Take 1 tablet by mouth daily. [facility] dolutegravi r 50 mg tablet 09-07 00:00: 00 Yes [id number] 50mg Take 1 tablet by mouth daily. [facility] amLODIPine 10 mg tablet 09-07 00:00: 00 Yes [id number] 10mg Take 1 tablet by mouth daily. [facility] hydroCHLORO thiazide 25 mg tablet 09-07 00:00: 00 01-11 00:00 :00 No [id number] 25mg Take 1 tablet by mouth daily. [facility] ne-tenofovi r alafen tablet 09-07 00:00: 00 01-11 00:00 :00 No [id number] 1{tbl} Take 1 tablet by mouth daily. [facility] dolutegravi r 50 mg tablet 09-07 00:00: 00 01-11 00:00 :00 No [id number] 50mg Take 1 tablet by mouth daily. [facility] amLODIPine 10 mg tablet 09-07 00:00: 00 01-11 00:00 :00 No [id number] 10mg Take 1 tablet by mouth daily. [facility] hydroCHLORO thiazide 25 mg tablet 09-07 00:00: 00 01-11 00:00 :00 No [id number] 25mg Take 1 tablet by mouth daily. [facility] ne-tenofovi r alafen tablet 09-07 00:00: 00 01-11 00:00 :00 No [id number] 1{tbl} Take 1 tablet by mouth daily. [facility] dolutegravi r 50 mg tablet 09-07 00:00: 00 01-11 00:00 :00 No [id number] 50mg Take 1 tablet by mouth daily. [facility] amLODIPine 10 mg tablet 09-07 00:00: 00 01-11 00:00 :00 No [id number] 10mg Take 1 tablet by mouth daily. [facility] emtricitabi ne-tenofovi r alafen tablet 08-16 00:00: 00 Yes [id number] 1{tbl} Take 1 tablet by mouth daily. [facility] dolutegravi r 50 mg tablet 08-16 00:00: 00 Yes [id number] 50mg Take 1 tablet by mouth daily. [facility] hydroCHLORO thiazide 25 mg tablet 08-16 00:00: 00 Yes [id number] 25mg Take 1 tablet by mouth daily. [facility] amLODIPine 10 mg tablet 08-16 00:00: 00 Yes [id number] 10mg Take 1 tablet by mouth daily. [facility] ne-tenofovi r alafen tablet 08-16 00:00: 00 Yes [id number] 1{tbl} Take 1 tablet by mouth daily. [facility] dolutegravi r 50 mg tablet 08-16 00:00: 00 Yes [id number] 50mg Take 1 tablet by mouth daily. [facility] hydroCHLORO thiazide 25 mg tablet 08-16 00:00: 00 Yes [id number] 25mg Take 1 tablet by mouth daily. [facility] amLODIPine 10 mg tablet 08-16 00:00: 00 Yes [id number] 10mg Take 1 tablet by mouth daily. [facility] ne-tenofovi r alafen tablet 08-16 00:00: 00 Yes [id number] 1{tbl} Take 1 tablet by mouth daily. [facility] dolutegravi r 50 mg tablet 08-16 00:00: 00 Yes [id number] 50mg Take 1 tablet by mouth daily. [facility] hydroCHLORO thiazide 25 mg tablet 08-16 00:00: 00 Yes [id number] 25mg Take 1 tablet by mouth daily. [facility] amLODIPine 10 mg tablet 08-16 00:00: 00 Yes [id number] 10mg Take 1 tablet by mouth daily. [facility] ne-tenofovi r alafen tablet 08-16 00:00: 00 Yes [id number] 1{tbl} Take 1 tablet by mouth daily. [facility] dolutegravi r 50 mg tablet 08-16 00:00: 00 Yes [id number] 50mg Take 1 tablet by mouth daily. [facility] hydroCHLORO thiazide 25 mg tablet 08-16 00:00: 00 Yes [id number] 25mg Take 1 tablet by mouth daily. [facility] amLODIPine 10 mg tablet 08-16 00:00: 00 Yes [id number] 10mg Take 1 tablet by mouth daily. [facility] ne-tenofovi r alafen tablet 08-16 00:00: 00 Yes [id number] 1{tbl} Take 1 tablet by mouth daily. [facility] dolutegravi r 50 mg tablet 08-16 00:00: 00 Yes [id number] 50mg Take 1 tablet by mouth daily. [facility] hydroCHLORO thiazide 25 mg tablet 08-16 00:00: 00 Yes [id number] 25mg Take 1 tablet by mouth daily. [facility] amLODIPine 10 mg tablet 08-16 00:00: 00 Yes [id number] 10mg Take 1 tablet by mouth daily. [facility] ne-tenofovi r alafen tablet 08-16 00:00: 00 Yes [id number] 1{tbl} Take 1 tablet by mouth daily. [facility] dolutegravi r 50 mg tablet 08-16 00:00: 00 Yes [id number] 50mg Take 1 tablet by mouth daily. [facility] hydroCHLORO thiazide 25 mg tablet 08-16 00:00: 00 Yes [id number] 25mg Take 1 tablet by mouth daily. [facility] amLODIPine 10 mg tablet 08-16 00:00: 00 Yes [id number] 10mg Take 1 tablet by mouth daily. [facility] emtricitabi ne-tenofovi r alafen tablet 08-16 00:00: 00 Yes [id number] 1{tbl} Take 1 tablet by mouth daily. [facility] dolutegravi r 50 mg tablet 08-16 00:00: 00 Yes [id number] 50mg Take 1 tablet by mouth daily. [facility] hydroCHLORO thiazide 25 mg tablet 08-16 00:00: 00 Yes [id number] 25mg Take 1 tablet by mouth daily. [facility] amLODIPine 10 mg tablet 08-16 00:00: 00 Yes [id number] 10mg Take 1 tablet by mouth daily. [facility] ne-tenofovi r alafen tablet 08-16 00:00: 00 Yes [id number] 1{tbl} Take 1 tablet by mouth daily. [facility] dolutegravi r 50 mg tablet 08-16 00:00: 00 Yes [id number] 50mg Take 1 tablet by mouth daily. [facility] hydroCHLORO thiazide 25 mg tablet 08-16 00:00: 00 Yes [id number] 25mg Take 1 tablet by mouth daily. [facility] amLODIPine 10 mg tablet 08-16 00:00: 00 Yes [id number] 10mg Take 1 tablet by mouth daily. [facility] ne-tenofovi r alafen tablet 08-16 00:00: 00 Yes [id number] 1{tbl} Take 1 tablet by mouth daily. [facility] dolutegravi r 50 mg tablet 08-16 00:00: 00 Yes [id number] 50mg Take 1 tablet by mouth daily. [facility] hydroCHLORO thiazide 25 mg tablet 08-16 00:00: 00 Yes [id number] 25mg Take 1 tablet by mouth daily. [facility] amLODIPine 10 mg tablet 08-16 00:00: 00 Yes [id number] 10mg Take 1 tablet by mouth daily. [facility] emtricitabi ne-tenofovi r alafen tablet 08-16 00:00: 00 Yes [id number] 1{tbl} Take 1 tablet by mouth daily. [facility] dolutegravi r 50 mg tablet 08-16 00:00: 00 Yes [id number] 50mg Take 1 tablet by mouth daily. [facility] hydroCHLORO thiazide 25 mg tablet 08-16 00:00: 00 Yes [id number] 25mg Take 1 tablet by mouth daily. [facility] amLODIPine 10 mg tablet 08-16 00:00: 00 Yes [id number] 10mg Take 1 tablet by mouth daily. [facility] ne-tenofovi r alafen tablet 08-16 00:00: 00 Yes [id number] 1{tbl} Take 1 tablet by mouth daily. [facility] dolutegravi r 50 mg tablet 08-16 00:00: 00 Yes [id number] 50mg Take 1 tablet by mouth daily. [facility] hydroCHLORO thiazide 25 mg tablet 08-16 00:00: 00 Yes [id number] 25mg Take 1 tablet by mouth daily. [facility] amLODIPine 10 mg tablet 08-16 00:00: 00 Yes [id number] 10mg Take 1 tablet by mouth daily. [facility] ne-tenofovi r alafen tablet 08-16 00:00: 00 Yes [id number] 1{tbl} Take 1 tablet by mouth daily. [facility] dolutegravi r 50 mg tablet 08-16 00:00: 00 Yes [id number] 50mg Take 1 tablet by mouth daily. [facility] hydroCHLORO thiazide 25 mg tablet 08-16 00:00: 00 Yes [id number] 25mg Take 1 tablet by mouth daily. [facility] amLODIPine 10 mg tablet 08-16 00:00: 00 Yes [id number] 10mg Take 1 tablet by mouth daily. [facility] ne-tenofovi r alafen tablet 08-16 00:00: 00 Yes [id number] 1{tbl} Take 1 tablet by mouth daily. [facility] dolutegravi r 50 mg tablet 08-16 00:00: 00 Yes [id number] 50mg Take 1 tablet by mouth daily. [facility] hydroCHLORO thiazide 25 mg tablet 08-16 00:00: 00 Yes [id number] 25mg Take 1 tablet by mouth daily. [facility] amLODIPine 10 mg tablet 08-16 00:00: 00 Yes [id number] 10mg Take 1 tablet by mouth daily. [facility] ne-tenofovi r alafen tablet 08-16 00:00: 00 Yes [id number] 1{tbl} Take 1 tablet by mouth daily. [facility] dolutegravi r 50 mg tablet 08-16 00:00: 00 Yes [id number] 50mg Take 1 tablet by mouth daily. [facility] hydroCHLORO thiazide 25 mg tablet 08-16 00:00: 00 Yes [id number] 25mg Take 1 tablet by mouth daily. [facility] amLODIPine 10 mg tablet 08-16 00:00: 00 Yes [id number] 10mg Take 1 tablet by mouth daily. [facility] ne-tenofovi r alafen tablet 08-16 00:00: 00 Yes [id number] 1{tbl} Take 1 tablet by mouth daily. [facility] dolutegravi r 50 mg tablet 08-16 00:00: 00 Yes [id number] 50mg Take 1 tablet by mouth daily. [facility] hydroCHLORO thiazide 25 mg tablet 08-16 00:00: 00 Yes [id number] 25mg Take 1 tablet by mouth daily. [facility] amLODIPine 10 mg tablet 08-16 00:00: 00 Yes [id number] 10mg Take 1 tablet by mouth daily. [facility] ne-tenofovi r alafen tablet 08-16 00:00: 00 Yes [id number] 1{tbl} Take 1 tablet by mouth daily. [facility] dolutegravi r 50 mg tablet 08-16 00:00: 00 Yes [id number] 50mg Take 1 tablet by mouth daily. [facility] hydroCHLORO thiazide 25 mg tablet 08-16 00:00: 00 Yes [id number] 25mg Take 1 tablet by mouth daily. [facility] amLODIPine 10 mg tablet 08-16 00:00: 00 Yes [id number] 10mg Take 1 tablet by mouth daily. [facility] ne-tenofovi r alafen tablet 08-16 00:00: 00 Yes [id number] 1{tbl} Take 1 tablet by mouth daily. [facility] dolutegravi r 50 mg tablet 08-16 00:00: 00 Yes [id number] 50mg Take 1 tablet by mouth daily. [facility] hydroCHLORO thiazide 25 mg tablet 08-16 00:00: 00 Yes [id number] 25mg Take 1 tablet by mouth daily. [facility] amLODIPine 10 mg tablet 08-16 00:00: 00 Yes [id number] 10mg Take 1 tablet by mouth daily. [facility] ne-tenofovi r alafen tablet 08-16 00:00: 00 Yes [id number] 1{tbl} Take 1 tablet by mouth daily. [facility] dolutegravi r 50 mg tablet 08-16 00:00: 00 Yes [id number] 50mg Take 1 tablet by mouth daily. [facility] hydroCHLORO thiazide 25 mg tablet 08-16 00:00: 00 Yes [id number] 25mg Take 1 tablet by mouth daily. [facility] amLODIPine 10 mg tablet 08-16 00:00: 00 Yes [id number] 10mg Take 1 tablet by mouth daily. [facility] ne-tenofovi r alafen tablet 08-16 00:00: 00 Yes [id number] 1{tbl} Take 1 tablet by mouth daily. [facility] dolutegravi r 50 mg tablet 08-16 00:00: 00 Yes [id number] 50mg Take 1 tablet by mouth daily. [facility] hydroCHLORO thiazide 25 mg tablet 08-16 00:00: 00 Yes [id number] 25mg Take 1 tablet by mouth daily. [facility] amLODIPine 10 mg tablet 08-16 00:00: 00 Yes [id number] 10mg Take 1 tablet by mouth daily. [facility] ne-tenofovi r alafen tablet 08-16 00:00: 00 Yes [id number] 1{tbl} Take 1 tablet by mouth daily. [facility] dolutegravi r 50 mg tablet 08-16 00:00: 00 Yes [id number] 50mg Take 1 tablet by mouth daily. [facility] hydroCHLORO thiazide 25 mg tablet 08-16 00:00: 00 Yes [id number] 25mg Take 1 tablet by mouth daily. [facility] amLODIPine 10 mg tablet 08-16 00:00: 00 Yes [id number] 10mg Take 1 tablet by mouth daily. [facility] ne-tenofovi r alafen tablet 08-16 00:00: 00 Yes [id number] 1{tbl} Take 1 tablet by mouth daily. [facility] dolutegravi r 50 mg tablet 08-16 00:00: 00 Yes [id number] 50mg Take 1 tablet by mouth daily. [facility] hydroCHLORO thiazide 25 mg tablet 08-16 00:00: 00 Yes [id number] 25mg Take 1 tablet by mouth daily. [facility] amLODIPine 10 mg tablet 08-16 00:00: 00 Yes [id number] 10mg Take 1 tablet by mouth daily. [facility] ne-tenofovi r alafen tablet 08-16 00:00: 00 Yes [id number] 1{tbl} Take 1 tablet by mouth daily. [facility] dolutegravi r 50 mg tablet 08-16 00:00: 00 Yes [id number] 50mg Take 1 tablet by mouth daily. [facility] hydroCHLORO thiazide 25 mg tablet 08-16 00:00: 00 Yes [id number] 25mg Take 1 tablet by mouth daily. [facility] amLODIPine 10 mg tablet 08-16 00:00: 00 Yes [id number] 10mg Take 1 tablet by mouth daily. [facility] emtricitabi ne-tenofovi r alafen tablet 08-16 00:00: 00 Yes [id number] 1{tbl} Take 1 tablet by mouth daily. [facility] dolutegravi r 50 mg tablet 08-16 00:00: 00 Yes [id number] 50mg Take 1 tablet by mouth daily. [facility] hydroCHLORO thiazide 25 mg tablet 08-16 00:00: 00 Yes [id number] 25mg Take 1 tablet by mouth daily. [facility] amLODIPine 10 mg tablet 08-16 00:00: 00 Yes [id number] 10mg Take 1 tablet by mouth daily. [facility] ne-tenofovi r alafen tablet 08-16 00:00: 00 Yes [id number] 1{tbl} Take 1 tablet by mouth daily. [facility] dolutegravi r 50 mg tablet 08-16 00:00: 00 Yes [id number] 50mg Take 1 tablet by mouth daily. [facility] hydroCHLORO thiazide 25 mg tablet 08-16 00:00: 00 Yes [id number] 25mg Take 1 tablet by mouth daily. [facility] amLODIPine 10 mg tablet 08-16 00:00: 00 Yes [id number] 10mg Take 1 tablet by mouth daily. [facility] ne-tenofovi r alafen tablet 08-16 00:00: 00 Yes [id number] 1{tbl} Take 1 tablet by mouth daily. [facility] dolutegravi r 50 mg tablet 08-16 00:00: 00 Yes [id number] 50mg Take 1 tablet by mouth daily. [facility] hydroCHLORO thiazide 25 mg tablet 08-16 00:00: 00 Yes [id number] 25mg Take 1 tablet by mouth daily. [facility] amLODIPine 10 mg tablet 08-16 00:00: 00 Yes [id number] 10mg Take 1 tablet by mouth daily. [facility] ne-tenofovi r alafen tablet 08-16 00:00: 00 09-07 00:00 :00 No [id number] 1{tbl} Take 1 tablet by mouth daily. [facility] dolutegravi r 50 mg tablet 08-16 00:00: 00 09-07 00:00 :00 No [id number] 50mg Take 1 tablet by mouth daily. [facility] hydroCHLORO thiazide 25 mg tablet 08-16 00:00: 00 09-07 00:00 :00 No [id number] 25mg Take 1 tablet by mouth daily. [facility] amLODIPine 10 mg tablet 08-16 00:00: 00 09-07 00:00 :00 No [id number] 10mg Take 1 tablet by mouth daily. [facility] dolutegravi r 50 mg tablet 2018-02 00:00: 00 Yes 50mg Take 1 tablet by mouth daily. [facility] alafen tablet 2018-02 00:00: 00 Yes 1{tbl} Take 1 tablet by mouth daily. [facility] dolutegravi r 50 mg tablet 2018-02 00:00: 00 Yes 50mg Take 1 tablet by mouth daily. [facility] ne-tenofovi r alafen tablet 2018-02 00:00: 00 Yes 1{tbl} Take 1 tablet by mouth daily. [facility] dolutegravi r 50 mg tablet 2018-02 00:00: 00 Yes 50mg Take 1 tablet by mouth daily. [facility] emtricitabi ne-tenofovi r alafen tablet 2018-02 00:00: 00 Yes 1{tbl} Take 1 tablet by mouth daily. [facility] dolutegravi r 50 mg tablet 2018-02 00:00: 00 Yes 50mg Take 1 tablet by mouth daily. [facility] ne-tenofovi r alafen tablet 2018-02 00:00: 00 Yes 1{tbl} Take 1 tablet by mouth daily. [facility] dolutegravi r 50 mg tablet 2018-02 00:00: 00 Yes 50mg Take 1 tablet by mouth daily. [facility] ne-tenofovi r alafen tablet 2018-02 00:00: 00 Yes 1{tbl} Take 1 tablet by mouth daily. [facility] dolutegravi r 50 mg tablet 2018-02 00:00: 00 Yes 50mg Take 1 tablet by mouth daily. [facility] ne-tenofovi r alafen tablet 2018-02 00:00: 00 Yes 1{tbl} Take 1 tablet by mouth daily. [facility] dolutegravi r 50 mg tablet 2018-02 00:00: 00 Yes 50mg Take 1 tablet by mouth daily. [facility] ne-tenofovi r alafen tablet 2018-02 00:00: 00 Yes 1{tbl} Take 1 tablet by mouth daily. [facility] dolutegravi r 50 mg tablet 2018-02 00:00: 00 Yes 50mg Take 1 tablet by mouth daily. [facility] emtricitabi ne-tenofovi r alafen tablet 2018-02 00:00: 00 Yes 1{tbl} Take 1 tablet by mouth daily. [facility] dolutegravi r 50 mg tablet 2018-02 00:00: 00 Yes 50mg Take 1 tablet by mouth daily. [facility] emtricitabi ne-tenofovi r alafen tablet 2018-02 00:00: 00 Yes 1{tbl} Take 1 tablet by mouth daily. [facility] dolutegravi r 50 mg tablet 2018-02 00:00: 00 Yes 50mg Take 1 tablet by mouth daily. [facility] emtricita ne-tenofovi r alafen tablet 2018-02 00:00: 00 Yes 1{tbl} Take 1 tablet by mouth daily. [facility] dolutegravi r 50 mg tablet 2018-02 00:00: 00 08-16 00:00 :00 No 50mg Take 1 tablet by mouth daily. [facility] ne-tenofovi r alafen tablet 2018-02 00:00: 00 08-16 00:00 :00 No 1{tbl} Take 1 tablet by mouth daily. [facility] AMLODIPINE 10 mg tablet 05 00:00: 00 Yes TAKE ONE TABLET BY MOUTH DAILY. [facility] AMLODIPINE 10 mg tablet 05 00:00: 00 Yes TAKE ONE TABLET BY MOUTH DAILY. [facility] AMLODIPINE 10 mg tablet 05 00:00: 00 Yes TAKE ONE TABLET BY MOUTH DAILY. [facility] AMLODIPINE 10 mg tablet 05 00:00: 00 Yes TAKE ONE TABLET BY MOUTH DAILY. [facility] AMLODIPINE 10 mg tablet 0 05 00:00: 00 Yes TAKE ONE TABLET BY MOUTH DAILY. [facility] AMLODIPINE 10 mg tablet 805 00:00: 00 Yes TAKE ONE TABLET BY MOUTH DAILY. [facility] AMLODIPINE 10 mg tablet 0 805 00:00: 00 Yes TAKE ONE TABLET BY MOUTH DAILY. [facility] AMLODIPINE 10 mg tablet 0 805 00:00: 00 Yes TAKE ONE TABLET BY MOUTH DAILY. [facility] AMLODIPINE 10 mg tablet 0 805 00:00: 00 Yes TAKE ONE TABLET BY MOUTH DAILY. [facility] AMLODIPINE 10 mg tablet 0 05 00:00: 00 Yes TAKE ONE TABLET BY MOUTH DAILY. [facility] AMLODIPINE 10 mg tablet 0 05 00:00: 00 Yes TAKE ONE TABLET BY MOUTH DAILY. [facility] AMLODIPINE 10 mg tablet 0 05 00:00: 00 Yes TAKE ONE TABLET BY MOUTH DAILY. [facility] AMLODIPINE 10 mg tablet 0 05 00:00: 00 Yes TAKE ONE TABLET BY MOUTH DAILY. [facility] AMLODIPINE 10 mg tablet 0 09-14 00:00: 00 Yes TAKE ONE TABLET BY MOUTH DAILY. [facility] 10 mg tablet 09-14 00:00: 00 Yes TAKE ONE TABLET BY MOUTH DAILY. [facility] AMLODIPINE 10 mg tablet 0 09-14 00:00: 00 Yes TAKE ONE TABLET BY MOUTH DAILY. [facility] AMLODIPINE 10 mg tablet 0 09-14 00:00: 00 Yes TAKE ONE TABLET BY MOUTH DAILY. [facility] AML[facility] 10 mg tablet 0 05 00:00: 00 Yes TAKE ONE TABLET BY MOUTH DAILY. [facility] AMLODIPINE 10 mg tablet 0 05 00:00: 00 Yes TAKE ONE TABLET BY MOUTH DAILY. [facility] AML[facility] 10 mg tablet 0 05 00:00: 00 Yes TAKE ONE TABLET BY MOUTH DAILY. [facility] AMLODIPINE 10 mg tablet 0 05 00:00: 00 Yes TAKE ONE TABLET BY MOUTH DAILY. [facility] AMLODIPINE 10 mg tablet 0 805 00:00: 00 Yes TAKE ONE TABLET BY MOUTH DAILY. [facility] AML[facility]IPINE 10 mg tablet 0 05 00:00: 00 Yes TAKE ONE TABLET BY MOUTH DAILY. [facility] AMLODIPINE 10 mg tablet 0 805 00:00: 00 Yes TAKE ONE TABLET BY MOUTH DAILY. [facility] AMLODIPINE 10 mg tablet 0 05 00:00: 00 2020- 07-07 00:00 :00 No TAKE ONE TABLET BY MOUTH DAILY. [facility] emtricitabi ne-tenofovi r alafen tablet 07-30 00:00: 00 Yes 1{tbl} Take 1 tablet by mouth daily. [facility] dolutegravi r 50 mg tablet 07-30 00:00: 00 Yes 50mg Take 1 tablet by mouth daily. [facility] emtricitabi ne-tenofovi r alafen tablet 07-30 00:00: 00 Yes 1{tbl} Take 1 tablet by mouth daily. [facility] dolutegravi r 50 mg tablet 07-30 00:00: 00 Yes 50mg Take 1 tablet by mouth daily. [facility] emtricitabi ne-tenofovi r alafen tablet 07-30 00:00: 00 Yes 1{tbl} Take 1 tablet by mouth daily. [facility] dolutegravi r 50 mg tablet 07-30 00:00: 00 Yes 50mg Take 1 tablet by mouth daily. [facility] emtricitabi ne-tenofovi r alafen tablet 07-30 00:00: 00 Yes 1{tbl} Take 1 tablet by mouth daily. [facility] dolutegravi r 50 mg tablet 07-30 00:00: 00 Yes 50mg Take 1 tablet by mouth daily. [facility] emtricitabi ne-tenofovi r alafen tablet 07-30 00:00: 00 Yes 1{tbl} Take 1 tablet by mouth daily. [facility] dolutegravi r 50 mg tablet 07-30 00:00: 00 Yes 50mg Take 1 tablet by mouth daily. [facility] emtricitabi ne-tenofovi r alafen tablet 07-30 00:00: 00 Yes 1{tbl} Take 1 tablet by mouth daily. [facility] dolutegravi r 50 mg tablet 07-30 00:00: 00 Yes 50mg Take 1 tablet by mouth daily. [facility] ne-tenofovi r alafen tablet 07-30 00:00: 00 Yes 1{tbl} Take 1 tablet by mouth daily. [facility] dolutegravi r 50 mg tablet 07-30 00:00: 00 Yes 50mg Take 1 tablet by mouth daily. [facility] ne-tenofovi r alafen tablet 07-30 00:00: 00 Yes 1{tbl} Take 1 tablet by mouth daily. [facility] dolutegravi r 50 mg tablet 07-30 00:00: 00 Yes 50mg Take 1 tablet by mouth daily. [facility] alafen tablet 07-30 00:00: 00 Yes 1{tbl} Take 1 tablet by mouth daily. [facility] dolutegravi r 50 mg tablet 07-30 00:00: 00 Yes 50mg Take [facility] alafen tablet 07-30 00:00: 00 Yes 1{tbl} Take 1 tablet by mouth daily. [facility] dolutegravi r 50 mg tablet 07-30 00:00: 00 Yes 50mg Take 1 tablet by mouth daily. [facility] ne-tenofovi r alafen tablet 07-30 00:00: 00 Yes 1{tbl} Take 1 tablet by mouth daily. [facility] dolutegravi r 50 mg tablet 07-30 00:00: 00 Yes 50mg Take 1 tablet by mouth daily. [facility] ne-tenofovi r alafen tablet 07-30 00:00: 00 Yes 1{tbl} Take 1 tablet by mouth daily. [facility] dolutegravi r 50 mg tablet 07-30 00:00: 00 Yes 50mg Take 1 tablet by mouth daily. [facility] ne-tenofovi r alafen tablet 2019-0 6-20 00:00: 00 Yes 1{tbl} Take 1 tablet by mouth daily. [facility] dolutegravi r 50 mg tablet 20 00:00: 00 Yes 50mg Take 1 tablet by mouth daily. [facility] AMLODIPINE 10 mg tablet 04 00:00: 00 08-31 00:00 :00 No TAKE ONE TABLET BY MOUTH DAILY. [facility] SULFAMETHOX AZOLE-TRIME THOPRIM 800-160 mg per tablet 15 00:00: 00 Yes 1{tbl} TAKE 1 TABLET BY MOUTH DAILY. [facility] SULFAMETHOX AZOLE-TRIME THOPRIM 800-160 mg per tablet 04-24 00:00: 00 Yes 1{tbl} TAKE 1 TABLET BY MOUTH DAILY. [facility] SULFAMETHOX AZOLE-TRIME THOPRIM 800-160 mg per tablet 04-24 00:00: 00 Yes 1{tbl} TAKE 1 TABLET BY MOUTH DAILY. [facility] SULFAMETHOX AZOLE-TRIME THOPRIM 800-160 mg per tablet 04-24 00:00: 00 Yes 1{tbl} TAKE 1 TABLET BY MOUTH DAILY. [facility] SULFAMETHOX AZOLE-TRIME THOPRIM 800-160 mg per tablet 04-24 00:00: 00 Yes 1{tbl} TAKE 1 TABLET BY MOUTH DAILY. [facility] SULFAMETHOX AZOLE-TRIME THOPRIM 800-160 mg per tablet 15 00:00: 00 Yes 1{tbl} TAKE 1 TABLET BY MOUTH DAILY. [facility] SULFAMETHOX AZOLE-TRIME THOPRIM 800-160 mg per tablet 15 00:00: 00 Yes 1{tbl} TAKE 1 TABLET BY MOUTH DAILY. [facility] SULFAMETHOX AZOLE-TRIME THOPRIM 800-160 mg per tablet 15 00:00: 00 Yes 1{tbl} TAKE 1 TABLET BY MOUTH DAILY. [facility] SULFAMETHOX AZOLE-TRIME THOPRIM 800-160 mg per tablet 15 00:00: 00 Yes 1{tbl} TAKE 1 TABLET BY MOUTH DAILY. [facility] SULFAMETHOX AZOLE-TRIME THOPRIM 800-160 mg per tablet 15 00:00: 00 Yes 1{tbl} TAKE 1 TABLET BY MOUTH DAILY. [facility] SULFAMETHOX AZOLE-TRIME THOPRIM 800-160 mg per tablet 15 00:00: 00 Yes 1{tbl} TAKE 1 TABLET BY MOUTH DAILY. [facility] SULFAMETHOX AZOLE-TRIME THOPRIM 800-160 mg per tablet 15 00:00: 00 Yes 1{tbl} TAKE 1 TABLET BY MOUTH DAILY. [facility] SULFAMETHOX AZOLE-TRIME THOPRIM 800-160 mg per tablet 04-24 00:00: 00 Yes 1{tbl} TAKE 1 TABLET BY MOUTH DAILY. [facility] SULFAMETHOX AZOLE-TRIME THOPRIM 800-160 mg per tablet 04-24 00:00: 00 Yes 1{tbl} TAKE 1 TABLET BY MOUTH DAILY. [facility] SULFAMETHOX AZOLE-TRIME THOPRIM 800-160 mg per tablet 04-24 00:00: 00 Yes 1{tbl} TAKE 1 TABLET BY MOUTH DAILY. [facility] SULFAMETHOX AZOLE-TRIME THOPRIM 800-160 mg per tablet 04-24 00:00: 00 Yes 1{tbl} TAKE 1 TABLET BY MOUTH DAILY. [facility] SULFAMETHOX AZOLE-TRIME THOPRIM 800-160 mg per tablet 04-24 00:00: 00 Yes 1{tbl} TAKE 1 TABLET BY MOUTH DAILY. [facility] SULFAMETHOX AZOLE-TRIME THOPRIM 800-160 mg per tablet 15 00:00: 00 Yes 1{tbl} TAKE 1 TABLET BY MOUTH DAILY. [facility] SULFAMETHOX AZOLE-TRIME THOPRIM 800-160 mg per tablet 0 15 00:00: 00 Yes 1{tbl} TAKE 1 TABLET BY MOUTH DAILY. [facility] SULFAMETHOX AZOLE-TRIME THOPRIM 800-160 mg per tablet 15 00:00: 00 Yes 1{tbl} TAKE 1 TABLET BY MOUTH DAILY. [facility] SULFAMETHOX AZOLE-TRIME THOPRIM 800-160 mg per tablet 15 00:00: 00 Yes 1{tbl} TAKE 1 TABLET BY MOUTH DAILY. [facility] SULFAMETHOX AZOLE-TRIME THOPRIM 800-160 mg per tablet 04-24 00:00: 00 Yes 1{tbl} TAKE 1 TABLET BY MOUTH DAILY. [facility] SULFAMETHOX AZOLE-TRIME THOPRIM 800-160 mg per tablet 04-24 00:00: 00 Yes 1{tbl} TAKE 1 TABLET BY MOUTH DAILY. [facility] SULFAMETHOX AZOLE-TRIME THOPRIM 800-160 mg per tablet 04-24 00:00: 00 Yes 1{tbl} TAKE 1 TABLET BY MOUTH DAILY. [facility] SULFAMETHOX AZOLE-TRIME THOPRIM 800-160 mg per tablet 04-24 00:00: 00 08-16 00:00 :00 No 1{tbl} TAKE 1 TABLET BY MOUTH DAILY. [facility] hydroCHLORO thiazide 25 mg tablet 10-15 00:00: 00 Yes 25mg Take 1 tablet by mouth daily. [facility] sulfamethox azole-trime thoprim (BACTRIM DS) 800-160 mg per tablet 10-15 00:00: 00 Yes 1{tbl} Take 1 tablet by mouth daily. [facility] sofosbuvir- velpatasvir (EPCLUSA) 400-100 mg 10-15 00:00: 00 Yes 1{tbl} Take 1 tablet by mouth daily. ([place] ADAP approval pending) [facility] hydroCHLORO thiazide 25 mg tablet 10-15 00:00: 00 Yes 25mg Take 1 tablet by mouth daily. [facility] sulfamethox azole-trime thoprim (BACTRIM DS) 800-160 mg per tablet 10-15 00:00: 00 Yes 1{tbl} Take 1 tablet by mouth daily. [facility] sofosbuvir- velpatasvir (EPCLUSA) 400-100 mg 10-15 00:00: 00 Yes 1{tbl} Take 1 tablet by mouth daily. (Tx ADAP approval pending) [facility] hydroCHLORO thiazide 25 mg tablet 10-15 00:00: 00 Yes 25mg Take 1 tablet by mouth daily. [facility] sulfamethox azole-trime thoprim (BACTRIM DS) 800-160 mg per tablet 10-15 00:00: 00 Yes 1{tbl} Take 1 tablet by mouth daily. [facility] hydroCHLORO thiazide 25 mg tablet 10-15 00:00: 00 Yes 25mg Take 1 tablet by mouth daily. [facility] sofosbuvir- velpatasvir (EPCLUSA) 400-100 mg 10-15 00:00: 00 Yes 1{tbl} Take 1 tablet by mouth daily. (Tx ADAP approval pending) [facility] sulfamethox azole-trime thoprim (BACTRIM DS) 800-160 mg per tablet 10-15 00:00: 00 Yes 1{tbl} Take 1 tablet by mouth daily. [facility] sofosbuvir- velpatasvir (EPCLUSA) 400-100 mg 10-15 00:00: 00 Yes 1{tbl} Take 1 tablet by mouth daily. (Tx ADAP approval pending) [facility] hydroCHLORO thiazide 25 mg tablet 10-15 00:00: 00 Yes 25mg Take 1 tablet by mouth daily. [facility] sulfamethox azole-trime thoprim (BACTRIM DS) 800-160 mg per tablet 10-15 00:00: 00 Yes 1{tbl} Take 1 tablet by mouth daily. [facility] sofosbuvir- velpatasvir (EPCLUSA) 400-100 mg 10-15 00:00: 00 Yes 1{tbl} Take 1 tablet by mouth daily. (Tx ADAP approval pending) [facility] hydroCHLORO thiazide 25 mg tablet 10-15 00:00: 00 Yes 25mg Take 1 tablet by mouth daily. [facility] sulfamethox azole-trime thoprim (BACTRIM DS) 800-160 mg per tablet 10-15 00:00: 00 Yes 1{tbl} Take 1 tablet by mouth daily. [facility] sofosbuvir- velpatasvir (EPCLUSA) 400-100 mg 10-15 00:00: 00 Yes 1{tbl} Take 1 tablet by mouth daily. (Tx ADAP approval pending) [facility] hydroCHLORO thiazide 25 mg tablet 10-15 00:00: 00 Yes 25mg Take 1 tablet by mouth daily. [facility] sulfamethox azole-trime thoprim (BACTRIM DS) 800-160 mg per tablet 10-15 00:00: 00 Yes 1{tbl} Take 1 tablet by mouth daily. [facility] sofosbuvir- velpatasvir (EPCLUSA) 400-100 mg 10-15 00:00: 00 Yes 1{tbl} Take 1 tablet by mouth daily. (Fl ADAP approval pending) [facility] hydroCHLORO thiazide 25 mg tablet 10-15 00:00: 00 Yes 25mg Take 1 tablet by mouth daily. [facility] sulfamethox azole-trime thoprim (BACTRIM DS) 800-160 mg per tablet 10-15 00:00: 00 Yes 1{tbl} Take 1 tablet by mouth daily. [facility] sofosbuvir- velpatasvir (EPCLUSA) 400-100 mg 10-15 00:00: 00 Yes 1{tbl} Take 1 tablet by mouth daily. (Fl ADAP approval pending) [facility] hydroCHLORO thiazide 25 mg tablet 10-15 00:00: 00 Yes 25mg Take 1 tablet by mouth daily. [facility] sulfamethox azole-trime thoprim (BACTRIM DS) 800-160 mg per tablet 10-15 00:00: 00 Yes 1{tbl} Take 1 tablet by mouth daily. [facility] sofosbuvir- velpatasvir (EPCLUSA) 400-100 mg 10-15 00:00: 00 Yes 1{tbl} Take 1 tablet by mouth daily. (Tx ADAP approval pending) [facility] hydroCHLORO thiazide 25 mg tablet 10-15 00:00: 00 Yes 25mg Take 1 tablet by mouth daily. [facility] sulfamethox azole-trime thoprim (BACTRIM DS) 800-160 mg per tablet 10-15 00:00: 00 Yes 1{tbl} Take 1 tablet by mouth daily. [facility] sofosbuvir- velpatasvir (EPCLUSA) 400-100 mg 10-15 00:00: 00 Yes 1{tbl} Take 1 tablet by mouth daily. (Tx ADAP approval pending) [facility] hydroCHLORO thiazide 25 mg tablet 10-15 00:00: 00 Yes 25mg Take 1 tablet by mouth daily. [facility] sulfamethox azole-trime thoprim (BACTRIM DS) 800-160 mg per tablet 10-15 00:00: 00 Yes 1{tbl} Take 1 tablet by mouth daily. [facility] sofosbuvir- velpatasvir (EPCLUSA) 400-100 mg 10-15 00:00: 00 Yes 1{tbl} Take 1 tablet by mouth daily. (Tx ADAP approval pending) [facility] hydroCHLORO thiazide 25 mg tablet 10-15 00:00: 00 Yes 25mg Take 1 tablet by mouth daily. [facility] sulfamethox azole-trime thoprim (BACTRIM DS) 800-160 mg per tablet 10-15 00:00: 00 Yes 1{tbl} Take 1 tablet by mouth daily. [facility] sofosbuvir- velpatasvir (EPCLUSA) 400-100 mg 10-15 00:00: 00 Yes 1{tbl} Take 1 tablet by mouth daily. (Tx ADAP approval pending) [facility] hydroCHLORO thiazide 25 mg tablet 10-15 00:00: 00 Yes 25mg Take 1 tablet by mouth daily. [facility] hydroCHLORO thiazide 25 mg tablet 10-15 00:00: 00 Yes 25mg Take 1 tablet by mouth daily. [facility] sulfamethox azole-trime thoprim (BACTRIM DS) 800-160 mg per tablet 10-15 00:00: 00 Yes 1{tbl} Take 1 tablet by mouth daily. [facility] sulfamethox azole-trime thoprim (BACTRIM DS) 800-160 mg per tablet 10-15 00:00: 00 Yes 1{tbl} Take 1 tablet by mouth daily. [facility] sofosbuvir- velpatasvir (EPCLUSA) 400-100 mg 10-15 00:00: 00 Yes 1{tbl} Take 1 tablet by mouth daily. (Fl ADAP approval pending) [facility] sofosbuvir- velpatasvir (EPCLUSA) 400-100 mg 10-15 00:00: 00 Yes 1{tbl} Take 1 tablet by mouth daily. (Fl ADAP approval pending) [facility] hydroCHLORO thiazide 25 mg tablet 10-15 00:00: 00 Yes 25mg Take 1 tablet by mouth daily. [facility] sulfamethox azole-trime thoprim (BACTRIM DS) 800-160 mg per tablet 10-15 00:00: 00 Yes 1{tbl} Take 1 tablet by mouth daily. [facility] sofosbuvir- velpatasvir (EPCLUSA) 400-100 mg 10-15 00:00: 00 Yes 1{tbl} Take 1 tablet by mouth daily. (Fl ADAP approval pending) [facility] hydroCHLORO thiazide 25 mg tablet 10-15 00:00: 00 Yes 25mg Take 1 tablet by mouth daily. [facility] sulfamethox azole-trime thoprim (BACTRIM DS) 800-160 mg per tablet 10-15 00:00: 00 Yes 1{tbl} Take 1 tablet by mouth daily. [facility] sofosbuvir- velpatasvir (EPCLUSA) 400-100 mg 10-15 00:00: 00 Yes 1{tbl} Take 1 tablet by mouth daily. ([place] ADAP approval pending) [facility] hydroCHLORO thiazide 25 mg tablet 10-15 00:00: 00 Yes 25mg Take 1 tablet by mouth daily. [facility] sulfamethox azole-trime thoprim (BACTRIM DS) 800-160 mg per tablet 10-15 00:00: 00 Yes 1{tbl} Take 1 tablet by mouth daily. [facility] sofosbuvir- velpatasvir (EPCLUSA) 400-100 mg 10-15 00:00: 00 Yes 1{tbl} Take 1 tablet by mouth daily. ([place] ADAP approval pending) [facility] hydroCHLORO thiazide 25 mg tablet 10-15 00:00: 00 Yes 25mg Take 1 tablet by mouth daily. [facility] sulfamethox azole-trime thoprim (BACTRIM DS) 800-160 mg per tablet 10-15 00:00: 00 Yes 1{tbl} Take 1 tablet by mouth daily. [facility] sofosbuvir- velpatasvir (EPCLUSA) 400-100 mg 10-15 00:00: 00 Yes 1{tbl} Take 1 tablet by mouth daily. ([place] ADAP approval pending) [facility] hydroCHLORO thiazide 25 mg tablet 10-15 00:00: 00 Yes 25mg Take 1 tablet by mouth daily. [facility] sulfamethox azole-trime thoprim (BACTRIM DS) 800-160 mg per tablet 10-15 00:00: 00 Yes 1{tbl} Take 1 tablet by mouth daily. [facility] sofosbuvir- velpatasvir (EPCLUSA) 400-100 mg 10-15 00:00: 00 Yes 1{tbl} Take 1 tablet by mouth daily. ([place] ADAP approval pending) [facility] hydroCHLORO thiazide 25 mg tablet 10-15 00:00: 00 Yes 25mg Take 1 tablet by mouth daily. [facility] sulfamethox azole-trime thoprim (BACTRIM DS) 800-160 mg per tablet 10-15 00:00: 00 Yes 1{tbl} Take 1 tablet by mouth daily. [facility] sofosbuvir- velpatasvir (EPCLUSA) 400-100 mg 10-15 00:00: 00 Yes 1{tbl} Take 1 tablet by mouth daily. ([place] ADAP approval pending) [facility] hydroCHLORO thiazide 25 mg tablet 10-15 00:00: 00 Yes 25mg Take 1 tablet by mouth daily. [facility] sulfamethox azole-trime thoprim (BACTRIM DS) 800-160 mg per tablet 10-15 00:00: 00 Yes 1{tbl} Take 1 tablet by mouth daily. [facility] sofosbuvir- velpatasvir (EPCLUSA) 400-100 mg 10-15 00:00: 00 Yes 1{tbl} Take 1 tablet by mouth daily. ([place] ADAP approval pending) [facility] hydroCHLORO thiazide 25 mg tablet 10-15 00:00: 00 Yes 25mg Take 1 tablet by mouth daily. [facility] sulfamethox azole-trime thoprim (BACTRIM DS) 800-160 mg per tablet 10-15 00:00: 00 Yes 1{tbl} Take 1 tablet by mouth daily. [facility] sofosbuvir- velpatasvir (EPCLUSA) 400-100 mg 10-15 00:00: 00 Yes 1{tbl} Take 1 tablet by mouth daily. (Tx ADAP approval pending) [facility] hydroCHLORO thiazide 25 mg tablet 10-15 00:00: 00 Yes 25mg Take 1 tablet by mouth daily. [facility] sulfamethox azole-trime thoprim (BACTRIM DS) 800-160 mg per tablet 10-15 00:00: 00 Yes 1{tbl} Take 1 tablet by mouth daily. [facility] sofosbuvir- velpatasvir (EPCLUSA) 400-100 mg 10-15 00:00: 00 Yes 1{tbl} Take 1 tablet by mouth daily. (Fl ADAP approval pending) [facility] hydroCHLORO thiazide 25 mg tablet 10-15 00:00: 00 Yes 25mg Take 1 tablet by mouth daily. [facility] sulfamethox azole-trime thoprim (BACTRIM DS) 800-160 mg per tablet 10-15 00:00: 00 Yes 1{tbl} Take 1 tablet by mouth daily. [facility] sofosbuvir- velpatasvir (EPCLUSA) 400-100 mg 10-15 00:00: 00 Yes 1{tbl} Take 1 tablet by mouth daily. (Fl ADAP approval pending) [facility] hydroCHLORO thiazide 25 mg tablet 10-15 00:00: 00 08-16 00:00 :00 No 25mg Take 1 tablet by mouth daily. [facility] sulfamethox azole-trime thoprim (BACTRIM DS) 800-160 mg per tablet 10-15 00:00: 00 08-16 00:00 :00 No 1{tbl} Take 1 tablet by mouth daily. [facility] sofosbuvir- velpatasvir (EPCLUSA) 400-100 mg 10-15 00:00: 00 08-16 00:00 :00 No 1{tbl} Take 1 tablet by mouth daily. ([place] ADAP approval pending) [facility] No known medications No Un deena [facility] Immunizations Ordered Immunization Name Filled Immunization Name Date Status Comments Source SARS-COV-2 COVID-19 BRANDO-SUCROSE VACCINE 12 YRS+, BIVALENT 0.3ML, IM, (PFIZER RESTREPO TOP BOOSTER) 2022-01-11 00:00:00 Completed [facility] Influenza Virus Vaccine Quad IM, Preserv and ABX Free 6 MO-64 YRS 2022-01-11 00:00:00 Completed [facility] SARS-COV-2 COVID-19 BRANDO-SUCROSE VACCINE 12 YRS+, BIVALENT 0.3ML, IM, (PFIZER RESTREPO TOP BOOSTER) 2022-01-11 00:00:00 Completed [facility] Influenza Virus Vaccine Quad IM, Preserv and ABX Free 6 MO-64 YRS 2022-01-11 00:00:00 Completed [facility] SARS-COV-2 COVID-19 BRANDO-SUCROSE VACCINE 12 YRS+, BIVALENT 0.3ML, IM, (PFIZER RESTREPO TOP BOOSTER) 2022-01-11 00:00:00 Completed [facility] Influenza Virus Vaccine Quad IM, Preserv and ABX Free 6 MO-64 YRS 2022-01-11 00:00:00 Completed [facility] SARS-COV-2 COVID-19 BRANDO-SUCROSE VACCINE 12 YRS+, BIVALENT 0.3ML, IM, (PFIZER RESTREPO TOP BOOSTER) 2022-01-11 00:00:00 Completed [facility] Influenza Virus Vaccine Quad IM, Preserv and ABX Free 6 MO-64 YRS 2022-01-11 00:00:00 Completed [facility] SARS-COV-2 COVID-19 BRANDO-SUCROSE VACCINE 12 YRS+, BIVALENT 0.3ML, IM, (PFIZER RESTREPO TOP BOOSTER) 2022-01-11 00:00:00 Completed [facility] Influenza Virus Vaccine Quad IM, Preserv and ABX Free 6 MO-64 YRS 2022-01-11 00:00:00 Completed [facility] SARS-COV-2 COVID-19 BRANDO-SUCROSE VACCINE 12 YRS+, BIVALENT 0.3ML, IM, (PFIZER RESTREPO TOP BOOSTER) 2022-01-11 00:00:00 Completed [facility] Influenza Virus Vaccine Quad IM, Preserv and ABX Free 6 MO-64 YRS 2022-01-11 00:00:00 Completed [facility] SARS-COV-2 COVID-19 BRANDO-SUCROSE VACCINE 12 YRS+, BIVALENT 0.3ML, IM, (PFIZER RESTREPO TOP) 2022-01-11 00:00:00 Completed [facility] Influenza Virus Vaccine Quad IM, Preserv and ABX Free 6 MO-64 YRS 2022-01-11 00:00:00 Completed [facility] SARS-COV-2 COVID-19 BRANDO-SUCROSE VACCINE 12 YRS+, BIVALENT 0.3ML, IM, (PFIZER RESTREPO TOP) 2022-01-11 00:00:00 Completed [facility] Influenza Virus Vaccine Quad IM, Preserv and ABX Free 6 MO-64 YRS 2022-01-11 00:00:00 Completed [facility] SARS-COV-2 COVID-19 BRANDO-SUCROSE VACCINE 12 YRS+, BIVALENT 0.3ML, IM, (PFIZER RESTREPO TOP) 2022-01-11 00:00:00 Completed [facility] Influenza Virus Vaccine Quad IM, Preserv and ABX Free 6 MO-64 YRS 2022-01-11 00:00:00 Completed [facility] SARS-COV-2 COVID-19 BRANDO-SUCROSE VACCINE 12 YRS+, BIVALENT 0.3ML, IM, (PFIZER RESTREPO TOP) 2022-01-11 00:00:00 Completed [facility] Influenza Virus Vaccine Quad IM, Preserv and ABX Free 6 MO-64 YRS 2022-01-11 00:00:00 Completed [facility] SARS-COV-2 COVID-19 BRANOD-SUCROSE VACCINE 12 YRS+, BIVALENT 0.3ML, IM, (PFIZER RESTREPO TOP) 2022-01-11 00:00:00 Completed [facility] Influenza Virus Vaccine Quad IM, Preserv and ABX Free 6 MO-64 YRS (FLUCELVAX) 2022-01-11 00:00:00 Completed [facility] SARS-COV-2 COVID-19 PFIZER VACCINE 2020-10-03 00:00:00 Completed [facility] SARS-COV-2 COVID-19 PFIZER VACCINE 2020-10-03 00:00:00 Completed [facility] SARS-COV-2 COVID-19 PFIZER VACCINE 2020-10-03 00:00:00 Completed [facility] SARS-COV-2 COVID-19 PFIZER VACCINE 2020-10-03 00:00:00 Completed [facility] SARS-COV-2 COVID-19 PFIZER VACCINE 2020-10-03 00:00:00 Completed [facility] SARS-COV-2 COVID-19 PFIZER VACCINE 2020-10-03 00:00:00 Completed [facility] SARS-COV-2 COVID-19 PFIZER VACCINE 2020-10-03 00:00:00 Completed [facility] SARS-COV-2 COVID-19 PFIZER VACCINE 2020-10-03 00:00:00 Completed [facility] SARS-COV-2 COVID-19 PFIZER VACCINE 2020-10-03 00:00:00 Completed [facility] SARS-COV-2 COVID-19 PFIZER VACCINE 2020-10-03 00:00:00 Completed [facility] SARS-COV-2 COVID-19 PFIZER VACCINE 2020-10-03 00:00:00 Completed [facility] SARS-COV-2 COVID-19 PFIZER VACCINE 2020-09-12 00:00:00 Completed [facility] SARS-COV-2 COVID-19 PFIZER VACCINE 2020-09-12 00:00:00 Completed [facility] SARS-COV-2 COVID-19 PFIZER VACCINE 2020-09-12 00:00:00 Completed [facility] SARS-COV-2 COVID-19 PFIZER VACCINE 2020-09-12 00:00:00 Completed [facility] SARS-COV-2 COVID-19 PFIZER VACCINE 2020-09-12 00:00:00 Completed [facility] SARS-COV-2 COVID-19 PFIZER VACCINE 2020-09-12 00:00:00 Completed [facility] SARS-COV-2 COVID-19 PFIZER VACCINE 2020-09-12 00:00:00 Completed [facility] SARS-COV-2 COVID-19 PFIZER VACCINE 2020-09-12 00:00:00 Completed [facility] SARS-COV-2 COVID-19 PFIZER VACCINE 2020-09-12 00:00:00 Completed [facility] SARS-COV-2 COVID-19 PFIZER VACCINE 2020-09-12 00:00:00 Completed [facility] SARS-COV-2 COVID-19 PFIZER VACCINE 2020-09-12 00:00:00 Completed [facility] Pneumococcal Polysaccharide, PPSV23 (PNEUMOVAX) 2018-01-19 00:00:00 Completed [facility] Pneumococcal Polysaccharide, PPSV23 (PNEUMOVAX) 2018-01-19 00:00:00 Completed [facility] Pneumococcal Polysaccharide, PPSV23 (PNEUMOVAX) 2018-01-19 00:00:00 Completed [facility] Pneumococcal Polysaccharide, PPSV23 (PNEUMOVAX) 2018-01-19 00:00:00 Completed [facility] Pneumococcal Polysaccharide, PPSV23 (PNEUMOVAX) 2018-01-19 00:00:00 Completed [facility] Pneumococcal Polysaccharide, PPSV23 (PNEUMOVAX) 2018-01-19 00:00:00 Completed [facility] Pneumococcal Polysaccharide, PPSV23 (PNEUMOVAX) 2018-01-19 00:00:00 Completed [facility] Pneumococcal Polysaccharide, PPSV23 (PNEUMOVAX) 2018-01-19 00:00:00 Completed [facility] Pneumococcal Polysaccharide, PPSV23 (PNEUMOVAX) 2018-01-19 00:00:00 Completed [facility] Pneumococcal Polysaccharide, PPSV23 (PNEUMOVAX) 2018-01-19 00:00:00 Completed [facility] Pneumococcal Polysaccharide, PPSV23 (PNEUMOVAX) 2018-01-19 00:00:00 Completed [facility] Pneumococcal Polysaccharide, PPSV23 (PNEUMOVAX) 2018-01-19 00:00:00 Completed [facility] Pneumococcal Polysaccharide, PPSV23 (PNEUMOVAX) 2018-01-19 00:00:00 Completed [facility] Pneumococcal Polysaccharide, PPSV23 (PNEUMOVAX) 2018-01-19 00:00:00 Completed [facility] Pneumococcal Polysaccharide, PPSV23 (PNEUMOVAX) 2018-01-19 00:00:00 Completed [facility] Pneumococcal Polysaccharide, PPSV23 (PNEUMOVAX) 2018-01-19 00:00:00 Completed [facility] Pneumococcal Polysaccharide, PPSV23 (PNEUMOVAX) 2018-01-19 00:00:00 Completed [facility] Pneumococcal Polysaccharide, PPSV23 (PNEUMOVAX) 2018-01-19 00:00:00 Completed [facility] Pneumococcal Polysaccharide, PPSV23 (PNEUMOVAX) 2018-01-19 00:00:00 Completed [facility] Pneumococcal Polysaccharide, PPSV23 (PNEUMOVAX) 2018-01-19 00:00:00 Completed [facility] Pneumococcal Polysaccharide, PPSV23 (PNEUMOVAX) 2018-01-19 00:00:00 Completed [facility] Pneumococcal Polysaccharide, PPSV23 (PNEUMOVAX) 2018-01-19 00:00:00 Completed [facility] Pneumococcal Polysaccharide, PPSV23 (PNEUMOVAX) 2018-01-19 00:00:00 Completed [facility] Pneumococcal Polysaccharide, PPSV23 (PNEUMOVAX) 2018-01-19 00:00:00 Completed [facility] Pneumococcal Polysaccharide, PPSV23 (PNEUMOVAX) 2018-01-19 00:00:00 Completed [facility] Pneumococcal Polysaccharide, PPSV23 (PNEUMOVAX) 2018-01-19 00:00:00 Completed [facility] Pneumococcal Polysaccharide, PPSV23 (PNEUMOVAX) 2018-01-19 00:00:00 Completed [facility] Pneumococcal Polysaccharide, PPSV23 (PNEUMOVAX) 2018-01-19 00:00:00 Completed [facility] Pneumococcal Polysaccharide, PPSV23 (PNEUMOVAX) 2018-01-19 00:00:00 Completed [facility] Pneumococcal Polysaccharide, PPSV23 (PNEUMOVAX) 2018-01-19 00:00:00 Completed [facility] Pneumococcal Polysaccharide, PPSV23 (PNEUMOVAX) 2018-01-19 00:00:00 Completed [facility] Pneumococcal Polysaccharide, PPSV23 (PNEUMOVAX) 2018-01-19 00:00:00 Completed [facility] Pneumococcal Polysaccharide, PPSV23 (PNEUMOVAX) 2018-01-19 00:00:00 Completed [facility] Pneumococcal Polysaccharide, PPSV23 (PNEUMOVAX) 2018-01-19 00:00:00 Completed [facility] Pneumococcal Polysaccharide, PPSV23 (PNEUMOVAX) 2018-01-19 00:00:00 Completed [facility] Pneumococcal Polysaccharide, PPSV23 (PNEUMOVAX) 2018-01-19 00:00:00 Completed [facility] Pneumococcal Polysaccharide, PPSV23 (PNEUMOVAX) 2018-01-19 00:00:00 Completed [facility] Pneumococcal Polysaccharide, PPSV23 (PNEUMOVAX) 2018-01-19 00:00:00 Completed [facility] Pneumococcal Polysaccharide, PPSV23 (PNEUMOVAX) 2018-01-19 00:00:00 Completed [facility] Pneumococcal Polysaccharide, PPSV23 (PNEUMOVAX) 2018-01-19 00:00:00 Completed [facility] Pneumococcal Polysaccharide, PPSV23 (PNEUMOVAX) 2018-01-19 00:00:00 Completed [facility] Pneumococcal Polysaccharide, PPSV23 (PNEUMOVAX) 2018-01-19 00:00:00 Completed [facility] Pneumococcal Polysaccharide, PPSV23 (PNEUMOVAX) 2018-01-19 00:00:00 Completed [facility] Pneumococcal Polysaccharide, PPSV23 (PNEUMOVAX) 2018-01-19 00:00:00 Completed [facility] Pneumococcal Polysaccharide, PPSV23 (PNEUMOVAX) 2018-01-19 00:00:00 Completed [facility] Pneumococcal Polysaccharide, PPSV23 (PNEUMOVAX) 2018-01-19 00:00:00 Completed [facility] Pneumococcal Polysaccharide, PPSV23 (PNEUMOVAX) 2018-01-19 00:00:00 Completed [facility] Pneumococcal Polysaccharide, PPSV23 (PNEUMOVAX) 2018-01-19 00:00:00 Completed [facility] Pneumococcal Polysaccharide, PPSV23 (PNEUMOVAX) 2018-01-19 00:00:00 Completed [facility] Pneumococcal Polysaccharide, PPSV23 (PNEUMOVAX) 2018-01-19 00:00:00 Completed [facility] Pneumococcal Polysaccharide, PPSV23 (PNEUMOVAX) 2018-01-19 00:00:00 Completed [facility] Pneumococcal Polysaccharide, PPSV23 (PNEUMOVAX) 2018-01-19 00:00:00 Completed [facility] Pneumococcal Polysaccharide, PPSV23 (PNEUMOVAX) 2018-01-19 00:00:00 Completed [facility] Pneumococcal Polysaccharide, PPSV23 (PNEUMOVAX) 2018-01-19 00:00:00 Completed [facility] Pneumococcal Polysaccharide, PPSV23 (PNEUMOVAX) 2018-01-19 00:00:00 Completed [facility] Pneumococcal Polysaccharide, PPSV23 (PNEUMOVAX) 2018-01-19 00:00:00 Completed [facility] Pneumococcal Polysaccharide, PPSV23 (PNEUMOVAX) 2018-01-19 00:00:00 Completed [facility] Pneumococcal Polysaccharide, PPSV23 (PNEUMOVAX) 2018-01-19 00:00:00 Completed [facility] Pneumococcal Polysaccharide, PPSV23 (PNEUMOVAX) 2018-01-19 00:00:00 Completed [facility] Pneumococcal Polysaccharide, PPSV23 (PNEUMOVAX) 2018-01-19 00:00:00 Completed [facility] Pneumococcal Polysaccharide, PPSV23 (PNEUMOVAX) 2018-01-19 00:00:00 Completed [facility] Pneumococcal Polysaccharide, PPSV23 (PNEUMOVAX) 2018-01-19 00:00:00 Completed [facility] Pneumococcal Polysaccharide, PPSV23 (PNEUMOVAX) 2018-01-19 00:00:00 Completed [facility] Pneumococcal Polysaccharide, PPSV23 (PNEUMOVAX) 2018-01-19 00:00:00 Completed [facility] Pneumococcal Polysaccharide, PPSV23 (PNEUMOVAX) 2018-01-19 00:00:00 Completed [facility] Pneumococcal Polysaccharide, PPSV23 (PNEUMOVAX) 2018-01-19 00:00:00 Completed [facility] Pneumococcal Polysaccharide, PPSV23 (PNEUMOVAX) 2018-01-19 00:00:00 Completed [facility] TDAP (ADACEL) VACCINE 2017-06-20 00:00:00 Completed [facility] Pneumococcal 13 Conjugate, PCV13 (Prevnar 13) 2017-06-20 00:00:00 Completed [facility] TDAP (ADACEL) VACCINE 2017-06-20 00:00:00 Completed [facility] Pneumococcal 13 Conjugate, PCV13 (Prevnar 13) 2017-06-20 00:00:00 Completed [facility] TDAP (ADACEL) VACCINE 2017-06-20 00:00:00 Completed [facility] Pneumococcal 13 Conjugate, PCV13 (Prevnar 13) 2017-06-20 00:00:00 Completed [facility] TDAP (ADACEL) VACCINE 2017-06-20 00:00:00 Completed [facility] Pneumococcal 13 Conjugate, PCV13 (Prevnar 13) 2017-06-20 00:00:00 Completed [facility] TDAP (ADACEL) VACCINE 2017-06-20 00:00:00 Completed [facility] Pneumococcal 13 Conjugate, PCV13 (Prevnar 13) 2017-06-20 00:00:00 Completed [facility] TDAP (ADACEL) VACCINE 2017-06-20 00:00:00 Completed [facility] Pneumococcal 13 Conjugate, PCV13 (Prevnar 13) 2017-06-20 00:00:00 Completed [facility] TDAP (ADACEL) VACCINE 2017-06-20 00:00:00 Completed [facility] Pneumococcal 13 Conjugate, PCV13 (Prevnar 13) 2017-06-20 00:00:00 Completed [facility] TDAP (ADACEL) VACCINE 2017-06-20 00:00:00 Completed [facility] Pneumococcal 13 Conjugate, PCV13 (Prevnar 13) 2017-06-20 00:00:00 Completed [facility] TDAP (ADACEL) VACCINE 2017-06-20 00:00:00 Completed [facility] Pneumococcal 13 Conjugate, PCV13 (Prevnar 13) 2017-06-20 00:00:00 Completed [facility] TDAP (ADACEL) VACCINE 2017-06-20 00:00:00 Completed [facility] Pneumococcal 13 Conjugate, PCV13 (Prevnar 13) 2017-06-20 00:00:00 Completed [facility] TDAP (ADACEL) VACCINE 2017-06-20 00:00:00 Completed [facility] Pneumococcal 13 Conjugate, PCV13 (Prevnar 13) 2017-06-20 00:00:00 Completed [facility] TDAP (ADACEL) VACCINE 2017-06-20 00:00:00 Completed [facility] Pneumococcal 13 Conjugate, PCV13 (Prevnar 13) 2017-06-20 00:00:00 Completed [facility] TDAP (ADACEL) VACCINE 2017-06-20 00:00:00 Completed [facility] Pneumococcal 13 Conjugate, PCV13 (Prevnar 13) 2017-06-20 00:00:00 Completed [facility] TDAP (ADACEL) VACCINE 2017-06-20 00:00:00 Completed [facility] Pneumococcal 13 Conjugate, PCV13 (Prevnar 13) 2017-06-20 00:00:00 Completed [facility] TDAP (ADACEL) VACCINE 2017-06-20 00:00:00 Completed [facility] Pneumococcal 13 Conjugate, PCV13 (Prevnar 13) 2017-06-20 00:00:00 Completed [facility] TDAP (ADACEL) VACCINE 2017-06-20 00:00:00 Completed [facility] Pneumococcal 13 Conjugate, PCV13 (Prevnar 13) 2017-06-20 00:00:00 Completed [facility] TDAP (ADACEL) VACCINE 2017-06-20 00:00:00 Completed [facility] Pneumococcal 13 Conjugate, PCV13 (Prevnar 13) 2017-06-20 00:00:00 Completed [facility] TDAP (ADACEL) VACCINE 2017-06-20 00:00:00 Completed [facility] Pneumococcal 13 Conjugate, PCV13 (Prevnar 13) 2017-06-20 00:00:00 Completed [facility] TDAP (ADACEL) VACCINE 2017-06-20 00:00:00 Completed [facility] Pneumococcal 13 Conjugate, PCV13 (Prevnar 13) 2017-06-20 00:00:00 Completed [facility] TDAP (ADACEL) VACCINE 2017-06-20 00:00:00 Completed [facility] Pneumococcal 13 Conjugate, PCV13 (Prevnar 13) 2017-06-20 00:00:00 Completed [facility] TDAP (ADACEL) VACCINE 2017-06-20 00:00:00 Completed [facility] Pneumococcal 13 Conjugate, PCV13 (Prevnar 13) 2017-06-20 00:00:00 Completed [facility] TDAP (ADACEL) VACCINE 2017-06-20 00:00:00 Completed [facility] Pneumococcal 13 Conjugate, PCV13 (Prevnar 13) 2017-06-20 00:00:00 Completed [facility] TDAP (ADACEL) VACCINE 2017-06-20 00:00:00 Completed [facility] Pneumococcal 13 Conjugate, PCV13 (Prevnar 13) 2017-06-20 00:00:00 Completed [facility] TDAP (ADACEL) VACCINE 2017-06-20 00:00:00 Completed [facility] Pneumococcal 13 Conjugate, PCV13 (Prevnar 13) 2017-06-20 00:00:00 Completed [facility] Pneumococcal 13 Conjugate, PCV13 (Prevnar 13) 2017-06-20 00:00:00 Completed [facility] TDAP (ADACEL) VACCINE 2017-06-20 00:00:00 Completed [facility] TDAP (ADACEL) VACCINE 2017-06-20 00:00:00 Completed [facility] Pneumococcal 13 Conjugate, PCV13 (Prevnar 13) 2017-06-20 00:00:00 Completed [facility] TDAP (ADACEL) VACCINE 2017-06-20 00:00:00 Completed [facility] Pneumococcal 13 Conjugate, PCV13 (Prevnar 13) 2017-06-20 00:00:00 Completed [facility] TDAP (ADACEL) VACCINE 2017-06-20 00:00:00 Completed [facility] Pneumococcal 13 Conjugate, PCV13 (Prevnar 13) 2017-06-20 00:00:00 Completed [facility] TDAP (ADACEL) VACCINE 2017-06-20 00:00:00 Completed [facility] Pneumococcal 13 Conjugate, PCV13 (Prevnar 13) 2017-06-20 00:00:00 Completed [facility] TDAP (ADACEL) VACCINE 2017-06-20 00:00:00 Completed [facility] Pneumococcal 13 Conjugate, PCV13 (Prevnar 13) 2017-06-20 00:00:00 Completed [facility] TDAP (ADACEL) VACCINE 2017-06-20 00:00:00 Completed [facility] Pneumococcal 13 Conjugate, PCV13 (Prevnar 13) 2017-06-20 00:00:00 Completed [facility] TDAP (ADACEL) VACCINE 2017-06-20 00:00:00 Completed [facility] Pneumococcal 13 Conjugate, PCV13 (Prevnar 13) 2017-06-20 00:00:00 Completed [facility] TDAP (ADACEL) VACCINE 2017-06-20 00:00:00 Completed [facility] Pneumococcal 13 Conjugate, PCV13 (Prevnar 13) 2017-06-20 00:00:00 Completed [facility] TDAP (ADACEL) VACCINE 2017-06-20 00:00:00 Completed [facility] Pneumococcal 13 Conjugate, PCV13 (Prevnar 13) 2017-06-20 00:00:00 Completed [facility] TDAP (ADACEL) VACCINE 2017-06-20 00:00:00 Completed [facility] Pneumococcal 13 Conjugate, PCV13 (Prevnar 13) 2017-06-20 00:00:00 Completed [facility] Pneumococcal 13 Conjugate, PCV13 (Prevnar 13) 2017-06-20 00:00:00 Completed [facility] TDAP (ADACEL) VACCINE 2017-06-20 00:00:00 Completed [facility] TDAP (ADACEL) VACCINE 2017-06-20 00:00:00 Completed [facility] Pneumococcal 13 Conjugate, PCV13 (Prevnar 13) 2017-06-20 00:00:00 Completed [facility] TDAP (ADACEL) VACCINE 2017-06-20 00:00:00 Completed [facility] Pneumococcal 13 Conjugate, PCV13 (Prevnar 13) 2017-06-20 00:00:00 Completed [facility] TDAP (ADACEL) VACCINE 2017-06-20 00:00:00 Completed [facility] Pneumococcal 13 Conjugate, PCV13 (Prevnar 13) 2017-06-20 00:00:00 Completed [facility] TDAP (ADACEL) VACCINE 2017-06-20 00:00:00 Completed [facility] Pneumococcal 13 Conjugate, PCV13 (Prevnar 13) 2017-06-20 00:00:00 Completed [facility] TDAP (ADACEL) VACCINE 2017-06-20 00:00:00 Completed [facility] Pneumococcal 13 Conjugate, PCV13 (Prevnar 13) 2017-06-20 00:00:00 Completed [facility] TDAP (ADACEL) VACCINE 2017-06-20 00:00:00 Completed [facility] Pneumococcal 13 Conjugate, PCV13 (Prevnar 13) 2017-06-20 00:00:00 Completed [facility] TDAP (ADACEL) VACCINE 2017-06-20 00:00:00 Completed [facility] Pneumococcal 13 Conjugate, PCV13 (Prevnar 13) 2017-06-20 00:00:00 Completed [facility] TDAP (ADACEL) VACCINE 2017-06-20 00:00:00 Completed [facility] Pneumococcal 13 Conjugate, PCV13 (Prevnar 13) 2017-06-20 00:00:00 Completed [facility] TDAP (ADACEL) VACCINE 2017-06-20 00:00:00 Completed [facility] Pneumococcal 13 Conjugate, PCV13 (Prevnar 13) 2017-06-20 00:00:00 Completed [facility] TDAP (ADACEL) VACCINE 2017-06-20 00:00:00 Completed [facility] Pneumococcal 13 Conjugate, PCV13 (Prevnar 13) 2017-06-20 00:00:00 Completed [facility] TDAP (ADACEL) VACCINE 2017-06-20 00:00:00 Completed [facility] Pneumococcal 13 Conjugate, PCV13 (Prevnar 13) 2017-06-20 00:00:00 Completed [facility] TDAP (ADACEL) VACCINE 2017-06-20 00:00:00 Completed [facility] Pneumococcal 13 Conjugate, PCV13 (Prevnar 13) 2017-06-20 00:00:00 Completed [facility] Pneumococcal 13 Conjugate, PCV13 (Prevnar 13) 2017-06-20 00:00:00 Completed [facility] TDAP (ADACEL) VACCINE 2017-06-20 00:00:00 Completed [facility] Pneumococcal 13 Conjugate, PCV13 (Prevnar 13) 2017-06-20 00:00:00 Completed [facility] TDAP (ADACEL) VACCINE 2017-06-20 00:00:00 Completed [facility] TDAP (ADACEL) VACCINE 2017-06-20 00:00:00 Completed [facility] Pneumococcal 13 Conjugate, PCV13 (Prevnar 13) 2017-06-20 00:00:00 Completed [facility] TDAP (ADACEL) VACCINE 2017-06-20 00:00:00 Completed [facility] Pneumococcal 13 Conjugate, PCV13 (Prevnar 13) 2017-06-20 00:00:00 Completed [facility] TDAP (ADACEL) VACCINE 2017-06-20 00:00:00 Completed [facility] Pneumococcal 13 Conjugate, PCV13 (Prevnar 13) 2017-06-20 00:00:00 Completed [facility] TDAP (ADACEL) VACCINE 2017-06-20 00:00:00 Completed [facility] Pneumococcal 13 Conjugate, PCV13 (Prevnar 13) 2017-06-20 00:00:00 Completed [facility] TDAP (ADACEL) VACCINE 2017-06-20 00:00:00 Completed [facility] Pneumococcal 13 Conjugate, PCV13 (Prevnar 13) 2017-06-20 00:00:00 Completed [facility] TDAP (ADACEL) VACCINE 2017-06-20 00:00:00 Completed [facility] Pneumococcal 13 Conjugate, PCV13 (Prevnar 13) 2017-06-20 00:00:00 Completed [facility] TDAP (ADACEL) VACCINE 2017-06-20 00:00:00 Completed [facility] Pneumococcal 13 Conjugate, PCV13 (Prevnar 13) 2017-06-20 00:00:00 Completed [facility] TDAP (ADACEL) VACCINE 2017-06-20 00:00:00 Completed [facility] Pneumococcal 13 Conjugate, PCV13 (Prevnar 13) 2017-06-20 00:00:00 Completed [facility] TDAP (ADACEL) VACCINE 2017-06-20 00:00:00 Completed [facility] Pneumococcal 13 Conjugate, PCV13 (Prevnar 13) 2017-06-20 00:00:00 Completed [facility] TDAP (ADACEL) VACCINE 2017-06-20 00:00:00 Completed [facility] Pneumococcal 13 Conjugate, PCV13 (Prevnar 13) 2017-06-20 00:00:00 Completed [facility] TDAP (ADACEL) VACCINE 2017-06-20 00:00:00 Completed [facility] Pneumococcal 13 Conjugate, PCV13 (Prevnar 13) 2017-06-20 00:00:00 Completed [facility] TDAP (ADACEL) VACCINE 2017-06-20 00:00:00 Completed [facility] Pneumococcal 13 Conjugate, PCV13 (Prevnar 13) 2017-06-20 00:00:00 Completed [facility] Pneumococcal 13 Conjugate, PCV13 (Prevnar 13) 2017-06-20 00:00:00 Completed [facility] TDAP (ADACEL) VACCINE 2017-06-20 00:00:00 Completed [facility] TDAP (ADACEL) VACCINE 2017-06-20 00:00:00 Completed [facility] Pneumococcal 13 Conjugate, PCV13 (Prevnar 13) 2017-06-20 00:00:00 Completed [facility] TDAP (ADACEL) VACCINE 2017-06-20 00:00:00 Completed [facility] Pneumococcal 13 Conjugate, PCV13 (Prevnar 13) 2017-06-20 00:00:00 Completed [facility] TDAP (ADACEL) VACCINE 2017-06-20 00:00:00 Completed [facility] Pneumococcal 13 Conjugate, PCV13 (Prevnar 13) 2017-06-20 00:00:00 Completed [facility] TDAP (ADACEL) VACCINE 2017-06-20 00:00:00 Completed [facility] Pneumococcal 13 Conjugate, PCV13 (Prevnar 13) 2017-06-20 00:00:00 Completed [facility] Influenza Virus Vaccine Quad IM 3+ YRS 2017-01-20 00:00:00 Completed [facility] Influenza Virus Vaccine Quad IM 3+ YRS 2017-01-20 00:00:00 Completed [facility] Influenza Virus Vaccine Quad IM 3+ YRS 2017-01-20 00:00:00 Completed [facility] Influenza Virus Vaccine Quad IM 3+ YRS 2017-01-20 00:00:00 Completed [facility] Influenza Virus Vaccine Quad IM 3+ YRS 2017-01-20 00:00:00 Completed [facility] Influenza Virus Vaccine Quad IM 3+ YRS 2017-01-20 00:00:00 Completed [facility] Influenza Virus Vaccine Quad IM 3+ YRS 2017-01-20 00:00:00 Completed [facility] Influenza Virus Vaccine Quad IM 3+ YRS 2017-01-20 00:00:00 Completed [facility] Influenza Virus Vaccine Quad IM 3+ YRS 2017-01-20 00:00:00 Completed [facility] Influenza Virus Vaccine Quad IM 3+ YRS 2017-01-20 00:00:00 Completed [facility] Influenza Virus Vaccine Quad IM 3+ YRS 2017-01-20 00:00:00 Completed [facility] Influenza Virus Vaccine Quad IM 3+ YRS 2017-01-20 00:00:00 Completed [facility] Influenza Virus Vaccine Quad IM 3+ YRS 2017-01-20 00:00:00 Completed [facility] Influenza Virus Vaccine Quad IM 3+ YRS 2017-01-20 00:00:00 Completed [facility] Influenza Virus Vaccine Quad IM 3+ YRS 2017-01-20 00:00:00 Completed [facility] Influenza Virus Vaccine Quad IM 3+ YRS 2017-01-20 00:00:00 Completed [facility] Influenza Virus Vaccine Quad IM 3+ YRS 2017-01-20 00:00:00 Completed [facility] Influenza Virus Vaccine Quad IM 3+ YRS 2017-01-20 00:00:00 Completed [facility] Influenza Virus Vaccine Quad IM 3+ YRS 2017-01-20 00:00:00 Completed [facility] Influenza Virus Vaccine Quad IM 3+ YRS 2017-01-20 00:00:00 Completed [facility] Influenza Virus Vaccine Quad IM 3+ YRS 2017-01-20 00:00:00 Completed [facility] Influenza Virus Vaccine Quad IM 3+ YRS 2017-01-20 00:00:00 Completed [facility] Influenza Virus Vaccine Quad IM 3+ YRS 2017-01-20 00:00:00 Completed [facility] Influenza Virus Vaccine Quad IM 3+ YRS 2017-01-20 00:00:00 Completed [facility] Influenza Virus Vaccine Quad IM 3+ YRS 2017-01-20 00:00:00 Completed [facility] Influenza Virus Vaccine Quad IM 3+ YRS 2017-01-20 00:00:00 Completed [facility] Influenza Virus Vaccine Quad IM 3+ YRS 2017-01-20 00:00:00 Completed [facility] Influenza Virus Vaccine Quad IM 3+ YRS 2017-01-20 00:00:00 Completed [facility] Influenza Virus Vaccine Quad IM 3+ YRS 2017-01-20 00:00:00 Completed [facility] Influenza Virus Vaccine Quad IM 3+ YRS 2017-01-20 00:00:00 Completed [facility] Influenza Virus Vaccine Quad IM 3+ YRS 2017-01-20 00:00:00 Completed [facility] Influenza Virus Vaccine Quad IM 3+ YRS 2017-01-20 00:00:00 Completed [facility] Influenza Virus Vaccine Quad IM 3+ YRS 2017-01-20 00:00:00 Completed [facility] Influenza Virus Vaccine Quad IM 3+ YRS 2017-01-20 00:00:00 Completed [facility] Influenza Virus Vaccine Quad IM 3+ YRS 2017-01-20 00:00:00 Completed [facility] Influenza Virus Vaccine Quad IM 3+ YRS 2017-01-20 00:00:00 Completed [facility] Influenza Virus Vaccine Quad IM 3+ YRS 2017-01-20 00:00:00 Completed [facility] Influenza Virus Vaccine Quad IM 3+ YRS 2017-01-20 00:00:00 Completed [facility] Influenza Virus Vaccine Quad IM 3+ YRS 2017-01-20 00:00:00 Completed [facility] Influenza Virus Vaccine Quad IM 3+ YRS 2017-01-20 00:00:00 Completed [facility] Influenza Virus Vaccine Quad IM 3+ YRS 2017-01-20 00:00:00 Completed [facility] Influenza Virus Vaccine Quad IM 3+ YRS 2017-01-20 00:00:00 Completed [facility] Influenza Virus Vaccine Quad IM 3+ YRS 2017-01-20 00:00:00 Completed [facility] Influenza Virus Vaccine Quad IM 3+ YRS 2017-01-20 00:00:00 Completed [facility] Influenza Virus Vaccine Quad IM 3+ YRS 2017-01-20 00:00:00 Completed [facility] Influenza Virus Vaccine Quad IM 3+ YRS 2017-01-20 00:00:00 Completed [facility] Influenza Virus Vaccine Quad IM 3+ YRS 2017-01-20 00:00:00 Completed [facility] Influenza Virus Vaccine Quad IM 3+ YRS 2017-01-20 00:00:00 Completed [facility] Influenza Virus Vaccine Quad IM 3+ YRS 2017-01-20 00:00:00 Completed [facility] Influenza Virus Vaccine Quad IM 3+ YRS 2017-01-20 00:00:00 Completed [facility] Influenza Virus Vaccine Quad IM 3+ YRS 2017-01-20 00:00:00 Completed [facility] Influenza Virus Vaccine Quad IM 3+ YRS 2017-01-20 00:00:00 Completed [facility] Influenza Virus Vaccine Quad IM 3+ YRS 2017-01-20 00:00:00 Completed [facility] Influenza Virus Vaccine Quad IM 3+ YRS 2017-01-20 00:00:00 Completed [facility] Influenza Virus Vaccine Quad IM 3+ YRS 2017-01-20 00:00:00 Completed [facility] Influenza Virus Vaccine Quad IM 3+ YRS 2017-01-20 00:00:00 Completed [facility] Influenza Virus Vaccine Quad IM 3+ YRS 2017-01-20 00:00:00 Completed [facility] Influenza Virus Vaccine Quad IM 3+ YRS 2017-01-20 00:00:00 Completed [facility] Influenza Virus Vaccine Quad IM 3+ YRS 2017-01-20 00:00:00 Completed [facility] Influenza Virus Vaccine Quad IM 3+ YRS 2017-01-20 00:00:00 Completed [facility] Influenza Virus Vaccine Quad IM 3+ YRS 2017-01-20 00:00:00 Completed [facility] Influenza Virus Vaccine Quad IM 3+ YRS 2017-01-20 00:00:00 Completed [facility] Influenza Virus Vaccine Quad IM 3+ YRS 2017-01-20 00:00:00 Completed [facility] Influenza Virus Vaccine Quad IM 3+ YRS 2017-01-20 00:00:00 Completed [facility] Influenza Virus Vaccine Quad IM 3+ YRS 2017-01-20 00:00:00 Completed [facility] Influenza Virus Vaccine Quad IM 3+ YRS 2017-01-20 00:00:00 Completed [facility] Influenza Virus Vaccine Quad IM 3+ YRS 2017-01-20 00:00:00 Completed [facility] Influenza Virus Vaccine Quad IM 3+ YRS Unknown Completed [facility] Pneumococcal 13 Conjugate, PCV13 (Prevnar 13) Unknown Completed [facility] TDAP (ADACEL) VACCINE Unknown Completed [facility] Pneumococcal Polysaccharide, PPSV23 (PNEUMOVAX) Unknown Completed [facility] SARS-COV-2 COVID-19 PFIZER VACCINE Unknown Completed [facility] SARS-COV-2 COVID-19 PFIZER VACCINE Unknown Completed [facility] SARS-COV-2 COVID-19 BRANDO-SUCROSE VACCINE 12 YRS+, BIVALENT 0.3ML, IM, (PFIZER RESTREPO TOP) Unknown Completed [facility] Influenza Virus Vaccine Quad IM, Preserv and ABX Free 6 MO-64 YRS (FLUCELVAX) Unknown Completed [facility] Influenza Virus Vaccine Quad IM 3+ YRS Unknown Completed [facility] Pneumococcal 13 Conjugate, PCV13 (Prevnar 13) Unknown Completed [facility] TDAP (ADACEL) VACCINE Unknown Completed [facility] Pneumococcal Polysaccharide, PPSV23 (PNEUMOVAX) Unknown Completed [facility] SARS-COV-2 COVID-19 PFIZER VACCINE Unknown Completed [facility] SARS-COV-2 COVID-19 PFIZER VACCINE Unknown Completed [facility] SARS-COV-2 COVID-19 BRANDO-SUCROSE VACCINE 12 YRS+, BIVALENT 0.3ML, IM, (PFIZER RESTREPO TOP) Unknown Completed [facility] Influenza Virus Vaccine Quad IM, Preserv and ABX Free 6 MO-64 YRS (FLUCELVAX) Unknown Completed [facility] Influenza Virus Vaccine Quad IM 3+ YRS Unknown Completed [facility] Pneumococcal 13 Conjugate, PCV13 (Prevnar 13) Unknown Completed [facility] TDAP (ADACEL) VACCINE Unknown Completed [facility] Pneumococcal Polysaccharide, PPSV23 (PNEUMOVAX) Unknown Completed [facility] SARS-COV-2 COVID-19 PFIZER VACCINE Unknown Completed [facility] SARS-COV-2 COVID-19 PFIZER VACCINE Unknown Completed [facility] SARS-COV-2 COVID-19 BRANDO-SUCROSE VACCINE 12 YRS+, BIVALENT 0.3ML, IM, (PFIZER RESTREPO TOP) Unknown Completed [facility] Influenza Virus Vaccine Quad IM, Preserv and ABX Free 6 MO-64 YRS (FLUCELVAX) Unknown Completed [facility] Influenza Virus Vaccine Quad IM 3+ YRS Unknown Completed [facility] Pneumococcal 13 Conjugate, PCV13 (Prevnar 13) Unknown Completed [facility] TDAP (ADACEL) VACCINE Unknown Completed [facility] Pneumococcal Polysaccharide, PPSV23 (PNEUMOVAX) Unknown Completed [facility] SARS-COV-2 COVID-19 PFIZER VACCINE Unknown Completed [facility] SARS-COV-2 COVID-19 PFIZER VACCINE Unknown Completed [facility] SARS-COV-2 COVID-19 BRANDO-SUCROSE VACCINE 12 YRS+, BIVALENT 0.3ML, IM, (PFIZER RESTREPO TOP) Unknown Completed [facility] Influenza Virus Vaccine Quad IM, Preserv and ABX Free 6 MO-64 YRS (FLUCELVAX) Unknown Completed [facility] Influenza Virus Vaccine Quad IM 3+ YRS Unknown Completed [facility] Pneumococcal 13 Conjugate, PCV13 (Prevnar 13) Unknown Completed [facility] TDAP (ADACEL) VACCINE Unknown Completed [facility] Pneumococcal Polysaccharide, PPSV23 (PNEUMOVAX) Unknown Completed [facility] SARS-COV-2 COVID-19 PFIZER VACCINE Unknown Completed [facility] SARS-COV-2 COVID-19 PFIZER VACCINE Unknown Completed [facility] SARS-COV-2 COVID-19 BRANDO-SUCROSE VACCINE 12 YRS+, BIVALENT 0.3ML, IM, (PFIZER RESTREPO TOP) Unknown Completed [facility] Influenza Virus Vaccine Quad IM, Preserv and ABX Free 6 MO-64 YRS (FLUCELVAX) Unknown Completed [facility] Influenza Virus Vaccine Quad IM 3+ YRS Unknown Completed [facility] Pneumococcal 13 Conjugate, PCV13 (Prevnar 13) Unknown Completed [facility] TDAP (ADACEL) VACCINE Unknown Completed [facility] Pneumococcal Polysaccharide, PPSV23 (PNEUMOVAX) Unknown Completed [facility] SARS-COV-2 COVID-19 PFIZER VACCINE Unknown Completed [facility] SARS-COV-2 COVID-19 PFIZER VACCINE Unknown Completed [facility] SARS-COV-2 COVID-19 BRANDO-SUCROSE VACCINE 12 YRS+, BIVALENT 0.3ML, IM, (PFIZER RESTREPO TOP) Unknown Completed [facility] Influenza Virus Vaccine Quad IM, Preserv and ABX Free 6 MO-64 YRS (FLUCELVAX) Unknown Completed [facility] Influenza Virus Vaccine Quad IM 3+ YRS Unknown Completed [facility] Pneumococcal 13 Conjugate, PCV13 (Prevnar 13) Unknown Completed [facility] TDAP (ADACEL) VACCINE Unknown Completed [facility] Pneumococcal Polysaccharide, PPSV23 (PNEUMOVAX) Unknown Completed [facility] SARS-COV-2 COVID-19 PFIZER VACCINE Unknown Completed [facility] SARS-COV-2 COVID-19 PFIZER VACCINE Unknown Completed [facility] SARS-COV-2 COVID-19 BRANDO-SUCROSE VACCINE 12 YRS+, BIVALENT 0.3ML, IM, (PFIZER RESTREPO TOP) Unknown Completed [facility] Influenza Virus Vaccine Quad IM, Preserv and ABX Free 6 MO-64 YRS (FLUCELVAX) Unknown Completed [facility] Vital Signs Vital Name Observation Time Observation Value Comments S ource Systolic blood pressure 2022-01-11 20:29:00 169 mm[Hg] [facility] Diastolic blood pressure 2022-01-11 20:29:00 92 mm[Hg] [facility] Heart rate 2022-01-11 20:29:00 91 /min [facility] Body temperature 2022-01-11 20:24:00 36.67 Nellie [facility] Respiratory rate 2022-01-11 20:24:00 20 /min [facility] Body height 2022-01-11 20:24:00 177.8 cm [facility] Body weight 2022-01-11 20:24:00 76.204 kg [facility] BMI 2022-01-11 20:24:00 24.11 kg/m2 [facility] Oxygen saturation in Arterial blood by Pulse oximetry 2022-01-11 20:24:00 96 /min [facility] Systolic blood pressure 2018-10-05 18:47:00 152 mm[Hg] [facility] Diastolic blood pressure 2018-10-05 18:47:00 82 mm[Hg] [facility] Heart rate 2018-10-05 18:47:00 78 /min [facility] Body temperature 2018-10-05 18:47:00 36.28 Nellie [facility] Respiratory rate 2018-10-05 18:47:00 18 /min [facility] Body height 2018-10-05 18:47:00 177.8 cm [facility] Body weight 2018-10-05 18:47:00 94.756 kg [facility] BMI 2018-10-05 18:47:00 29.97 kg/m2 [facility] Procedures Procedure Date / Time Performed Performing Clinician Source FLU VACC ([id number]), 6 MO-64 YRS, .5ML, IM, QUAD (FLUCELVAX) 2022-01-11 21:25:28 [facility] SARS-COV-2 COVID-19 BRANDO-SUCROSE VACCINE 12 YRS+, BIVALENT 0.3ML, IM, (PFIZER RESTREPO TOP) 2022-01-11 21:25:28 [facility] 2018-10-05 20:45:00 [facility] BILI UN[facility]ATED/BILI CONJUG 2018-10-05 20:45:00 [facility] COMP. METABOLIC PANEL (85367) 2018-10-05 20:45:00 [facility] LIPID PANEL (77689)(TOTAL CHOLESTEROL, TRIGLYCERIDES, HDL) 2018-10-05 20:45:00 [facility] CBC WITH DIFFERENTIAL 2018-10-05 20:45:00 Eliecer Kulkarni [facility] CD4 SUBSET ASSAY 2018-10-05 20:45:00 Carola [facility]1 BY REAL-TIME PCR QUANT 2018-10-05 20:45:00 [facility] HEMOGLOBINOPATHY EVALUATION 2018-10-05 20:45:00 [facility] GALV ONLY - SYPHILIS IGG/IGM 2018-10-05 20:45:00 [facility] ASSIGNMENT OF BENEFITS 2018-10-05 18:21:48 Docto r Unassigned, [place] [facility] Encounters Start Date/Time End Date/Time Encounter Type Admission Type Attending Clinicians Care Facility Care Department Encounter ID Source 2023-03-21 00:00:00 2023-03-21 00:00:00 [facility] ..840.114 350.1.13.10 4.2.7.2.[id number] [facility] 2023-02-18 10:00:00 2023-02-18 10:00:00 Outpatient R CAROLA KULKARNI [facility] [id number] [facility] 2023-02-07 00:00:00 2023-02-07 00:00:00 Refill [facility] ..840.114 350.1.13.10 4.2.7.2.[id number] [facility] 2023-01-13 00:00:00 2023-01-13 00:00:00 Refill [facility] 1..840.114 350.1.13.10 4.2.7.2.[id number] [facility] 2022-12-20 16:00:00 2022-12-20 16:00:00 Outpatient R CAROLA KULKARNI [facility] [id number] [facility] 2022-12-17 00:00:00 2022-12-17 00:00:00 Refill [facility] 1.2.840.114 350.1.13.10 4.2.7.2.[id number] [facility] 2022-11-19 00:00:00 2022-11-19 00:00:00 Refill [facility] 1.2.840.114 350.1.13.10 4.2.7.2.[id number] [facility] 2022-10-17 00:00:00 2022-10-17 00:00:00 Telephone [facility] 1.2.840.114 350.1.13.10 4.2.7.2.[id number] [facility] 2022-09-26 00:00:00 2022-09-26 00:00:00 Telephone [facility] 1.2.840.114 350.1.13.10 4.2.7.2.[id number] [facility] 2022-06-21 16:00:00 2022-06-21 16:00:00 Outpatient R CAROLA KULKARNI [facility] [id number] [facility] 2022-06-11 00:00:00 2022-06-11 00:00:00 Refill [facility] 1.2.840.114 350.1.13.10 4.2.7.2.[id number] [facility] 2022-05-14 00:00:00 2022-05-14 00:00:00 Refill [facility] 1.2.840.114 350.1.13.10 4.2.7.2.[id number] [facility] 2022-04-23 00:00:00 2022-04-23 00:00:00 Telephone [facility] 1.2.840.114 350.1.13.10 4.2.7.2.[id number] [facility] 2022-04-10 00:00:00 2022-04-10 00:00:00 Refill [facility] 1.2.840.114 350.1.13.10 4.2.7.2.[id number] [facility] 2022-03-11 00:00:00 2022-03-11 00:00:00 Telephone [facility] 1.2.840.114 350.1.13.10 4.2.7.2.[id number] [facility] 2022-02-22 15:30:00 2022-02-22 15:30:00 Outpatient R CAROLA KULKARNI [facility] [id number] [facility] 2022-01-14 00:00:00 2022-01-14 00:00:00 Telephone Oral Lion [facility] 1.2.840.114 350.1.13.10 4.2.7.2.[id number] [facility] 2022-01-11 14:00:00 2022-01-11 14:30:00 Office Visit [facility] 1.2.840.114 350.1.13.10 4.2.7.2.[id number] [facility] 2022-01-11 14:00:00 2022-01-11 14:00:00 Outpatient CAROLA LALA [facility] [id number] [facility] 2022-01-11 00:00:00 2022-01-11 00:00:00 Case Management Amisha Oral [facility] 1.2.840.114 350.1.13.10 4.2.7.2.[id number] [facility] 2022-01-09 00:00:00 2022-01-09 00:00:00 Case Management Nano Gregory [facility] 1.2.840.114 350.1.13.10 4.2.7.2.[id number] [facility] 2022-01-09 00:00:00 2022-01-09 00:00:00 Case Management Nano Gregory [facility] 1.2840.114 350.1.13.10 4.2.7.2.[id number] [facility] 2022-01-08 10:00:00 2022-01-08 10:00:00 Outpatient CAROLA LALA [facility] [id number] [facility] 2021-12-21 13:00:00 2021-12-21 13:00:00 Outpatient CAROLA LALA [facility] [id number] [facility] 2021-12-18 00:00:00 2021-12-18 00:00:00 Case Management Cesia Juarez [facility] 1.2.840.114 350.1.13.10 4.2.7.2.[id number] [facility] 2021-12-14 13:00:00 2021-12-14 13:00:00 Outpatient CAROLA LALA [facility] [id number] [facility] 2021-12-14 00:00:00 2021-12-14 00:00:00 Case Management Nano Gregory [facility] 1.2.840.114 350.1.13.10 4.2.7.2.[id number] [facility] 2021-12-06 00:00:00 2021-12-06 00:00:00 Case Management Nano Gregory [facility] 1.2.840.114 350.1.13.10 4.2.7.2.[id number] [facility] 2020-09-06 09:30:00 2020-09-06 09:30:00 Outpatient R SHAD CAROLA [facility] [id number] [facility] 2020-09-05 00:00:00 2020-09-05 00:00:00 Refholly Kulkarni [facility] 1.2.840.114 350.1.13.10 4.2.7.2.[id number] [facility] 2020-09-05 00:00:00 2020-09-05 00:00:00 Telephone [employer] [facility] 1.2.840.114 350.1.13.10 4.2.7.2.[id number] [facility] 2020-09-05 00:00:00 2020-09-05 00:00:00 Deepak Kulkarni [facility] 1.2.840.114 350.1.13.10 4.2.7.2.686 [id number] [id number] 2020-09-05 00:00:00 2020-09-05 00:00:00 Telephone [employer] [facility] 1.2.840.114 350.1.13.10 4.2.7.2.686 [id number] 2020-03-15 00:00:00 2020-03-15 00:00:00 Letter (Out) Rosa Morales [facility] 1.2.840.114 350.1.13.10 4.2.7.2.[id number] [facility] 2020-03-15 00:00:00 2020-03-15 00:00:00 Letter (Out) Rosa Morales [facility] 1.2.840.114 350.1.13.10 4.2.7.2.686 [id number] 089 [id number] 2020-03-07 14:30:00 2020-03-07 14:30:00 Outpatient CAROLA LALA [facility] [id number] [facility] 2020-03-06 00:00:00 2020-03-06 00:00:00 Telephone Rosa Borrego [facility] 1.2.840.114 350.1.13.10 4.2.7.2.[id number] [facility] 2020-03-06 00:00:00 2020-03-06 00:00:00 Telephone Rosa Borrego [facility] 1.2.840.114 350.1.13.10 4.2.7.2.686 [id number] 2020-03-01 00:00:00 2020-03-01 00:00:00 Case Management Rosa Morales [facility] 1.2.840.114 350.1.13.10 4.2.7.2.[id number] [facility] 2020-03-01 00:00:00 2020-03-01 00:00:00 Case Management Rosa Morales [facility] 1.2.840.114 350.1.13.10 4.2.7.2.686 [id number] [id number] 2020-02-29 10:30:00 2020-02-29 10:30:00 Outpatient CAROLA LALA [facility] [id number] [facility] 2020-02-29 00:00:00 2020-02-29 00:00:00 [facility] 1.2.840.114 350.1.13.10 4.2.7.2.[id number] [facility] 2020-02-29 00:00:00 2020-02-29 00:00:00 [facility] 1.2.840.114 350.1.13.10 4.2.7.2.686 [id number] 089 [id number] 2020-02-25 00:00:00 2020-02-25 00:00:00 Telephone Rosa Borrego [facility] 1.2.840.114 350.1.13.10 4.2.7.2.[id number] [facility] 2020-02-25 00:00:00 2020-02-25 00:00:00 Telephone Rosa Borrego [facility] 1.2.840.114 350.1.13.10 4.2.7.2.686 [id number] 2020-02-22 00:00:00 2020-02-22 00:00:00 Case Management Zahira Garsia [facility] 1.2.840.114 350.1.13.10 4.2.7.2.686 [id number] 089 [id number] 2020-02-22 00:00:00 2020-02-22 00:00:00 Case Management Nano Gregory [facility] 1.2.840.114 350.1.13.10 4.2.7.2.[id number] [facility] 2020-02-22 00:00:00 2020-02-22 00:00:00 Case Management Zahira Garsia [facility] 1.2.840.114 350.1.13.10 4.2.7.2.[id number] [facility] 2020-02-22 00:00:00 2020-02-22 00:00:00 Case Management Nano Gregory [facility] 1.2.840.114 350.1.13.10 4.2.7.2.686 [id number] 2020-02-09 10:30:00 2020-02-09 10:30:00 Outpatient Chhaya CAROLA KULKARNI [facility] [id number] [facility] 2020-02-07 00:00:00 2020-02-07 00:00:00 Case Management Rosa Borrego [facility] 1.2.840.114 350.1.13.10 4.2.7.2.686 [id number] 2020-02-07 00:00:00 2020-02-07 00:00:00 Case Management Nano Gergory [facility] 1.2.840.114 350.1.13.10 4.2.7.2.686 [id number] 2020-02-07 00:00:00 2020-02-07 00:00:00 Case Management Rosa Borrego [facility] 1.2.840.114 350.1.13.10 4.2.7.2.[id number] [facility] 2020-02-07 00:00:00 2020-02-07 00:00:00 Case Management Nano Gregory [facility] 1.2.840.114 350.1.13.10 4.2.7.2.[id number] [facility] 2020-01-31 00:00:00 2020-01-31 00:00:00 Telephone Fortunato Small [facility] 1.2.840.114 350.1.13.10 4.2.7.2.686 [id number] 089 [id number] 2020-01-31 00:00:00 2020-01-31 00:00:[facility] 1.2.840.114 350.1.13.10 4.2.7.2.[id number] [facility] 2020-01-28 00:00:00 2020-01-28 00:00:00 [facility] 1.2.840.114 350.1.13.10 4.2.7.2.686 [id number] 089 [id number] 2020-01-28 00:00:00 2020-01-28 00:00:00 [facility] 1.2.840.114 350.1.13.10 4.2.7.2.[id number] [facility] 2020-01-12 00:00:00 2020-01-12 00:00:00 Case Management [facility] 1.2.840.114 350.1.13.10 4.2.7.2.686 [id number] 089 [id number] 2020-01-12 00:00:00 2020-01-12 00:00:00 [facility] 1.2.840.114 350.1.13.10 4.2.7.2.[id number] [facility] 2020-01-03 10:00:00 2020-01-03 10:00:00 Outpatient CAROLA LALA [facility] [id number] [facility] 2019-12-31 00:00:00 2019-12-31 00:00:00 Telephone Oral [facility] 1.2.840.114 350.1.13.10 4.2.7.2.686 [id number] 089 [id number] 2019-12-31 00:00:00 2019-12-31 00:00:00 Telephone Oral Lion [facility] 1.2.840.114 350.1.13.10 4.2.7.2.[id number] [facility] 2019-12-28 00:00:00 2019-12-28 00:00:00 Case Management [facility] Rosa [facility] 1.2.840.114 350.1.13.10 4.2.7.2.686 [id number] 089 [id number] 2019-12-28 00:00:00 2019-12-28 00:00:00 Case Management [facility] Rosa [facility] 1.2.840.114 350.1.13.10 4.2.7.2.[id number] [facility] 2019-12-14 00:00:00 2019-12-14 00:00:00 Telephone [facility] 1.2.840.114 350.1.13.10 4.2.7.2.686 [id number] 089 [id number] 2019-12-14 00:00:00 2019-12-14 00:00:00 Telephone [facility] Rosa [facility] 1.2.840.114 350.1.13.10 4.2.7.2.[id number] [facility] 2019-12-08 00:00:00 2019-12-08 00:00:00 [facility] 1.2.840.114 350.1.13.10 4.2.7.2.686 [id number] 089 [id number] 2019-12-08 00:00:00 2019-12-08 00:00:00 [facility] 1.2.840.114 350.1.13.10 4.2.7.2.[id number] [facility] 2019-11-23 00:00:00 2019-11-23 00:00:00 Telephone Rosa Morales [facility] 1.2.840.114 350.1.13.10 4.2.7.2.686 [id number] 089 [id number] 2019-11-23 00:00:00 2019-11-23 00:00:00 Telephone Rosa Morales [facility] 1.2.840.114 350.1.13.10 4.2.7.2.[id number] [facility] 2019-11-16 08:30:00 2019-11-16 08:30:00 Outpatient CAROLA LALA [facility] [id number] [facility] 2019-11-15 00:00:00 2019-11-15 00:00:00 Case Management Rosa Borrego [facility] 1.2.840.114 350.1.13.10 4.2.7.2.686 [id number] 2019-11-15 00:00:00 2019-11-15 00:00:00 Case Management Rosa Borrego [facility] 1.2.840.114 350.1.13.10 4.2.7.2.[id number] [facility] 2019-11-04 00:00:00 2019-11-04 00:00:00 Case Management Benji Gregoryry [facility] [facility] 1.2.840.114 350.1.13.10 4.2.7.2.[id number] [facility] 2019-11-04 00:00:00 2019-11-04 00:00:00 Case Management Benji Gregoryry Zora [facility] 1.2.840.114 350.1.13.10 4.2.7.2.686 [id number] 089 [id number] 2019-11-02 15:30:00 2019-11-02 15:30:00 Outpatient CAROLA LALA [facility] [id number] [facility] 2019-11-02 00:00:00 2019-11-02 00:00:00 Case Management Nano Gregory [facility] 1.2.840.114 350.1.13.10 4.2.7.2.[id number] [facility] 2019-11-02 00:00:00 2019-11-02 00:00:00 Case Management Nano Gregory [facility] 1.2.840.114 350.1.13.10 4.2.7.2.686 [id number] 089 [id number] 2019-10-07 00:00:00 2019-10-07 00:00:00 Case Management Nano Gregory [facility] 1.2.840.114 350.1.13.10 4.2.7.2.[id number] [facility] 2019-10-07 00:00:00 2019-10-07 00:00:00 Case Management Nano Gregory [facility] 1.2.840.114 350.1.13.10 4.2.7.2.686 [id number] 089 [id number] 2019-10-04 00:00:00 2019-10-04 00:00:00 Telephone Rosa Morales [facility] 1.2.840.114 350.1.13.10 4.2.7.2.[id number] [facility] 2019-10-04 00:00:00 2019-10-04 00:00:00 [place] [facility] 1.2.840.114 350.1.13.10 4.2.7.2.686 [id number] 089 [id number] 2019-09-29 10:30:00 2019-09-29 10:30:00 Outpatient Chhaya CAROLA KULKARNI [facility] [id number] [facility] 2019-09-28 00:00:00 2019-09-28 00:00:00 Telephone Cesia Juarez [facility] 1.2.840.114 350.1.13.10 4.2.7.2.[id number] [facility] 2019-09-28 00:00:00 2019-09-28 00:00:00 Telephone Cesia Juarez [facility] 1.2.840.114 350.1.13.10 4.2.7.2.686 [id number] 089 [id number] 2019-08-17 10:00:00 2019-08-17 10:00:00 Outpatient R SHAD CAROLA [facility] [id number] [facility] 2019-08-17 07:23:13 2019-08-17 07:53:13 Telemedici ne Visit Shad [facility] 1.2.840.114 350.1.13.10 4.2.7.2.[id number] [facility] 2019-08-17 07:23:13 2019-08-17 07:53:13 Telemedici ne Visit [facility] 1.2.840.114 350.1.13.10 4.2.7.2.686 [id number] 089 [id number] 2019-08-17 00:00:00 2019-08-17 00:00:00 Telephone Shad [facility] 1.2.840.114 350.1.13.10 4.2.7.2.[id number] [facility] 2019-08-17 00:00:00 2019-08-17 00:00:00 Telephone Rosa Morales [facility] 1.2.840.114 350.1.13.10 4.2.7.2.[id number] [facility] 2019-08-17 00:00:00 2019-08-17 00:00:00 Telephone Carola Kulkarni [facility] 1.2.840.114 350.1.13.10 4.2.7.2.686 [id number] 089 [id number] 2019-08-17 00:00:00 2019-08-17 00:00:00 Telephone Rosa Morales [facility] 1.2.840.114 350.1.13.10 4.2.7.2.686 [id number] 089 [id number] 2019-08-16 00:00:00 2019-08-16 00:00:00 Case Management Nano Gregory [facility] 1.2.840.114 350.1.13.10 4.2.7.2.[id number] [facility] 2019-08-16 00:00:00 2019-08-16 00:00:00 Case Management Nano Gregory [facility] 1.2.840.114 350.1.13.10 4.2.7.2.[id number] [facility] 2019-08-16 00:00:00 2019-08-16 00:00:00 Case Management Nano Gregory [facility] 1.2.840.114 350.1.13.10 4.2.7.2.[id number] [facility] 2019-08-16 00:00:00 2019-08-16 00:00:00 Case Management Nano Gregory [facility] 1.2.840.114 350.1.13.10 4.2.7.2.686 [id number] 089 [id number] 2019-08-16 00:00:00 2019-08-16 00:00:00 Case Management Nano Gregory [facility] 1.2.840.114 350.1.13.10 4.2.7.2.686 [id number] 089 [id number] 2019-08-16 00:00:00 2019-08-16 00:00:00 Case Management Nano Gregory [facility] 1.2.840.114 350.1.13.10 4.2.7.2.686 [id number] 089 [id number] 2019-08-13 00:00:00 2019-08-13 00:00:00 Case Management Nano Gregory [facility] 1.2.840.114 350.1.13.10 4.2.7.2.[id number] [facility] 2019-08-13 00:00:00 2019-08-13 00:00:00 Case Management Nano Gregory [facility] 1.2.840.114 350.1.13.10 4.2.7.2.686 [id number] 089 [id number] 2019-08-12 00:00:00 2019-08-12 00:00:00 Case Management Nano Gregory [facility] 1.2.840.114 350.1.13.10 4.2.7.2.[id number] [facility] 2019-08-12 00:00:00 2019-08-12 00:00:00 Case Management Nano Gregory [facility] 1.2.840.114 350.1.13.10 4.2.7.2.686 [id number] 089 [id number] 2019-08-04 00:00:00 2019-08-04 00:00:00 Case Management Nano Gregory [facility] 1.2.840.114 350.1.13.10 4.2.7.2.[id number] [facility] 2019-08-04 00:00:00 2019-08-04 00:00:00 Case Management Nano Gregory [facility] 1.2.840.114 350.1.13.10 4.2.7.2.686 [id number] 089 [id number] 2019-07-27 00:00:00 2019-07-27 00:00:00 Case Management GregoryNano pack [facility] 1.2.840.114 350.1.13.10 4.2.7.2.[id number] [facility] 2019-07-27 00:00:00 2019-07-27 00:00:00 Case Management Nano Gregory [facility] 1.2.840.114 350.1.13.10 4.2.7.2.686 [id number] 089 [id number] 2019-07-26 00:00:00 2019-07-26 00:00:00 Case Management GregoryNano pack [facility] 1.2840.114 350.1.13.10 4.2.7.2.[id number] [facility] 2019-07-26 00:00:00 2019-07-26 00:00:00 Case Management GregoryNano pack [facility] 1.2.840.114 350.1.13.10 4.2.7.2.686 [id number] 089 [id number] 2019-04-07 08:30:00 2019-04-07 08:30:00 Outpatient CAROLA LALA [facility] [id number] [facility] 2019-03-18 00:00:00 2019-03-18 00:00:00 Telephone Oral Lion [facility] 1.840.114 350.1.13.10 4.2.7.2.[id number] [facility] 2019-03-18 00:00:00 2019-03-18 00:00:00 Telephone Oral Lion [facility] 1.2840.114 350.1.13.10 4.2.7.2.686 [id number] 089 [id number] 2019-03-15 00:00:00 2019-03-15 00:00:00 Case Management Zahira Garsia [facility] 1.2.840.114 350.1.13.10 4.2.7.2.[id number] [facility] 2019-03-15 00:00:00 2019-03-15 00:00:00 Case Management Zahira Garsia [facility] 1.2.840.114 350.1.13.10 4.2.7.2.686 [id number] 089 [id number] 2018-10-22 00:00:00 2018-10-22 00:00:[address] [facility] 1.2.840.114 350.1.13.10 4.2.7.2.[id number] [facility] 2018-10-22 00:00:00 2018-10-22 00:00:[address] [facility] 1.2.840.114 350.1.13.10 4.2.7.2.686 [id number] 089 [id number] 2018-10-13 00:00:00 2018-10-13 00:00:[address] [facility] 1.2.840.114 350.1.13.10 4.2.7.2.[id number] [facility] 2018-10-13 00:00:00 2018-10-13 00:00:[address] [facility] 1.2.840.114 350.1.13.10 4.2.7.2.686 [id number] 089 [id number] 2018-10-09 00:00:00 2018-10-09 00:00:00 Case Management Nano Gregory [facility] 1.2.840.114 350.1.13.10 4.2.7.2.[id number] [facility] 2018-10-07 00:00:00 2018-10-07 00:00:00 Case Management Nano Gregory [facility] 1.2.840.114 350.1.13.10 4.2.7.2.[id number] 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 2018-10-05 13:23:30 2018-10-05 15:08:46 [facility] 1.2.[facility].114 350.1.13.10 4.2.7.2.[id number] [facility] 2018-10-05 00:00:00 2018-10-05 00:00:00 Case Management Nano Gregory [facility] 1.2.840.114 350.1.13.10 4.2.7.2.[id number] [facility] 2018-10-05 00:00:00 2018-10-05 00:00:00 Orders Only Doctor Unassigned, [place] [facility] 1.2.840.114 350.1.13.10 4.2.7.2.[id number] [facility] 2018-10-05 00:00:00 2018-10-05 00:00:00 Case Management Oral Lion [facility] 1.2.840.114 350.1.13.10 4.2.7.2.[id number] [facility] 2018-09-29 00:00:00 2018-09-29 00:00:00 Case Management eCsia Juarez [facility] 1.2.840.114 350.1.13.10 4.2.7.2.[id number] [facility] 2018-08-31 00:00:00 2018-08-31 [facility] 1.2.840.114 350.1.13.10 4.2.7.2.[id number] [facility] Results Test Description Test Time Test Comments Results Result Co mments Source [facility] BY REAL-TIME PCR [id number] 17:18:00 * Test Item Value Reference Range Interpretation Comme nts HIV 1 by Real-Time PCR (test code = 4378333942) Not Detected Not Detected CINDI (test code = CINDI) HIV-1 Real-Time PCRInterpretative data:[employer] m2000 Real Time HIV-1 reverse decorating equipment setter-polymerase chain reaction (RT-PCR) assay is used. It [...] copies/mL>10,000,000 copies/mL; > upper limit of quantification. [facility] RockHEMOGLOBINOPATHY [id number] 18:50:00 * Test Item Value Reference Range Interpretation Comments HEMOGLOBIN EVAL A (BEAKER) (test code = 06992-7) 22.8 % 95-97.9 L HEMOGLOBIN EVAL A2 (BEAKER) (test code = 4552-6) 6.0 % 2-3.5 H HEMOGLOBIN EVAL F (BEAKER) (test code = 21542-7) 5.2 % 0-2.1 H HEMOGLOBIN EVAL C (BEAKER) (test code = 21366-6) >43.0 See_Comment [Automated message] The system which generated this result transmitted reference range: 0.0 %. The reference range was not used to interpret this result as normal/abnormal. HGB OTHER % (test code = 66862-0) 0.5 % HGB OTHER%= 0.5 HGB E HGB EVAL HPLC (test code = 15598-4) Y HGB EVAL INTERP (test code = 12833-6) Hemoglobinopathy evaluation by Capillary Electrophoresis and High Performance Liquid Chromatography shows Hg A (22%), increased Hg A26%, increased Hg F 5.2% and a variant hemoglobin > 43%%. The variant hemoglobin has a migration pattern and retention consistent with Hg C.?Blood smear show microcytosis, erythrocytosis and target cells. 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 Lab Interpretation (test code = 37207-7) Abnormal [facility] RockHEMOGLOBINOPATHY [id number] 18:50:00 * Test Item Value Reference Range Interpretation Comments HEMOGLOBIN EVAL A (BEAKER) (test code = 31862-6) 22.8 % 95-97.9 L HEMOGLOBIN EVAL A2 (BEAKER) (test code = 4552-6) 6.0 % 2-3.5 H HEMOGLOBIN EVAL F (BEAKER) (test code = 40750-7) 5.2 % 0-2.1 H HEMOGLOBIN EVAL C (BEAKER) (test code = 33077-1) >43.0 See_Comment [Automated message] The system which generated this result transmitted reference range: 0.0 %. The reference range was not used to interpret this result as normal/abnormal. HGB OTHER % (test code = 62162-7) 0.5 % HGB OTHER%= 0.5 HGB E HGB EVAL HPLC (test code = 47501-6) Y HGB EVAL INTERP (test code = 54935-2) Hemoglobinopathy evaluation by Capillary Electrophoresis and High Performance Liquid Chromatography shows Hg A (22%), increased Hg A26%, increased Hg F 5.2% and a variant hemoglobin > 43%%. The variant hemoglobin has a migration pattern and retention consistent with Hg C.?Blood smear show microcytosis, erythrocytosis and target cells. 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 Lab Interpretation (test code = 73765-7) Abnormal [facility] RockGAL[facility] ONLY - SYPHILIS [id number] 17:49:00* Test Item Value Reference Range Interpretation Comme nts Syphilis IgG/IgM (test code = 99322-1) Non-reactive Non-reactive CINDI (test code = CINDI) Non-reactive - No serologic evidence of T. pallidum infection. Cannot exclude incubating or early syphilis. Submit a second specimen in 2-4 weeks if syphilis is clinically suspected.Equivocal - Further testing to follow.Reactive - Further testing to follow. Lab Interpretation (test code = 66754-5) Normal [facility] - SYPHILIS [id number] 17:49:00* Test Item Value Reference Range Interpretation Comme nts Syphilis IgG/IgM (test code = 24463-4) Non-reactive Non-reactive CINDI (test code = CINDI) Non-reactive - No serologic evidence of T. pallidum infection. Cannot exclude incubating or early syphilis. Submit a second specimen in 2-4 weeks if syphilis is clinically suspected.Equivocal - Further testing to follow.Reactive - Further testing to follow. Lab Interpretation (test code = 05785-4) Normal [facility] RockCD4 SUBSET [id number] 17:18:00* Test Item Value Reference Range Interpretation Comme nts CD4 % (test code = 8123-2) 19 % 31-60 L CD4 Absolute (test code = 09003-3) See_Comment L [Automated [employer] ge] The system which generated this result transmitted reference range: 410-1,590 Cells/?L. The reference range was not used to interpret this result as normal/abnormal. Lab Interpretation (test code = 50471-3) Abnormal [facility] RockCD4 SUBSET [id number] 17:18:00* Test Item Value Reference Range Interpretation Comme nts CD4 % (test code = 8123-2) 19 % 31-60 L CD4 Absolute (test code = 52936-6) See_Comment L [Automated [employer] ge] The system which generated this result transmitted reference range: 410-1,590 Cells/?L. The reference range was not used to interpret this result as normal/abnormal. Lab Interpretation (test code = 58764-6) Abnormal [facility] RockPROSTATIC SPECIFIC [id number] 23:53:00 * Test Item Value Reference Range Interpretation Comme nts PSA (test code = 8533963741) 7.32 ng/mL See_Comment H [Automated message] The system which generated this result transmitted reference range: <=4.00. The reference range was not used to interpret this result as normal/abnormal. CINDI (test code = CINDI) Biotin has been reported to cause a negative bias, interpret results relative to patient's use of biotin. Lab Interpretation (test code = 40703-7) Abnormal [facility] RockPROSTATIC SPECIFIC [id number] 23:53:00 * Test Item Value Reference Range Interpretation Comme nts PSA (test code = 2393592947) 7.32 ng/mL See_Comment H [Automated message] The system which generated this result transmitted reference range: <=4.00. The reference range was not used to interpret this result as normal/abnormal. CINDI (test code = CINDI) Biotin has been reported to cause a negative bias, interpret results relative to patient's use of biotin. Lab Interpretation (test code = 51972-5) Abnormal [facility] RockBILI UNCONJUGATED/BILI [id number] 23:21:00* Test Item Value Reference Range Interpretation Comme nts BILI CONJ (test code = 7938353590) 0.0 mg/dL 0-0.3 BILI UNCON (test code = 4942118398) 0.4 mg/dL 0.1-1.1 Lab Interpretation (test cod e = 29611-6) Normal [facility] Round RockLIPID PANEL (98750)(TOTAL CHOLESTEROL, TRIGLYCERIDES, HDL)2018-10-05 23:21:00* Test Item Value Reference Range Interpretation Comme nts CHOL (test code = 1444787900) 155 mg/dL 120-200 HDL (test code = 2156667301) 74 mg/dL >40 HDLC RATIO (test code = 8998694428) See_Comment [Automated [employer]] The system which generated this result transmitted reference range: <=5.0. The reference range was not used to interpret this result as normal/abnormal. TRIG (test code = 8949096993) 101 mg/dL 30-170 LDL CHOL (test code = 92954-2) 61 mg/dL See_Comment [Automated [employer]] The system which generated this result transmitted reference range: <=160. The reference range was not used to interpret this result as normal/abnormal. VLDL (test code = 1703339967) 20 mg/dL 5-60 Lab Interpretation (test code = 85166-2) Normal [facility] RockCOMP. METABOLIC PANEL (88424)2018-10-05 23:21:00* Test Item Value Reference Range Interpretation Comme nts NA (test code = 1407488210) 139 mmol/L 135-145 K (test code = 6578031796) 4.1 mmol/L 3.5-5 CL (test code = 6843259461) 101 mmol/L 98-108 CO2 TOTAL (test code = 0916913484) 30 mmol/L 23-31 AGAP (test code = 6059613842) 2-16 BUN (test code = 7138673709) 16 mg/dL 7-23 GLUCOSE (test code = 8051447055) 87 mg/dL 70-110 CREATININE (test code = 7593551549) 1.09 mg/dL 0.6-1.25 TOTAL BILI (test code = 6290305136) 0.8 mg/dL 0.1-1.1 CALCIUM (test code = 2356845786) 9.9 mg/dL 8.6-10.6 T PROTEIN (test code = 6196686248) 7.8 g/dL 6.3-8.2 ALBUMIN (test code = 8365977901) 4.7 g/dL 3.5-5 ALK PHOS (test code = 3009268561) 72 U/L 34-122 ALT(SGPT) (test code = 3940502606) 53 U/L 9-51 H AST(SGOT) (test code = 8272390676) 38 U/L 13-40 eGFR Calculation (Non-) (test code = 9140240484) mL/min/1.73m2 eGFR Calculation () (test code = 1075323979) mL/min/1.73m2 CINDI (test code = CINDI) Association of [...] or abnormalities in imaging tests). Lab Interpretation (test code = 93087-4) Abnormal [facility] RockBILI UNCONJUGATED/BILI [id number] 23:21:00* Test Item Value Reference Range Interpretation Comme nts BILI CONJ (test code = 2810371436) 0.0 mg/dL 0-0.3 BILI UNCON (test code = 8376740075) 0.4 mg/dL 0.1-1.1 Lab Interpretation (test cod e = 25283-2) Normal [facility] RockLIPID PANEL (02250)(TOTAL CHOLESTEROL, TRIGLYCERIDES, HDL)2018-10-05 23:21:00* Test Item Value Reference Range Interpretation Comme nts CHOL (test code = 1944478064) 155 mg/dL 120-200 HDL (test code = 5903574590) 74 mg/dL >40 HDLC RATIO (test code = 3620290408) See_Comment [[employer]] The system which generated this result transmitted reference range: <=5.0. The reference range was not used to interpret this result as normal/abnormal. TRIG (test code = 1114398494) 101 mg/dL 30-170 LDL CHOL (test code = 68758-2) 61 mg/dL See_Comment [[employer]] The system which generated this result transmitted reference range: <=160. The reference range was not used to interpret this result as normal/abnormal. VLDL (test code = 9007243731) 20 mg/dL 5-60 Lab Interpretation (test code = 04526-2) Normal [facility] RockCOMP. METABOLIC PANEL (82569)2018-10-05 23:21:00* Test Item Value Reference Range Interpretation Comme nts NA (test code = 9277200151) 139 mmol/L 135-145 K (test code = 0753172755) 4.1 mmol/L 3.5-5 CL (test code = 6383735960) 101 mmol/L 98-108 CO2 TOTAL (test code = 5792138142) 30 mmol/L 23-31 AGAP (test code = 6518415719) 2-16 BUN (test code = 3618277734) 16 mg/dL 7-23 GLUCOSE (test code = 7315195183) 87 mg/dL 70-110 CREATININE (test code = 0722478238) 1.09 mg/dL 0.6-1.25 TOTAL BILI (test code = 5313017355) 0.8 mg/dL 0.1-1.1 CALCIUM (test code = 6414079968) 9.9 mg/dL 8.6-10.6 T PROTEIN (test code = 5370440655) 7.8 g/dL 6.3-8.2 ALBUMIN (test code = 1328954194) 4.7 g/dL 3.5-5 ALK PHOS (test code = 5059158707) 72 U/L 34-122 ALT(SGPT) (test code = 5264876496) 53 U/L 9-51 H AST(SGOT) (test code = 5561290176) 38 U/L 13-40 eGFR Calculation (Non-) (test code = 9384348074) mL/min/1.73m2 eGFR Calculation () (test code = 1513185685) mL/min/1.73m2 CINDI (test code = CINDI) Association of [...] or abnormalities in imaging tests). Lab Interpretation (test code = 42334-6) Abnormal [facility] RockCB WITH [id number] 21:44:00* Test Item Value Reference Range Interpretation Comme nts WBC (test code = 6690-2) See_Comment [[employer]] The system which generated this result transmitted reference range: 4.20 - 10.70 10*3/?L. The reference range was not used to interpret this result as normal/abnormal. RBC (test code = 789-8) See_Comment H [[employer]] The system which generated this result transmitted reference range: 4.26 - 5.52 10*6/?L. The reference range was not used to interpret this result as normal/abnormal. HGB (test code = 718-7) 12.9 g/dL 12.2-16.4 HCT (test code = 4544-3) 37.6 % 38.4-49.3 L MCV (test code = 787-2) 63.5 fL 81.7-95.6 L MCH (test code = 785-6) 21.8 pg 26.1-32.7 L MCHC (test code = 786-4) 34.3 g/dL 31.2-35 RDW-SD (test code = 66323-0) 37.5 fL 38.5-51.6 L RDW-CV (test code = 788-0) 18.2 % 12.1-15.4 H PLT (test code = 777-3) See_Comment [[employer]] The system which generated this result transmitted reference range: 150 - 328 10*3/?L. The reference range was not used to interpret this result as normal/abnormal. MPV (test code = 90312-3) 9.9 fL 9.8-13 NRBC/100 WBC (test code = 0077177634) See_Comment [Automated me ssage] The system which generated this result transmitted reference range: 0.0 - 10.0 /100 WBCs. The reference range was not used to interpret this result as normal/abnormal. NRBC x10^3 (test code = 8670365769) See_Comment [Automated messa ge] The system which generated this result transmitted reference range: 10*3/?L. The reference range was not used to interpret this result as normal/abnormal. GRAN MAT (NEUT) % (test code = 770-8) 67.8 % IMM GRAN % (test code = 8188385558) 0.30 % LYMPH % (test code = 736-9) 21.8 % MONO % (test code = 5905-5) 8.1 % EOS % (test code = 713-8) 1.2 % BASO % (test code = 706-2) 0.8 % GRAN MAT x10^3(ANC) (test code = 6765203777) 5.09 10*3/uL 1.99-6.95 IMM GRAN x10^3 (test code = 3268333149) <0.03 0-0.06 LYMPH x10^3 (test code = 731-0) 1.64 10*3/uL 1.09-3.23 MONO x10^3 (test code = 742-7) 0.61 10*3/uL 0.36-1.02 EOS x10^3 (test code = 711-2) 0.09 10*3/uL 0.06-0.53 BASO x10^3 (test code = 704-7) 0.06 10*3/uL 0.01-0.09 Lab Interpretation (test code = 96987-0) Abnormal [facility] WITH [id number] 21:44:00* Test Item Value Reference Range Interpretation Comme nts WBC (test code = 6690-2) See_Comment [Automated messa ge] The system which generated this result transmitted reference range: 4.20 - 10.70 10*3/?L. The reference range was not used to interpret this result as normal/abnormal. RBC (test code = 789-8) See_Comment H [Automated messa ge] The system which generated this result transmitted reference range: 4.26 - 5.52 10*6/?L. The reference range was not used to interpret this result as normal/abnormal. HGB (test code = 718-7) 12.9 g/dL 12.2-16.4 HCT (test code = 4544-3) 37.6 % 38.4-49.3 L MCV (test code = 787-2) 63.5 fL 81.7-95.6 L MCH (test code = 785-6) 21.8 pg 26.1-32.7 L MCHC (test code = 786-4) 34.3 g/dL 31.2-35 RDW-SD (test code = 59009-7) 37.5 fL 38.5-51.6 L RDW-CV (test code = 788-0) 18.2 % 12.1-15.4 H PLT (test code = 777-3) See_Comment [Automated [employer] ge] The system which generated this result transmitted reference range: 150 - 328 10*3/?L. The reference range was not used to interpret this result as normal/abnormal. MPV (test code = 41823-0) 9.9 fL 9.8-13 NRBC/100 WBC (test code = [id number]) See_Comment [Automated [employer] ssage] The system which generated this result transmitted reference range: 0.0 - 10.0 /100 WBCs. The reference range was not used to interpret this result as normal/abnormal. NRBC x10^3 (test code = [id number]) See_Comment [Automated [employer] ge] The system which generated this result transmitted reference range: 10*3/?L. The reference range was not used to interpret this result as normal/abnormal. GRAN MAT (NEUT) % (test code = 770-8) 67.8 % IMM GRAN % (test code = 8691951235) 0.30 % LYMPH % (test code = 736-9) 21.8 % MONO % (test code = 5905-5) 8.1 % EOS % (test code = 713-8) 1.2 % BASO % (test code = 706-2) 0.8 % GRAN MAT x10^3(ANC) (test code = 1851657660) 5.09 10*3/uL 1.99-6.95 IMM GRAN x10^3 (test code = 1921805344) <0.03 0-0.06 LYMPH x10^3 (test code = 731-0) 1.64 10*3/uL 1.09-3.23 MONO x10^3 (test code = 742-7) 0.61 10*3/uL 0.36-1.02 EOS x10^3 (test code = 711-2) 0.09 10*3/uL 0.06-0.53 BASO x10^3 (test code = 704-7) 0.06 10*3/uL 0.01-0.09 Lab Interpretation (test code = 33270-3) Abnormal [facility] Notes Date/Time Note Provider Source 2023-03-21 15:04:52 7iNAgGVfeBXFFEYcD6qM NmyxIORRmFQx/T0 ZMRpimJRtqZoBEP1K5XI7SUdYgmWx0077-6 5:04:52 REFILLProvider: LALY PalomoCPatient's phone number: [phone] (home) [phone] (work)[address] [facility] [address]ication: amlodipineStrength: 10 mgDirections: 1 tab dailyQuantity: #30 tabs no refills last written 01/13/23Las filled: 01/14/23Last office visit: 01/11/22Next office visit: 04/03/23.Will send 1 month with instructions for patient to keep the appointment for 04/03/23.Refilled per ID protocol guidelines to pharmacy above. 37122-2Behcdiauu encounter QlfgGP0003-41-92D02:11:42Telephone encounter NoteTXT1.2.840.608273.1.13.104.2.7. 2.002072|[id number] for patient uksg18025-6NhbrXODWVQHSWEYUuafuhinm C-CDA narrative [id number] M Isaac RNUT[id number] 9RSVXKFTNGGLBSGSJVFDXPC0781-41-39E8 5:11:421.2.840.336874.1.72.3.15|1.2 .840.479880.1.13.104.2.7.2.727879_2 [id number] Yocasta Lepe Poncho RN [facility] 2023-03-21 11:02:58 oJJK0i7+rHGIR7Ri65kR 83AUIw2QynDsodO sVARMmDUOa3/zBtfHhIFtcbx4OQQs5060-0 1:02:58 Raymon Minaya is a 58 year old maleNeeding temporary refill for high blood pressure medicine until upcoming apptStates he's completley outamLODIPine 10 mg tabletPlease advise, thank [facility] - [address], [place], [place] [address]Iqknguxlbjnqzo signed by Ethel Sinclair at 03/21/2023 11:05 AM DJO94917-0Rbauuggdv encounter RbsdQD6762-52-01G00:05:02Telephone encounter NoteTXT1.2.840.502864.1.13.104.2.7. 2.922746|[id number] for patient mylg91173-5PrveYRTYWEYTUKCElppxwjwk C-CDA narrative text[id number] 0EVEGTQXHGPHXDEZVXHKHIM3940-21-18X9 1:05:021.2.840.768078.1.72.3.15|1.2 .840.812781.1.13.104.2.7.2.727879_2 [id number] [facility] 2023-02-07 14:18:46 mGT//ZJxrwgAFahv/1zO N4b68NzyHr/7mHA RDMtLXx6DWQpDbC4JvOBKAOkRiBFZ9547-7 4:18:46Addended by: YOCASTA BYRD on: 02/07/2023 02:18 PMModules accepted: Orders 26919-1Ovfgxaqs WrlbgqkeLF0219-75-80M85:18:46Addend um DocumentTXT1.2.840.554742.1.13.104. 2.7.2.311351|[id number] for patient slej51416-5FemrXAYTJEGQSFMBlipwetcq C-CDA narrative [id number] 7OTTGKRHNENJOQKUBXAFSXS1156-37-01J9 4:18:461.2.840.756699.1.72.3.15|1.2 .840.046020.1.13.104.2.7.2.727879_1 [id number] [facility] 2023-02-07 14:17:10 4440m5gQiOqgh4pYex3n EV7z5ye+bT/XpkL DUPeY4pNsuEUv2lNOUWelpIYDrXUS3785-3 4:17:10 Sorry, yes its the [place] Location, I will make the changes. Thank you! 43315-2Uvevywoqz encounter TdaeYZ1008-43-84M18:17:37Telephone encounter NoteTXT1.2.840.737953.1.13.104.2.7. 2.539559|[id number] for patient tlfk84813-0PbgvCFEIROVBHDSTnvsxfcmh C-CDA narrative text[address] [id number] 0NMNHIMKDVSFXJJFHYHOJVM3736-67-38O0 4:17:371.2.840.101002.1.72.3.15|1.2 .840.003245.1.13.104.2.7.2.727879_1 [id number] [facility] 2023-02-07 13:36:50 Uhzh45KHZuhxqNU/iO47 U4H6PySybUDF7CM UGUUG4SKPJ1UyC5JlqTQ+unlyAMW69744-0 :36:50Addended by: CAROLA VALENTINO on: 02/07/2023 01:36 PMModules accepted: Orders 79068-2Tcxfsfhv AgzvjfzpIK2254-70-31Q39:36:50Addend um DocumentTXT1.2.840.601908.1.13.104. 2.7.2.228317|[id number] for patient njtw08643-6HaufZAPWSWMICQWJpbhambgf C-CDA narrative text[address] Wwta[id number] 7KRGJPIGDLRHCUTMGOAOJDA8822-28-13T5 3:36:501.2.840.143073.1.72.3.15|1.2 .840.958646.1.13.104.2.7.2.727879_1 [id number] [facility] 2023-02-07 13:34:35 5RFp5/k+J2tYp0RNY0PB GMMMSi4mSeKDpvu vcT3vbEv9gwh1tAsMIfL2258UnyND9668-6 2-29T13:34:35 [facility] [place] ? [facility] [place]. No refills. RTC 02/18/23 95212-2Ihbzpkqiw encounter TmtfIG7688-08-26H72:36:29Telephone encounter NoteTXT1.2.840.633997.1.13.104.2.7. 2.755887|[id number] for patient lnew72910-2RmalICMFJLRVHYJIsdycpixc C-CDA narrative textUT[address] Fwrp[id number] 9QPXFXKYAPCFWJYEQQMFURW6246-08-89G0 3:36:291.2.840.965978.1.72.3.15|1.2 .840.552207.1.13.104.2.7.2.727879_1 [id number] [facility] 2023-02-07 13:25:02 UwDroo9FXq+IGmLmy8yS rSmyjxi1JpPB2dR lN1CgUjmnMexRRj2YhSuYZi2FTTwd2064-5 3:25:02 REFILL (already sent to the pharmacy)Provider: Jeremi Griffin'alicia phone number: [phone] (home) [phone] (work)Pharmacy:[facility]/pharmacy #[id number] [address]: Ghcvlfonqt: xrffzslss-kkmjwksu-nnfsmtw ala (BIKTARVY)Strength: 50-200-25 mg tabletDirections: Take 1 tablet by mouth in the morning.Quantity: 30 Tablets with Zero RefillsLast filled: 01/13/2023Last office visit: 01/11/2022Next scheduled visit: 02/18/2023 50793-0Jpfagigbh encounter ZaybGV3201-18-12Y45:30:30Telephone encounter NoteTXT1.2.840.272242.1.13.104.2.7. 2.518757|[id number] for patient wtte66988-4PsqlWBFYDEUELFKJripoefiv C-CDA narrative textUT13 [address] [id number] 0APTSCBSPGSNGQUPETVDJGA3283-34-42D5 3:30:301.2.840.231369.1.72.3.15|1.2 .840.362197.1.13.104.2.7.2.727879_1 [id number] [facility] 2023-02-07 12:40:44 CPYyJrK83zfsYqPrRqVn phe+yorgnnWltiO +P2e4aevj1z3aBiVrPPen4kwiDAsh7529-9 2:40:44 Raymon Minaya is a 58 year old malePts pharmacy calling requesting a refill.cxgspdhkl-ryexhaup-xasqhlh ala (BIKTARVY) 50-200-25 mg tabletCVS [facility] - [address] [address] [facility] CenterjessicaS[facility] [address]Xbyoe: [phone] Wsunwp advise 38475-1Jqfhmnwab encounter BkwlPS7554-23-36Y98:42:50Telephone encounter NoteTXT1.2.840.686862.1.13.104.2.7. 2.372462|[id number] for patient sqex22576-6QvuyAWWYXQUUJLGDouxdnlux C-CDA narrative tnmd58899012QfxmkpjqRosalia Burleson13 [address] [id number] 9WQSTGEPZTTZPGBQGPDRWLI4816-44-12B1 2:42:501.2.840.372541.1.72.3.15|1.2 .840.848935.1.13.104.2.7.2.727879_1 [id number] Rosalia Renee [facility] 2022-10-18 12:27:43 Br3f7cMeo7C7uveMqCDS MxA2P2rUvmMQv+Z 06NP/5v/FwJilHTT4GV5TE49lMpVK6402-8 2:27:43 REFILLProvider: Kelli Palomo's phone number: [phone] (home) [phone] (work)Pharmacy: [facility] MAMedication: BitkarvyStrength: 50-200-25 mgDirections: 1 tab dailyQuantity: #30 last written 09/26/22Las filled: 09/29/22Last office visit: 01/11/22Nex office visit: not scheduled. Unsure if patient has moved to [place], this is the second refill he asked us to send to this pharmacy.Message sent to patient to call office to schedule a follow up appointment or let us know if he has moved. Refilled per ID protocol guidelines to pharmacy above. 25319-4Jzjujrmtm encounter BkigGA4122-65-04C51:35:20Telephone encounter NoteTXT1.2.840.431524.1.13.104.2.7. 2.407092|[id number] for patient uosa18039-6XcgeSGWWIMREJS[address] OmxpDxmrbykasMtkmxddctIEQX353578925 2FILYCSFUQTAYEXPYPBPUEN3847-62-50M4 2:35:201.2.840.572941.1.72.3.15|1.2 .840.205220.1.13.104.2.7.2.727879_1 [id number] [facility] 2022-09-26 10:50:03 jUW/GyQznXnzt/htrBl/ AUrcQoVAxdItGPG BZJboyvubIQen5+tbTApqiI5U7W0b8369-6 0:50:03 REFILLProvider: LALY PalomoCPatient's phone number: [phone] (home) [phone] (work)Pharmacy: [facility] MAMedication: BitkarvyStrength: 50-200-25 mgDirections: 1 tab dailyQuantity: #30 with 1 refill last written 06/13/22(Have been sending requests to patient to call us back to schedule a follow up. He has cancelled all the appointments made)Placed another request for patient to call and schedule a follow up.Last filled: ?Last office visit: 01/11/22Next office visit: not scheduled 33820-8Wdhqplmwe encounter AednYR2364-28-22I20:52:58Telephone encounter NoteTXT1.2.840.319928.1.13.104.2.7. 2.295970|[id number] for patient hrnc02064-2BuaaZVEJSCNJNW[address] Cjfz[id number] 3KPNOXDNEJZJPUHOGNNHKOD5588-48-50F6 0:52:581.2.840.264638.1.72.3.15|1.2 .840.259027.1.13.104.2.7.2.727879_1 [id number] [facility] 2022-09-26 09:45:29 Qo9nZnMGwKLMit86yCum noC0IBrgcb/B9O3 Y56LwV7LelHy2xeHga9x3tyEFqO5j7379-6 09:45:29 Raymon Minaya is a 57 year old malePt is calling to request a refill for BIKTARVY 50-200-25 mg tablet, Pt states, he is out of town in [place], Please adviseCVS Pharmacy [address] [place] [address] [place], [place] [address]CY:[phone] 05944-2Viorcuwwt encounter HdrfAQ0195-55-21M92:48:28Telephone encounter NoteTXT1.2.840.919202.1.13.104.2.7. 2.878544|[id number] for patient xpkp65478-6IsjbZG680793504Qzpqtp N [address] Sl[id number] 4NHNHPSRRIZLJGINOGWBHTH3480-71-38W7 9:48:281.2.840.788379.1.72.3.15|1.2 .840.823722.1.13.104.2.7.2.727879_1 [id number] Giselle Stiles [facility]"
--- NOTE | 2023-03-24 20:46 | RAD REPORT ---
EXAM DESCRIPTION: CT - Stone Protocol - 03/24/2023 8:19 pm CLINICAL HISTORY: Abdominal pain. Back pain COMPARISON: 2022 TECHNIQUE: Computed axial tomography of the abdomen pelvis was obtained without oral or IV contrast. Lack of IV and oral contrast limits evaluation of solid organs, appendix, bowel, and vessels. Rodriguez l reformatted images were obtained and reviewed. All CT scans are performed using dose optimization technique as appropriate and may include automated exposure control or mA/KV adjustment according to patient size. FINDINGS: A renal calculus is not seen. An ureteral calculus is not noted. A bladder calculus is not present. No hydronephrosis. Small renal cysts. Small low-density hepatic lesions unchanged probably benign Spleen, pancreas and adrenals appear grossly normal Moderate umbilical hernia contains fat. Lipoma anterior compartment left by unchanged There is no evidence of diverticulitis. The appendix appears normal Moderate osteoarthritis left hip. Hjalpvif-qc-xfcrwm enlargement prostate gland IMPRESSION: Negative for a genitourinary calculus
[2023-03-24 20:55] LABS: Absolute Lymphocytes (CBC) 1.7 K/uL (0.7-4.9); Lymphocytes % 32.9 % (15.3-44.8); MCV 61.6 fL (80-100); MPV 8.6 fL (7.6-11.3); Platelets 216 thou/uL (152-406); RBC Red Blood Cell Count 5.51 M/uL (4.33-5.43)
[2023-03-24 21:11] LABS: Albumin 3.8 g/dL (3.4-5.0); Bilirubin Total 1.1 mg/dL (0.2-1.0); Potassium 3.6 mEq/L (3.5-5.1); Protein, Total 7.2 g/dL (6.4-8.2)
[2023-03-24 21:39] LABS: Specific Gravity 1.025 (1.005-1.030); Urine Bacteria None Seen /HPF (<20); Urine Bilirubin NEGATIVE (Negative); Urine Blood Negative (Negative); Urine Clarity Clear (Clear); Urine Color Yellow (Yellow); Urine Glucose NEGATIVE (Negative); Urine Mucus 1+ /HPF (None Seen); Urine Protein TRACE (Negative); Urine RBC <5 /HPF (None Seen); Urine Urobilinogen Normal (Normal); Urine pH 5.5 (5.0-7.0)
[2023-03-24 22:34] LABS: Blood Morphology Comment NOTED (NOT SEEN); Hypochromasia 2+; Platelet Estimate ADEQ; Target Cells 2+; White Blood Cell Scan OK (OK)
--- NOTE | 2023-03-24 23:31 | ER ---
Nurse's Notes [facility] Name: Nadir Johns Age: 58 yrs Sex: Male : 1965 Arrival Date: 03/24/2023 Time: 19:56 Bed 16 Private MD: Diagnosis: Dorsalgia, unspecified;Abnormal results of liver function studies;Hypertensive heart disease without heart failure Presentation: 03/24 20:04 Chief complaint: EMS states: toned out for acute back pain. patient slipped and fell a me1 few days ago at work and had no pain until getting out of the shower just lighter captain and he lifted his right leg and had sudden onset of sharp pain "10/10" to right lower back. Coronavirus screen: Vaccine status: Patient reports receiving the 2nd dose of the covid vaccine. Ebola Screen: No symptoms or risks identified at this time. Initial Sepsis Screen: Does the patient meet any 2 criteria? No. Patient's initial sepsis screen is negative. Does the patient have a suspected source of infection? No. Patient's initial sepsis screen is negative. Risk Assessment: Do you want to hurt yourself or someone else? Patient reports no desire to harm self or others. Onset of symptoms was March 24, 2023. 20:04 Method Of Arrival: EMS me1 20:04 Acuity: JARON 3 me1 Triage Assessment: 20:07 General: Appears uncomfortable, well groomed, well developed, well nourished, Behavior me1 is calm, cooperative, appropriate for age, Reports sudden onset of pain to right lower back when getting out of the shower tonight. Patient did have a slip and fall a few days ago but had no pain until just lighter captain. Pain: Complains of pain in right low back Pain does not radiate. Pain currently is 10 out of 10 on a pain scale. Quality of pain is described as sharp, stabbing, Pain began suddenly, Is continuous. Neuro: Level of Consciousness is awake, alert, obeys commands, Oriented to person, place, time, situation, Appropriate for age. Cardiovascular: Capillary refill < 3 seconds Patient's skin is warm and dry. Respiratory: Airway is patent Trachea midline Respiratory effort is even, unlabored, Respiratory pattern is regular, symmetrical. Musculoskeletal: Reports pain in right low back since just lighter captain. Historical: - Allergies: 20:07 No Known Allergies; me1 - Home Meds: 20:07 amlodipine oral [Active]; me1 - PMHx: 20:07 HIV; Hypertension; sciatica; TIA; me1 - PSHx: 20:07 hernia; me1 - Immunization history:: Adult Immunizations up to date. - Social history:: Smoking status: Patient reports the use of cigarette tobacco products, denies chronic smoking, but will smoke occasionally. Screenin:11 [facility] ED Fall Risk Assessment (Adult) History of falling in the last 3 months, me1 including since admission Yes- single mechanical fall (1 pt) Confusion or Disorientation No (0 pts) Intoxicated or Sedated No (0 pts) Impaired Gait No (0 pts) Mobility Assist Device Used No (0 pt) Altered Elimination No (0 pt) Score/Fall Risk Level 0 - 2 = Low Risk Maintained a safe environment, Provided non-skid footwear, Hourly rounding (assess needs \\T\\ fall precautionary measures) done. Abuse screen: Denies threats or abuse. Nutritional screening: No deficits noted. Tuberculosis screening: No symptoms or risk factors identified. Assessment: 20:11 General: see triage assessment. . me1 22:00 Reassessment: Patient appears in no apparent distress at this time. Patient and/or km8 family updated on plan of care and expected duration. Pain level reassessed. Patient is alert, oriented x 3, equal unlabored respirations, skin warm/dry/pink. General: Appears in no apparent distress. Neuro: Level of Consciousness is awake, alert, obeys commands, Oriented to person, place, time, situation. Cardiovascular: Denies chest pain, Patient's skin is warm and dry. Respiratory: Airway is patent Respiratory effort is even, unlabored, Respiratory pattern is regular, symmetrical. 23:11 Reassessment: Patient appears in no apparent distress at this time. No changes from km8 previously documented assessment. Patient and/or family updated on plan of care and expected duration. Pain level reassessed. Patient is alert, oriented x 3, equal unlabored respirations, skin warm/dry/pink. Vital Signs: 20:00 BP 185 / 109; Pulse 74; Resp 18; Pulse Ox 99% on R/A; me1 20:04 BP 183 / 97; Pulse 79; Resp 18; Temp 98.4(O); Pulse Ox 100% on R/A; Weight 90.72 kg; me1 Height 5 ft. 10 in. ; Pain 10/10; 21:00 BP 133 / 73; Pulse 65; Resp 18; Pulse Ox 98% on R/A; me1 22:00 BP 145 / 98; Pulse 68; Resp 16; Pulse Ox 98% on R/A; km8 22:30 BP 171 / 114; Pulse 67; Resp 16; Pulse Ox 98% on R/A; km8 23:30 BP 144 / 93; Pulse 70; Resp 16; Pulse Ox 97% on R/A; km8 20:04 Body Mass Index 28.70 (90.72 kg, 177.8 cm) me1 20:04 Pain Scale: Adult ca1 ED Course: 20:03 Patient arrived in ED. me1 20:03 Gal العراقي PA is PHCP. cp 20:03 Luciano Warren MD is Attending Physician. cp 20:04 Jenae Villasenor, RAMONITA is Primary Nurse. me1 20:07 Triage completed. me1 20:07 Arm band placed on Patient placed in an exam room. me1 20:11 Patient has correct armband on for positive identification. Bed in low position. Call ca1 light in reach. Side rails up X2. Provided Education on: POC. Verbalized understanding. . 20:11 No provider procedures requiring assistance completed. me1 20:21 CT Stone Protocol In Process Unspecified. EDMS 20:36 Inserted saline lock: 20 gauge in left antecubital area, using aseptic technique. me1 20:37 CBC with Diff Sent. me1 20:37 CMP Sent. me1 20:37 Lipase Sent. me1 20:37 Urinalysis w/ reflexes Sent. me1 22:36 US Abdomen Limited: gallbladder In Process Unspecified. EDMS 23:29 Yonathan Calderon MD is Referral Physician. cp 23:43 IV discontinued, intact, bleeding controlled, No redness/swelling at site. Pressure km8 dressing applied. Administered Medications: 20:37 Drug: TORadol - Ketorolac IVP 15 mg IVP once Route: IVP; Site: right antecubital; me1 20:50 Follow up: Response: No adverse reaction; Pain is decreased me1 20:37 Drug: Decadron - Dexamethasone IVP 10 mg IVP once Route: IVP; Site: right antecubital; me1 20:50 Follow up: Response: No adverse reaction me1 20:37 Drug: NS 0.9% IV 500 ml IV at bolus once Route: IV; Rate: bolus; Site: right ca1 antecubital; 21:16 Follow up: IV Status: Completed infusion; IV Intake: 500ml me1 20:46 Drug: Methocarbamol IVPB 1 grams IVPB once over 1 hrs; (mix in NS 100 mL) Route: IVPB; me1 Infused Over: 1 hrs; Site: left antecubital; 21:47 Follow up: Response: Pain is decreased; IV Status: Completed infusion; IV Intake: 100ml me1 21:16 Drug: NS 0.9% IV 500 ml IV at 125 ml/hr continuous Route: IV; Rate: 125 ml/hr; [place] [facility] [place] antecubital; 23:54 Follow up: IV Status: Completed infusion km8 Medication: 20:11 VIS not applicable for this client. me1 Intake: 21:16 IV: 500ml; Total: 500ml. me1 21:47 IV: 100ml; Total: 600ml. me1 Outcome: 23:30 Discharge ordered by MD. oscar 23:54 Discharged to home ambulatory, km8 23:54 Condition: good 23:54 Discharge instructions given to patient, Instructed on discharge instructions, follow up and referral plans. medication usage, Demonstrated understanding of instructions, follow-up care, medications, Prescriptions given X 2, 23:55 Patient left the ED. km8 Signatures: Dispatcher [employer] EDNC Gal العراقي PA PA cp Eddleman, Michelle, RN RN [facility] Lina Macedo RN RN 8 Corrections: (The following items were deleted from the chart) 20:46 20:36 Inserted saline lock: 20 gauge in right antecubital area, using aseptic me1 technique. me1
--- NOTE | 2023-03-24 23:31 | EDPHYS ---
Physician Documentation [facility] Name: Nadir Johns Age: 58 yrs Sex: Male : 1965 Arrival Date: 03/24/2023 Time: 19:56 Bed 16 Private MD: ED Physician Luciano Warren HPI: 03/24 20:15 This 58 yrs old Black Male presents to ER via EMS with complaints of Back Pain. cp 20:15 The patient presents with pain that is acute. The symptoms are located in the right mid cp back and right low back. Onset: The symptoms/episode began/occurred today. The pain radiates to the right buttock. Associated signs and symptoms: Pertinent negatives: abdominal pain, chest pain, constipation, fever, hematuria, incontinence, numbness, urinary retention, weakness. 20:15 The problem was sustained pain started suddenly tonight getting out of shower. patient cp reports he did fall at work several days ago but did not have pain after fall. Historical: - Allergies: 20:07 No Known Allergies; me1 - Home Meds: 20:07 amlodipine oral [Active]; me1 - PMHx: 20:07 HIV; Hypertension; sciatica; TIA; me1 - PSHx: 20:07 hernia; me1 - Immunization history:: Adult Immunizations up to date. - Social history:: Smoking status: Patient reports the use of cigarette tobacco products, denies chronic smoking, but will smoke occasionally. ROS: 20:20 Constitutional: Negative for body aches, chills, fever, poor PO intake, cp 20:20 Eyes: Negative for injury, pain, redness, and discharge, cp 20:20 ENT: Negative for drainage from ear(s), ear pain, sore throat, difficulty swallowing, difficulty handling secretions, 20:20 Neck: Negative for pain with movement, pain at rest, stiffness, tenderness, bony tenderness, 20:20 Cardiovascular: Negative for chest pain, edema, palpitations, 20:20 Respiratory: Negative for cough, shortness of breath, wheezing, 20:20 Abdomen/GI: Negative for abdominal pain, vomiting, diarrhea, constipation, bowel incontinence, 20:20 Back: Positive for pain at rest, pain with movement, of the right mid back and right low back, 20:20 : Negative for urinary symptoms, hematuria, difficulty urinating, bladder incontinence, testicular pain 20:20 Neuro: Negative for dizziness, numbness, tingling, weakness, 20:20 All other systems are negative, Exam: 20:25 Constitutional: The patient appears in no acute distress, alert, awake, non-toxic, well cp developed, well nourished, uncomfortable, 20:25 Head/Face: Normocephalic, atraumatic. cp 20:25 Eyes: Periorbital structures: appear normal, Conjunctiva: normal, no exudate, no injection, Sclera: no appreciated abnormality, Lids and lashes: appear normal, bilaterally, 20:25 ENT: External ear(s): are unremarkable, Nose: is normal, Mouth: Lips: moist, Oral mucosa: moist, Posterior pharynx: Airway: no evidence of obstruction, patent, 20:25 Neck: ROM/movement: is normal, is supple, without pain, no range of motions limitations, 20:25 Chest/axilla: Inspection: normal, Palpation: is normal, no crepitus, no tenderness, 20:25 Cardiovascular: Rate: normal, Rhythm: regular, Edema: is not appreciated, JVD: is not appreciated, 20:25 Respiratory: the patient does not display signs of respiratory distress, Respirations: normal, no use of accessory muscles, no retractions, labored breathing, is not present, Breath sounds: are clear throughout, no decreased breath sounds, no stridor, no wheezing, 20:25 Abdomen/GI: Inspection: abdomen appears normal, Palpation: abdomen is soft and non-tender, in all quadrants, 20:25 Back: pain, that is severe, of the right mid back and right low back, ROM is painful, with all movement, vertebral tenderness, is not appreciated, Straight leg raises: of both lower extremities does not illicit pain, 20:25 Neuro: Orientation: to person, place \T\ time. Mentation: is normal, Motor: moves all fours, strength is normal, Sensation: no obvious gross deficits, Vital Signs: 20:00 BP 185 / 109; Pulse 74; Resp 18; Pulse Ox 99% on R/A; me1 20:04 BP 183 / 97; Pulse 79; Resp 18; Temp 98.4(O); Pulse Ox 100% on R/A; Weight 90.72 kg; me1 Height 5 ft. 10 in. ; Pain 10/; 21:00 BP 133 / 73; Pulse 65; Resp 18; Pulse Ox 98% on R/A; me1 22:00 BP 145 / 98; Pulse 68; Resp 16; Pulse Ox 98% on R/A; km8 22:30 BP 171 / 114; Pulse 67; Resp 16; Pulse Ox 98% on R/A; km8 23:30 BP 144 / 93; Pulse 70; Resp 16; Pulse Ox 97% on R/A; km8 20:04 Body Mass Index 28.70 (90.72 kg, 177.8 cm) me1 20:04 Pain Scale: Adult me1 MDM: 20:05 Patient medically screened. cp 21:00 Differential diagnosis: Cholelithiasis Pyelonephritis ruptured disc, spinal injury, cp sprain, Ureterolithiasis vertebral fracture, sciatica. 23:30 Data reviewed: vital signs, nurses notes, lab test result(s), radiologic studies, CT cp scan, ultrasound. 23:30 I considered the following discharge prescriptions or medication management in the emergency department Medications were administered in the Emergency Department. See MAR. Care significantly affected by the following chronic conditions: Hypertension. Counseling: I had a detailed discussion with the patient and/or guardian regarding the historical points, exam findings, and any diagnostic results supporting the discharge/admit diagnosis, lab results, radiology results, the need for outpatient follow up, a family practitioner, a general surgeon, to return to the emergency department if symptoms worsen or persist or if there are any questions or concerns that arise at home. Response to treatment: the patient's symptoms have markedly improved after treatment, and as a result, I will discharge patient. 03/24 20:05 Order name: CBC with Diff; Complete Time: 23:15 cp 03/24 22:00 Interpretation: Normal except: RBC 5.51; HGB 11.9; HCT 34.0; MCV 61.6; MCH 21.7; RDW cp 17.5. 03/24 20:05 Order name: CMP; Complete Time: 21:59 cp 03/24 22:00 Interpretation: Normal except: CL 109; GLUC 124; BUN 19; GFR 67; ALT 96; BILIT 1.1. cp 03/24 20:05 Order name: Lipase; Complete Time: 21:59 cp 03/24 20:05 Order name: Urinalysis w/ reflexes; Complete Time: 21:59 cp 03/24 23:15 Interpretation: Normal except: UPROT TRACE. cp 03/24 22:17 Order name: CBC Smear Scan; Complete Time: 23:15 EDMS 03/24 23:15 Interpretation: Reviewed. cp 03/24 20:05 Order name: CT Stone Protocol; Complete Time: 21:59 cp 03/24 22:01 Order name: US Abdomen Limited: gallbladder cp 03/24 20:05 Order name: IV Saline Lock; Complete Time: 20:37 cp 03/24 20:05 Order name: Labs collected and sent; Complete Time: 20:37 cp Administered Medications: 20:37 Drug: TORadol - Ketorolac IVP 15 mg IVP once Route: IVP; Site: right antecubital; me1 20:50 Follow up: Response: No adverse reaction; Pain is decreased me1 20:37 Drug: Decadron - Dexamethasone IVP 10 mg IVP once Route: IVP; Site: right antecubital; me1 20:50 Follow up: Response: No adverse reaction me1 20:37 Drug: NS 0.9% IV 500 ml IV at bolus once Route: IV; Rate: bolus; Site: right me1 antecubital; 21:16 Follow up: IV Status: Completed infusion; IV Intake: 500ml me1 20:46 Drug: Methocarbamol IVPB 1 grams IVPB once over 1 hrs; (mix in NS 100 mL) Route: IVPB; me1 Infused Over: 1 hrs; Site: left antecubital; 21:47 Follow up: Response: Pain is decreased; IV Status: Completed infusion; IV Intake: 100ml me1 21:16 Drug: NS 0.9% IV 500 ml IV at 125 ml/hr continuous Route: IV; Rate: 125 ml/hr; Site: me1 left antecubital; 23:54 Follow up: IV Status: Completed infusion km8 Disposition Summary: 03/24/23 23:30 Discharge Ordered Notes: Location: Home cp Problem: new cp Symptoms: have improved cp Condition: Stable cp Diagnosis - Dorsalgia, unspecified cp - Abnormal results of liver function studies cp - Hypertensive heart disease without heart failure cp Followup: cp - With: Yonathan Calderon MD - When: 2 - 3 days - Reason: Worsening of condition Discharge Instructions: - Discharge Summary Sheet cp - Acute Back Pain, Adult cp - Hypertension, Adult cp - Aspirin and Your Heart cp - Form - Blood Pressure Record Sheet cp - How to Take Your Blood Pressure cp Forms: - Medication Reconciliation Form cp - Thank You Letter cp - Antibiotic Education cp - Prescription Opioid Use cp - Patient Portal Instructions cp - Leadership Thank You Letter cp Prescriptions: - Cyclobenzaprine 10 mg Oral Tablet - take 1 tablet ORAL route every 8 hours As needed; 30 tablet; Refills: 0, cp Product Selection Permitted - Diclofenac Sodium 75 mg Oral Tablet Sustained Release - take 1 tablet ORAL route 2 times per day; 30 tablet; Refills: 0, Product cp Selection Permitted Signatures: Dispatcher [employer] EDMS Gal العراقي PA PA cp Jenae Villasenor RN RN me1 Lina Macedo RN km8 Corrections: (The following items were deleted from the chart) 03/25 22:06 22:04 This 58 yrs old Black Male presents to ER via EMS with complaints of Back Pain. cpcp
[2023-03-25 01:19] VITALS: BP 144/93; TEMP 98.4; O2SAT 97
--- NOTE | 2023-03-25 11:07 | RAD REPORT ---
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 FINDINGS: Liver: Was not reported, visualized portions suggest heterogeneous appearance with increas ed echogenicity. Gallbladder: The gallbladder is contracted. Echogenic material within the lumen area perhaps sugges ting adenomyomatosis and/or tiny calculi. Gallbladder wall thickness is increase due to contracted ga llbladder measuring 4.9 mm. Sonographic Mayorga's sign was not reported by the flat spring assembler. Intrahep atic biliary dilatation was not reported and/or visualized. The common bile duct measures 2.7 mm. Pancreas: Was not reported Right kidney: Was not reported Abdominal cavity: Was not reported. Aorta and IVC: Was not reported. IMPRESSION: Contracted gallbladder with echogenic material within the lumen area perhaps suggesting adenomyomatosis and/or tiny calculi. Gallbladder wall thickness is increase due to contracted gallbla dder. Sonographic Mayorga's sign was not reported by the flat spring assembler. The common bile duct is normal i n caliber. Electronically signed by: Jamie Johnson MD 03/24/2023 10:54 PM NAIL MAKING MACHINE TENDER Due to temporary technical issues with the PACS/Fluency reporting system, reports are being signed by the in house radiologist without review as a courtesy to ensure prompt reporting. The interpreting r adiologist is fully responsible for the content of the report.
== END ==
LOC: ER 19:56
DX: M54.9 Dorsalgia, unspecified (principal); R94.5 Abnormal results of liver function studies; I11.9 Hypertensive heart disease without heart failure
CPT/HCPCS: 36415; 74176; 76377; 76705; 80053; 81001; 83690; 85025; 96361; 96365; 96375; 99284; J1100; J2800; J7030